=== PATIENT | female | born 1980 | race Two or more races ===

== ENCOUNTER 2016-11-20 17:34 | Emergency (ER) | payer OTHER ==
[~2016-11-20 17:34] MED LIST: ACETAMINOPHEN-1 EAC1 ORAL; AMITRIPTYLINE25 MG ORAL; AMLODIPINE BESYL5 MG ORAL; AMLODIPINE BESYL5 MG PO; AMOXICILLIN500 MG ORAL; ATARAX25 MG ORAL; BENADRYL25 M3 PO; BENAZEPRIL HCL10 MG ORAL; BENAZEPRIL HCL20 MG ORAL; CEPHALEXIN500 MG ORAL; CIPRO500 MG PO; CIPROFLOXACIN500 M2 ORAL; CYCLOBENZAPRINE10 MG ORAL; DIFLUCAN150 MG PO; EASY COMFORT I1 EAC4 MC; EASY TOUCH MC; ELIMITE 5% CREA60 GM EXT; FIORICET1 EA PO; FLUCONAZOLE150 MG ORAL; GABAPENTIN300 MG ORAL; GABAPENTIN600 MG ORAL; HUMALOG100 UNIT/1 SUBQ; HUMALOG100 UNIT/2 SQ; HUMALOG100 UNIT/3 SUBQ; HUMALOG100 UNIT/4 SUBQ; HUMULIN N100 UNIT/1 SUBQ; IBUPROFEN600 MG ORAL; IBUPROFEN600 MG PO; INSULIN SYRING MC; KEFLEX500 MG ORAL; KENALOG 0.1% CR15 GM APPLIC; LANTUS SOL100 UNIT/1 SUBQ; LANTUS5 UNITS SUBQ; LORATADINE10 M1 PO; MEDROL DOSEPAK4 MG ORAL; METROGEL60 GM TP; METRONIDAZOLE500 MG ORAL; MICONAZOLE 31 EACH VG; NEURONTIN100 MG ORAL; NEXIUM40 MG ORAL; NORVASC5 MG ORAL; NOVOLIN N100 UNIT/1 SUBQ; NOVOLIN N100 UNIT/2 SQ; NOVOLIN R100 UNIT/1 SUBQ; OFLOXACIN10 ML OP; OMEPRAZOLE20 M2 ORAL; PEPTO-BISMOL262 M1 PO; PHENERGAN/CODE120 ML PO; PLAQUENIL200 MG ORAL; PRILOSEC20 MG ORAL; ROBAXIN-750750 MG PO; SIMVASTATIN10 MG ORAL; SIMVASTATIN20 MG ORAL; TAMIFLU75 MG PO; [UNRECOGNIZED DRUG - OTHER]; [UNRECOGNIZED DRUG - OTHER] MC; [UNRECOGNIZED DRUG - SUPPLY]
--- NOTE | 2016-11-25 08:20 | Emergency Room Report ---
History of Present Illness General Chief Complaint: To Be Triaged Present Illness HPI The patient left without being seen. Allergies: Coded Allergies: No Known Allergies (Unverified , 08/08/12) Nursing Documentation-PMH Hx Cardiac Problems: No Hx Hypertension: Yes Hx Pacemaker: No Hx Asthma: No Hx COPD: No Hx Diabetes: Yes Hx Cancer: No Hx Gastrointestinal Problems: Yes - GERD Hx Dialysis: No Hx Neurological Problems: No Hx Cerebrovascular Accident: No Hx Seizures: No Hx Headaches: Yes Medical Decision Making Diagnostic Impression: Primary Impression: Encounter for generalized patient complaints Disposition: LEFT W/OUT BEING SEEN Condition: Unknown Referrals: [facility],REFERRING (PCP) Pacheco Canas Nov 25, 2016 08:20
== END 2016-11-20 20:02 | disposition left against medical advice (07) ==
LOC: EMR 20:02
DX: R12 Heartburn (principal); Z53.21 Procedure and treatment not carried out due to patient leaving prior to being seen by health care provider

== ENCOUNTER 2017-04-15 15:47 | Emergency (ER) | payer OTHER ==
[~2017-04-15] VITALS: Ht 152.4 cm; Wt 72.6 kg
[2017-04-15 15:49] VITALS: BP 140/86
[2017-04-15] MEDS ORDERED: ANTI-ITCH28 G1 TP (16:01)
[2017-04-15 16:09] VITALS: BP 138/89
--- NOTE | 2017-04-15 17:57 | Emergency Room Report ---
History of Present Illness General Chief Complaint: Skin Rash/Abscess Source: Patient Present Illness HPI 37YOF walk-in with 1 week of bilateral arm and upper chest "heat rash." Patient states "Bernadette been driving more these days and the sun hit all these exposed areas." Associated with some itch, shes been scratching. Denies blisters, fever/ chills. Denies new soap, detergent, new pets. Allergies: Coded Allergies: No Known Allergies (Unverified , 08/08/12) Patient History Past Medical History: none Past Surgical History: none Pertinent Family History: none Social History: Denies: alcohol use, drug use, smoking Last Menstrual Period: last month Now: No Immunizations: UTD Reviewed Nursing Documentation: PMH: Agreed, PSxH: Agreed Nursing Documentation-PMH Past Medical History: No History, Except For Hx Cardiac Problems: No Hx Hypertension: Yes Hx Pacemaker: No Hx Asthma: No Hx COPD: No Hx Diabetes: Yes Hx Cancer: No Hx Gastrointestinal Problems: Yes - GERD Hx Dialysis: No Hx Neurological Problems: No Hx Cerebrovascular Accident: No Hx Seizures: No Hx Headaches: Yes Review of Systems All Other Systems: negative except mentioned in HPI Physical Exam Vital Signs Date Time Temp Pulse Resp B/P Pulse Ox O2 Delivery O2 Flow Rate FiO2 04/15/17 15:49 98.4 94 18 140/86 98 Room Air Sp02 EP Interpretation: reviewed, normal General Appearance: normal inspection, well appearing, no apparent distress, alert, GCS 15, non-toxic Head: normocephalic, atraumatic Eyes: bilateral eye EOMI, bilateral eye PERRL ENT: normal ENT inspection, hearing grossly normal, normal voice Neck: normal inspection, full range of motion, supple, no bony tend Respiratory: normal inspection, lungs clear, normal breath sounds, no respiratory distress, no retraction, no wheezing Cardiovascular #1: regular rate, rhythm, no edema Gastrointestinal: normal inspection, normal bowel sounds, non tender, soft, no guarding, no hernia Genitourinary: no CVA tenderness Musculoskeletal: normal inspection, back normal, normal range of motion, Jose M' s Sign negative Neurologic: normal inspection, alert, oriented x3, responsive, neurosurgery physician III-XII nml as tested, motor strength/tone normal, speech normal Psychiatric: normal inspection, judgement/insight normal, mood/affect normal Skin: normal inspection, other - Bilateral upper extremity and upper chest areas of papules without erythema, assoc with excoriations. No blistering Lymphatic: normal inspection Medical Decision Making Diagnostic Impression: Primary Impression: Rash and other nonspecific skin eruption Additional Impression: [place] ER Course Advised skin protection - clothing or sunblock when driving Rx low dose topical steroid PMD followup as needed DC home Last Vital Signs Date Time Temp Pulse Resp B/P Pulse Ox O2 Delivery O2 Flow Rate FiO2 04/15/17 16:09 98.3 91 17 138/89 99 Room Air Status: improved Disposition: HOME, SELF-CARE Condition: Improved Scripts Hydrocortisone 2% Cream (ANTI-ITCH 2% CREAM) Y Cr 28 GM TP TID for 7 Days, #1 UNIT Prov: THEODORE RODRIGUEZ M.D. 04/15/17 Referrals: [facility] (PCP) Patient Instructions: Rash Additional Instructions: - Keep area exposed to sun COVERED while driving or wear sunscreen, even in car - Apply topical hydrocortisone cream to areas of rash as needed THEODORE RODRIGUEZ M.D. April 15, 2017 17:57
== END 2017-04-15 16:09 | disposition home or self-care (01) ==
LOC: EMR 15:59
DX: R21 Rash and other nonspecific skin eruption (principal); L74.3 Miliaria, unspecified; I10 Essential (primary) hypertension; E11.9 Type 2 diabetes mellitus without complications; K21.9 Gastro-esophageal reflux disease without esophagitis; Z86.69 Personal history of other diseases of the nervous system and sense organs
CPT/HCPCS: 99283

== ENCOUNTER 2017-04-29 13:43 | Emergency (ER) | payer OTHER ==
[~2017-04-29] VITALS: Ht 152.4 cm; Wt 72.6 kg
[~2017-04-29 13:43] MED LIST changes: +ANTI-ITCH28 G1 TP
[2017-04-29 13:56] VITALS: BP 131/81
[2017-04-29] MEDS ORDERED: PRILOSEC10 M1 ORAL (13:58)
[2017-04-29] MEDS ORDERED: PEPCID AC20 M2 PO (13:58)
--- NOTE | 2017-04-29 14:00 | Emergency Room Report ---
History of Present Illness General Chief Complaint: Medication Refill Source: Patient Present Illness HPI 37 y/o female c/o medication refill for her acid reflux. She says she has had acid reflux for one year and has been evaluated by urea prepped us from her primary which was negative. Patient has prescription for omeprazole and states that she needs medication refill for her heartburn medication. Patient states that she had missed work because her acid reflux as severe today and is requesting work note. Patient denies any GI bleeding. States that cause of her heartburn is due to eating jalapenos with diagnosis of gastritis by PCP. Denies any current n/v/f/c/d, back pain, neck pain, photophobia, phonophobia, CP , SOB or headache. Allergies: Coded Allergies: No Known Allergies (Unverified , 08/08/12) Patient History Past Medical History: see triage record Past Surgical History: none Pertinent Family History: none Last Menstrual Period: 04/28/17 Now: No Immunizations: UTD Reviewed Nursing Documentation: PMH: Agreed, PSxH: Agreed Nursing Documentation-PMH Past Medical History: No History, Except For Hx Cardiac Problems: No Hx Hypertension: Yes Hx Pacemaker: No Hx Asthma: No Hx COPD: No Hx Diabetes: Yes Hx Cancer: No Hx Gastrointestinal Problems: Yes - GERD Hx Dialysis: No Hx Neurological Problems: No Hx Cerebrovascular Accident: No Hx Seizures: No Hx Headaches: Yes Review of Systems All Other Systems: negative except mentioned in HPI Physical Exam Vital Signs Date Time Temp Pulse Resp B/P Pulse Ox O2 Delivery O2 Flow Rate FiO2 04/29/17 13:50 97.7 81 16 131/81 100 Room Air Sp02 EP Interpretation: reviewed, normal General Appearance: no apparent distress, alert, GCS 15, non-toxic Head: normocephalic, atraumatic Eyes: bilateral eye normal inspection ENT: normal ENT inspection Respiratory: chest non-tender, lungs clear, normal breath sounds, speaking full sentences Cardiovascular #1: regular rate, rhythm, no edema Gastrointestinal: soft, tenderness - LUQ Musculoskeletal: normal inspection, gait/station normal Neurologic: alert, oriented x3, responsive, motor strength/tone normal, sensory intact, speech normal Skin: normal color, no rash, warm/dry, well hydrated Medical Decision Making PA Attestation Dr. Canas is my supervising physician with whom patient management has been discussed with. Diagnostic Impression: Primary Impression: Encounter for medication refill Additional Impressions: Gastritis Qualified Codes: K29.30 - Chronic superficial gastritis without bleeding Chronic GERD ER Course Pt. presents to the ED c/o med refill for abd pain Ddx considered but are not limited to viral syndrome, , appendicitis, diverticulitis, constipation, gastroenteritis, abdominal hernia, pancreatitis, cholecystitis, nephrolithiasis, and ovarian torsion. Vital signs: are WNL, pt. is afebrile H&PE are most consistent with Gastritis with acid reflux ORDERS: none required at this time, the diagnosis is clinical ED INTERVENTIONS: none required at this time. DISCHARGE: At this time pt. is stable for d/c to home. Will provide printed patient care instructions, and any necessary prescriptions. Care plan and follow up instructions have been discussed with the patient prior to discharge. Chest X-Ray Diagnostic Results Chest X-Ray Ordered: No Last Vital Signs Date Time Temp Pulse Resp B/P Pulse Ox O2 Delivery O2 Flow Rate FiO2 04/29/17 13:50 97.7 81 16 131/81 100 Room Air Status: unchanged Disposition: HOME, SELF-CARE Condition: Stable Scripts Famotidine (PEPCID AC) 20 Mg Tablet 20 MG PO DAILY, #14 TAB Prov: SABRY,TAMEEM P.A. 04/29/17 Omeprazole Magnesium (PRILOSEC) 10 Mg Suspdr.pkt 20 MG ORAL DAILY for 30 Days, #30 CAP Prov: SABRY,TAMEEM P.A. 04/29/17 Patient Instructions: Gastritis, Adult, Medicine Refill at the Emergency Department Additional Instructions: Patient advised to follow up with PCP regarding symptoms. Advised patient to raise the head of your bed by 6 to 8 inches (for example, by putting blocks of wood under 2 legs of the bed or a Styrofoam wedge under the mattress). Avoid foods that make your symptoms worse (examples include coffee, chocolate, alcohol , peppermint, and fatty foods). Cut down on the amount of alcohol you drink. Stop smoking, if you smoke. Eat a bunch of small meals each day, rather than 2 or 3 big meals. Avoid lying down for 3 hours after a meal Antacids and surface acting agents can relieve mild symptoms, but they work only for a short time. Histamine blockers are stronger and last longer than antacids and surface acting agents. You can buy antacids, proton pump inhibitors and most histamine blockers without a prescription. LUCERO DONOHUE Apr 29, 2017 14:00
== END 2017-04-29 14:10 | disposition home or self-care (01) ==
LOC: EMR 14:00
DX: Z76.0 Encounter for issue of repeat prescription (principal); K29.30 Chronic superficial gastritis without bleeding; K21.9 Gastro-esophageal reflux disease without esophagitis; I10 Essential (primary) hypertension; E11.9 Type 2 diabetes mellitus without complications
CPT/HCPCS: 99284

== ENCOUNTER 2017-07-05 17:28 | Emergency (ER) | payer OTHER ==
[~2017-07-05] VITALS: Ht 152.4 cm; Wt 71.2 kg
[~2017-07-05 17:28] MED LIST changes: +PEPCID AC20 M2 PO; +PRILOSEC10 M1 ORAL
[2017-07-05] MEDS ORDERED: INSULIN SYRING1 EA11 MC (18:07)
[2017-07-05] MEDS ORDERED: NOVOLIN N100 UNIT/1 SUBQ (18:07)
[2017-07-05] MEDS ORDERED: HUMALOG 75/255 UNIT1 SUBQ ×2 (18:07)
[2017-07-05 18:15] VITALS: BP 122/74
--- NOTE | 2017-07-05 19:39 | Emergency Room Report ---
History of Present Illness General Chief Complaint: Medication Refill Source: Patient Present Illness HPI The patient is a 37-year-old female presenting for diabetes medication refill. She states that she was moving and lost her insulin. She states that she has enough medication for the next 10 days and does not have an appointment with her primary doctor for a month. She states that she has been doing well with her current insulin regimen. She denies any pain or other symptoms Allergies: Coded Allergies: No Known Allergies (Unverified , 08/08/12) Patient History Past Medical History: see triage record Pertinent Family History: none Reviewed Nursing Documentation: PMH: Agreed, PSxH: Agreed Nursing Documentation-PMH Hx Cardiac Problems: No Hx Hypertension: Yes Hx Pacemaker: No Hx Asthma: No Hx COPD: No Hx Diabetes: Yes Hx Cancer: No Hx Gastrointestinal Problems: Yes - GERD Hx Dialysis: No Hx Neurological Problems: No Hx Cerebrovascular Accident: No Hx Seizures: No Hx Headaches: Yes Review of Systems All Other Systems: negative except mentioned in HPI Physical Exam Vital Signs Date Time Temp Pulse Resp B/P Pulse Ox O2 Delivery O2 Flow Rate FiO2 07/05/17 17:34 98.1 93 20 131/80 97 Room Air Sp02 EP Interpretation: reviewed, normal General Appearance: no apparent distress, alert, GCS 15, non-toxic Head: normocephalic, atraumatic Eyes: bilateral eye PERRL, bilateral eye normal inspection ENT: hearing grossly normal, normal pharynx, no angioedema, normal voice Neck: full range of motion, supple/symm/no masses Respiratory: chest non-tender, lungs clear, normal breath sounds, speaking full sentences Cardiovascular #1: regular rate, rhythm, no edema Gastrointestinal: normal bowel sounds, non tender, soft, non-distended, no guarding, no rebound Neurologic: alert, oriented x3, responsive, motor strength/tone normal, sensory intact, speech normal Psychiatric: judgement/insight normal, memory normal, mood/affect normal, no suicidal/homicidal ideation Skin: normal color, no rash, warm/dry, well hydrated Medical Decision Making PA Attestation Dr. Mohr is my supervising physician. Patient management was discussed with my supervising physician Diagnostic Impression: Primary Impression: DM ER Course The patient is a 37-year-old female presenting for diabetes medication refill Differential diagnoses considered but not limited to: Well controlled diabetes, hypoglycemia, hyperglycemia Physical exam unremarkable Refilled medications given she will followup with her primary doctor. ER precautions given Last Vital Signs Date Time Temp Pulse Resp B/P Pulse Ox O2 Delivery O2 Flow Rate FiO2 07/05/17 18:15 98.1 71 19 122/74 98 Room Air Status: improved Disposition: HOME, SELF-CARE Condition: Improved Scripts Syringe & Needle,Insulin,1 Ml (INSULIN SYRINGE) 1 Each Disp.syrin 1 EACH , #100 Prov: ROSINA CROCKERA. 07/05/17 Nph, Human Insulin Isophane* (NOVOLIN N*) 100 Unit/1 Ml Vial 26 UNITS SUBQ BID for 30 Days, VIAL Prov: ROSINA CROCKER P.A. 07/05/17 Insulin Human Lispro (Humalog) 100 Unit/1 Ml Vial 22 UNITS SUBQ BEDTIME for 30 Days, UNIT 0 Refills Prov: ROSINA CROCKER P.A. 07/05/17 Insulin Human Lispro (Humalog) 100 Unit/1 Ml Vial 21 UNITS SUBQ BEFORE BREAKFAST for 30 Days, UNIT 0 Refills Prov: ROSINA CROCKER P.A. 07/05/17 Referrals: [facility] (PCP) Patient Instructions: Medicine Refill at the Emergency Department Additional Instructions: I discussed my findings with the patient. All questions and concerns have been answered. Treatment and medication compliance have been addressed. I advised the patient that they need to follow up with PMD in 3-5 days. Return to ED if symptoms worsen, new symptoms arise, or if needed for any reason. Patient verbalized understanding of discharge instructions. ROSINA CROCKER Jul 05, 2017 19:39
== END 2017-07-05 18:16 | disposition home or self-care (01) ==
LOC: EMR 17:34
DX: Z76.0 Encounter for issue of repeat prescription (principal); E11.9 Type 2 diabetes mellitus without complications; I10 Essential (primary) hypertension
CPT/HCPCS: 99284

== ENCOUNTER 2017-11-16 15:37 | Emergency (ER) | payer OTHER ==
[~2017-11-16] VITALS: Ht 152.4 cm; Wt 81.6 kg
[~2017-11-16 15:37] MED LIST changes: +HUMALOG 75/255 UNIT1 SUBQ; +INSULIN SYRING1 EA11 MC
[2017-11-16] MEDS ORDERED: OFLOXACIN5 ML OTIC (15:55)
[2017-11-16] MEDS ORDERED: TAMIFLU75 MG ORAL (15:55)
[2017-11-16 16:18] VITALS: BP 133/75
--- NOTE | 2017-11-18 08:12 | Emergency Room Report ---
History of Present Illness General Chief Complaint: Flu Like Symptoms Source: Patient Present Illness HPI Patient presents with son who had some similar complaints Patient had also complaining of left ear pain Increased malaise Mild runny nose Denies any neck pain or photophobia Denies any chest pain or shortness of breath Discomfort is 4/10 Patient feels increased pressure Allergies: Coded Allergies: No Known Allergies (Unverified , 08/08/12) Patient History Past Medical History: see triage record Pertinent Family History: none Reviewed Nursing Documentation: PMH: Agreed, PSxH: Agreed Nursing Documentation-PMH Hx Cardiac Problems: No Hx Hypertension: Yes Hx Pacemaker: No Hx Asthma: No Hx COPD: No Hx Diabetes: Yes Hx Cancer: No Hx Gastrointestinal Problems: Yes - GERD Hx Dialysis: No Hx Neurological Problems: No Hx Cerebrovascular Accident: No Hx Seizures: No Hx Headaches: Yes Review of Systems All Other Systems: negative except mentioned in HPI Physical Exam Vital Signs Date Time Temp Pulse Resp B/P (MAP) Pulse Ox O2 Delivery O2 Flow Rate FiO2 11/16/17 15:45 99.0 103 20 148/88 98 Room Air Sp02 EP Interpretation: reviewed, normal General Appearance: well appearing, no apparent distress Head: normocephalic, atraumatic Eyes: bilateral eye PERRL, bilateral eye EOMI ENT: hearing grossly normal, normal pharynx, uvula midline, other - Left ear canal shows erythema and irritation Neck: full range of motion, supple, no meningismus, no bony tend Respiratory: lungs clear, normal breath sounds, no rhonchi, no respiratory distress, no retraction, no accessory muscle use Cardiovascular #1: normal peripheral pulses, regular rate, rhythm, no edema, no gallop, no JVD, no murmur Gastrointestinal: normal bowel sounds, non tender, soft, no mass, no organomegaly, non-distended, no guarding, no hernia, no pulsatile mass, no rebound Genitourinary: no CVA tenderness Musculoskeletal: normal inspection Neurologic: oriented x3, responsive, repairer helper III-XII nml as tested, motor strength/ tone normal, sensory intact Psychiatric: mood/affect normal Skin: normal color, no rash, warm/dry, palpation normal Lymphatic: normal inspection, no adenopathy Medical Decision Making Diagnostic Impression: Primary Impression: Influenza-like symptoms Additional Impression: Left otitis externa ER Course Patient presents with findings with possible flulike symptoms However does also have erythema to the left canal raising concern of otitis externa patient is treated And requires close followup Last Vital Signs Date Time Temp Pulse Resp B/P (MAP) Pulse Ox O2 Delivery O2 Flow Rate FiO2 11/16/17 16:18 99.0 66 18 133/75 100 Room Air Status: improved Disposition: HOME, SELF-CARE Condition: Stable Scripts Oseltamivir Phosphate (Tamiflu) 75 Mg Capsule 75 MG ORAL TWICE A DAY for 5 Days, CAP Prov: JAYLEN MANUEL D.O. 11/16/17 Ofloxacin (OFLOXACIN) 5 Ml Drops 5 ML OTIC TID for 5 Days, ML Prov: JAYLEN MANUEL D.O. 11/16/17 Referrals: [facility] ([facility]P) Patient Instructions: Influenza, Adult, Yzoo-[id number], Ear Drainage, Easy-to- Read Additional Instructions: Patient is provided with the discharge instructions notified to follow up with primary doctor in the next 2-3 days otherwise return to the er with any worsening symptoms. Please note that this report is being documented using [employer] technology. This can lead to erroneous entry secondary to incorrect interpretation by the dictating instrument. JAYLEN MANUEL D.O. Nov 18, 2017 08:12
== END 2017-11-16 16:18 | disposition home or self-care (01) ==
LOC: EMR 16:03
DX: J11.1 Influenza due to unidentified influenza virus with other respiratory manifestations (principal); H60.92 Unspecified otitis externa, left ear; I10 Essential (primary) hypertension; E11.9 Type 2 diabetes mellitus without complications; K21.9 Gastro-esophageal reflux disease without esophagitis; R51 Headache
CPT/HCPCS: 99284

== ENCOUNTER 2017-12-16 16:12 | Emergency (ER) | payer OTHER ==
[~2017-12-16] VITALS: Ht 152.4 cm; Wt 72.6 kg
[~2017-12-16 16:12] MED LIST changes: +OFLOXACIN5 ML OTIC; +TAMIFLU75 MG ORAL
[2017-12-16 17:24] VITALS: BP 164/86
[2017-12-16] MEDS ORDERED: HUMALOG100 UNIT/4 SUBQ ×2 (17:25)
--- NOTE | 2017-12-16 17:37 | Emergency Room Report ---
History of Present Illness General Chief Complaint: Upper Respiratory Illness Source: Patient Present Illness HPI 37-year-old female presents to the emergency department complaining of 9/10 in severity right ear pain x2 days. Patient reports subjective fevers and chills she denies discharge from the ear she does report Q-tip use. Patient reports ear pain is now causing headache. Denies lethargy, neck stiffness, irritability , photophobia dehydration, N/V/D. Denies Cp, Palpitations, LOC, AMS, seizures, paresthesias, or changes in Hearing or vision, no Sudden severe SAENZ Allergies: Coded Allergies: No Known Allergies (Unverified , 08/08/12) Patient History Past Medical History: see triage record Past Surgical History: none Pertinent Family History: none Last Menstrual Period: One week ago Now: No Immunizations: UTD Reviewed Nursing Documentation: PMH: Agreed, PSxH: Agreed Nursing Documentation-PMH Hx Cardiac Problems: No Hx Hypertension: Yes Hx Pacemaker: No Hx Asthma: No Hx COPD: No Hx Diabetes: Yes Hx Cancer: No Hx Gastrointestinal Problems: Yes - GERD Hx Dialysis: No Hx Neurological Problems: No Hx Cerebrovascular Accident: No Hx Seizures: No Hx Headaches: Yes Review of Systems All Other Systems: negative except mentioned in HPI Physical Exam Vital Signs Date Time Temp Pulse Resp B/P (MAP) Pulse Ox O2 Delivery O2 Flow Rate FiO2 12/16/17 16:18 98.8 88 16 164/86 98 Room Air Sp02 EP Interpretation: reviewed, normal General Appearance: no apparent distress, alert, GCS 15, non-toxic Head: normocephalic, atraumatic Eyes: bilateral eye normal inspection, bilateral eye PERRL ENT: hearing grossly normal, normal voice, uvula midline, moist mucus membranes , nasal congestion, other - Right TM is erythematous and bulging small spontaneous rupture of the TM at the 9 o 'clock position. Neck: full range of motion, no meningismus, no bony tend Respiratory: chest non-tender, lungs clear, normal breath sounds, speaking full sentences Cardiovascular #1: regular rate, rhythm Gastrointestinal: normal bowel sounds, non tender, soft Rectal: deferred Genitourinary: normal inspection Musculoskeletal: back normal, gait/station normal, normal range of motion, non- tender Neurologic: alert, oriented x3, responsive, motor strength/tone normal, sensory intact, normal gait, speech normal, grossly normal Psychiatric: judgement/insight normal Skin: normal color, no rash, warm/dry, well hydrated, other - no evidence of mastoiditis Lymphatic: no adenopathy Medical Decision Making PA Attestation Dr. Rico is my supervising physician whom pt. management has been discussed with. Diagnostic Impression: Primary Impression: Otitis media Qualified Codes: H66.011 - Acute suppurative otitis media with spontaneous rupture of ear drum, right ear ER Course 37-year-old female presents to the emergency department complaining of 9/10 in severity right ear pain x2 days. Patient reports subjective fevers and chills she denies discharge from the ear she does report Q-tip use. Patient reports ear pain is now causing headache. Denies lethargy, neck stiffness, irritability , photophobia dehydration, N/V/D. Denies Cp, Palpitations, LOC, AMS, seizures, paresthesias, or changes in Hearing or vision, no Sudden severe SAENZ Ddx considered but are not limited to OM, OE, mastoiditis, TM perforation, FB Vital signs: are WNL, pt. is afebrile H&PE are most consistent with otitis media with small spontaneous rupture of the TM at the 9 o 'clock position. ORDERS: none required at this time, the diagnosis is clinical -OTOSCOPY: Right TM is erythematous and bulging small spontaneous rupture of the TM at the 9 o 'clock position. ED INTERVENTIONS: None required at this time. DISCHARGE: At this time pt. is stable for d/c to home. With PO ABX. Will provide printed patient care instructions, and any necessary prescriptions. Care plan and follow up instructions have been discussed with the patient prior to discharge. Last Vital Signs Date Time Temp Pulse Resp B/P (MAP) Pulse Ox O2 Delivery O2 Flow Rate FiO2 12/16/17 17:24 88 16 Room Air 12/16/17 17:24 98.8 164/86 98 Disposition: HOME, SELF-CARE Condition: Stable Scripts Pseudoephedrine Hcl* (NEXAFED*) 30 Mg Tablet 30 MG ORAL Q6H Y for congestion for 5 Days, #20 TAB Prov: Aida Bhatt P.A. 12/16/17 Acetaminophen* (TYLENOL EXTRA STRENGTH*) 500 Mg Tablet 500 MG ORAL Q6H Y for Mild Pain/Temp > 100.5, #30 TAB 0 Refills Prov: Aida Bhatt 12/16/17 Amoxicillin/Potassium Clav 875-125* (AUGMENTIN 875-125 TABLET*) 1 Each Tablet 1 TAB ORAL TWICE A DAY for 10 Days, #20 TAB Prov: Aida Bhatt 12/16/17 Departure Forms: Return to Work Return to Work Date: Dec 18, 2017 Work Restrictions: None Return to Full Activity: Dec 18, 2017 Patient Instructions: Otitis Media, Adult Additional Instructions: Take medications as directed. Follow up with a Primary Care Provider in 3-5 days, even if your symptoms have resolved. --Please review list of primary care clinics, if you do not already have a primary care provider Return sooner to ED if new symptoms occur, or current symptoms become worse. - Please note that this Emergency Department Report was dictated using [employer]ishing rod marker technology software, occasionally this can lead to erroneous entry secondary to interpretation by the dictation equipment. Aida Bhatt Dec 16, 2017 17:37
[2017-12-16] MEDS ORDERED: AUGMENTIN 875-1 EAC1 ORAL (17:39)
[2017-12-16] MEDS ORDERED: TYLENOL EXTRA500 MG ORAL (17:39)
[2017-12-16] MEDS ORDERED: NEXAFED30 MG ORAL (17:40)
[2017-12-16 17:51] VITALS: BP 164/86
== END 2017-12-16 17:51 | disposition home or self-care (01) ==
LOC: EMR 16:43
DX: H66.011 Acute suppurative otitis media with spontaneous rupture of ear drum, right ear (principal); E11.9 Type 2 diabetes mellitus without complications; I10 Essential (primary) hypertension; K21.9 Gastro-esophageal reflux disease without esophagitis
CPT/HCPCS: 99283

== ENCOUNTER 2018-02-11 17:01 | Emergency (ER) | payer OTHER ==
[~2018-02-11] VITALS: Ht 152.4 cm; Wt 74.8 kg
[~2018-02-11 17:01] MED LIST changes: +AUGMENTIN 875-1 EAC1 ORAL; +NEXAFED30 MG ORAL; +TYLENOL EXTRA500 MG ORAL
[2018-02-11] MEDS ORDERED: FLONASE ALLERG9.9 ML NS (17:42)
[2018-02-11] MEDS ORDERED: PSEUDOEPHEDRINE30 MG PO (17:42)
[2018-02-11] MEDS ORDERED: TYLENOL EXTRA500 MG ORAL (17:42)
--- NOTE | 2018-02-11 17:42 | Emergency Room Report ---
History of Present Illness General Chief Complaint: Flu Like Symptoms Source: Patient Present Illness HPI 37 yo female presents to ER complaining of fever and nasal congestion. Patient reports facial pain worse when leaning forward. Reports taking Advil. Reports subjective fever and chills; no fever in ER at this time. Reports dry cough, no hemoptysis. Reports hx of rhinorrhea during this time. Reports sick contacts. Denies hx of asthma or [place] or arrhythmia. Denies chest pain, SOB, abdominal pain, dysuria, hematuria. Denies vision changes, vision loss, hearing loss, tinnitus, neck pain, tooth pain. Allergies: Coded Allergies: No Known Allergies (Unverified , 08/08/12) Patient History Past Medical History: see triage record Last Menstrual Period: last month Now: No Reviewed Nursing Documentation: PMH: Agreed; PSxH: Agreed Nursing Documentation-PMH Past Medical History: No History, Except For Hx Cardiac Problems: No Hx Hypertension: Yes Hx Pacemaker: No Hx Asthma: No Hx COPD: No Hx Diabetes: Yes Hx Cancer: No Hx Gastrointestinal Problems: Yes - GERD Hx Dialysis: No Hx Neurological Problems: No Hx Cerebrovascular Accident: No Hx Seizures: No Hx Headaches: Yes Review of Systems All Other Systems: negative except mentioned in HPI Physical Exam Vital Signs Date Time Temp Pulse Resp B/P (MAP) Pulse Ox O2 Delivery O2 Flow Rate FiO2 02/11/18 17:09 99.5 96 20 133/75 95 Room Air 99.5 Sp02 EP Interpretation: reviewed, normal General Appearance: well appearing, no apparent distress, alert, GCS 15 Head: normocephalic, atraumatic, other - maxillary sinuses TTP Eyes: bilateral eye normal inspection, bilateral eye PERRL ENT: hearing grossly normal, normal pharynx, no angioedema, normal voice, TMs + canals normal, uvula midline, moist mucus membranes, nasal congestion Neck: full range of motion Respiratory: lungs clear, normal breath sounds, no rhonchi, no respiratory distress, no accessory muscle use, no wheezing, speaking full sentences Cardiovascular #1: regular rate, rhythm, no edema Gastrointestinal: non tender, soft, no mass, non-distended, no guarding, no rebound Genitourinary: no CVA tenderness Musculoskeletal: back normal, digits/nails normal, gait/station normal, normal range of motion, non-tender Neurologic: alert, oriented x3, responsive, motor strength/tone normal, sensory intact Skin: no rash Lymphatic: no adenopathy Medical Decision Making PA Attestation Dr. Canas is my supervising Physician whom patient management has been discussed with. Diagnostic Impression: Primary Impression: Sinusitis ER Course Pt presents to ED c/o fever, cough, and rhinorrhea. DDX considered but are not limited to influenza, viral URI, pneumonia, strep throat, rhinitis, sinusitis, otitis media. VITAL SIGNS are WNL, patient is afebrile. Temperature is 99.7. ORDERS: None required at this time, diagnosis is clinical. ER COURSE: PE TTP of maxillary sinuses, pain increases with leaning forward, nasal congestion. Lungs clear to auscultation, non-erythematous TMs bilaterally, no tonsillar exudates. Denies vision changes, ear pain. Will treat for sinusitis. Do not use Flonase longer than 3 days, can lead to rhinitis medicamentosa. DISCHARGE: At this time pt is stable for d/c to home. Patient reports being in no acute distress currently. Patient will be treated for probable sinus congestion and patient agrees with treatment plan. -Rx given for Tylenol for fever/pain. -Rx given for Sudafed for sinus congestion. -Rx provided for Flonase. Patient to take medications as instructed Will provide with patient care instructions and any necessary prescriptions. Care plan and follow-up instructions provided. Patient instructed to follow-up with primary care provider in 3 - 5 days and discuss referral at that time. Patient questions asked and answered. ER precautions given. Patient instructed to return to ER immediately for any new or worsening of symptoms including but not limited to fever, facial weakness , difficulty speaking, difficulty breathing, difficulty swallowing. Last Vital Signs Date Time Temp Pulse Resp B/P (MAP) Pulse Ox O2 Delivery O2 Flow Rate FiO2 02/11/18 17:09 99.5 96 20 133/75 95 Room Air 99.5 Disposition: HOME, SELF-CARE Condition: Stable Scripts Fluticasone Propionate (Flonase Allergy Relief) 9.9 Ml Creole.susp 9.9 ML NS BID for 3 Days, SPR Prov: Andrea Harden.ADavid 02/11/18 Acetaminophen* (TYLENOL EXTRA STRENGTH*) 500 Mg Tablet 500 MG ORAL Q8H PRN for Prn Headache/Temp > 101, #30 TAB 0 Refills Prov: Andrea Harden 02/11/18 Pseudoephedrine Hcl* (SUDAFED*) 30 Mg Tablet 30 MG PO Q6H for 7 Days, #24 TAB Prov: Andrea Harden 02/11/18 Patient Instructions: Sinusitis, Adult, [id number] Additional Instructions: Followup with primary care provider in 3 -5 days. Take medications as directed. Patient questions asked and answered. ER precautions given, patient instructed to return to ER immediately for any new or worsening of symptoms. Andrea Harden Feb 11, 2018 17:42
[2018-02-11 17:49] VITALS: BP 133/75
== END 2018-02-11 17:49 | disposition home or self-care (01) ==
LOC: EMR 17:41
DX: J32.9 Chronic sinusitis, unspecified (principal); I10 Essential (primary) hypertension; E11.9 Type 2 diabetes mellitus without complications; K21.9 Gastro-esophageal reflux disease without esophagitis
CPT/HCPCS: 99284

== ENCOUNTER 2018-02-13 13:33 | Emergency (ER) | payer OTHER ==
[~2018-02-13] VITALS: Ht 152.4 cm; Wt 73.5 kg
[~2018-02-13 13:33] MED LIST changes: +FLONASE ALLERG9.9 ML NS; +PSEUDOEPHEDRINE30 MG PO
[2018-02-13] MEDS ORDERED: HUMALOG 75/255 UNIT1 SUBQ (13:51)
[2018-02-13] MEDS ORDERED: NOVOLIN N100 UNIT/1 SUBQ (13:51)
[2018-02-13 13:53] VITALS: BP 129/74
--- NOTE | 2018-02-13 14:26 | Emergency Room Report ---
History of Present Illness General Chief Complaint: General Complaint Source: Patient Present Illness HPI 38-year-old female presents to the emergency department complaining of 10 out of 10 in severity progressive sore throat with changes in her voice since Sunday. Patient states she was seen here in the ER and Sunday and diagnosed with sinusitis. She she reports she continues to have nasal congestion and facial pressure however her throat has significantly progressed and prompted her to come to the ED. She states pain is exacerbated upon swallowing or coughing. She denies rash, swelling of the lips or tongue, or recent choking episode. Denies CP, Palpitations, LOC, AMS, dizziness, Changes in Vision, Sensation, paresthesias, or a sudden severe headache. Allergies: Coded Allergies: No Known Allergies (Unverified , 08/08/12) Patient History Past Medical History: see triage record Past Surgical History: none Pertinent Family History: none Last Menstrual Period: 01/07/18 Now: No - Irregular period Reviewed Nursing Documentation: PMH: Agreed; PSxH: Agreed Nursing Documentation-PMH Hx Cardiac Problems: No Hx Hypertension: Yes Hx Pacemaker: No Hx Asthma: No Hx COPD: No Hx Diabetes: Yes Hx Cancer: No Hx Gastrointestinal Problems: Yes - GERD Hx Dialysis: No Hx Neurological Problems: No Hx Cerebrovascular Accident: No Hx Seizures: No Hx Headaches: Yes Review of Systems All Other Systems: negative except mentioned in HPI Physical Exam Vital Signs Date Time Temp Pulse Resp B/P (MAP) Pulse Ox O2 Delivery O2 Flow Rate FiO2 02/13/18 13:43 99.4 116 17 129/74 94 Room Air 99.3 Sp02 EP Interpretation: reviewed, normal General Appearance: no apparent distress, alert, GCS 15, mild distress Head: normocephalic, atraumatic ENT: hearing grossly normal, normal voice, TMs + canals normal, nasal congestion, tonsillar swelling, pharyngeal erythema Neck: full range of motion Respiratory: lungs clear, normal breath sounds, no rhonchi, no wheezing, speaking full sentences Cardiovascular #1: regular rate, rhythm Musculoskeletal: back normal, gait/station normal, normal range of motion, non- tender Neurologic: alert, oriented x3, responsive, motor strength/tone normal, sensory intact, speech normal, grossly normal Psychiatric: judgement/insight normal Skin: normal color, no rash, warm/dry, well hydrated Medical Decision Making PA Attestation Dr. kuhn is my supervising Physician whom patient management has been discussed with. Diagnostic Impression: Primary Impression: Pharyngitis, acute Qualified Codes: J02.9 - Acute pharyngitis, unspecified ER Course 38-year-old female presents to the emergency department complaining of 10 out of 10 in severity progressive sore throat with changes in her voice since Sunday. Patient states she was seen here in the ER and Sunday and diagnosed with sinusitis. She she reports she continues to have nasal congestion and facial pressure however her throat has significantly progressed and prompted her to come to the ED. She states pain is exacerbated upon swallowing or coughing. She denies rash, swelling of the lips or tongue, or recent choking episode. Denies CP, Palpitations, LOC, AMS, dizziness, Changes in Vision, Sensation, paresthesias, or a sudden severe headache. Ddx considered but are not limited to: pharyngitis, strep, TRANSVERSE ABDOMINAL MUSCLE NURSE, ludwigs angina, URI Vital signs: Tachycardic with a rate of 116 the rest are WNL, pt. is afebrile H&PE are most consistent with: pharyngitis presumed strep. ORDERS: -Lateral Neck X-Ray: WNL ED INTERVENTIONS: -Decadron 8mg IM -Viscous Lidocaine -Tylenol PO DISCHARGE: At this time pt. is stable for d/c to home. Will provide printed patient care instructions, and any necessary prescriptions. Care plan and follow up instructions have been discussed with the patient prior to discharge. Other X-Ray Diagnostic Results Other X-Ray Diagnostic Results : X-Ray ordered: Lateral Neck # of Views/Limited Vs Complete: 2 View Indication: Pain EP Interpretation: Yes PA Xray: Interpretation reviewed, by supervising MD, and agrees with findings. Interpretation: no soft tissue swelling, other - no thumb-print sign, no prevertebral swelling. Impression: No acute disease Electronically Signed by: Aida Bhatt PA-C Last Vital Signs Date Time Temp Pulse Resp B/P (MAP) Pulse Ox O2 Delivery O2 Flow Rate FiO2 02/13/18 13:53 99.3 17 129/74 94 Room Air 99.3 02/13/18 13:43 116 Disposition: HOME, SELF-CARE Condition: Stable Scripts Acetaminophen* (TYLENOL EXTRA STRENGTH*) 500 Mg Tablet 500 MG ORAL Q6H PRN for Mild Pain/Temp > 100.5, #20 TAB 0 Refills Prov: Aida Bhatt 02/13/18 Amoxicillin/Potassium Clav 875-125* (AUGMENTIN 875-125 TABLET*) 1 Each Tablet 1 TAB ORAL TWICE A DAY for 10 Days, #20 TAB Prov: Aida Bhatt 02/13/18 Lidocaine HCl 2% Viscous (Lidocaine HCl 2% Viscous) 100 Ml Solution 15 ML ORAL QID, #120 ML Prov: Aida Bhatt 02/13/18 Patient Instructions: Pharyngitis, [id number] Additional Instructions: Take medications as directed. Follow up with a Primary Care Provider in 3-5 days, even if your symptoms have resolved. --Please review list of primary care clinics, if you do not already have a primary care provider Return sooner to ED if new symptoms occur, or current symptoms become worse. - Please note that this Emergency Department Report was dictated using [employer] abdominal muscle nurse technology software, occasionally this can lead to erroneous entry secondary to interpretation by the dictation equipment. Aida Bhatt Feb 13, 2018 14:26
[2018-02-13] MEDS ORDERED: Lidocaine 2% Visc 15ml soln ORAL ONE (14:30)
[2018-02-13] MEDS ORDERED: Dexamethasone 4mg/ml vial IM ONE (15:00)
[2018-02-13] MEDS ORDERED: TYLENOL EXTRA500 MG ORAL ×2 (15:17→15:26)
[2018-02-13] MEDS ORDERED: AUGMENTIN 875-1 EAC1 ORAL ×2 (15:17→15:26)
[2018-02-13] MEDS ORDERED: LIDOCAINE VISC100 ML ORAL (15:17)
[2018-02-13 15:22] VITALS: BP 157/98
--- NOTE | 2018-02-13 15:43 | Diagnostic Imaging Report ---
Indication: Neck pain Technique: 2 views of the neck with soft tissue technique Comparison: none Findings: No prevertebral soft tissue swelling. No radiopaque foreign body. Normal epiglottis. No hypopharyngeal distention or glottic narrowing. Impression: Negative Findings previously discussed by phone with Dr. Lopez
== END 2018-02-13 15:28 | disposition home or self-care (01) ==
LOC: EMR 14:20
DX: J06.9 Acute upper respiratory infection, unspecified (principal); I10 Essential (primary) hypertension; E11.9 Type 2 diabetes mellitus without complications; K21.9 Gastro-esophageal reflux disease without esophagitis
CPT/HCPCS: 70360; 96372; 99284; J1100

== ENCOUNTER 2018-03-05 12:55 | Emergency (ER) | payer OTHER ==
[~2018-03-05] VITALS: Ht 152.4 cm; Wt 74.4 kg
[~2018-03-05 12:55] MED LIST changes: +LIDOCAINE VISC100 ML ORAL
[2018-03-05] MEDS ORDERED: ASPIRIN81 MG ORAL (13:21)
[2018-03-05 13:31] VITALS: BP 148/81
[2018-03-05 14:40] LABS: BILIRUBIN, URINE NEGATIVE (NEGATIVE); COLOR,URINE PALE YELLOW; GLUCOSE, URINE (UA) NEGATIVE (NEGATIVE); KETONES,URINE NEGATIVE (NEGATIVE); LEUKOCYTE ESTERASE ,URINE NEGATIVE (NEGATIVE); NITRITE,URINE NEGATIVE (NEGATIVE); PH,URINE 6 (4.5-8.0); PROTEIN,URINE 4+ (NEGATIVE); UROBILINOGEN,URINE NORMAL MG/DL (0.0-1.0)
[2018-03-05 14:41] LABS: APPEARANCE,URINE SLIGHTLY CLOUDY
--- NOTE | 2018-03-05 15:25 | Emergency Room Report ---
History of Present Illness General Chief Complaint: Headache Source: Patient Present Illness HPI Patient is a 38-year-old female with controlled diabetes with insulin and controlled hypertension. Patient is here today complaining of sensation of poking in the chest since this morning. Denies chest pain, SOB, palpitation, dizziness, vision changes. Patient certainly mentions that this morning she woke up with right flank pain radiating to left flank. Describes the pain a 2 out of 10 and intermittent. Denies dysuria, urinary frequency, and hematuria , suprapubic pain. Denies fever and chills. Patient also mention that since 10 days ago she's been having unilateral headache. Rating the pain 6 out of 10 not divorce headache of her life. She reports sore throat and intermittent cough with the headache. Patient was on antibiotics 2 weeks ago and took the last dose of antibiotic 2 weeks ago for sore throat. Denies jaw claudication, vision changes, dizziness. Allergies: Coded Allergies: No Known Allergies (Unverified , 08/08/12) Patient History Past Medical History: see triage record Past Surgical History: none Pertinent Family History: none Last Menstrual Period: 03/03/18 Now: No Reviewed Nursing Documentation: PMH: Agreed; PSxH: Agreed Nursing Documentation-PMH Past Medical History: No History, Except For Hx Cardiac Problems: No Hx Hypertension: Yes Hx Pacemaker: No Hx Asthma: No Hx COPD: No Hx Diabetes: Yes Hx Cancer: No Hx Gastrointestinal Problems: Yes - GERD Hx Dialysis: No Hx Neurological Problems: No Hx Cerebrovascular Accident: No Hx Seizures: No Hx Headaches: Yes Review of Systems All Other Systems: negative except mentioned in HPI Physical Exam Vital Signs Date Time Temp Pulse Resp B/P (MAP) Pulse Ox O2 Delivery O2 Flow Rate FiO2 03/05/18 12:59 98.1 92 16 148/81 98 Room Air 98.1 Sp02 EP Interpretation: reviewed, normal General Appearance: no apparent distress, alert, GCS 15, non-toxic Head: normocephalic, atraumatic Eyes: bilateral eye normal inspection, bilateral eye PERRL ENT: hearing grossly normal, normal pharynx, no angioedema, normal voice Neck: full range of motion, supple, supple/symm/no masses Respiratory: chest non-tender, lungs clear, normal breath sounds, no rhonchi, no respiratory distress, no retraction, no accessory muscle use, no wheezing, speaking full sentences Cardiovascular #1: regular rate, rhythm, no edema, no murmur Cardiovascular #2: 2+ carotid (R), 2+ carotid (L), 2+ radial (R), 2+ radial (L) Gastrointestinal: normal bowel sounds, non tender, soft, non-distended, no guarding, no rebound Rectal: deferred Genitourinary: normal inspection, no CVA tenderness Musculoskeletal: back normal, non-tender, other - right maxillary and frontal sinus TTP Neurologic: alert, oriented x3, responsive, motor strength/tone normal, sensory intact, speech normal Psychiatric: judgement/insight normal, memory normal, mood/affect normal, no suicidal/homicidal ideation Skin: normal color, no rash, warm/dry, well hydrated Lymphatic: no adenopathy Medical Decision Making PA Attestation Dr. Mohr is my supervising physician and agrees to course of tx and plan Reaction to Intervention: Improved Diagnostic Impression: Primary Impression: Chest pain Qualified Codes: R07.89 - Other chest pain Additional Impressions: Flank pain Sinusitis Qualified Codes: J01.10 - Acute frontal sinusitis, unspecified ER Course Patient is a 38-year-old female with controlled diabetes with insulin and controlled hypertension. Patient is here today complaining of sensation of poking in the chest since this morning. Denies chest pain, SOB, palpitation, dizziness, vision changes. Patient certainly mentions that this morning she woke up with right flank pain radiating to left flank. Describes the pain a 2 out of 10 and intermittent. Denies dysuria, urinary frequency, and hematuria , suprapubic pain. Denies fever and chills. Patient also mention that since 10 days ago she's been having unilateral headache. Rating the pain 6 out of 10 not divorce headache of her life. She reports sore throat and intermittent cough with the headache. Patient was on antibiotics 2 weeks ago and took the last dose of antibiotic 2 weeks ago for sore throat. Denies jaw claudication, vision changes, dizziness. Ddx considered but are not limited to stroke, renal stone, [place] Vital signs: are WNL, pt. is afebrile H&PE are most consistent with sinusitis, muscle strain ORDERS: chest x-ray and EKG. both within normal limits. UA was ordered appearing cloudy. No sign of infection. minimal blood and UA. Patient mentions that she just finished her menses. ED INTERVENTIONS: None required at this time. DISCHARGE: At this time pt. is stable for d/c to home. Will provide printed patient care instructions, and any necessary prescriptions. Care plan and follow up instructions have been discussed with the patient prior to discharge. Laboratory Tests Test 03/05/18 14:20 Urine Color Pale yellow Urine Appearance Slightly cloudy Urine pH 6 (4.5-8.0) Urine Specific [place] 1.015 (1.005-1.035) Urine Protein 4+ (NEGATIVE) H Urine Glucose (UA) Negative (NEGATIVE) Urine Ketones Negative (NEGATIVE) Urine Occult Blood 1+ (NEGATIVE) H Urine Nitrite Negative (NEGATIVE) Urine Bilirubin Negative (NEGATIVE) Urine Urobilinogen Normal MG/DL (0.0-1.0) Urine Leukocyte Esterase Negative (NEGATIVE) Urine RBC 0-2 /HPF (0 - 2) Urine WBC 2-4 /HPF (0 - 2) Urine Squamous Epithelial Cells Occasional /LPF Urine Bacteria Few /HPF (NONE) EKG Diagnostic Results EP Interpretation: Dr. Mohr Rate: normal - 88 bpm Rhythm: NSR ST Segments: no acute changes ASA given to the pt in ED: No PA Scribe Text this interpretation was scribed by the CHUCKY Morrow Chest X-Ray Diagnostic Results Chest X-Ray Diagnostic Results : Chest X-Ray Ordered: Yes # of Views/Limited/Complete: 2 View Indication: Other - tingling in chest EP Interpretation: Yes PA Xray: Interpretation reviewed, by supervising MD, and agrees with findings. Interpretation: no consolidation, no effusion, no pneumothorax, no acute cardiopulmonary disease Impression: No acute disease Electronically Signed by: Marques Morrow PA-C Last Vital Signs Date Time Temp Pulse Resp B/P (MAP) Pulse Ox O2 Delivery O2 Flow Rate FiO2 03/05/18 13:31 98.1 92 16 148/81 98 Room Air 98.1 Disposition: HOME, SELF-CARE Condition: Stable Scripts Amoxicillin/Potassium Clav 875-125* (AUGMENTIN 875-125 TABLET*) 1 Each Tablet 1 TAB ORAL TWICE A DAY for 10 Days, #20 TAB Prov: Marques Morrow P.ADavid 03/05/18 Referrals: [facility],REFERRING (PCP) Patient Instructions: Sinus Headache Marques Morrow Mar 05, 2018 15:25
[2018-03-05] MEDS ORDERED: AUGMENTIN 875-1 EAC1 ORAL (15:30)
[2018-03-05 15:35] VITALS: BP 133/78
--- NOTE | 2018-03-05 15:53 | Diagnostic Imaging Report ---
Indication: Cough Technique: 2 views of the chest Comparison: 04/19/2016 Findings: Lungs and pleural spaces are clear. The heart size is normal. The bones are unremarkable. No significant interim change, other than better inspiration on the current exam. Impression: Negative
--- NOTE | 2018-03-06 16:56 | Cardiology Report ---
APPROVED REPORT EKG Measurement Heart [id number] Normal sinus rhythm Septal infarct, age undetermined Abnormal ECG
== END 2018-03-05 15:36 | disposition home or self-care (01) ==
LOC: EMR 13:50
DX: R07.89 Other chest pain (principal); R10.9 Unspecified abdominal pain; J32.9 Chronic sinusitis, unspecified; E11.9 Type 2 diabetes mellitus without complications; Z79.4 Long term (current) use of insulin; I10 Essential (primary) hypertension; K21.9 Gastro-esophageal reflux disease without esophagitis
CPT/HCPCS: 71046; 81003; 82962; 93005; 99283

== ENCOUNTER 2018-03-28 06:35 | Emergency (ER) | payer OTHER ==
[~2018-03-28] VITALS: Ht 152.4 cm; Wt 73.5 kg
[~2018-03-28 06:35] MED LIST changes: +ASPIRIN81 MG ORAL
[2018-03-28 07:25] VITALS: BP 143/70
--- NOTE | 2018-03-28 07:27 | Emergency Room Report ---
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 She states that she also carries and lifts heavy boxes food items. She states that she is noted over the past several weeks that she has had a pulling sensation in both of her forearms. She states this is worse with lifting and hand movement. She states that she also sometimes has a tingling sensation. 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 She states that she has pain with movement of her right hand and wrist. She denies trauma. She denies weakness. She does have a tingling sensation, but denies numbness. She denies fever or chills. She denies swelling or redness. She has no other complaints. Allergies: Coded Allergies: No Known Allergies (Unverified , 08/08/12) Patient History Past Medical History: see triage record, DM, HTN, GERD Social History: Denies: smoking, alcohol use, drug use Last Menstrual Period: March 07 Now: No : 6 Para: 5 Reviewed Nursing Documentation: PMH: Agreed; PSxH: Agreed Nursing Documentation-PMH Hx Cardiac Problems: No Hx Hypertension: Yes Hx Pacemaker: No Hx Asthma: No Hx COPD: No Hx Diabetes: Yes Hx Cancer: No Hx Gastrointestinal Problems: Yes - GERD Hx Dialysis: No Hx Neurological Problems: No Hx Cerebrovascular Accident: No Hx Seizures: No Hx Headaches: Yes Review of Systems All Other Systems: negative except mentioned in HPI Physical Exam Vital Signs Date Time Temp Pulse Resp B/P (MAP) Pulse Ox O2 Delivery O2 Flow Rate FiO2 03/28/18 06:53 98.5 89 18 143/70 99 Room Air 98.4 Sp02 EP Interpretation: reviewed, normal General Appearance: no apparent distress, alert, GCS 15, non-toxic Head: normocephalic, atraumatic Eyes: bilateral eye normal inspection, bilateral eye PERRL ENT: hearing grossly normal, normal pharynx, no angioedema, normal voice Neck: normal inspection Respiratory: no respiratory distress, no retraction, no accessory muscle use, speaking full sentences Gastrointestinal: normal inspection, non-distended Rectal: deferred Musculoskeletal: back normal, gait/station normal, normal range of motion, other - Tender to palpation along the anterior forearm muscles/flexor muscles significantly greater on the right forearm. Also some tenderness over the carpal tunnel bilaterally. Sensation intact throughout. 5 out of 5 muscle strength throughout. No swelling, erythema, ecchymosis or bony tenderness. Neurologic: alert, oriented x3, responsive, motor strength/tone normal, sensory intact, speech normal Psychiatric: judgement/insight normal, memory normal, mood/affect normal, no suicidal/homicidal ideation Skin: normal color, no rash, warm/dry, well hydrated Procedures Splinting Splinting : Consent: Verbal Location: R. wrist Pre-Made Type: velcro Splint: thumb spica Pre-Proc Neuro Vasc Exam: normal Post-Proc Neuro Vasc Exam: normal Patient Tolerated: Well Complications: None Medical Decision Making Diagnostic Impression: Primary Impression: Tendonitis of both wrists Additional Impression: Strain of wrist, right ER Course This patient has a history and physical exam findings consistent with tendinitis. This could have an element of carpal tunnel impingement. However, there was no numbness so this would be in mild and very early. The patient also has findings consistent with wrist strain on the right. I did give the patient a thumb spica splint for the right wrist for rest. I will also place the patient on ibuprofen for an anti-inflammatory. This patient did not have trauma and I do not suspect a fracture, therefore, I did not obtain imaging as I did not feel it is indicated at this time. I will give the patient time off work in order for her to rest her right wrist and go to her workman's comp clinic for further evaluation, treatment and disposition of work duties. At this time, I did not identify an emergency medical condition. The patient is given close return precautions and follow-up instructions. Last Vital Signs Date Time Temp Pulse Resp B/P (MAP) Pulse Ox O2 Delivery O2 Flow Rate FiO2 03/28/18 06:53 98.5 89 18 143/70 99 Room Air 98.4 Disposition: HOME, SELF-CARE Condition: Improved Referrals: NOT CHOSEN [facility]/MD,REFERRING (PCP) Additional Instructions: Please follow-up with workman's compensation clinic. You will likely need physical therapy and rest of your wrists. Also, you should transition to a position that does not require lifting over 5 lbs repetitively. MILDRED MERCEDES D.O. March 28, 2018 07:27
[2018-03-28] MEDS ORDERED: IBUPROFEN600 MG ORAL (07:28)
[2018-03-28 07:49] VITALS: BP 143/70
== END 2018-03-28 07:45 | disposition home or self-care (01) ==
LOC: EMR 07:13
DX: M77.9 Enthesopathy, unspecified (principal); S66.911A Strain of unspecified muscle, fascia and tendon at wrist and hand level, right hand, initial encounter; X50.0XXA Overexertion from strenuous movement or load, initial encounter; Y92.512 Supermarket, store or market as the place of occurrence of the external cause; Y99.0 Civilian activity done for income or pay; E11.9 Type 2 diabetes mellitus without complications; K21.9 Gastro-esophageal reflux disease without esophagitis; I10 Essential (primary) hypertension
CPT/HCPCS: 99283

== ENCOUNTER 2018-04-09 18:02 | Emergency (ER) | payer OTHER ==
[~2018-04-09] VITALS: Ht 152.4 cm; Wt 73.5 kg
[2018-04-09 18:26] VITALS: BP 137/77
--- NOTE | 2018-04-09 18:37 | Emergency Room Report ---
History of Present Illness General Chief Complaint: Pain Source: Patient Present Illness HPI Patient presents with complaints of left upper back pain Points to the scapular region for the discomfort Reports that for the past 2 weeks she has felt some increased pressure in that area Pain is worse with touch Denies any chest pain or shortness of breath Denies any low back pain denies any flank pain Denies any fall or trauma Allergies: Coded Allergies: No Known Allergies (Unverified , 08/08/12) Patient History Past Medical History: see triage record Pertinent Family History: none Last Menstrual Period: 04/03/18 : 6 Para: 5 Reviewed Nursing Documentation: PMH: Agreed; PSxH: Agreed Nursing Documentation-PMH Hx Hypertension: Yes Hx Pacemaker: No Hx Asthma: No Hx COPD: No Hx Diabetes: Yes - DM1 Hx Cancer: No Hx Gastrointestinal Problems: Yes - GERD Hx Dialysis: No Hx Neurological Problems: No Hx Cerebrovascular Accident: No Hx Seizures: No Hx Headaches: Yes Review of Systems All Other Systems: negative except mentioned in HPI Physical Exam Vital Signs Date Time Temp Pulse Resp B/P (MAP) Pulse Ox O2 Delivery O2 Flow Rate FiO2 04/09/18 18:19 98.4 93 15 137/77 94 Room Air 98.4 Sp02 EP Interpretation: reviewed, normal General Appearance: well appearing, no apparent distress Head: normocephalic, atraumatic Eyes: bilateral eye PERRL, bilateral eye EOMI ENT: hearing grossly normal, normal pharynx, TMs + canals normal, uvula midline Neck: full range of motion, supple, no meningismus, no bony tend Respiratory: lungs clear, normal breath sounds, no rhonchi, no respiratory distress, no retraction, no accessory muscle use Cardiovascular #1: normal peripheral pulses, regular rate, rhythm, no edema, no gallop, no JVD, no murmur Gastrointestinal: normal bowel sounds, non tender, soft, no mass, no organomegaly, non-distended, no guarding, no hernia, no pulsatile mass, no rebound Genitourinary: no CVA tenderness Musculoskeletal: other - Back exam is fairly benign, midline is nontender patient has discomfort on palpation over the scapular area, no obvious dermatomal rash shoulder is freely mobile no signs of hematoma or contusion Neurologic: oriented x3, 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, 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, motor strength/ tone normal, sensory intact Psychiatric: mood/affect normal Skin: normal color, no rash, warm/dry, palpation normal Lymphatic: normal inspection, no adenopathy Medical Decision Making Diagnostic Impression: Primary Impression: back pain ER Course Patient has a fairly benign clinical evaluation Consideration for pyelonephritis Cardiac, pulmonary pathology is made Neurological neurosurgical type pathology Given the patient's benign clinical evaluation I did not feel emergency imaging was required and patient is stable for close follow-up Last Vital Signs Date Time Temp Pulse Resp B/P (MAP) Pulse Ox O2 Delivery O2 Flow Rate FiO2 04/09/18 18:26 98.4 15 137/77 94 Room Air 98.4 04/09/18 18:19 93 Status: unchanged Disposition: HOME, SELF-CARE Condition: Stable Patient Instructions: Back Pain, Adult, [id number] Additional Instructions: Patient is provided with the discharge instructions notified to follow up with primary doctor in the next 2-3 days otherwise return to the er with any worsening symptoms. Please note that this report is being documented using [employer] technology. This can lead to erroneous entry secondary to incorrect interpretation by the dictating instrument. Paramjit Mehta DO April 09, 2018 18:37
[2018-04-09 18:39] VITALS: BP 137/77
== END 2018-04-09 18:39 | disposition home or self-care (01) ==
LOC: EMR 18:37
DX: M54.6 Pain in thoracic spine (principal); I10 Essential (primary) hypertension; E10.9 Type 1 diabetes mellitus without complications; K21.9 Gastro-esophageal reflux disease without esophagitis
CPT/HCPCS: 99283

== ENCOUNTER 2018-04-23 10:31 | Emergency (ER) | payer OTHER ==
[~2018-04-23] VITALS: Ht 152.4 cm; Wt 74.8 kg
[2018-04-23 11:00] VITALS: BP 137/70
--- NOTE | 2018-04-23 11:17 | Emergency Room Report ---
History of Present Illness General Chief Complaint: Flu Like Symptoms Source: Patient Present Illness HPI Patient presents with 3 days of upper respiratory infection. The patient complains of nasal congestion. She also has a cough that's been keeping her awake at night. She's felt hot when everyone else's felt cold. She is not at this time. There is no nausea vomiting or diarrhea. She's never had bronchospasm or used an inhaler in the past. She initially agreed to wheezing but then denies wheezing. She has a sore throat. There is quite a bit of nasal congestion. H/O diabetes on insulin. States just ate high carbs. No polyuria/polydipsia. No dysuria. 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 Last Menstrual Period: last month Now: No Reviewed Nursing Documentation: PMH: Agreed; PSxH: Agreed Nursing Documentation-PMH Past Medical History: No History, Except For Hx Hypertension: Yes Hx Pacemaker: No Hx Asthma: No Hx COPD: No Hx Diabetes: Yes Hx Cancer: No Hx Gastrointestinal Problems: Yes - GERD Hx Dialysis: No Hx Neurological Problems: No Hx Cerebrovascular Accident: No Hx Seizures: No Hx Headaches: Yes Review of Systems All Other Systems: negative except mentioned in HPI Physical Exam Vital Signs Date Time Temp Pulse Resp B/P (MAP) Pulse Ox O2 Delivery O2 Flow Rate FiO2 618 10:47 98.6 88 18 137/70 95 Room Air 98.6 Sp02 EP Interpretation: reviewed, normal - but slightly low as interpreted by me General Appearance: well appearing, no apparent distress Head: normocephalic, atraumatic Eyes: bilateral eye normal inspection, bilateral eye PERRL ENT: hearing grossly normal, normal voice, TMs + canals normal, moist mucus membranes, pharyngeal erythema, other - nasal congestion - clear d/c Neck: full range of motion, supple Respiratory: lungs clear, normal breath sounds, no respiratory distress, speaking full sentences Cardiovascular #1: regular rate, rhythm Cardiovascular #2: 2+ radial (R) Gastrointestinal: normal bowel sounds, non tender, overweight Genitourinary: no CVA tenderness Musculoskeletal: digits/nails normal, gait/station normal, no calf tenderness Neurologic: alert, oriented x3, normal gait, grossly normal Psychiatric: mood/affect normal Skin: no rash Medical Decision Making Diagnostic Impression: Primary Impression: Upper respiratory infection Qualified Codes: J06.9 - Acute upper respiratory infection, unspecified Additional Impression: Hyperglycemia ER Course Patient presents with 3 days of upper respiratory illness symptomatology. Differential includes viral, bacterial, bronchospasm amongst others. She hasn' t any chest pain at this time. Her exam is consistent with a viral process at this point. No antibiotics indicated at this time. Accu-Chek is performed and is 260. She says that she's not been adhering to her diet. She knows how to control her blood sugars with her insulin. Review of med recon suggests frequent use of antibiotics and decongestants. Also insulin has been filled multiple times in ED. I suggested need for f/u with her PMD. The patient is stable for outpatient observation and treatment. Last Vital Signs Date Time Temp Pulse Resp B/P (MAP) Pulse Ox O2 Delivery O2 Flow Rate FiO2 04/23/18 12:01 98.6 88 18 137/70 95 Room Air 98.6 Status: improved Disposition: HOME, SELF-CARE Condition: Improved Scripts Chlorpheniramine Maleate (CHLOR-TRIMETON) 4 Mg Tablet 4 MG PO Q6HR, #14 TAB Prov: Michael Fan M.D. 04/23/18 Guaifenesin/Codeine Phos* (ROBITUSSIN AC*) 118 Ml Liquid 1 TSP ORAL Q6H PRN for For Cough, #90 ML 0 Refills Prov: Michael Fan M.D. 04/23/18 Esomeprazole Magnesium (NEXIUM) 20 Mg Suspdr.pkt 20 MG ORAL DAILY, #20 PKT Prov: Michael Fan M.D. 04/23/18 Michael Fan M.D. Apr 23, 2018 11:17
[2018-04-23] MEDS ORDERED: CHLOR-TRIMETON4 MG PO (11:20)
[2018-04-23] MEDS ORDERED: GUAIFENESIN-CO118 M1 ORAL (11:20)
[2018-04-23] MEDS ORDERED: NEXIUM20 M1 ORAL (11:20)
[2018-04-23 12:01] VITALS: BP 137/70
== END 2018-04-23 12:02 | disposition home or self-care (01) ==
LOC: EMR 11:29
DX: J06.9 Acute upper respiratory infection, unspecified (principal); E11.65 Type 2 diabetes mellitus with hyperglycemia; Z79.4 Long term (current) use of insulin; I10 Essential (primary) hypertension; K21.9 Gastro-esophageal reflux disease without esophagitis
CPT/HCPCS: 82962; 99284

== ENCOUNTER 2018-05-25 00:23 | Emergency (ER) | payer OTHER ==
[~2018-05-25] VITALS: Ht 152.4 cm; Wt 72.6 kg
[~2018-05-25 00:23] MED LIST changes: +CHLOR-TRIMETON4 MG PO; +GUAIFENESIN-CO118 M1 ORAL; +NEXIUM20 M1 ORAL
[2018-05-25 00:45] VITALS: BP 153/71
[2018-05-25] MEDS ORDERED: LACTULOSE20 GM/301 ORAL (01:35)
--- NOTE | 2018-05-25 01:35 | Emergency Room Report ---
History of Present Illness General Chief Complaint: Abdominal Pain Source: Patient Present Illness HPI Is a 38-year-old female with no past medical history. She has a history of appendectomy in the past. She presents complaining of abdominal pain with constipation for almost 2 months now. She has small hard stool. Cramping pain. No fever chills. No nausea no vomiting. She told her coworker who said that it could be an obstruction and she may knee surgery. This scared her so she is here. She try to make an appointment with her primary care doctor but it won't be for another month. [id number] medicine is not helping. Allergies: Coded Allergies: No Known Allergies (Unverified , 08/08/12) Patient History Past Medical History: see triage record, old chart reviewed, DM, HTN Past Surgical History: appy Pertinent Family History: none Social History: Denies: smoking Last Menstrual Period: 05/08/18 Now: No : 5 Para: 5 Immunizations: other Reviewed Nursing Documentation: PMH: Agreed; PSxH: Agreed Nursing Documentation-PMH Hx Hypertension: Yes Hx Pacemaker: No Hx Asthma: No Hx COPD: No Hx Diabetes: Yes Hx Cancer: No Hx Gastrointestinal Problems: Yes - GERD Hx Dialysis: No Hx Neurological Problems: No Hx Cerebrovascular Accident: No Hx Seizures: No Hx Headaches: Yes Review of Systems Eye: Denies: eye pain, blurred vision ENT: Denies: ear pain, nose congestion, throat swelling Respiratory: Denies: cough, shortness of breath Cardiovascular: Denies: chest pain, palpitations Gastrointestinal: Reports: abdominal pain, constipation; Denies: diarrhea, nausea, vomiting Musculoskeletal: Denies: back pain, joint pain Skin: Denies: rash Neurological: Denies: headache, numbness Endocrine: Denies: increased thirst, increased urine Hematologic/Lymphatic: Denies: easy bruising All Other Systems: negative except mentioned in HPI Physical Exam Vital Signs Date Time Temp Pulse Resp B/P (MAP) Pulse Ox O2 Delivery O2 Flow Rate FiO2 05/25/18 00:30 98.5 99 14 166/75 97 Room Air 98.4 vitals with high blood pressure Sp02 EP Interpretation: reviewed, normal General Appearance: well appearing, no apparent distress, alert Head: normocephalic, atraumatic Eyes: bilateral eye PERRL, bilateral eye EOMI ENT: hearing grossly normal, normal pharynx Neck: full range of motion, supple, no meningismus Respiratory: chest non-tender, lungs clear, normal breath sounds Cardiovascular #1: regular rate, rhythm, no murmur Gastrointestinal: normal bowel sounds, non tender, no mass, no organomegaly, no bruit, non-distended Rectal: normal exam, normal rectal tone, other - Small Amount stool Musculoskeletal: back normal, gait/station normal, normal range of motion Psychiatric: mood/affect normal Skin: warm/dry Medical Decision Making Diagnostic Impression: Primary Impression: Constipation Qualified Codes: K59.00 - Constipation, unspecified ER Course Patient with abdominal pain with constipation. No evidence of any obstruction. No evidence of an acute abdomen. She had a moderate amount of stool after an enema. Nothing to be disimpacted. KUB shows severe constipation. We'll discharge home. Other X-Ray Diagnostic Results Other X-Ray Diagnostic Results : X-Ray ordered: KUB # of Views/Limited Vs Complete: 2 View Indication: Pain EP Interpretation: Yes Interpretation: no dislocation, no soft tissue swelling, no fractures, nonspecific bowel gas, other - Constipation Impression: Other - constipation Electronically Signed by: Calos Peacock MD Last Vital Signs Date Time Temp Pulse Resp B/P (MAP) Pulse Ox O2 Delivery O2 Flow Rate FiO2 05/25/18 00:30 98.5 99 14 166/75 97 Room Air 98.4 Status: improved Disposition: HOME, SELF-CARE Condition: Stable Scripts Lactulose (LACTULOSE*) 20 Gm/30 Ml Solution 30 ML ORAL BID, #240 ML 0 Refills Prov: CALOS PEACOCK M.D. 05/25/18 Referrals: [facility],REFERR[facility] (PCP) Additional Instructions: Follow-up with your DrDavid in 3-5 days. Return if symptom worsen. Increase fluid. Increase exercise. CALOS PEACOCK M.D. May 25, 2018 01:35
[2018-05-25 01:45] VITALS: BP 142/71
[2018-05-25 01:55] VITALS: BP 142/71
--- NOTE | 2018-05-25 02:36 | Diagnostic Imaging Report ---
EXAM: XR Abdomen, 2 Views CLINICAL HISTORY: ABD PAIN TECHNIQUE: Frontal view of the abdomen/pelvis with upright view of the abdomen. COMPARISON: No relevant prior studies available. FINDINGS: Intraperitoneal space: No free air. Gastrointestinal tract: Abundant stool in the colon. No dilation. Bones/joints: Unremarkable. IMPRESSION: Abundant stool in the colon.
== END 2018-05-25 01:55 | disposition home or self-care (01) ==
LOC: EMR 00:47
DX: K59.00 Constipation, unspecified (principal); Z90.89 Acquired absence of other organs; E11.9 Type 2 diabetes mellitus without complications; I10 Essential (primary) hypertension; K21.9 Gastro-esophageal reflux disease without esophagitis
CPT/HCPCS: 74018; 99283

== ENCOUNTER 2018-06-05 08:09 | Emergency (ER) | payer OTHER ==
[~2018-06-05] VITALS: Ht 160 cm; Wt 72.6 kg
[~2018-06-05 08:09] MED LIST changes: +LACTULOSE20 GM/301 ORAL
[2018-06-05 08:32] VITALS: BP 145/82
--- NOTE | 2018-06-05 08:39 | Emergency Room Report ---
History of Present Illness General Chief Complaint: Nausea, Vomiting, and Diarrhea Source: Patient, Medical Record Present Illness HPI Pt. and son with n/v/d since 7 am. Nausea, retching, ~three loose bm. No fever, no new foods, no abd pain. Had breakfast this am. No trauma, no fever, no shortness of breath, no travel history, no leg swelling, no chest pain, no diaphoresis, Normal urinary output. No syncope, LOC, dizziness, lightheadedness , headache. No recent surgery. No oral contraceptive use. PMH: c/s, IDDM Allergies: Coded Allergies: No Known Allergies (Unverified , 08/08/12) Patient History Last Menstrual Period: 05/08/18 Nursing Documentation-PM Past Medical History: No History, Except For Hx Hypertension: Yes Hx Pacemaker: No Hx Asthma: No Hx COPD: No Hx Diabetes: Yes - type I Hx Cancer: No Hx Gastrointestinal Problems: Yes - GERD Hx Dialysis: No Hx Neurological Problems: No Hx Cerebrovascular Accident: No Hx Seizures: No Hx Headaches: Yes Review of Systems Constitutional: Reports: no symptoms Eye: Reports: no symptoms ENT: Reports: no symptoms Respiratory: Reports: no symptoms Cardiovascular: Reports: no symptoms Gastrointestinal: Reports: see HPI, diarrhea, nausea Genitourinary: Reports: no symptoms Musculoskeletal: Reports: no symptoms Skin: Reports: no symptoms Psychiatric: Reports: no symptoms Neurological: Reports: no symptoms Endocrine: Reports: no symptoms Hematologic/Lymphatic: Reports: no symptoms Allergic: Reports: no symptoms Physical Exam Vital Signs Date Time Temp Pulse Resp B/P (MAP) Pulse Ox O2 Delivery O2 Flow Rate FiO2 06/05/18 08:15 98.3 100 18 147/80 96 Room Air 98.2 Sp02 EP Interpretation: reviewed, normal General Appearance: normal inspection, well appearing, no apparent distress, alert, GCS 15, non-toxic Head: normocephalic, atraumatic Eyes: bilateral eye normal inspection, bilateral eye PERRL, bilateral eye EOMI ENT: normal ENT inspection, hearing grossly normal, normal pharynx, no angioedema, normal voice, moist mucus membranes Neck: normal inspection, full range of motion, supple, no meningismus, no bony tend Respiratory: normal inspection, lungs clear, normal breath sounds, no rhonchi, no respiratory distress, no retraction, no accessory muscle use, no wheezing Cardiovascular #1: normal inspection, regular rate, rhythm, no edema Gastrointestinal: normal inspection, normal bowel sounds, non tender, soft, no mass, non-distended Musculoskeletal: gait/station normal, normal range of motion Neurologic: normal inspection, alert, oriented x3, responsive, motor strength/ tone normal Psychiatric: normal inspection, judgement/insight normal, memory normal Suicide Risk Assessment: Suicidal Ideation: No Had intent to initiate attempt: No Pt's plan for suicide attempt: No Has means to complete attempt: No Skin: normal inspection, normal color, no rash, warm/dry Medical Decision Making Diagnostic Impression: Primary Impression: Gastroenteritis Additional Impression: Acute gastroenteritis Last Vital Signs Date Time Temp Pulse Resp B/P (MAP) Pulse Ox O2 Delivery O2 Flow Rate FiO2 06/05/18 08:32 98.2 80 18 145/82 96 Room Air 98.2 Disposition: HOME, SELF-CARE Condition: Stable Walter Harper M.D. Jun 05, 2018 08:39
[2018-06-05 09:10] VITALS: BP 145/82
== END 2018-06-05 09:11 | disposition home or self-care (01) ==
LOC: EMR 08:43
DX: K52.9 Noninfective gastroenteritis and colitis, unspecified (principal); I10 Essential (primary) hypertension; K21.9 Gastro-esophageal reflux disease without esophagitis; E10.9 Type 1 diabetes mellitus without complications
CPT/HCPCS: 99282

== ENCOUNTER 2018-10-26 11:49 | Emergency (ER) | payer OTHER ==
[~2018-10-26] VITALS: Ht 152.4 cm; Wt 73.5 kg
--- NOTE | 2018-10-26 12:17 | Emergency Room Report ---
History of Present Illness General Chief Complaint: Upper Respiratory Illness Source: Patient Present Illness HPI 38-year-old female with history of diabetes controlled with insulin and diabetic neuropathy controlled with gabapentin here complaining of 5 days of cough and congestion. She reports her symptoms started with sore throat and congestion with green mucus. She has a lot of pressure in her left side of her face. Also complains of cough with yellow phlegm. denies shortness of breath, chest pain, palpitations and all other. He denies fever or chills, shortness of breath, chest pain, palpitation and all other associated symptoms. Allergies: Coded Allergies: No Known Allergies (Unverified , 08/08/12) Patient History Past Medical History: see triage record Pertinent Family History: none Now: No Immunizations: UTD Reviewed Nursing Documentation: PMH: Agreed; PSxH: Agreed Nursing Documentation-PMH Past Medical History: No History, Except For Hx Hypertension: Yes Hx Pacemaker: No Hx Asthma: No Hx COPD: No Hx Diabetes: Yes - type I Hx Cancer: No Hx Gastrointestinal Problems: Yes - GERD Hx Dialysis: No Hx Neurological Problems: No Hx Cerebrovascular Accident: No Hx Seizures: No Hx Headaches: Yes Review of Systems All Other Systems: negative except mentioned in HPI Physical Exam Vital Signs Date Time Temp Pulse Resp B/P (MAP) Pulse Ox O2 Delivery O2 Flow Rate FiO2 10/26/18 11:54 98.4 115 18 128/69 98 Room Air Sp02 EP Interpretation: reviewed, normal General Appearance: normal inspection, well appearing, no apparent distress, alert, GCS 15 Head: normocephalic, atraumatic Eyes: bilateral eye normal inspection, bilateral eye PERRL ENT: no angioedema, normal voice, TMs + canals normal, uvula midline, nasal congestion, tonsillar swelling, pharyngeal erythema, other - left frontal and maxillary sinuses TTP Neck: normal inspection, full range of motion, supple Respiratory: normal inspection, lungs clear, no rhonchi, no retraction, no wheezing Cardiovascular #1: normal inspection, regular rate, rhythm, no edema, no gallop Gastrointestinal: normal inspection, non tender, soft Rectal: deferred Genitourinary: deferred Neurologic: normal inspection, alert, oriented x3 Psychiatric: normal inspection, judgement/insight normal, memory normal Skin: normal inspection, normal color, no rash, warm/dry Lymphatic: normal inspection, no adenopathy, axilla node tender (R) Medical Decision Making CHUCKY Attestation diagnosis and treatment plans were reviewed and discussed in my supervising physician Dr Canas Diagnostic Impression: Primary Impression: Sinusitis ER Course 38-year-old female with history of diabetes controlled with insulin and diabetic neuropathy controlled with gabapentin here complaining of 5 days of cough and congestion. She reports her symptoms started with sore throat and congestion with green mucus. She has a lot of pressure in her left side of her face. Also complains of cough with yellow phlegm. denies shortness of breath, chest pain, palpitations and all other. He denies fever or chills, shortness of breath, chest pain, palpitation and all other associated symptoms. Ddx considered but are not limited to sinusitis, bronchitis, URI Vital signs: are WNL, pt. is afebrile H&PE are most consistent with sinusitis immunocompromised pt ORDERS:Augmentin, flonase, pt has cough syrup at home ED INTERVENTIONS: None required at this time. DISCHARGE: At this time pt. is stable for d/c to home. Will provide printed patient care instructions, and any necessary prescriptions. Care plan and follow up instructions have been discussed with the patient prior to discharge. Last Vital Signs Date Time Temp Pulse Resp B/P (MAP) Pulse Ox O2 Delivery O2 Flow Rate FiO2 10/26/18 11:54 98.4 115 18 128/69 98 Room Air Disposition: HOME, SELF-CARE Condition: Stable Scripts Fluticasone Propionate (Flonase Allergy Relief) 9.9 Ml [place].susp 1 PUFF NS BID, #1 SPRAY Prov: Marques Morrow 10/26/18 Amoxicillin/Potassium Clav 875-125* (AUGMENTIN 875-125 TABLET*) 1 Each Tablet 1 TAB ORAL TWICE A DAY for 10 Days, #20 TAB Prov: Marques Morrow 10/26/18 Patient Instructions: Sinusitis, Adult, [id number] Additional Instructions: medication as directed, rest and hydrate Marques Morrow Oct 26, 2018 12:17
[2018-10-26] MEDS ORDERED: AUGMENTIN 875-1 EAC1 ORAL (12:18)
[2018-10-26] MEDS ORDERED: FLONASE ALLERG9.9 ML NS (12:19)
[2018-10-26 16:22] VITALS: BP 126/69
[2018-10-26 16:24] VITALS: BP 126/69
== END 2018-10-26 14:00 | disposition home or self-care (01) ==
LOC: EMR 12:30
DX: J32.9 Chronic sinusitis, unspecified (principal); I10 Essential (primary) hypertension; E10.40 Type 1 diabetes mellitus with diabetic neuropathy, unspecified; K21.9 Gastro-esophageal reflux disease without esophagitis
CPT/HCPCS: 99283

== ENCOUNTER 2019-01-04 17:17 | Emergency (ER) | payer OTHER ==
[~2019-01-04] VITALS: Ht 152.4 cm; Wt 68.9 kg
[2019-01-04 17:30] VITALS: BP 136/72
--- NOTE | 2019-01-04 17:30 | NUR ---
ED Nurse Note: PT WALKED IN TO ER TODAY FROM HOME. AOX4. PT C/O LEFT SHOULDER PAIN, 4/10 THAT RADIATES TO LEFT NECK X 2 DAYS AGO. PT DENIES TRAUMA OR INJURY. FULL ROM OF EXTREMITY, CIRCULATION AND SENSATION INTACT, CAP REFILL <3 SECONDS AND 5/5 MUSCLE STRENGTH.
[2019-01-04] MEDS ORDERED: HUMALOG100 UNIT/3 SUBQ (17:32)
[2019-01-04] MEDS ORDERED: OMEGA 3 500 SO1 EACH PO (17:33)
[2019-01-04] MEDS ORDERED: Methocarbamol 500mg tab ORAL ONE (17:45)
[2019-01-04] MEDS ORDERED: ROBAXIN500 MG PO (17:49)
[2019-01-04] MEDS ORDERED: IBUPROFEN600 MG ORAL (17:49)
[2019-01-04] MEDS ORDERED: LIDOCAINE700 M1 TP (17:49)
--- NOTE | 2019-01-04 17:51 | Emergency Room Report ---
History of Present Illness General Chief Complaint: Neck Pain Source: Patient, Significant Other Present Illness HPI 38-year-old female patient presents the ER complaining of left neck pain times 2 days. Reports "I think I slept wrong". Denies acute injury or trauma. Denies fever, chest pain, shortness of breath. Denies history of heart disease. Reports history of diabetes. Reports pain is worse with movement. States taking Motrin for relief of pain symptoms, states pain relief with taking Motrin. Denies other aggravating or relieving factors. Reports pain radiates to her ear and shoulder. Reports history of similar symptoms bilaterally in the past. Patient is requesting a work note. States that she performs a lot of lifting and movement while at work. Denies vision changes. Denies photophobia or phonophobia. Allergies: Coded Allergies: No Known Allergies (Unverified , 08/08/12) Patient History Past Medical History: see triage record Last Menstrual Period: 11/30/2018 Reviewed Nursing Documentation: PMH: Agreed; PSxH: Agreed Nursing Documentation-PMH Past Medical History: No Stated History Hx Hypertension: Yes Hx Pacemaker: No Hx Asthma: No Hx COPD: No Hx Diabetes: Yes - type I Hx Cancer: No Hx Gastrointestinal Problems: Yes - GERD Hx Dialysis: No Hx Neurological Problems: No Hx Cerebrovascular Accident: No Hx Seizures: No Hx Headaches: Yes Review of Systems All Other Systems: negative except mentioned in HPI Physical Exam Vital Signs Date Time Temp Pulse Resp B/P (MAP) Pulse Ox O2 Delivery O2 Flow Rate FiO2 01/04/19 17:25 98.4 98 16 141/73 95 Room Air Sp02 EP Interpretation: reviewed, normal General Appearance: well appearing, no apparent distress, alert, GCS 15, non- toxic Head: normocephalic, atraumatic Eyes: bilateral eye normal inspection, bilateral eye PERRL ENT: hearing grossly normal, normal pharynx, no angioedema, normal voice, TMs + canals normal, uvula midline, moist mucus membranes Neck: full range of motion, no meningismus, no bony tend, tender lateral - Left Respiratory: lungs clear, normal breath sounds, no rhonchi, no respiratory distress, no accessory muscle use, no wheezing, speaking full sentences Cardiovascular #1: regular rate, rhythm, no edema Cardiovascular #2: 2+ radial (R), 2+ radial (L) Musculoskeletal: back normal, digits/nails normal, gait/station normal, normal range of motion, non-tender, other - NVI, cap refill less than 2 seconds Neurologic: alert, oriented x3, responsive, microwave engineer III-XII nml as tested, motor strength/tone normal, sensory intact, cerebellar normal, normal gait, speech normal Psychiatric: mood/affect normal Skin: no rash Medical Decision Making PA Attestation Dr. Fan is my supervising Physician whom patient management has been discussed with. Diagnostic Impression: Primary Impression: Neck muscle strain ER Course Pt. presents to the ED c/o left-sided neck pain. Ddx considered but are not limited to fracture, sprain, strain, contusion, dislocation. No erythema, no warmth to touch, no fever, nontoxic appearing, low suspicion for septic joint. Soft compartments, no pulselessness, no pallor, no paresthesias, low suspicion for compartment syndrome at this time. Vital signs: are WNL, pt. is afebrile ER COURSE Provided with lidocaine patch in the ER. Denies acute injury or trauma, no bony depression, low suspicion for fracture, does not require imaging at this time. Provided with work note per patient request. History of similar symptoms in the past, does not require further evaluation and treatment at this time. Follow with primary care provider as outpatient. Patient instructed on RICE method: rest, ice, compression, elevation. Patient instructed on rest, ice and heat. Contact information for orthopedic urgent care provided, follow-up with urgent care if unable to followup with primary care provider and get referral to e commerce specialist. Followup with primary care provider. Discuss referral to ortho/pain management/ PT as needed. Discuss further imaging with MRI/CT as needed. ER precautions given. DISCHARGE: At this time pt. is stable for d/c to home. Patient is resting comfortably, in no acute distress, nontoxic appearing, talking without difficulty. Will provide printed patient care instructions, and any necessary prescriptions. Patient instructed to follow with primary care provider in 3 - 5 days and to request further follow-up as needed. Care plan and follow up instructions have been discussed with the patient prior to discharge. Take medications as directed. Patient questions asked and answered. Patient reports understanding and agreement to treatment plan. ER precautions given, patient instructed to return to ER immediately for any new or worsening of symptoms. - Please note that this Emergency Department Report was dictated using My Top 10inpatient care manager rn technology software, occasionally this can lead to erroneous entry secondary to interpretation by the dictation equipment. Last Vital Signs Date Time Temp Pulse Resp B/P (MAP) Pulse Ox O2 Delivery O2 Flow Rate FiO2 01/04/19 17:25 98.4 98 16 141/73 95 Room Air Status: improved Disposition: HOME, SELF-CARE Condition: Stable Scripts Methocarbamol* (ROBAXIN*) 500 Mg Tablet 500 MG PO TID, #21 TAB 0 Refills Prov: Andrea Harden 01/04/19 Ibuprofen* (MOTRIN*) 600 Mg Tablet 600 MG ORAL Q8H PRN for For Pain, #30 TAB 0 Refills Prov: Andrea Harden 01/04/19 Lidocaine (Lidocaine) 1 Each Adh..patch 5 % TP DAILY for 7 Days, #7 PATCH Prov: Andrea Harden 01/04/19 Patient Instructions: Cervical Sprain, [id number], Muscle Cramps and Spasms, [id number] Additional Instructions: Patient instructed to follow up with primary care provider 3-5 and discuss further referral and imaging at that time. Patient instructed on rest, ice and heat. Do not take muscle relaxant prior to drinking, driving, or operating heavy machinery. Take medications as directed. Patient questions asked and answered. ER precautions given, patient instructed to return to ER immediately for any new or worsening of symptoms. [facility] [address] [facility] [address] [facility], [address] [email or web address] Andrea Harden Jan 04, 2019 17:51
[2019-01-04 18:00] VITALS: BP 132/74
--- NOTE | 2019-01-04 18:01 | NUR ---
ED Nurse Note: PT SITTING PEACEFULLY IN CHAIR IN NAD. AOX4. PRESCRIPTIONS AND DISCHARGE PAPERWORK EXPLAINED TO PT. PT VERBALIZES UNDERSTANDING AND ALL QUESTIONS ANSWERED. PRESCRIPTIONS AND DISCHARGE PAPERWORK GIVEN TO PT AND ID WRISTBAND REMOVED. PT WALKED OUT OF ER WITH STEADY GAIT AND ALL BELONGINGS.
== END 2019-01-04 18:00 | disposition home or self-care (01) ==
LOC: EMR 17:50
DX: S16.1XXA Strain of muscle, fascia and tendon at neck level, initial encounter (principal); X58.XXXA Exposure to other specified factors, initial encounter; Y99.9 Unspecified external cause status; I10 Essential (primary) hypertension; K21.9 Gastro-esophageal reflux disease without esophagitis
CPT/HCPCS: 99282

== ENCOUNTER 2019-02-03 12:41 | Emergency (ER) | payer OTHER ==
[~2019-02-03] VITALS: Ht 152.4 cm; Wt 76.7 kg
[~2019-02-03 12:41] MED LIST changes: +LIDOCAINE700 M1 TP; +OMEGA 3 500 SO1 EACH PO; +ROBAXIN500 MG PO
[2019-02-03 13:07] VITALS: BP 144/77
--- NOTE | 2019-02-03 13:15 | NUR ---
ED Nurse Note: Patient walked into ED c/o LEFT 4th finger pain x1 week. 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
--- NOTE | 2019-02-03 13:36 | Emergency Room Report ---
History of Present Illness General Chief Complaint: Pain Source: Patient Present Illness HPI 38-year-old female patient presents the ER complaining of left ring finger pain for the past week. Patient states she does not know if she injured it however it began hurting while at work. 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 Denies history of arthritis. States has been taking Motrin for pain symptoms. Reports tenderness palpation. Denies fever, chest pain, shortness of breath. Denies erythema or swelling. Denies other aggravating or relieving factors. Allergies: Coded Allergies: No Known Allergies (Unverified , 08/08/12) Patient History Past Medical History: see triage record Last Menstrual Period: 01/16/19 Now: No Reviewed Nursing Documentation: PMH: Agreed; PSxH: Agreed Nursing Documentation-PMH Past Medical History: No History, Except For Hx Hypertension: Yes Hx Pacemaker: No Hx Asthma: No Hx COPD: No Hx Diabetes: Yes - type I Hx Cancer: No Hx Gastrointestinal Problems: Yes - GERD Hx Dialysis: No Hx Neurological Problems: No Hx Cerebrovascular Accident: No Hx Seizures: No Hx Headaches: Yes Review of Systems All Other Systems: negative except mentioned in HPI Physical Exam Vital Signs Date Time Temp Pulse Resp B/P (MAP) Pulse Ox O2 Delivery O2 Flow Rate FiO2 02/03/19 13:07 98.4 94 20 144/77 98 Room Air Sp02 EP Interpretation: reviewed, normal General Appearance: well appearing, no apparent distress, alert, GCS 15, non- toxic Head: normocephalic, atraumatic Eyes: bilateral eye normal inspection, bilateral eye PERRL ENT: hearing grossly normal, normal pharynx, no angioedema, normal voice, uvula midline, moist mucus membranes Neck: full range of motion, no bony tend Respiratory: lungs clear, normal breath sounds, no rhonchi, no respiratory distress, no accessory muscle use, no wheezing, speaking full sentences Cardiovascular #1: regular rate, rhythm, no edema Cardiovascular #2: 2+ radial (R), 2+ radial (L) Musculoskeletal: back normal, digits/nails normal, gait/station normal, normal range of motion, non-tender, other - NVI, Full flexion and extension noted at MCP, PIP, DIP joint of left ring finger, subjective tenderness to palpation on dorsum of middle phalanx of left ring finger, cap refill less than 2 seconds, no erythema or edema, no gouty tophi Neurologic: alert, oriented x3, responsive, motor strength/tone normal, sensory intact Skin: no rash Medical Decision Making PA Attestation Dr. Lopez is my supervising Physician whom patient management has been discussed with. Diagnostic Impression: Primary Impression: Finger pain, left ER Course Pt. presents to the ED c/o left finger pain. Ddx considered but are not limited to fracture, sprain, strain, contusion, dislocation. No erythema, no warmth to touch, no fever, nontoxic appearing, low suspicion for septic joint. Soft compartments, no pulselessness, no pallor, no paresthesias, low suspicion for compartment syndrome at this time. Vital signs: are WNL, pt. is afebrile Ordered X-ray and pain medication. ER COURSE Provided with pain medication. An X-ray of the left finger shows no acute disease per the preliminary reading. Splint was applied to the left ring finger and was checked afterwards by me showing good alignment and support with distal neurovascular functioning intact. Patient instructed on RICE method: rest, ice, compression, elevation. Patient instructed on rest, ice and heat. Patient instructed to be WBAT Work note provided. Contact information for orthopedic urgent care provided, follow-up with urgent care if unable to followup with primary care provider and get referral to [employer] senior specialist. Followup with primary care provider. Discuss referral to ortho/pain management/ PT as needed. Discuss further imaging with MRI/CT as needed. DISCHARGE: At this time pt. is stable for d/c to home. Patient is resting comfortably, in no acute distress, nontoxic appearing, talking without difficulty. Will provide printed patient care instructions, and any necessary prescriptions. Patient instructed to follow with primary care provider in 3 - 5 days and to request further follow-up as needed. Care plan and follow up instructions have been discussed with the patient prior to discharge. Take medications as directed. Patient questions asked and answered. Patient reports understanding and agreement to treatment plan. ER precautions given, patient instructed to return to ER immediately for any new or worsening of symptoms. - Please note that this Emergency Department Report was dictated using [employer] technology software, occasionally this can lead to erroneous entry secondary to interpretation by the dictation equipment. Other X-Ray Diagnostic Results Other X-Ray Diagnostic Results : X-Ray ordered: left fingers # of Views/Limited Vs Complete: 3 View Indication: Pain EP Interpretation: Yes PA Xray: Interpretation reviewed, by supervising MD, and agrees with findings. Interpretation: no dislocation, no soft tissue swelling, no fractures Impression: No acute disease CHUCKY Scribe Text Eddie Harden PA-C Last Vital Signs Date Time Temp Pulse Resp B/P (MAP) Pulse Ox O2 Delivery O2 Flow Rate FiO2 02/03/19 13:07 98.4 94 20 144/77 98 Room Air Status: improved Disposition: HOME, SELF-CARE Condition: Stable Scripts Ibuprofen* (MOTRIN*) 600 Mg Tablet 600 MG ORAL Q8H PRN for For Pain, #30 TAB 0 Refills Prov: Andrea Harden 02/03/19 Patient Instructions: Finger Sprain Additional Instructions: Patient instructed to follow up with primary care provider and discuss further referral to orthopedics/physical therapy/pain management as needed. If unable to followup with PCP, followup with orthopedic urgent care in 5-7 days , call to schedule appointment. Patient instructed on RICE method: rest, ice, compression, elevation. Patient instructed to WBAT. Take medications as directed. Patient questions asked and answered. ER precautions given, patient instructed to return to ER immediately for any new or worsening of symptoms. [facility] [address] [facility] [address] [facility], [id number] [email or web address] Andrea Harden Feb 03, 2019 13:36
[2019-02-03 13:50] VITALS: BP 144/77
--- NOTE | 2019-02-03 13:50 | NUR ---
ER DISCHARGE NOTE: Patient is cleared to be discharged per ERMD, pt is aox4, on room air, with stable vital signs. pt was given dc and prescription instructions, pt was able to verbalize understanding, pt id band removed without complications. pt is able to ambulate with steady gait. pt took all belongings.
--- NOTE | 2019-02-03 14:02 | Diagnostic Imaging Report ---
Indication: Fourth digit pain of unknown etiology Technique: 4 views of the left fourth digit Comparison: none Findings: No acute fractures. No dislocations. The joint spaces are preserved. No radiopaque foreign body. The remainder the included portion of the hand is unremarkable. Impression: Negative
[2019-02-03] MEDS ORDERED: IBUPROFEN600 MG ORAL (14:03)
== END 2019-02-03 13:50 | disposition home or self-care (01) ==
LOC: EMR 13:28
DX: M79.645 Pain in left finger(s) (principal); I10 Essential (primary) hypertension; K21.9 Gastro-esophageal reflux disease without esophagitis; E10.9 Type 1 diabetes mellitus without complications
CPT/HCPCS: 99283

== ENCOUNTER 2019-03-22 20:05 | Emergency (ER) | payer OTHER ==
[~2019-03-22] VITALS: Ht 152.4 cm; Wt 73.5 kg
[2019-03-22 20:20] VITALS: BP 150/82
--- NOTE | 2019-03-22 20:20 | NUR ---
ED Nurse Note: PATIENT AMBULATED TO ED C/O HEADACHE X2 WEEKS. DENIES FALL OR TRAUMA. PT STATED SHE IS TAKING IBUPROFEN FOR PAIN. PT STATED SHE IS HAVING HEADACHE MOSTLY ON THE MORNING. CHUCKY ALMAGUER ON BEDSIDE. WILL CONTINUE MONITOR.
[2019-03-22] MEDS ORDERED: CYCLOBENZAPRINE10 MG ORAL (20:27)
[2019-03-22] MEDS ORDERED: IBUPROFEN600 MG ORAL (20:27)
[2019-03-22 20:31] VITALS: BP 138/80
--- NOTE | 2019-03-22 21:18 | Emergency Room Report ---
History of Present Illness General Chief Complaint: Headache Source: Patient Present Illness HPI The patient is a 39-year-old female presenting for headache for the past 2 weeks. She does admit to history of migraine headaches and states that this does feel similar. She is also complaining of neck and shoulder pain. Does admit to being under increased stress due to a moving situation. Pain is a 9 out of 10 dull ache and does not radiate. She has used nuga-[id number]-zugqhzk medication including Tylenol which does help. She denies other symptoms including nausea, vomiting, fever, chills, numbness Allergies: Coded Allergies: No Known Allergies (Unverified , 08/08/12) Patient History Past Medical History: see triage record Pertinent Family History: none Last Menstrual Period: 03/20/19 Now: No Reviewed Nursing Documentation: PMH: Agreed; PSxH: Agreed Nursing Documentation-PMH Hx Hypertension: Yes Hx Pacemaker: No Hx Asthma: No Hx COPD: No Hx Diabetes: Yes - type I Hx Cancer: No Hx Gastrointestinal Problems: Yes - GERD Hx Dialysis: No Hx Neurological Problems: No Hx Cerebrovascular Accident: No Hx Seizures: No Hx Headaches: Yes Review of Systems All Other Systems: negative except mentioned in HPI Physical Exam Vital Signs Date Time Temp Pulse Resp B/P (MAP) Pulse Ox O2 Delivery O2 Flow Rate FiO2 03/22/19 20:10 98.2 104 14 95 Room Air 03/22/19 20:20 150/82 Sp02 EP Interpretation: reviewed, normal General Appearance: no apparent distress, alert, GCS 15, non-toxic Head: normocephalic, atraumatic Eyes: bilateral eye normal inspection, bilateral eye PERRL ENT: hearing grossly normal, normal pharynx, no angioedema, normal voice Neck: full range of motion, supple/symm/no masses, tender lateral Respiratory: chest non-tender, lungs clear, normal breath sounds, speaking full sentences Cardiovascular #1: regular rate, rhythm, no edema Musculoskeletal: back normal, gait/station normal, normal range of motion Neurologic: alert, oriented x3, responsive, motor strength/tone normal, sensory intact, speech normal Psychiatric: judgement/insight normal, memory normal, mood/affect normal, no suicidal/homicidal ideation Skin: normal color, no rash, warm/dry, well hydrated Medical Decision Making PA Attestation Dr. Fan is my supervising physician. Patient management was discussed with my supervising physician Diagnostic Impression: Primary Impression: Headache Additional Impression: Cervical strain Qualified Codes: S16.1XXA - Strain of muscle, fascia and tendon at neck level , initial encounter ER Course The patient is a 39-year-old female presenting for headache for the past 2 weeks. Differential diagnoses include but not limited to Migraine, tension headache, cervical strain, among others PE: Afebrile. NAD. BP WNL HEENT: Head is normocephalic atraumatic. No tenderness to palpation over sinuses PERRL EAC unremarkable Neck is soft and supple. There is tenderness to palpation over paraspinal muscles. No midline tenderness or step-offs. There is tenderness to palpation over trapezius as well The patient is given prescription for Motrin and Robaxin. She is given information for heat therapy at home and massage. She is told to follow-up with her primary doctor as soon as possible. ER precautions given Last Vital Signs Date Time Temp Pulse Resp B/P (MAP) Pulse Ox O2 Delivery O2 Flow Rate FiO2 03/22/19 20:31 98.2 98 14 138/80 95 Room Air Status: improved Disposition: HOME, SELF-CARE Condition: Improved Scripts Cyclobenzaprine Hcl* (FLEXERIL*) 10 Mg Tablet 10 MG ORAL THREE TIMES A DAY, #15 TAB Prov: ROSINA CROCKER 03/22/19 Ibuprofen* (MOTRIN*) 600 Mg Tablet 600 MG ORAL Q8H PRN for For Pain, #30 TAB 0 Refills Prov: ROSINA CROCKERADavid 03/22/19 Referrals: [facility],REFERRING (PCP) Patient Instructions: General Headache Without Cause, Muscle Strain Additional Instructions: I discussed my findings with the patient. All questions and concerns have been answered. Treatment and medication compliance have been addressed. I advised the patient that they need to follow up with PMD in 3-5 days. Return to ED if symptoms worsen, new symptoms arise, or if needed for any reason. Patient verbalized understanding of discharge instructions. ROSINA CROCKER March 22, 2019 21:18
== END 2019-03-22 20:31 | disposition home or self-care (01) ==
LOC: EMR 20:25
DX: R51 Headache (principal); S16.1XXA Strain of muscle, fascia and tendon at neck level, initial encounter; E10.8 Type 1 diabetes mellitus with unspecified complications; X58.XXXA Exposure to other specified factors, initial encounter; Y92.9 Unspecified place or not applicable; I10 Essential (primary) hypertension; K21.9 Gastro-esophageal reflux disease without esophagitis
CPT/HCPCS: 99283

== ENCOUNTER 2019-03-26 20:18 | Emergency (ER) | payer OTHER ==
[~2019-03-26] VITALS: Ht 152.4 cm; Wt 77.1 kg
--- NOTE | 2019-03-26 20:20 | NUR ---
ED Nurse Note: Patient not in waiting room at this time
--- NOTE | 2019-03-26 20:38 | NUR ---
ED Nurse Note: Pt arrived ED from home, c/o left ear pain 6/10 for 5 days. Pt is A/O X 4. Vital signs stable at this time, waiting for orders.
--- NOTE | 2019-03-26 20:50 | Emergency Room Report ---
History of Present Illness General Chief Complaint: Earache Source: Patient Present Illness HPI Patient presents with L ear pain. The pain radiates behind the ear. It is worsened when the ear is touched. She denies any fevers or chills. She has had some mild congestion and sore throat. She has been treated for external otitis in the past. She denies nausea, vomiting, diarrhea, dysuria. She is not sure how her sugars have been. She does have some mild polyuria and polydipsia. She does take insulin. Pain is rated 6/10 aching in the ear and behind the ear. There is no change in hearing. The patient's been taking Motrin and the last dose was last night. Has been helping minimally. She was seen for cervical strain 4 days ago. She was given Motrin and Flexeril. The pain is more localized to the ear at this time. This is worsened from prior visit. Allergies: Coded Allergies: No Known Allergies (Unverified , 08/08/12) Patient History Past Medical History: see triage record Social History: Denies: smoking, alcohol use, drug use Social History Narrative With daughter Last Menstrual Period: 03/24/19 Now: No : 5 Para: 5 Reviewed Nursing Documentation: PMH: Agreed; PSxH: Agreed Nursing Documentation-PMH Past Medical History: No History, Except For Hx Hypertension: Yes Hx Pacemaker: No Hx Asthma: No Hx COPD: No Hx Diabetes: Yes - type I Hx Cancer: No Hx Gastrointestinal Problems: Yes - GERD Hx Dialysis: No Hx Neurological Problems: No Hx Cerebrovascular Accident: No Hx Seizures: No Hx Headaches: Yes Review of Systems All Other Systems: negative except mentioned in HPI Physical Exam Vital Signs Date Time Temp Pulse Resp B/P (MAP) Pulse Ox O2 Delivery O2 Flow Rate FiO2 03/26/19 20:27 98.4 87 18 96 Room Air Sp02 EP Interpretation: reviewed, normal General Appearance: well appearing, no apparent distress Head: normocephalic, atraumatic Eyes: bilateral eye normal inspection, bilateral eye PERRL ENT: hearing grossly normal, normal voice, other - Pinna tenderness with movement left ear, mild canal erythema and fluid behind the tympanic membrane without bulging Neck: full range of motion, supple, no bony tend Respiratory: chest non-tender, lungs clear, normal breath sounds, no respiratory distress, speaking full sentences Cardiovascular #1: regular rate, rhythm Cardiovascular #2: 2+ radial (R) Gastrointestinal: normal inspection Genitourinary: no CVA tenderness Musculoskeletal: gait/station normal, normal range of motion, no calf tenderness Neurologic: alert, oriented x3, normal gait, grossly normal Psychiatric: mood/affect normal Skin: no rash Medical Decision Making Diagnostic Impression: Primary Impression: Left otitis media Qualified Codes: H65.05 - Acute serous otitis media, recurrent, left ear Additional Impressions: Hyperglycemia Left otitis externa Qualified Codes: H60.392 - Other infective otitis externa, left ear ER Course Patient presents with left ear pain radiating towards the mastoid process. Differential includes external otitis, otitis media, mastoiditis, cervical's strain amongst others. She has mild polyuria and polydipsia suggesting glucose might be elevated. Based on the fact that she is diabetic and there is evidence of both otitis media and otitis externa both oral antibiotics and topical antibiotics are indicated. This is not a malignant otitis externa and ear wick is not indicated. Accu-Chek will be obtained. Also the patient will be given a dose of Motrin and started on amoxicillin. She is nontoxic at this time and clinically does not have mastoiditis. Accucheck 330. Discussed with patient need for tender control. She states she knows how to do this and refuses insulin here. She states that she's going to take insulin when she gets home. Patient stable for outpatient observation and treatment. Last Vital Signs Date Time Temp Pulse Resp B/P (MAP) Pulse Ox O2 Delivery O2 Flow Rate FiO2 03/26/19 20:27 98.4 87 18 96 Room Air Status: improved Disposition: HOME, SELF-CARE Condition: Improved Scripts Tramadol Hcl* (ULTRAM*) 50 Mg Tablet 50 MG ORAL Q6H PRN for For Pain, #10 TAB 0 Refills Prov: Michael Fan MD 03/26/19 Neomycin/Polymyxin B Sulf/Hc* (CORTISPORIN EAR SOLUTION*) 10 Ml Solution 3 DROP LEFT EAR TID, #10 ML 0 Refills Prov: Michael Fan MD 03/26/19 Amoxicillin* (AMOXIL*) 500 Mg Capsule 500 MG ORAL THREE TIMES A DAY, #21 CAP Prov: Michael Fan MD 03/26/19 Michael Fan MD March 26, 2019 20:49
[2019-03-26] MEDS ORDERED: Pseudoephedrine 30mg tab ORAL ONE (21:00)
--- NOTE | 2019-03-26 21:15 | NUR ---
ED Nurse Note: Meds given as ordered.
[2019-03-26] MEDS ORDERED: TRAMADOL HCL50 MG ORAL (21:54)
[2019-03-26] MEDS ORDERED: CORTISPORIN EAR10 ML LEFT EAR (21:54)
[2019-03-26] MEDS ORDERED: AMOXICILLIN500 MG ORAL (21:54)
--- NOTE | 2019-03-26 22:04 | NUR ---
D/cER DISCHARGE NOTE: Patient is cleared to be discharged per Dr. Fan. Pt is aox4, on room air with stable vital signs. Pt was given dc and prescription instructions, pt was able to verbalize understanding. Pt ID band removed. pt is able to ambulate with steady gait and took all belongings. Accompanied by her family.
[2019-03-27 04:04] VITALS: BP 151/73
== END 2019-03-26 22:04 | disposition home or self-care (01) ==
LOC: EMR 21:04
DX: H65.05 Acute serous otitis media, recurrent, left ear (principal); H60.392 Other infective otitis externa, left ear; E10.65 Type 1 diabetes mellitus with hyperglycemia; K21.9 Gastro-esophageal reflux disease without esophagitis
CPT/HCPCS: 82962; 99282

== ENCOUNTER 2019-04-01 20:06 | Emergency (ER) | payer OTHER ==
[~2019-04-01] VITALS: Ht 152.4 cm; Wt 76.7 kg
[~2019-04-01 20:06] MED LIST changes: +CORTISPORIN EAR10 ML LEFT EAR; +TRAMADOL HCL50 MG ORAL
[2019-04-01] MEDS ORDERED: AVODART0.5 MG ORAL (20:13)
[2019-04-01 20:22] VITALS: BP 137/67
--- NOTE | 2019-04-01 20:24 | NUR ---
ER Nurse Note: Pt came from home c/o sore throat for over one week. Pt stated she has difficulty swollowing d/t sore throat. Pt was seen at [facility] for headache and earache a week ago and was put on antibiotics. Pt is currently taking medicaion as scheduled. Pt a&ox4, VSS, on RA. Will continue to [facility].
--- NOTE | 2019-04-01 20:29 | Emergency Room Report ---
History of Present Illness General Chief Complaint: Sore Throat Source: Patient Present Illness HPI 39-year-old female history diabetes she is presenting with left ear pain and throat pain. She has been taking amoxicillin for a possible infection. She no drainage to her ear. She is complaining of subjective fever and chills. She has been able to eat and drink normally. She points to her left ear for the pain and she's also stating that she has a sore throat. No coughing no runny nose. She says that she has not with this for more than a week Allergies: Coded Allergies: No Known Allergies (Unverified , 08/08/12) Patient History Past Medical History: see triage record Past Surgical History: none Pertinent Family History: none Last Menstrual Period: 03/08/19 Now: No Reviewed Nursing Documentation: PMH: Agreed; PSxH: Agreed Nursing Documentation-PMH Past Medical History: No History, Except For Hx Hypertension: Yes Hx Pacemaker: No Hx Asthma: No Hx COPD: No Hx Diabetes: Yes - type I Hx Cancer: No Hx Gastrointestinal Problems: Yes - GERD Hx Dialysis: No Hx Neurological Problems: No Hx Cerebrovascular Accident: No Hx Seizures: No Hx Headaches: Yes Review of Systems All Other Systems: negative except mentioned in HPI Physical Exam Vital Signs Date Time Temp Pulse Resp B/P (MAP) Pulse Ox O2 Delivery O2 Flow Rate FiO2 04/01/19 20:07 99.5 100 18 95 Room Air 04/01/19 20:22 137/67 Sp02 EP Interpretation: reviewed, normal General Appearance: normal inspection, well appearing, no apparent distress, alert, GCS 15, non-toxic Head: normocephalic, atraumatic Eyes: bilateral eye normal inspection, bilateral eye PERRL, bilateral eye EOMI ENT: normal ENT inspection, normal pharynx, normal voice, moist mucus membranes , other - No neck masses, no abscesses, posterior pharynx is normal, uvula is benign, no signs of [employer]. Bilateral ears are normal Neck: normal inspection, full range of motion, supple Respiratory: normal inspection, lungs clear, normal breath sounds, no respiratory distress, no retraction, no wheezing, speaking full sentences, chest symmetrical Cardiovascular #1: normal inspection, regular rate, rhythm, no edema, normal capillary refill Cardiovascular #2: 2+ radial (R), 2+ radial (L) Gastrointestinal: normal inspection, non tender, soft, non-distended, no guarding Musculoskeletal: normal inspection, back normal, normal range of motion, non- tender Neurologic: normal inspection, alert, oriented x3, responsive, motor strength/ tone normal, sensory intact, normal gait, speech normal Psychiatric: normal inspection, judgement/insight normal, memory normal Skin: normal inspection, normal color, no rash, warm/dry, well hydrated, normal turgor Medical Decision Making Diagnostic Impression: Primary Impression: Ear pain, left Additional Impression: Sore throat ER Course 39-year-old female with sore throat and earache DDX: Possibly residual pain from a recent infection, she saw on antibiotics. I don' t see any signs of deep space infection at this time Plan: Reassurance ER course: Patient has remained stable during ED stay. Disposition: Patient is to be discharged to home. Patient is instructed to follow up with their primary care doctor within 5 days as well as obtained an ENT referral. Please note that this Emergency Department Report was dictated using [employer] therapy manager technology software, occasionally this can lead to erroneous entry secondary to interpretation by the dictation equipment Last Vital Signs Date Time Temp Pulse Resp B/P (MAP) Pulse Ox O2 Delivery O2 Flow Rate FiO2 04/01/19 20:22 99.5 100 18 137/67 95 Room Air Disposition: HOME, SELF-CARE Condition: Stable Patient Instructions: Sore Throat Additional Instructions: PLEASE OBTAIN A REFERRAL FROM YOUR PCP TO SEE AN ENT SPECIALIST. PLEASE FINISH YOUR ANTIBIOTICS Jeffy Wilson M.D. April 01, 2019 20:28
[2019-04-01 20:35] VITALS: BP 137/67
--- NOTE | 2019-04-01 20:35 | NUR ---
ER Nurse Note: All orders completed per ERPA orders. Pt seen, treated, medically cleared for discharge by ERPA. Discharge instructions given with repeat verbazliaion by pt. Instructed pt to follow up with primary care provider within one week. Pt a&ox4, VSS, no signs of distress. ID band removed. Pt left with all belongings with steady gait via own transportation. Pt refused to sign.
[2019-04-02] MEDS ORDERED: CLINDAMYCIN HC300 MG ORAL (23:21)
== END 2019-04-01 20:35 | disposition home or self-care (01) ==
LOC: EMR 20:31
DX: H92.02 Otalgia, left ear (principal); R07.0 Pain in throat; I10 Essential (primary) hypertension; E10.8 Type 1 diabetes mellitus with unspecified complications; K21.9 Gastro-esophageal reflux disease without esophagitis
CPT/HCPCS: 99281

== ENCOUNTER 2019-04-02 21:46 | Emergency (ER) | payer OTHER ==
[~2019-04-02] VITALS: Ht 152.4 cm; Wt 76.7 kg
[~2019-04-02 21:46] MED LIST changes: +AVODART0.5 MG ORAL
[2019-04-02 22:20] VITALS: BP 144/76
--- NOTE | 2019-04-02 22:20 | NUR ---
ED Nurse Note: Pt arrived ED from home. c/o left ear pain for 2 weeks and getting wrose today. Pt is A/O X4. Vital signs stable at this time, waiting for orders.
[2019-04-02] MEDS ORDERED: CLINDAMYCIN HC300 MG ORAL (23:21)
--- NOTE | 2019-04-02 23:21 | Emergency Room Report ---
History of Present Illness General Chief Complaint: Earache Source: Patient Present Illness HPI Is a 39-year-old female with history of insulin dependent diabetes. She presents with chief complaint of sore throat and ear pain. Onset for about a week. She has one more day of amoxicillin. Not getting better. Subjective fever chills at night. Seen here couple times already. No nausea vomiting or diarrhea. Worse with swallowing. Pain is throbbing in nature. Radiating to her neck. Allergies: Coded Allergies: No Known Allergies (Unverified , 08/08/12) Patient History Past Medical History: see triage record, old chart reviewed, DM Past Surgical History: other Pertinent Family History: none Social History: Denies: smoking Last Menstrual Period: 03/19/19 Now: No Immunizations: other Reviewed Nursing Documentation: PMH: Agreed; PSxH: Agreed Nursing Documentation-PMH Past Medical History: No History, Except For Hx Hypertension: Yes Hx Pacemaker: No Hx Asthma: No Hx COPD: No Hx Diabetes: Yes - type I Hx Cancer: No Hx Gastrointestinal Problems: Yes - GERD Hx Dialysis: No Hx Neurological Problems: No Hx Cerebrovascular Accident: No Hx Seizures: No Hx Headaches: Yes Review of Systems Eye: Denies: eye pain, blurred vision ENT: Reports: ear pain, throat pain; Denies: nose congestion, throat swelling Respiratory: Denies: cough, shortness of breath Cardiovascular: Denies: chest pain, palpitations Gastrointestinal: Denies: abdominal pain, diarrhea, nausea, vomiting Musculoskeletal: Denies: back pain, joint pain Skin: Denies: rash Neurological: Denies: headache, numbness Endocrine: Denies: increased thirst, increased urine Hematologic/Lymphatic: Denies: easy bruising All Other Systems: negative except mentioned in HPI Physical Exam Vital Signs Date Time Temp Pulse Resp B/P (MAP) Pulse Ox O2 Delivery O2 Flow Rate FiO2 04/02/19 21:59 98.4 102 18 95 Room Air 04/02/19 22:20 144/76 vitals unremarkable Sp02 EP Interpretation: reviewed, normal General Appearance: well appearing, no apparent distress, alert Head: normocephalic, atraumatic Eyes: bilateral eye PERRL, bilateral eye EOMI ENT: hearing grossly normal, TMs + canals normal, tonsillar swelling, pharyngeal erythema, tonsillar exudate - left side Neck: full range of motion, supple, no meningismus Respiratory: chest non-tender, lungs clear, normal breath sounds Cardiovascular #1: regular rate, rhythm, no murmur Gastrointestinal: normal bowel sounds, non tender, no mass, no organomegaly, no bruit, non-distended Musculoskeletal: back normal, gait/station normal, normal range of motion Psychiatric: mood/affect normal Skin: warm/dry Medical Decision Making Diagnostic Impression: Primary Impression: Acute tonsillitis Qualified Codes: J03.90 - Acute tonsillitis, unspecified ER Course Patient presents with sore throat. She has exudative tonsillitis. No evidence of peritonsillar abscess or retropharyngeal abscess. We'll switch antibiotics. No evidence of Eddie angina. Last Vital Signs Date Time Temp Pulse Resp B/P (MAP) Pulse Ox O2 Delivery O2 Flow Rate FiO2 04/02/19 22:20 98.4 82 18 144/76 95 Room Air Status: unchanged Disposition: HOME, SELF-CARE Condition: Stable Scripts Clindamycin Hcl (CLINDAMYCIN HCL) 300 Mg Capsule 300 MG ORAL THREE TIMES A DAY, #21 CAP Prov: Calos Peacock MD 04/02/19 Referrals: [facility]ERR[facility] (PCP) Additional Instructions: Increase fluids. Salt water gargle. Follow-up with your doctor in 7 days. Return if worse. Calos Peacock MD April 02, 2019 23:21
[2019-04-02 23:26] VITALS: BP 142/73
--- NOTE | 2019-04-02 23:26 | NUR ---
ER DISCHARGE NOTE: Patient is cleared to be discharged per Dr. Peacock. Pt is aox4 on room air with stable vital signs. Pt was given dc and prescription instructions and was able to verbalize understanding. Pt's ID band removed. Pt is able to ambulate with steady gait and took all belongings.
== END 2019-04-02 23:26 | disposition home or self-care (01) ==
LOC: EMR 22:13
DX: J03.90 Acute tonsillitis, unspecified (principal); E11.9 Type 2 diabetes mellitus without complications; Z79.4 Long term (current) use of insulin; I10 Essential (primary) hypertension; K21.9 Gastro-esophageal reflux disease without esophagitis; E10.8 Type 1 diabetes mellitus with unspecified complications
CPT/HCPCS: 99282

== ENCOUNTER 2019-04-28 21:20 | Emergency (ER) | payer OTHER ==
[~2019-04-28] VITALS: Ht 152.4 cm; Wt 76.7 kg
[~2019-04-28 21:20] MED LIST changes: +CLINDAMYCIN HC300 MG ORAL
[2019-04-28] MEDS ORDERED: ATORVASTATIN CA40 MG ORAL (21:28)
[2019-04-28] MEDS ORDERED: HYDROCHLOROTHIA50 MG ORAL (21:28)
[2019-04-28] MEDS ORDERED: BENAZEPRIL HCL40 MG ORAL (21:28)
[2019-04-28 21:44] VITALS: BP 141/77
--- NOTE | 2019-04-28 21:54 | NUR ---
ED Nurse Note: Patient walked in to ER c/o ear ache, sore throat x3 days. AAO x4, VSS at this point, skin is warm to touch.
--- NOTE | 2019-04-28 22:04 | Emergency Room Report ---
History of Present Illness General Chief Complaint: Earache Source: Patient Present Illness HPI 39-year-old female with history of diabetes high blood pressure. She presents with chief complaint of right ear pain. Onset for last couple days. Also with sore throat. No congestion. No cough or fever. Patient been here several times for similar complaint. I saw her recently for left ear pain. She has not seen any specialist for this. Pain is 8 out of 10. Worse with coughing and yawning. Allergies: Coded Allergies: No Known Allergies (Unverified , 08/08/12) Patient History Past Medical History: see triage record, old chart reviewed, DM, HTN Past Surgical History: none Pertinent Family History: none Social History: Denies: smoking Last Menstrual Period: 04/28/19 Now: No Immunizations: other Reviewed Nursing Documentation: PMH: Agreed; PSxH: Agreed Nursing Documentation-PMH Past Medical History: No History, Except For Hx Hypertension: Yes Hx Pacemaker: No Hx Asthma: No Hx COPD: No Hx Diabetes: Yes - type I Hx Cancer: No Hx Gastrointestinal Problems: Yes - GERD Hx Dialysis: No Hx Neurological Problems: No Hx Cerebrovascular Accident: No Hx Seizures: No Hx Headaches: Yes Review of Systems Eye: Denies: eye pain, blurred vision ENT: Reports: ear pain; Denies: nose congestion, throat swelling Respiratory: Denies: cough, shortness of breath Cardiovascular: Denies: chest pain, palpitations Gastrointestinal: Denies: abdominal pain, diarrhea, nausea, vomiting Musculoskeletal: Denies: back pain, joint pain Skin: Denies: rash Neurological: Denies: headache, numbness Endocrine: Denies: increased thirst, increased urine Hematologic/Lymphatic: Denies: easy bruising All Other Systems: negative except mentioned in HPI Physical Exam Vital Signs Date Time Temp Pulse Resp B/P (MAP) Pulse Ox O2 Delivery O2 Flow Rate FiO2 04/28/19 21:23 98.2 92 14 141/77 (98) 97 Room Air Vitals normal Sp02 EP Interpretation: reviewed, normal General Appearance: well appearing, no apparent distress, alert Head: normocephalic, atraumatic Eyes: bilateral eye PERRL, bilateral eye EOMI ENT: hearing grossly normal, normal pharynx, other - Right TM is cloudy and has effusion. Neck: full range of motion, supple, no meningismus Respiratory: chest non-tender, lungs clear, normal breath sounds Cardiovascular #1: regular rate, rhythm, no murmur Gastrointestinal: normal bowel sounds, non tender, no mass, no organomegaly, no bruit, non-distended Musculoskeletal: back normal, gait/station normal, normal range of motion Psychiatric: mood/affect normal Skin: warm/dry Medical Decision Making Diagnostic Impression: Primary Impression: Otitis media Qualified Codes: H65.191 - Other acute nonsuppurative otitis media, right ear ER Course Presents with otitis media. This is a recurrent issue for her. She would benefit from referral to see ENT. No evidence of any perforation. No evidence of any mastoiditis. Last Vital Signs Date Time Temp Pulse Resp B/P (MAP) Pulse Ox O2 Delivery O2 Flow Rate FiO2 04/28/19 21:44 98.2 14 141/77 97 Room Air 04/28/19 21:23 92 Status: unchanged Disposition: HOME, SELF-CARE Condition: Stable Scripts Amoxicillin/Potassium Clav 875-125* (AUGMENTIN 875-125 TABLET*) 1 Each Tablet 1 TAB ORAL TWICE A DAY, #14 TAB Prov: Calos Peacock MD 04/28/19 Patient Instructions: Otitis Media, Adult, [id number] Additional Instructions: Follow-up with your doctor in a week. You may benefit from a referral to see ENT doctor. Return if worse. Calos Peacock MD Apr 28, 2019 22:04
[2019-04-28] MEDS ORDERED: AUGMENTIN 875-1 EAC1 ORAL (22:19)
[2019-04-28 22:26] VITALS: BP 141/77
--- NOTE | 2019-04-28 22:27 | NUR ---
ED Nurse Note: Pt cleared by health care Provider for discharge. DC instructions/prescription was given and explained to pt and verbalized understanding of teachings. All medical deviecs such as ID band removed. Pt is AAO x4, ambulatory and left with all personal belongings.
== END 2019-04-28 22:23 | disposition home or self-care (01) ==
LOC: EMR 22:00
DX: H65.191 Other acute nonsuppurative otitis media, right ear (principal); R07.0 Pain in throat; I10 Essential (primary) hypertension; E10.8 Type 1 diabetes mellitus with unspecified complications; K21.9 Gastro-esophageal reflux disease without esophagitis
CPT/HCPCS: 99282

== ENCOUNTER 2019-05-01 09:50 | Emergency (ER) | payer OTHER ==
[~2019-05-01] VITALS: Ht 152.4 cm; Wt 76.7 kg
[2019-05-01] VITALS (7 sets, daily range): BP systolic 130–151; BP diastolic 51–79
[~2019-05-01 09:50] MED LIST changes: +ATORVASTATIN CA40 MG ORAL; +BENAZEPRIL HCL40 MG ORAL; +HYDROCHLOROTHIA50 MG ORAL
--- NOTE | 2019-05-01 10:15 | NUR ---
ED Nurse Note: pt relates feeling back pain and epigastric area pain x 3-4 days. pt states occ. coughing up white phlegm. no pedal edema noted
[2019-05-01] MEDS ORDERED: Lidocaine 2% Visc 15ml soln ORAL ONE (10:30)
[2019-05-01] MEDS ORDERED: NOVOLIN N100 UNIT/1 SUBQ (10:36)
[2019-05-01] MEDS ORDERED: HYDROXYCHLOROQ200 M1 PO (10:36)
[2019-05-01 10:39] LABS: BASOPHILS % (AUTO) 0.5 % (0.0-2.0); EOSINOPHILS % (AUTO) 0.5 % (0.0-3.0); HEMATOCRIT 33.6 % (37.0-47.0); HEMOGLOBIN 10.6 G/DL (12.0-16.0); LYMPHOCYTES % (AUTO) 24.8 % (20.0-45.0); MEAN CORPUSCULAR VOLUME 83 FL (80-99); MONOCYTES % (AUTO) 9.2 % (1.0-10.0); NEUTROPHILS % (AUTO) 65.1 % (45.0-75.0); PLATELET COUNT 427 K/UL (150-450); RED BLOOD COUNT 4.06 M/UL (4.20-5.40); WHITE BLOOD COUNT 6.3 K/UL (4.8-10.8)
[2019-05-01 10:39] LABS: APPEARANCE,URINE CLEAR; BILIRUBIN, URINE NEGATIVE (NEGATIVE); COLOR,URINE PALE YELLOW; GLUCOSE, URINE (UA) 4+ (NEGATIVE); KETONES,URINE NEGATIVE (NEGATIVE); LEUKOCYTE ESTERASE ,URINE NEGATIVE (NEGATIVE); NITRITE,URINE NEGATIVE (NEGATIVE); PH,URINE 6.5 (4.5-8.0); PROTEIN,URINE 3+ (NEGATIVE); UROBILINOGEN,URINE NORMAL MG/DL (0.0-1.0)
--- NOTE | 2019-05-01 10:43 | Diagnostic Imaging Report ---
Indication: Shortness of breath Technique: One view of the chest Comparison: 03/05/2018 Findings: Body habitus somewhat limits evaluation. No definite acute infiltrates, effusions, or congestion. Upper limits of normal heart size Impression: No acute process
--- NOTE | 2019-05-01 11:07 | NUR ---
ED Nurse Note: us being done at by tech
[2019-05-01 11:11] LABS: ANION GAP 10 mmol/L (5-15); BLOOD UREA NITROGEN 16 mg/dL (7-18); CALCIUM 8.9 MG/DL (8.5-10.1); CARBON DIOXIDE 24 MMOL/L (21-32); CHLORIDE 100 MMOL/L (98-107); CREATININE 1.1 MG/DL (0.55-1.30); POTASSIUM 3.9 MMOL/L (3.5-5.1); SODIUM 134 MMOL/L (136-145)
[2019-05-01 11:24] LABS: ALANINE AMINOTRANSFERASE 17 U/L (12-78); ALBUMIN 2.4 G/DL (3.4-5.0); ALBUMIN/GLOBULIN RATIO 0.5 (1.0-2.7); ALKALINE PHOSPHATASE 119 U/L (46-116); ASPARTATE AMINO TRANSFERASE 14 U/L (15-37); BILIRUBIN,TOTAL 0.2 MG/DL (0.2-1.0); CREATINE KINASE 38 U/L (26-308)
--- NOTE | 2019-05-01 11:44 | NUR ---
ED Nurse Note: pt reeval by . pt assisted to brp, pt does become increased dyspnea after ambulation. md aware.
[2019-05-01] MEDS ORDERED: Isovue-370 150ml vial INJ PRN (11:45)
[2019-05-01] MEDS ORDERED: Aspirin Baby 81mg ORAL ONE (11:45)
--- NOTE | 2019-05-01 11:54 | Diagnostic Imaging Report ---
Indication: Left lower extremity pain and edema Technique: Grayscale and duplex images of the left lower extremity veins Comparison: none Findings: On the left, grayscale duplex images demonstrate no evidence of intraluminal thrombus. Normal phasic Doppler waveforms, demonstrating normal augmentation response and no evidence of valvular insufficiency. Normal compressibility of all left lower extremity veins Impression: No evidence of left lower extremity deep venous thrombosis
--- NOTE | 2019-05-01 12:02 | NUR ---
ED Nurse Note: pt to ct scan via ruiz
--- NOTE | 2019-05-01 12:35 | NUR ---
ED Nurse Note:pt. came back from CT scan, placed back on secured entrance monitor
--- NOTE | 2019-05-01 12:55 | Emergency Room Report ---
History of Present Illness General Chief Complaint: Dyspnea/Respdistress Source: Patient Present Illness HPI The patient states that she recently has had recurrent respiratory infections. She states she was seen a few days ago for the same symptoms and was given Augmentin for an ear infection. She states that she is getting worse. She reports that over the past 4 days she has had chest pressure. She states she has felt very short of breath. She states she has a burning sensation in her back. She reports that the symptoms are worse when she lays down. She states only relieving factors or if she stands up or is upright. Nausea or vomiting. She denies abdominal pain. She denies fever or chills. She states that she has noted swelling in her left leg during this timeframe. She had associated the leg swelling with her recent move from one house to the other and she has been very active. She states that she feels short of breath with exertion. She has no other complaints. Allergies: Coded Allergies: No Known Allergies (Unverified , 08/08/12) Patient History Past Medical History: DM, HTN, GERD, other - HLP, in work-up for Lupus (not yet dx'd) Social History: Denies: smoking, alcohol use, drug use Last Menstrual Period: 05/01/2019 Reviewed Nursing Documentation: PMH: Agreed; PSxH: Agreed Nursing Documentation-PMH Past Medical History: No History, Except For Hx Hypertension: Yes Hx Pacemaker: No Hx Asthma: No Hx COPD: No Hx Diabetes: Yes - type I Hx Cancer: No Hx Gastrointestinal Problems: Yes - GERD Hx Dialysis: No Hx Neurological Problems: No Hx Cerebrovascular Accident: No Hx Seizures: No Hx Headaches: Yes Review of Systems All Other Systems: negative except mentioned in HPI Physical Exam Vital Signs Date Time Temp Pulse Resp B/P (MAP) Pulse Ox O2 Delivery O2 Flow Rate FiO2 05/01/19 09:56 98.8 112 18 155/80 (105) 96 Room Air Sp02 EP Interpretation: reviewed, normal General Appearance: no apparent distress, alert, GCS 15, non-toxic Head: normocephalic, atraumatic Eyes: bilateral eye normal inspection, bilateral eye PERRL ENT: hearing grossly normal, normal pharynx, no angioedema, normal voice Neck: full range of motion, supple/symm/no masses Respiratory: chest non-tender, lungs clear, normal breath sounds, no respiratory distress, no retraction, no accessory muscle use, speaking full sentences Cardiovascular #1: regular rate, rhythm, no edema Gastrointestinal: normal bowel sounds, non tender, soft, non-distended, no guarding, no rebound Rectal: deferred Musculoskeletal: back normal, gait/station normal, normal range of motion, non- tender Neurologic: alert, oriented x3, responsive, motor strength/tone normal, sensory intact, speech normal Psychiatric: judgement/insight normal, memory normal, mood/affect normal, no suicidal/homicidal ideation Skin: normal color, no rash, warm/dry, well hydrated Medical Decision Making Diagnostic Impression: Primary Impression: CHF (congestive heart failure) Additional Impressions: Hyperglycemia Uncontrolled diabetes mellitus Elevated troponin I level NSTEMI (non-ST elevated myocardial infarction) ER Course This patient presents with findings concerning for congestive heart failure. The patient does not have a previous diagnosis of congestive heart failure. She presents with orthopnea and shortness of breath on exertion. She also had swelling in her left lower extremity. US of the LLE was negative for DVT. Initially, I was concerned about PE in this patient. Therefore, I obtained a CTA of her chest but there was no PE and only findings of interstitial edema and pleural effusions consistent with congestive heart failure. The patient is also hyperglycemic with poorly controlled diabetes. I suspect this is diet noncompliance and possibly medication noncompliance. The patient had an indeterminant but elevated troponin. It did not meet criteria for acute ME, however, I am also concerned because the patient's EKG has findings that could be ischemic. I discussed the case with Dr. Ruiz and cardiology and he felt that this patient would be better served at a hospital with the capability to do a heart cath. However, I spoke with [facility] transfer emergency department physician and he refused transfer stating that this patient did not need urgent catheterization. I also spoke with the fish net maker at [facility] who stated that he would be happy to accept her if she fully ruled in with higher troponin and needed an emergency heart catheterization. He did note that he felt she likely has coronary artery disease and would need a heart catheterization in the future but would need control of her blood sugar and congestive heart failure first before a heart catheterization would be performed. Repeat EKG unchanged. I also spoke with the motor vehicle assembly supervisor here at [facility], and he felt that this patient would be better at a facility with higher level of care. The patient's insurance company was able to arrange a transfer to [facility] where there is a After School Counselor and it is a STEMI receiving center. I felt that the risk versus benefit of transfer was far better for the patient to be at a higher level of care facility so that she could obtain the proper testing. Therefore, the patient was transferred to [facility] for higher level of care. Laboratory Tests Test 05/01/19 10:03 05/01/19 10:25 Urine Color Pale yellow Urine Appearance Clear Urine pH 6.5 (4.5-8.0) Urine Specific [place] 1.010 (1.005-1.035) Urine Protein 3+ (NEGATIVE) H Urine Glucose (UA) 4+ (NEGATIVE) H Urine Ketones Negative (NEGATIVE) Urine Blood 5+ (NEGATIVE) H Urine Nitrite Negative (NEGATIVE) Urine Bilirubin Negative (NEGATIVE) Urine Urobilinogen Normal MG/DL (0.0-1.0) Urine Leukocyte Esterase Negative (NEGATIVE) Urine RBC 30-40 /HPF (0 - 2) H Urine WBC 0-2 /HPF (0 - 2) Urine Squamous Epithelial Cells Few /LPF (NONE/OCC) Urine Bacteria Occasional /HPF (NONE) Urine HCG, Qualitative Negative (NEGATIVE) Urine Opiates Screen Negative (NEGATIVE) Urine Barbiturates Screen Negative (NEGATIVE) Phencyclidine (PCP) Screen Negative (NEGATIVE) Urine Amphetamines Screen Negative (NEGATIVE) Urine Benzodiazepines Screen Negative (NEGATIVE) Urine Cocaine Screen Negative (NEGATIVE) Urine Marijuana (THC) Screen Negative (NEGATIVE) White Blood Count 6.3 K/UL (4.8-10.8) Red Blood Count 4.06 M/UL (4.20-5.40) L Hemoglobin 10.6 G/DL (12.0-16.0) L Hematocrit 33.6 % (37.0-47.0) L Mean Corpuscular Volume 83 FL (80-99) Mean Corpuscular Hemoglobin 26.1 PG (27.0-31.0) L Mean Corpuscular Hemoglobin Concent 31.6 G/DL (32.0-36.0) L Red Cell Distribution Width 12.0 % (11.6-14.8) Platelet Count 427 K/UL (150-450) Mean Platelet Volume 6.8 FL (6.5-10.1) Neutrophils (%) (Auto) 65.1 % (45.0-75.0) Lymphocytes (%) (Auto) 24.8 % (20.0-45.0) Monocytes (%) (Auto) 9.2 % (1.0-10.0) Eosinophils (%) (Auto) 0.5 % (0.0-3.0) Basophils (%) (Auto) 0.5 % (0.0-2.0) D-Dimer 0.57 mg/L FEU (0.00-0.49) H Sodium Level 134 MMOL/L (136-145) L Potassium Level 3.9 MMOL/L (3.5-5.1) Chloride Level 100 MMOL/L (98-107) Carbon Dioxide Level 24 MMOL/L (21-32) Anion Gap 10 mmol/L (5-15) Blood Urea Nitrogen 16 mg/dL (7-18) Creatinine 1.1 MG/DL (0.55-1.30) Estimate Glomerular Filtration Rate 55.3 mL/min (>60) Glucose Level 427 MG/DL (74-106) H Calcium Level 8.9 MG/DL (8.5-10.1) Total Bilirubin 0.2 MG/DL (0.2-1.0) Aspartate Amino Transferase (AST) 14 U/L (15-37) L Alanine Aminotransferase (ALT) 17 U/L (12-78) Alkaline Phosphatase 119 U/L (46-116) H Total Creatine Kinase 38 U/L (26-308) Creatine Kinase MB 1.0 NG/ML (0.0-3.6) Creatine Kinase MB Relative Index 2.6 Troponin I 0.141 ng/mL (0.000-0.056) Total Protein 7.3 G/DL (6.4-8.2) Albumin 2.4 G/DL (3.4-5.0) L Globulin 4.9 g/dL Albumin/Globulin Ratio 0.5 (1.0-2.7) L EKG Diagnostic Results Rate: tachycardiac Rhythm: other - S.tachycardia ST Segments: other - Qwaves in leads V1, V2, V3, NSST segment depressions in V4 , V5, V6. ASA given to the pt in ED: Yes Rhythm Strip Diag. Results EP Interpretation: yes Rate: 100's Rhythm: no PVC's, no ectopy, other Chest X-Ray Diagnostic Results Chest X-Ray Diagnostic Results : Chest X-Ray Ordered: Yes # of Views/Limited/Complete: 1 View Indication: Shortness of Breath EP Interpretation: Yes Interpretation: no consolidation, no effusion, no pneumothorax, other - Diffuse mild pulmonary opacities Impression: Other - Diffuse patchy opacities Electronically Signed by: Josie Dasilva DO CT/MRI/US Diagnostic Results CT/MRI/US Diagnostic Results : Imaging Test Ordered: CTA Chest, US LLE Impression US LLE: No DVT. CTA chest: No PE. +pulmonary congestion and bilateral pleural effusions. Last Vital Signs Date Time Temp Pulse Resp B/P (MAP) Pulse Ox O2 Delivery O2 Flow Rate FiO2 05/01/19 10:49 112 20 142/76 100 Room Air 05/01/19 09:56 98.8 Disposition: XFER SHT-TRM HOSP Condition: Serious Referrals: [facility],REFERRING (PCP) Josie Dasilva DO May 01, 2019 12:55
--- NOTE | 2019-05-01 13:14 | NUR ---
ED Nurse Note: pt with ivf discontinued per md after ct results by radiology. pt denies increased dyspnea after infusion. awaiting further dispo
--- NOTE | 2019-05-01 13:15 | Diagnostic Imaging Report ---
ndication: Shortness of breath Technique: IV administration nonionic contrast. Spiral acquisitions obtained from the lung bases to the lung apices. Multiplanar and 3-D reconstructions were generated. Total dose length product 850.57 mGycm. CTDIvol(s) 25.3 mGy. Dose reduction achieved using automated exposure control Comparison: none Findings: There is good opacification of the pulmonary arteries. No intraluminal filling defects or other findings to suggest acute pulmonary embolus. No pulmonary arterial dilatation or right ventricular dilatation. No evidence of thoracic aortic aneurysm or dissection. There is diffuse bilateral interstitial septal thickening and mild venous congestion. There is a moderate left and moderate to large pleural effusion demonstrated. The heart is mildly enlarged. Irregular opacities are seen in the inferior lingula and right middle lobe, probably representing areas of atelectasis or scarring.. Compressive atelectasis is seen at the right lung base. No pericardial effusion demonstrated. Granulomatous calcifications are seen in the right pulmonary hilum. There are prominent paratracheal lymph nodes demonstrated. These measure up to 25 mm in diameter. Unremarkable esophagus. The thyroid is unremarkable. No axillary or chest wall mass or adenopathy. The bones are unremarkable. The included upper abdominal anatomy is unremarkable. Impression: No evidence of acute pulmonary embolus Bilateral interstitial septal thickening and mild pulmonary vascular congestion, likely secondary to mild pulmonary edema Bilateral pleural effusions Borderline cardiomegaly Borderline enlarged mediastinal lymph nodes, nonspecific. Evidence old granulomatous disease. Scattered irregular opacities in the lingula and right middle lobe, probably areas of atelectasis or scarring Findings discussed by phone with Dr. Sosa in the emergency room at the time of interpretation The CT scanner at [facility] is accredited by the [employer] and the scans are performed using protocols designed to limit radiation exposure to as low as reasonably achievable to attain images of sufficient resolution adequate for diagnostic evaluation.
--- NOTE | 2019-05-01 13:15 | NUR ---
MARIANA FAXED TO [facility] ER
--- NOTE | 2019-05-01 13:18 | NUR ---
EKG AND FACE SHEET FAXED TO [facility]
[2019-05-01] MEDS ORDERED: Nitroglycerin 2% oint pkt TOPIC ONE (13:45)
--- NOTE | 2019-05-01 14:12 | NUR ---
ED Nurse Note: repeat troponin sent. pt aware of plan for admission or transfer. given updates by dr neville
[2019-05-01] MEDS ORDERED: Insulin Human Regular 100units/ml 3ml SUBQ ONE (14:15)
--- NOTE | 2019-05-01 15:00 | NUR ---
ED Nurse Note: repeated ecg, md aware. pt denies cp or increased dyspnea. remains a/ox4
[2019-05-01] MEDS ORDERED: Morphine Sulfate 2mg/ml Inj(IV/IM USE ONLY) IVP PRN (15:15)
[2019-05-01] MEDS ORDERED: Dextrose 50% 25ml Syringe IV PRN (15:15)
[2019-05-01] MEDS ORDERED: Levemir Flexpen SUBQ SCH (15:15)
[2019-05-01] MEDS ORDERED: Nitroglycerin Subl 0.4mg tab SL PRN (15:15)
[2019-05-01] MEDS ORDERED: dilTIAZem HCl 25mg/5ml Inj IV PRN (15:15)
[2019-05-01] MEDS ORDERED: Miralax 17gm pkt ORAL PRN (15:15)
[2019-05-01] MEDS ORDERED: Albuterol/Ipratropium 3ml neb HHN PRN (15:15)
[2019-05-01] MEDS ORDERED: Enalaprilat 2.5mg/2ml Inj IV PRN (15:15)
--- NOTE | 2019-05-01 15:35 | NUR ---
ED Nurse Note: swabs sent as per protocol
--- NOTE | 2019-05-01 15:58 | NUR ---
ED Nurse Note: pt to be transferred to a higher level of care facility. denies increased pain. accucheck as noted
[2019-05-01] MEDS ORDERED: NovoLOG Insulin Flexpen SUBQ SCH (16:30)
--- NOTE | 2019-05-01 17:50 | NUR ---
ED Nurse Note: pt relates that she is hungry accucheck done and resulted at 59, dr arias aware. pt given po sandwich and juice. tolerating well
--- NOTE | 2019-05-01 18:08 | NUR ---
ED Nurse Note: report given to dao at [facility] rn aware pt witll be admitted to them in room 507B. accepting report of pt with ambulance eta of 1830.
--- NOTE | 2019-05-01 18:52 | NUR ---
ED Nurse Note: pt taking own dose of augmentin for ear infection, ok per dr arias. pt relates feeing improved after taking po intake
--- NOTE | 2019-05-01 19:05 | NUR ---
HAND-OFF: Report given to Luis Felipe davis. assumes care
--- NOTE | 2019-05-01 19:45 | NUR ---
ED Nurse Note: Patient transported to [facility], patient at no distress at this time, Patient left with ambulance personnel
[2019-05-01] MEDS ORDERED: Heparin 5000 units/ml inj SUBQ SCH (22:00)
[2019-05-02] MEDS ORDERED: Aspirin Baby 81mg ORAL SCH (09:00)
[2019-05-02] MEDS ORDERED: Benazepril 10mg tab ORAL SCH (09:00)
--- NOTE | 2019-05-03 09:27 | Diagnostic Imaging Report ---
APPROVED REPORT CPT Code: 22142 Present Symptoms Comments: BILATERAL LEGS PAIN. BILATERAL: Imaging reveals a patent deep venous system bilaterally. There is no evidence of thrombus within the femoral, popliteal or tibial segments. The greater saphenous veins are also within normal limits. Doppler indicates normal spontaneous flow within these segments.
--- NOTE | 2019-05-04 13:53 | Cardiology Report ---
APPROVED REPORT EKG Measurement Heart [id number] [id number] Sinus tachycardia Anterior infarct, age undetermined Abnormal ECG
--- NOTE | 2019-05-04 13:54 | Cardiology Report ---
APPROVED REPORT EKG Measurement Heart [id number] Sinus tachycardia Anterior infarct, age undetermined Abnormal ECG
== END 2019-05-01 19:45 | disposition short-term general hospital (02) ==
LOC: EMR 10:10
DX: I11.0 Hypertensive heart disease with heart failure (principal); I50.9 Heart failure, unspecified; E10.65 Type 1 diabetes mellitus with hyperglycemia; K21.9 Gastro-esophageal reflux disease without esophagitis; E78.5 Hyperlipidemia, unspecified; I21.4 Non-ST elevation (NSTEMI) myocardial infarction; M79.605 Pain in left leg
CPT/HCPCS: 36415; 71045; 71275; 80053; 80307; 81003; 81025; 82550; 82553; 82962; 84484; 85025; 85379; 87081; 93005; 93970; 93971; 96361; 96372; 96374; 99285; J1815; Q9967; S0028

== ENCOUNTER 2019-07-20 18:58 | Emergency (ER) | payer OTHER ==
[~2019-07-20] VITALS: Ht 152.4 cm; Wt 71.2 kg
[~2019-07-20 18:58] MED LIST changes: +HYDROXYCHLOROQ200 M1 PO
[2019-07-20 19:10] VITALS: BP 150/73
--- NOTE | 2019-07-20 19:14 | Emergency Room Report ---
History of Present Illness General Chief Complaint: Skin Rash/Abscess Source: Patient Present Illness HPI 39-year-old female history of CABG presents with bite to the right lower extremity, pain, aching in nature, worsening redness and erythema, patient denies any fever or chills, severity is mild and constant patient presents for evaluation Allergies: Coded Allergies: No Known Allergies (Unverified , 08/08/12) Patient History Past Medical History: see triage record Last Menstrual Period: 06/2019 Now: No Reviewed Nursing Documentation: PMH: Agreed; PSxH: Agreed Nursing Documentation-PMH Past Medical History: No History, Except For Hx Hypertension: Yes Hx Pacemaker: No Hx Asthma: No Hx COPD: No Hx Diabetes: Yes - type I Hx Cancer: No Hx Gastrointestinal Problems: Yes - GERD Hx Dialysis: No Hx Neurological Problems: No Hx Cerebrovascular Accident: No Hx Seizures: No Hx Headaches: Yes Review of Systems All Other Systems: negative except mentioned in HPI Physical Exam Vital Signs Date Time Temp Pulse Resp B/P (MAP) Pulse Ox O2 Delivery O2 Flow Rate FiO2 07/20/19 19:01 98.8 84 15 150/73 (98) 95 Room Air Sp02 EP Interpretation: reviewed, normal General Appearance: well appearing, no apparent distress, alert Head: normocephalic, atraumatic Eyes: bilateral eye PERRL, bilateral eye EOMI ENT: uvula midline, moist mucus membranes Neck: supple, thyroid normal, supple/symm/no masses Respiratory: lungs clear, no respiratory distress, no retraction, no accessory muscle use Cardiovascular #1: normal peripheral pulses, regular rate, rhythm, no edema, no gallop, no murmur Gastrointestinal: non tender, soft, no guarding, no rebound Musculoskeletal: normal inspection Neurologic: alert, oriented x3 Psychiatric: mood/affect normal Skin: warm/dry, other - Lower externally: 6 x 2 cm erythema rash no fluctuance Medical Decision Making Diagnostic Impression: Primary Impression: Cellulitis of right anterior lower leg ER Course Patient with most likely cellulitis will provide patient with antibiotics disposition home with return precautions Last Vital Signs Date Time Temp Pulse Resp B/P (MAP) Pulse Ox O2 Delivery O2 Flow Rate FiO2 07/20/19 19:01 98.8 84 15 150/73 (98) 95 Room Air Disposition: HOME, SELF-CARE Condition: Stable Scripts Trimethoprim/Sulfamethoxazole 160/800* (BACTRIM DS TABLET*) 1 Each Tablet 1 TAB ORAL Q12H, #20 TAB 0 Refills Prov: Carmine Rodriguez MD 07/20/19 Cephalexin* (CEPHALEXIN*) 500 Mg Tablet 500 MG ORAL EVERY 6 HOURS, #40 CAP Prov: Carmine Rordiguez MD 07/20/19 Referrals: [facility]. [facility] Patient Instructions: Cellulitis, [id number] Additional Instructions: The patient was provided with discharge instructions, notified to follow-up with a primary care doctor and or specialist in the next 24-48 hours, and to return to the ED if they have worsening of their symptoms. Please note that this report is being documented using [employer] technology. This can lead to erroneous entry secondary to incorrect interpretation by the dictating instrument. Carmine Rodriguez MD Jul 20, 2019 19:14
[2019-07-20] MEDS ORDERED: BACTRIM DS TAB1 EAC1 ORAL (19:17)
[2019-07-20] MEDS ORDERED: CEPHALEXIN500 M1 ORAL (19:17)
--- NOTE | 2019-07-20 19:40 | NUR ---
ED Nurse Note: Patient cleared for discharge, verbalized understanding of discharge instructions. Patient's ID band removed. Patient A&Ox4, no s/s of acute distress. Patient departed with all belongings accompanied by her son.
[2019-07-20 19:43] VITALS: BP 150/73
== END 2019-07-20 19:43 | disposition home or self-care (01) ==
LOC: EDBD 18:58 → EMR 19:35
DX: L03.115 Cellulitis of right lower limb (principal); K21.9 Gastro-esophageal reflux disease without esophagitis; E10.9 Type 1 diabetes mellitus without complications; I10 Essential (primary) hypertension
CPT/HCPCS: 81025; 99283

== ENCOUNTER 2019-11-05 15:08 | Emergency (ER) | payer OTHER ==
[~2019-11-05] VITALS: Ht 154.9 cm; Wt 81.6 kg
[~2019-11-05 15:08] MED LIST changes: +BACTRIM DS TAB1 EAC1 ORAL; +CEPHALEXIN500 M1 ORAL
[2019-11-05 15:25] VITALS: BP 140/63
--- NOTE | 2019-11-05 15:25 | NUR ---
ED Nurse Note: Patient arrived to ED from home complaining of swollen feet x 1 day.
--- NOTE | 2019-11-05 16:45 | Emergency Room Report ---
History of Present Illness General Chief Complaint: Edema Present Illness HPI 39-year-old female with history of hypertension, multiple stent placement, and status post open heart surgery x1 year currently under care of instrument operator here complaining of several weeks of bilateral ankle edema without any pain occurring throughout the day. Patient reports that when she gets home and elevates her leg the swelling goes down. Denies any numbness or tingling in her feet. Reports that she recently had a new medication added by her instrument operator which was told that it could have a side effect of leg edema. Patient has not followed up with her instrument operator in this regard. Appears to be stable with stable vital signs. Denies any fall or injury, no pitting edema is noted, left ankle swelling is noted. Denies chest pain, shortness of breath , palpitation, no other associated symptoms. Allergies: Coded Allergies: No Known Allergies (Unverified , 08/08/12) Patient History Past Medical History: see triage record Past Surgical History: none Pertinent Family History: none Last Menstrual Period: 10/13 Now: No : 6 Para: 5 Reviewed Nursing Documentation: PMH: Agreed; PSxH: Agreed Nursing Documentation-PMH Hx Hypertension: Yes Hx Pacemaker: No Hx Asthma: No Hx COPD: No Hx Diabetes: Yes - type I Hx Cancer: No Hx Gastrointestinal Problems: Yes - GERD Hx Dialysis: No Hx Neurological Problems: No Hx Cerebrovascular Accident: No Hx Seizures: No Hx Headaches: Yes Review of Systems All Other Systems: negative except mentioned in HPI Physical Exam Vital Signs Date Time Temp Pulse Resp B/P (MAP) Pulse Ox O2 Delivery O2 Flow Rate FiO2 11/05/19 15:19 97.9 84 16 140/63 (88) 92 Room Air Sp02 EP Interpretation: reviewed, normal General Appearance: no apparent distress, alert, GCS 15, non-toxic Head: normocephalic, atraumatic Eyes: bilateral eye normal inspection, bilateral eye PERRL ENT: hearing grossly normal, normal pharynx, no angioedema, normal voice Neck: full range of motion, supple/symm/no masses Respiratory: chest non-tender, lungs clear, normal breath sounds, no rhonchi, no wheezing, speaking full sentences Cardiovascular #1: regular rate, rhythm, no edema, no murmur Cardiovascular #2: 2+ dorsalis pedis (R), 2+ dorsalis pedis (L) Gastrointestinal: normal bowel sounds, non tender, soft, non-distended, no guarding, no rebound Rectal: deferred Genitourinary: no CVA tenderness Musculoskeletal: back normal, normal range of motion, inflammation - left ankle , no calf tenderness, pelvis stable Neurologic: alert, motor strength/tone normal, oriented x3, sensory intact, responsive, speech normal Psychiatric: judgement/insight normal, memory normal, mood/affect normal, no suicidal/homicidal ideation Skin: no rash Lymphatic: no adenopathy Medical Decision Making PA Attestation All my diagnosis and treatment plans were reviewed ad discussed with my supervising physician Dr. Lopez Diagnostic Impression: Primary Impression: Bilateral leg edema ER Course 39-year-old female with history of hypertension, multiple stent placement, and status post open heart surgery x1 year currently under care of instrument operator here complaining of several weeks of bilateral ankle edema without any pain occurring throughout the day. Patient reports that when she gets home and elevates her leg the swelling goes down. Denies any numbness or tingling in her feet. Reports that she recently had a new medication added by her instrument operator which was told that it could have a side effect of leg edema. Patient has not followed up with her instrument operator in this regard. Appears to be stable with stable vital signs. Denies any fall or injury, no pitting edema is noted, left ankle swelling is noted. Denies chest pain, shortness of breath , palpitation, no other associated symptoms. Ddx considered but are not limited to:DVT< cellulitis, ankle sprain, PVD, PAD Vital signs: are WNL, pt. is afebrile H&PE are most consistent with: bilateral leg edema most likely secondary to PVD ORDERS: none. no Xray at this time as no fall or injury and bilateral ED INTERVENTIONS: None required at this time. DISCHARGE: At this time pt. is stable for d/c to home. Will provide printed patient care instructions, and any necessary prescriptions. Care plan and follow up instructions have been discussed with the patient prior to discharge. Patient to follow-up with instrument operator as well as primary care provider, if worsening symptoms return to the emergency room also advised to wear compression stocking, keep legs elevated throughout the day, avoid strenuous physical activity. If worsening symptoms return to the emergency room Last Vital Signs Date Time Temp Pulse Resp B/P (MAP) Pulse Ox O2 Delivery O2 Flow Rate FiO2 11/05/19 15:19 97.9 84 16 140/63 (88) 92 Room Air Disposition: HOME, SELF-CARE Condition: Stable Patient Instructions: Edema Additional Instructions: Follow-up with your primary care provider and your instrument operator in this regard, elevate your legs during the day, wear compression stockings, avoid eating salty food, there may be a need for change of the combination of medication that you are on by your instrument operator. Marques Morrow Nov 05, 2019 16:45
[2019-11-05 17:06] VITALS: BP 135/82
--- NOTE | 2019-11-05 17:06 | NUR ---
ER DISCHARGE NOTE: Patient is cleared to be discharged per Marques LOCKE . Patient is AxO x 4, VSS Patient verbalized understanding of medication and discharge instructions. ID band removed. Patient is able to ambulate with steady gait and took all belongings.
== END 2019-11-05 17:06 | disposition home or self-care (01) ==
LOC: EMR 16:57
DX: R60.0 Localized edema (principal); I10 Essential (primary) hypertension; Z95.5 Presence of coronary angioplasty implant and graft; K21.9 Gastro-esophageal reflux disease without esophagitis; E10.8 Type 1 diabetes mellitus with unspecified complications
CPT/HCPCS: 99282

== ENCOUNTER 2020-05-23 00:39 | Inpatient (IN) | payer MEDICAID, OTHER ==
[~2020-05-23] VITALS: Ht 152.4 cm; Wt 83.5 kg
[2020-05-23] VITALS (7 sets, daily range): BP systolic 134–167; BP diastolic 57–82
--- NOTE | 2020-05-23 00:50 | NUR ---
ED Nurse Note: Patient walked into ED from home d/t chest pain, states feels like gastric pain. Patient aao x 4 and ambulatory with steady gait. Pain 7/10 aching nonradiating. Patient states pain has been going on for 2 days and got worse today. Takes Omeprazole for GERD and stopped taking it d/t someone told her it's bad for her, omeprazole taken today at 1600 and relieved pain but pain came back. Patient changed into gown and placed on bus driver/monitor. No acute distress noted during assessment.
[2020-05-23] MEDS ORDERED: Nitroglycerin Subl 0.4mg tab SL PRN ×2 (01:00→03:15)
[2020-05-23] MEDS ORDERED: Pantoprazole Inj IVP ONE (01:00)
[2020-05-23] MEDS ORDERED: Aspirin Baby 81mg ORAL ONE (01:00)
--- NOTE | 2020-05-23 01:01 | Emergency Room Report ---
History of Present Illness General Chief Complaint: Chest Pain Source: Patient, Medical Record Present Illness HPI This is a 40-year-old female with history of CAD with previous CABG and three- vessel stents. She also has a history of reflux. She presents with chief plaint of chest pain. She said that she stopped taking her reflux medication because her NSAID is not good for her. Since she stopped 2 weeks ago, she started having more reflux and chest pain problem. She was concerned tonight because is more severe. She started taking her omeprazole again few days ago. That seemed to help. She complained of pain to the left chest area. She felt pain to her neck. No exertional component. No diaphoresis. No shortness of breath. This 1 been going on for about an couple hours. Pain is achy and sharp. Pain is 8 out of 10. Allergies: Coded Allergies: No Known Allergies (Unverified , 08/08/12) COVID-19 Screening Contact w/high risk pt: No Recent Travel to affected area: No Experienced COVID-19 symptoms?: No COVID-19 Testing performed GLASS CUT OFF SUPERVISOR: No Patient History Past Medical History: see triage record, old chart reviewed, HTN, CAD, CHF Past Surgical History: CABG Pertinent Family History: none Social History: Denies: smoking Last Menstrual Period: 05/03/20 Now: No Immunizations: other Reviewed Nursing Documentation: PMH: Agreed; PSxH: Agreed Nursing Documentation-PMH Hx Hypertension: Yes Hx Pacemaker: No Hx Asthma: No Hx COPD: No Hx Diabetes: Yes - type I Hx Cancer: No Hx Gastrointestinal Problems: Yes - GERD Hx Dialysis: No Hx Neurological Problems: No Hx Cerebrovascular Accident: No Hx Seizures: No Hx Headaches: Yes Review of Systems Eye: Denies: eye pain, blurred vision ENT: Denies: ear pain, nose congestion, throat swelling Respiratory: Denies: cough, shortness of breath Cardiovascular: Reports: chest pain; Denies: palpitations Gastrointestinal: Denies: abdominal pain, diarrhea, nausea, vomiting Musculoskeletal: Denies: back pain, joint pain Skin: Denies: rash Neurological: Denies: headache, numbness Endocrine: Denies: increased thirst, increased urine Hematologic/Lymphatic: Denies: easy bruising All Other Systems: negative except mentioned in HPI Physical Exam Vital Signs Date Time Temp Pulse Resp B/P (MAP) Pulse Ox O2 Delivery O2 Flow Rate FiO2 7//20 00:41 98.4 88 19 157/81 (106) 97 Room Air Vitals with high blood pressure Sp02 EP Interpretation: reviewed, normal General Appearance: well appearing, no apparent distress, alert Head: normocephalic, atraumatic Eyes: bilateral eye PERRL, bilateral eye EOMI ENT: hearing grossly normal, normal pharynx Neck: full range of motion, supple, no meningismus Respiratory: chest non-tender, lungs clear, normal breath sounds Cardiovascular #1: regular rate, rhythm, no murmur Gastrointestinal: normal bowel sounds, non tender, no mass, no organomegaly, no bruit, non-distended Musculoskeletal: back normal, normal range of motion, gait/station normal Psychiatric: mood/affect normal Medical Decision Making Diagnostic Impression: Primary Impression: ACS (acute coronary syndrome) Additional Impressions: KWESI (acute kidney injury) Hyperglycemia due to type 1 diabetes mellitus ER Course Patient presents with chest pain. She has multiple risk factors with known CAD with stents. Troponin is intermediate. She received aspirin and nitro here. She is pain-free. Lovenox also given. Will admit for further work-up. I discussed case with Dr. Lundberg who will admit for Dr. Kassy krishnamurthy. EKG Diagnostic Results Rate: normal Rhythm: NSR ST Segments: other - NSST changes ASA given to the pt in ED: Yes Rhythm Strip Diag. Results EP Interpretation: yes Rate: 89 Rhythm: NSR, no PVC's, no ectopy Chest X-Ray Diagnostic Results Chest X-Ray Diagnostic Results : Chest X-Ray Ordered: Yes # of Views/Limited/Complete: 1 View Indication: Chest Pain EP Interpretation: Yes Interpretation: no consolidation, no effusion, no pneumothorax, no acute cardiopulmonary disease Impression: No acute disease Electronically Signed by: Calos Peacock MD Last Vital Signs Date Time Temp Pulse Resp B/P (MAP) Pulse Ox O2 Delivery O2 Flow Rate FiO2 05/23/20 00:41 98.4 88 19 157/81 (106) 97 Room Air Status: improved Disposition: ADMITTED INPATIENT Condition: Serious Calos Peacock MD May 23, 2020 01:01
[2020-05-23 01:17] LABS: BASOPHILS % (AUTO) 0.9 % (0.0-2.0); EOSINOPHILS % (AUTO) 1.7 % (0.0-3.0); HEMATOCRIT 38.6 % (37.0-47.0); HEMOGLOBIN 12.8 G/DL (12.0-16.0); LYMPHOCYTES % (AUTO) 33.7 % (20.0-45.0); MEAN CORPUSCULAR VOLUME 91 FL (80-99); MONOCYTES % (AUTO) 8.5 % (1.0-10.0); NEUTROPHILS % (AUTO) 55.3 % (45.0-75.0); PLATELET COUNT 271 K/UL (150-450); RED BLOOD COUNT 4.23 M/UL (4.20-5.40); RED CELL DISTRIBUTION WIDTH 11.5 % (11.6-14.8); WHITE BLOOD COUNT 7.2 K/UL (4.8-10.8)
[2020-05-23 01:17] LABS: APPEARANCE,URINE CLEAR; BILIRUBIN, URINE NEGATIVE (NEGATIVE); COLOR,URINE PALE YELLOW; GLUCOSE, URINE (UA) 4+ (NEGATIVE); KETONES,URINE NEGATIVE (NEGATIVE); LEUKOCYTE ESTERASE ,URINE NEGATIVE (NEGATIVE); NITRITE,URINE NEGATIVE (NEGATIVE); PH,URINE 6 (4.5-8.0); PROTEIN,URINE 4+ (NEGATIVE); UROBILINOGEN,URINE NORMAL MG/DL (0.0-1.0)
--- NOTE | 2020-05-23 01:18 | NUR ---
ED Nurse Note: Patient reports no chest pain, just a burning sensation on left substernal area.
--- NOTE | 2020-05-23 01:20 | NUR ---
ED Nurse Note: Xray at bedside
[2020-05-23 01:27] LABS: ANION GAP 11 mmol/L (5-15); BLOOD UREA NITROGEN 29 mg/dL (7-18); CARBON DIOXIDE 24 MMOL/L (21-32); CHLORIDE 102 MMOL/L (98-107); CREATININE 1.6 MG/DL (0.55-1.30); SODIUM 136 MMOL/L (136-145)
[2020-05-23 01:32] LABS: ALANINE AMINOTRANSFERASE 21 U/L (12-78); ALBUMIN 3.4 G/DL (3.4-5.0); ALBUMIN/GLOBULIN RATIO 0.8 (1.0-2.7); ALKALINE PHOSPHATASE 84 U/L (46-116); ASPARTATE AMINO TRANSFERASE 18 U/L (15-37); BILIRUBIN,TOTAL 0.2 MG/DL (0.2-1.0)
[2020-05-23] MEDS ORDERED: Enoxaparin 80mg Inj SUBQ ONE (01:45)
--- NOTE | 2020-05-23 02:07 | Diagnostic Imaging Report ---
EXAM: XR Chest, 1 View CLINICAL HISTORY: CP TECHNIQUE: Frontal view of the chest. COMPARISON: 05/01/19 FINDINGS: Lungs: Question of an approximately 5 mm nodule projected over the right mid-upper lung. This may be related to artifact/summation of shadows. A pulmonary nodule cannot be excluded. Follow-up CT of the chest is recommended. The lungs are grossly clear. Pleural space: No definite plain film evidence for pneumothorax. Heart: Prominence of the cardiac silhouette. Mediastinum: Unremarkable. Bones/joints: Status post sternotomy. IMPRESSION: 1. Prominence of the cardiac silhouette. 2. Question of an approximately 5 mm nodule projected over the right mid- upper lung. This may be related to artifact/summation of shadows. A pulmonary nodule cannot be excluded. Follow-up CT of the chest is recommended.
[2020-05-23] MEDS ORDERED: HydrALAZINE 10mg Tab ORAL PRN (03:15)
[2020-05-23] MEDS ORDERED: Morphine Sulfate 4mg/ml Inj (IV USE ONLY) IVP PRN (03:15)
[2020-05-23] MEDS ORDERED: Milk of Magnesia 30ml Ud ORAL PRN (03:15)
[2020-05-23] MEDS ORDERED: Morphine Sulfate 2mg/ml Inj(IV/IM USE ONLY) IVP PRN (03:15)
[2020-05-23] MEDS ORDERED: Miralax 17gm pkt ORAL PRN (03:15)
--- NOTE | 2020-05-23 04:00 | NUR ---
ED Nurse Note: Morning lab draw sent to lab
[2020-05-23 05:25] LABS: CHOLESTEROL 188 MG/DL (< 200); HDL CHOLESTEROL 34 MG/DL (40-60); TRIGLYCERIDES 393 MG/DL (30-150)
--- NOTE | 2020-05-23 07:13 | NUR ---
HAND-OFF: Report given to Krystin Hardy RN.
--- NOTE | 2020-05-23 07:35 | NUR ---
ED Nurse Note: Received pt from DAIANA Soria for continuity of care. Pt is AOx4, yoruba in speaking but understands marshallese, ambulatory. VSS, NAD noted, pt denies any pain nor discomfort as of now. Will continue to monitor.
[2020-05-23] MEDS: Docusate 100mg cap ORAL SCH ×2 (08:56→21:36)
[2020-05-23] MEDS: Benazepril 10mg tab ORAL SCH (08:56)
[2020-05-23] MEDS: Aspirin Baby 81mg ORAL SCH (08:56)
--- NOTE | 2020-05-23 08:56 | NUR ---
ED Nurse Note: Report given to DAIANA Kang for continuity of care.
--- NOTE | 2020-05-23 09:40 | NUR ---
TRANSFER TO TELEMETRY: Patient transferred to Telemetry Unit as ordered, per Dr. Elena. Report given to DAIANA Kang. Belongings and medications given to receiving nurse. Family and or S/O informed of transfer.
--- NOTE | 2020-05-23 09:45 | NUR ---
Received report from ED nurse DAIANA Mcclelland.
--- NOTE | 2020-05-23 09:47 | NUR ---
CASE MANAGEMENT:INITIAL REVIEW 40YR OLD FEMALE FROM HOME CC: CHEST PAIN (BURNING X2 DAYS) PMHX: CABG SI:ACUTE CORONARY SYNDROME . HYPERGLYCEMIA . KWESI 98.5 88 19 157/81 97% ON RA TROP 0.155-0.334 BUN/CREAT 29/1.6 BG 307 CA+ 8.0 TRIG 393 HDL CHOL 34 IS:ASPIRIN PO X1 NTG SL Q5MIN CHEST-RAY -Prominence of the cardiac silhouette. Question of an approximately 5 mm nodule projected over the right mid-upper lung. This may be related to artifact/summation of shadows. A pulmonary nodule cannot be excluded. Follow-up CT of the chest is recommended. \: 2E TELE UNIT PLAN: MONITOR SERIAL TROP MONITOR KIDNEY FUNCTION AM LABS RADIOLOGY RECOMMENDATION CT CHEST
--- NOTE | 2020-05-23 10:03 | NUR ---
*-* INSURANCE *-* UPDATED CLINICALS AND REVIEWS HAVE BEEN FAXED TO: TRACK# [id number] [facility] F: [phone]
--- NOTE | 2020-05-23 11:15 | NUR ---
NURSE NOTES: Troponin of 7.[address] Garcia. He will place orders. Dr. Perry also notified.
--- NOTE | 2020-05-23 11:30 | History and Physical ---
History of Present Illness General Date patient seen: May 23, 2020 Time patient seen: 07:00 Reason for Hospitalization: ACS Present Illness HPI 40-year-old female with history of CAD with previous three vessel CABG at [facility] April 2019, HTN, DM, GERD, Obesity who prestened to ED with pain. She said that she stopped taking her omeprazole 2 weeks ago medication because her aunt said is not good for her. Since she stopped 2 weeks ago, she started having more reflux and chest pain problem. She was concerned last nightt because is more severe. She started taking her omeprazole again few days ago. That seemed to help. She complained of pain to the left chest area. She felt pain to her neck. No exertional component. No diaphoresis. No shortness of breath. This 1 been going on for about an couple hours. Pain is achy and sharp. Pain is 8 out of 10 initially, currently 2/10. In ED she was found to have elevated troponin, given ASA and full dose Lovenox and referred for admission to telemetry unit for ACS. Allergies: Coded Allergies: No Known Allergies (Unverified , 08/08/12) COVID-19 Screening Contact w/high risk pt: No Recent Travel to affected area: No Experienced COVID-19 symptoms?: No Medication History Scheduled Atorvastatin Calcium* (Atorvastatin Calcium*), 40 MG ORAL BEDTIME, (Reported) Benazepril Hcl* (Benazepril Hcl*), 20 MG ORAL DAILY, (Reported) Hydrochlorothiazide* (Hydrochlorothiazide*), 200 MG ORAL DAILY, (Reported) Hydroxychloroquine Sulfate (Hydroxychloroquine Sulfate), 200 MG PO DAILY, ( Reported) Insulin Glargine (Lantus), 40 UNITS SUBQ BEDTIME, (Reported) Insulin Human Lispro (Humalog), 21 UNITS SUBQ BEFORE BREAKFAST Insulin Lispro (Humalog), 15 UNITS SUBQ BEFORE DINNER, (Reported) Nph, Human Insulin Isophane (Novolin N), 36 UNIT SQ ACBREAKFAST, (Reported) Discontinued Medications Amoxicillin/Potassium Clav 875-125* (Augmentin 875-125 Tablet*), 1 TAB ORAL TWICE A DAY Discontinued Reason: Therapy completed Cephalexin* (Keflex*), 500 MG ORAL EVERY 6 HOURS Discontinued Reason: Therapy completed Nph, Human Insulin Isophane* (Novolin N*), 20 UNITS SUBQ BEFORE DINNER, ( Reported) Discontinued Reason: Therapy completed Trimethoprim/Sulfamethoxazole 160/800* (Bactrim Ds Tablet*), 1 TAB ORAL Q12H Discontinued Reason: Therapy completed Patient History Healthcare decision maker Resuscitation status Advanced Directive on File Review of Systems Constitutional: Denies: chills, fever Respiratory: Denies: cough Cardiovascular: Reports: chest pain; Denies: edema, palpitations Gastrointestinal: Denies: abdominal pain, constipation Genitourinary: Denies: dysuria Musculoskeletal: Denies: back pain Skin: Denies: rash Physical Exam General Appearance: alert HEENT: atraumatic, anicteric Neck: supple, normal inspection Respiratory/Chest: lungs clear, normal breath sounds, no respiratory distress Cardiovascular/Chest: normal rate, regular rhythm, no JVD Abdomen: non tender, soft Extremities: non-tender, normal inspection Skin Exam: warm/dry Neurologic: alert, oriented x 3 Last 24 Hour Vital Signs Date Time Temp Pulse Resp B/P (MAP) Pulse Ox O2 Delivery O2 Flow Rate FiO2 05/23/20 11:13 Room Air 05/23/20 09:40 98.4 93 19 164/80 100 Room Air 05/23/20 08:56 167/82 05/23/20 07:56 98.4 93 19 167/82 100 Room Air 05/23/20 05:08 97 18 166/72 100 Room Air 05/23/20 05:05 166/72 05/23/20 03:00 93 16 155/76 98 Room Air 05/23/20 01:05 157/75 05/23/20 00:55 94 15 Room Air 05/23/20 00:55 98.4 94 15 157/75 100 Room Air 05/23/20 00:41 98.4 88 19 157/81 (106) 97 Room Air Intake and Output 05/22/20 05/23/20 19:00 07:00 Intake Total 0 ml Balance 0 ml Intake Oral 0 ml # Voids 1 Laboratory Tests Test 05/23/20 00:51 05/23/20 01:04 05/23/20 03:55 05/23/20 10:26 Urine Color Pale yellow Urine Appearance Clear Urine pH 6 (4.5-8.0) Urine Specific [place] 1.010 (1.005-1.035) Urine Protein 4+ (NEGATIVE) H Urine Glucose (UA) 4+ (NEGATIVE) H Urine Ketones Negative (NEGATIVE) Urine Blood 1+ (NEGATIVE) H Urine Nitrite Negative (NEGATIVE) Urine Bilirubin Negative (NEGATIVE) Urine Urobilinogen Normal MG/DL (0.0-1.0) Urine Leukocyte Esterase Negative (NEGATIVE) Urine RBC 2-4 /HPF (0 - 2) H Urine WBC 0-2 /HPF (0 - 2) Urine Squamous Epithelial Cells Few /LPF (NONE/OCC) Urine Bacteria Occasional /HPF (NONE) Urine HCG, Qualitative Negative (NEGATIVE) White Blood Count 7.2 K/UL (4.8-10.8) Red Blood Count 4.23 M/UL (4.20-5.40) Hemoglobin 12.8 G/DL (12.0-16.0) Hematocrit 38.6 % (37.0-47.0) Mean Corpuscular Volume 91 FL (80-99) Mean Corpuscular Hemoglobin 30.3 PG (27.0-31.0) Mean Corpuscular Hemoglobin Concent 33.2 G/DL (32.0-36.0) Red Cell Distribution Width 11.5 % (11.6-14.8) L Platelet Count 271 K/UL (150-450) Mean Platelet Volume 8.8 FL (6.5-10.1) Neutrophils (%) (Auto) 55.3 % (45.0-75.0) Lymphocytes (%) (Auto) 33.7 % (20.0-45.0) Monocytes (%) (Auto) 8.5 % (1.0-10.0) Eosinophils (%) (Auto) 1.7 % (0.0-3.0) Basophils (%) (Auto) 0.9 % (0.0-2.0) Sodium Level 136 MMOL/L (136-145) Potassium Level 4.0 MMOL/L (3.5-5.1) Chloride Level 102 MMOL/L (98-107) Carbon Dioxide Level 24 MMOL/L (21-32) Anion Gap 11 mmol/L (5-15) Blood Urea Nitrogen 29 mg/dL (7-18) H Creatinine 1.6 MG/DL (0.55-1.30) H Estimat Glomerular Filtration Rate 35.7 mL/min (>60) Glucose Level 307 MG/DL (74-106) H Calcium Level 8.0 MG/DL (8.5-10.1) L Total Bilirubin 0.2 MG/DL (0.2-1.0) Aspartate Amino Transf (AST/SGOT) 18 U/L (15-37) Alanine Aminotransferase (ALT/SGPT) 21 U/L (12-78) Alkaline Phosphatase 84 U/L (46-116) Troponin I 0.155 ng/mL (0.000-0.056) 0.334 ng/mL (0.000-0.056) 7.183 ng/mL (0.000-0.056) Total Protein 7.5 G/DL (6.4-8.2) Albumin 3.4 G/DL (3.4-5.0) Globulin 4.1 g/dL Albumin/Globulin Ratio 0.8 (1.0-2.7) L Triglycerides Level 393 MG/DL (30-150) H Cholesterol Level 188 MG/DL (< 200) LDL Cholesterol 93 mg/dL (<100) HDL Cholesterol 34 MG/DL (40-60) L Cholesterol/HDL Ratio 5.5 (3.3-4.4) H Height (Feet): 5 Weight (Pounds): 184 Medications Current Medications Medications (Trade) Dose Ordered Sig/Herbie Route PRN Reason Start Time Stop Time Status Last Admin Dose Admin Acetaminophen (Tylenol) 650 mg Q4H PRN ORAL Mild Pain (Pain Scale 1-3) 05/23/20 03:15 06/22/20 03:14 Acetaminophen (Tylenol) 650 mg Q4H PRN ORAL Temp >100.5 05/23/20 03:15 06/22/20 03:14 Aspirin (ASA) 81 mg DAILY ORAL 05/23/20 09:00 07/07/20 08:59 05/23/20 08:56 Atorvastatin Calcium (Lipitor) 40 mg BEDTIME ORAL 05/23/20 21:00 08/21/20 20:59 Benazepril HCl (Lotensin) 20 mg DAILY ORAL 05/23/20 09:00 06/22/20 08:59 05/23/20 08:56 Bisacodyl (Dulcolax) 10 mg DAILYPRN PRN RECTAL Constipation 05/23/20 03:15 08/21/20 03:14 Dextrose (Dextrose 50%) 25 ml Q30M PRN IV Hypoglycemia 05/23/20 07:30 08/21/20 07:29 Dextrose (Dextrose 50%) 50 ml Q30M PRN IV Hypoglycemia 05/23/20 07:30 08/21/20 07:29 Diphenhydramine HCl (Benadryl) 25 mg Q6H PRN ORAL Itching/Pruritis 05/23/20 03:15 06/22/20 03:14 Docusate Sodium (Colace) 100 mg EVERY 12 HOURS ORAL 05/23/20 09:00 06/22/20 08:59 05/23/20 08:56 Heparin Sodium/ Dextrose 500 ml @ 20.031 mls/ hr ADJUST PER PROTOCOL IV 05/23/20 11:30 06/22/20 11:29 UNV Hydralazine HCl (Apresoline) 10 mg Q6H PRN ORAL For High Blood Pressure 05/23/20 03:15 08/21/20 03:14 05/23/20 05:05 Insulin Aspart (NovoLOG) BEFORE MEALS AND HS SUBQ 05/23/20 11:30 08/21/20 11:29 Insulin Detemir (Levemir) 20 units BEDTIME SUBQ 05/23/20 21:00 08/21/20 20:59 Magnesium Hydroxide (Mom) 30 ml HSPRN PRN ORAL Constipation 05/23/20 03:15 06/22/20 03:14 Morphine Sulfate (Morphine Sulfate) 2 mg Q4H PRN IVP Moderate Pain (Pain Scale 4-6) 05/23/20 03:15 05/30/20 03:14 Morphine Sulfate (Morphine Sulfate) 4 mg Q4H PRN IVP Severe Pain (Pain Scale 7-10) 05/23/20 03:15 05/30/20 03:14 Nitroglycerin (Ntg) 0.4 mg Q5M PRN SL Prn Chest Pain 05/23/20 03:15 06/22/20 03:14 Ondansetron HCl (Zofran) 4 mg Q6H PRN IVP Nausea & Vomiting 05/23/20 03:15 06/22/20 03:14 Pantoprazole (Protonix) 40 mg DAILY ORAL 05/23/20 09:00 06/22/20 08:59 05/23/20 08:55 Polyethylene Glycol (Miralax) 17 gm DAILYPRN PRN ORAL Constipation 05/23/20 03:15 06/22/20 03:14 Assessment/Plan Assessment/Plan: 40 year old woman with history of CAD s/p CABG, HTN, DM, obesity, GERD who presented with 2 weeks of chest discomfort after stopping omeprazole #NSTEMI #CAD s/p CABG #HTN -admit to telemetry -heparin drip, ASA, Lipitor and metoprolol -continue to trend trop until peak -Cardiology consulted #DM type 2 #Obesity -ISS -hold NPH for now, will make her NPO #GERD --resume PPI I spent 75 minutes on this patient's case, and 40 minutes was dedicated to counseling and/or care coordination with RN, consulting MDs, ED team Miek Taylor MD May 23, 2020 11:30
[2020-05-23] MEDS: NovoLOG Insulin Flexpen SUBQ SCH ×3 (12:07→21:44)
[2020-05-23] MEDS ORDERED: ASPIR 8181 MG ORAL (12:15)
[2020-05-23] MEDS ORDERED: FUROSEMIDE40 MG ORAL (12:19)
--- NOTE | 2020-05-23 13:05 | Cardiac Electrophysiology PN ---
Subjective Subjective [id number] Objective Last 24 Hour Vital Signs Date Time Temp Pulse Resp B/P (MAP) Pulse Ox O2 Delivery O2 Flow Rate FiO2 05/23/20 12:06 101 141/81 05/23/20 11:13 Room Air 05/23/20 09:40 98.4 93 19 164/80 100 Room Air 05/23/20 08:56 167/82 05/23/20 07:56 98.4 93 19 167/82 100 Room Air 05/23/20 05:08 97 18 166/72 100 Room Air 05/23/20 05:05 166/72 05/23/20 03:00 93 16 155/76 98 Room Air 05/23/20 01:05 157/75 05/23/20 00:55 94 15 Room Air 05/23/20 00:55 98.4 94 15 157/75 100 Room Air 05/23/20 00:41 98.4 88 19 157/81 (106) 97 Room Air Intake and Output 05/22/20 05/23/20 19:00 07:00 Intake Total 0 ml Balance 0 ml Intake Oral 0 ml # Voids 1 Laboratory Tests Test 05/23/20 00:51 05/23/20 01:04 05/23/20 03:55 05/23/20 10:26 Urine Color Pale yellow Urine Appearance Clear Urine pH 6 (4.5-8.0) Urine Specific [place] 1.010 (1.005-1.035) Urine Protein 4+ (NEGATIVE) H Urine Glucose (UA) 4+ (NEGATIVE) H Urine Ketones Negative (NEGATIVE) Urine Blood 1+ (NEGATIVE) H Urine Nitrite Negative (NEGATIVE) Urine Bilirubin Negative (NEGATIVE) Urine Urobilinogen Normal MG/DL (0.0-1.0) Urine Leukocyte Esterase Negative (NEGATIVE) Urine RBC 2-4 /HPF (0 - 2) H Urine WBC 0-2 /HPF (0 - 2) Urine Squamous Epithelial Cells Few /LPF (NONE/OCC) Urine Bacteria Occasional /HPF (NONE) Urine HCG, Qualitative Negative (NEGATIVE) White Blood Count 7.2 K/UL (4.8-10.8) Red Blood Count 4.23 M/UL (4.20-5.40) Hemoglobin 12.8 G/DL (12.0-16.0) Hematocrit 38.6 % (37.0-47.0) Mean Corpuscular Volume 91 FL (80-99) Mean Corpuscular Hemoglobin 30.3 PG (27.0-31.0) Mean Corpuscular Hemoglobin Concent 33.2 G/DL (32.0-36.0) Red Cell Distribution Width 11.5 % (11.6-14.8) L Platelet Count 271 K/UL (150-450) Mean Platelet Volume 8.8 FL (6.5-10.1) Neutrophils (%) (Auto) 55.3 % (45.0-75.0) Lymphocytes (%) (Auto) 33.7 % (20.0-45.0) Monocytes (%) (Auto) 8.5 % (1.0-10.0) Eosinophils (%) (Auto) 1.7 % (0.0-3.0) Basophils (%) (Auto) 0.9 % (0.0-2.0) Sodium Level 136 MMOL/L (136-145) Potassium Level 4.0 MMOL/L (3.5-5.1) Chloride Level 102 MMOL/L (98-107) Carbon Dioxide Level 24 MMOL/L (21-32) Anion Gap 11 mmol/L (5-15) Blood Urea Nitrogen 29 mg/dL (7-18) H Creatinine 1.6 MG/DL (0.55-1.30) H Estimat Glomerular Filtration Rate 35.7 mL/min (>60) Glucose Level 307 MG/DL (74-106) H Calcium Level 8.0 MG/DL (8.5-10.1) L Total Bilirubin 0.2 MG/DL (0.2-1.0) Aspartate Amino Transf (AST/SGOT) 18 U/L (15-37) Alanine Aminotransferase (ALT/SGPT) 21 U/L (12-78) Alkaline Phosphatase 84 U/L (46-116) Troponin I 0.155 ng/mL (0.000-0.056) 0.334 ng/mL (0.000-0.056) 7.183 ng/mL (0.000-0.056) Total Protein 7.5 G/DL (6.4-8.2) Albumin 3.4 G/DL (3.4-5.0) Globulin 4.1 g/dL Albumin/Globulin Ratio 0.8 (1.0-2.7) L Triglycerides Level 393 MG/DL (30-150) H Cholesterol Level 188 MG/DL (< 200) LDL Cholesterol 93 mg/dL (<100) HDL Cholesterol 34 MG/DL (40-60) L Cholesterol/HDL Ratio 5.5 (3.3-4.4) H Test 05/23/20 12:09 Activated Partial Thromboplast Time 29 SEC (23-33) Avery Perry MD May 23, 2020 13:05
[2020-05-23] MEDS ORDERED: Heparin 25,000u/D5W 500ml 500 ML IV SCH ×2 (13:15→21:15)
--- NOTE | 2020-05-23 19:00 | NUR ---
NURSE NOTES: Reported troponin of 10.[address] Perry. No new orders. Patient stable. NSR with no chest pain.
--- NOTE | 2020-05-23 19:44 | Consultation ---
DATE OF CONSULTATION: 05/23/2020 CARDIOLOGY CONSULTATION CONSULTING PHYSICIAN: Avery Perry MD. REFERRING PHYSICIAN: Love Elena MD. REASON FOR CONSULTATION: Non-ST elevation myocardial infarction. HISTORY OF PRESENT ILLNESS: The patient is a 40-year-old lady with history of three-vessel coronary artery bypass graft in [facility] in April of 2019, as well as hypertension, diabetes, gastroesophageal reflux disease, and obesity presented to emergency room complaining of chest pain. The patient apparently stopped taking her omeprazole two weeks ago because onset is not good for her and she felt more to have reflux and chest pain. She was consulted last night because the pain was more severe. The pain was in the chest and radiation to her neck. The patient's pain was 8/10. In the emergency room, the patient was found to have elevated troponin of 0.155 and the followup troponin around 4 a.m. was 0.334. Repeat troponin at 10:26 this morning, however, came troponin 7.1. At the time of my evaluation, nurse at the bedside. The patient does not have any chest pain, palpitation, or shortness of breath. REVIEW OF SYSTEMS: Review of systems was negative other than what is mentioned in the history of present illness. PAST MEDICAL HISTORY: As mentioned above. FAMILY HISTORY: Noncontributory. SOCIAL HISTORY: She lives with family. Does not smoke or drink alcohol. PHYSICAL EXAMINATION: VITAL SIGNS: Show blood pressure 141/81, pulse is 101, respirations 18, and she is afebrile. HEAD AND NECK: No JVD or carotid bruit . LUNGS: Clear. CARDIOVASCULAR: Regular S1 and S2 with no gallop or murmur. ABDOMEN: Soft. EXTREMITIES: Sternotomy scar is intact and has 1+ left ankle edema. LABORATORY DATA: Sodium 136, potassium 4.0, BUN of 29, creatinine 1.3, glucose of 307. Troponin 0.155, and then 0.334, and then 7.183. Triglycerides 393. LDL is 93, initially was 34. ASSESSMENT/PLAN: 1. Non-ST elevation myocardial infarction in the patient with history of coronary artery bypass graft and multiple risk factors, hypertension, diabetes. Level was increased from 0.12, 0.327, and . The patient however also has renal failure, creatinine 1.6. The patient remains without any chest pain. At this time, we will treat the patient medically with aspirin and heparin and she is already on Lipitor. Add metoprolol 25 mg b.i.d. to her medical regimen. The patient may need transfer to cardiac catheterization depending on the echocardiogram and further troponin. 2. Hypertension. Continue metoprolol 25 b.i.d. and benazepril 20 mg daily. We will add nitroglycerin and p.r.n. hydralazine. 3. Lower extremity edema could be due to heart failure. We will get an echocardiogram for further evaluation. 4. Hyperlipidemia on Lipitor. 5. Diabetes on insulin. Thank you very much for allowing me to participate in the care of this patient. Please do not hesitate to contact me for any questions regarding my evaluation. Sincerely, Avery Perry M.D. DR: Mehul JOB#: [id number] CC:
--- NOTE | 2020-05-23 19:55 | NUR ---
HAND-OFF: Report given to Dania Teran RN. Patient stable. Plan of care endorsed.
--- NOTE | 2020-05-23 19:56 | NUR ---
NURSE NOTES: Pt is sitting up in bed, in no acute distress. Pt is alert and oriented x4, on room air, no SOB. Pt is currently on a heparin drip at a rate of 12 units/kg/hour. Last PTT was 29, PTT was redrawn at 1930, awaiting results to see if therapeutic or not and if rate change will be necessary. Last troponin was 10.888 MD aware. pt is ambulatory with steady gait. Currently sitting up in bed, informed pt that her diet was changed from NPO to CCHO med, diabetic diet. Reinserted new IV as pt said she bends her arm a lot. IV is in R forearm 20 g connected to heparin drip. Will continue to monitor pt and inform her on plan of care.
--- NOTE | 2020-05-23 20:42 | NUR ---
NURSE NOTES: Received call from lab that pt's troponin has increased and is elevated at 12.950 from previous 10.888. Will inform cnc machinist 2nd shift, Dr Perry. Pt is currently on a heparin drip at a rate of 12 units/kg/hour. Last PTT was 29, PTT was redrawn at 1930, awaiting results to see if therapeutic or not and if rate change is necessary.
[2020-05-23] MEDS ORDERED: Levemir Flexpen SUBQ SCH (21:00)
--- NOTE | 2020-05-23 21:04 | NUR ---
NURSE NOTES: Received results that PTT is subtherapeutic at 40. Pharmacy adjusted dose per protocol to 16 units/kg/hr with one bolus of 6500 units now. Left message for Dr Perry of PTT results and rate change along with troponin level.
--- NOTE | 2020-05-23 21:05 | NUR ---
NURSE NOTES: PTT will be redrawn in 6 hours timed, entered and will carry out.
--- NOTE | 2020-05-23 21:10 | NUR ---
NURSE NOTES: Dr Perry acknowledged results and said repeat ECG in am (05/24 at 0400) Will input order and carry out.
[2020-05-23] MEDS ORDERED: Heparin 5000 units/ml inj IV SCH (21:15)
[2020-05-23] MEDS: Atorvastatin 20mg tab ORAL SCH (21:37)
[2020-05-24] VITALS: BP 135/60
[2020-05-24 02:05] LABS: BASOPHILS % (AUTO) 0.6 % (0.0-2.0); HEMOGLOBIN 12.8 G/DL (12.0-16.0); LYMPHOCYTES % (AUTO) 29.4 % (20.0-45.0); MEAN CORPUSCULAR VOLUME 90 FL (80-99); MONOCYTES % (AUTO) 8.9 % (1.0-10.0); NEUTROPHILS % (AUTO) 60.1 % (45.0-75.0); PLATELET COUNT 292 K/UL (150-450); RED BLOOD COUNT 4.32 M/UL (4.20-5.40); RED CELL DISTRIBUTION WIDTH 11.4 % (11.6-14.8); WHITE BLOOD COUNT 9.9 K/UL (4.8-10.8)
[2020-05-24 02:27] LABS: ANION GAP 12 mmol/L (5-15); BLOOD UREA NITROGEN 19 mg/dL (7-18); CALCIUM 8.7 MG/DL (8.5-10.1); CARBON DIOXIDE 24 MMOL/L (21-32); CHLORIDE 101 MMOL/L (98-107); CREATININE 1.3 MG/DL (0.55-1.30); POTASSIUM 4.1 MMOL/L (3.5-5.1); SODIUM 137 MMOL/L (136-145)
--- NOTE | 2020-05-24 02:27 | NUR ---
NURSE NOTES: Troponin results showed troponin at 12.566 which is trending down from 12.950 will inform MD in am, pt is asymptomatic, no chest pain, resting quietly in bed, will continue to monitor
--- NOTE | 2020-05-24 02:36 | NUR ---
NURSE NOTES: PTT is >150. Will follow heparin protocol, Stopped heparin drip per protocol
--- NOTE | 2020-05-24 02:43 | NUR ---
NURSE NOTES: Hold hep drip for one hour (until 0340). In one hour will restart at 12 u/kg/hr per protocol. PTT timed ordered to be redrawn at 0640 Addendum: 05/24/20 at 0245 by Dania Teran RN PTT will be redrawn one hour from restarting hep drip. so next timed PTT will be at 0940
[2020-05-24] MEDS ORDERED: Heparin 25,000u/D5W 500ml 500 ML IV SCH ×3 (03:15→10:15)
--- NOTE | 2020-05-24 03:45 | NUR ---
NURSE NOTES: Heparin drip was restarted per protocol at 12 units/kg/hour PTT timed to be drawn again in 6 hours
[2020-05-24 04:00] VITALS: BP 138/62
[2020-05-24] MEDS: NovoLOG Insulin Flexpen SUBQ SCH ×4 (06:59→21:16)
--- NOTE | 2020-05-24 07:30 | NUR ---
NURSE NOTES: Patient stable AOx4 with no complaints of chest pain or any other discomfort. No s/sx of pain or distress. Heparin drip infusing at 12units/kg/hr. Side rails upx2, call light within reach, bed low and locked. Will continue to monitor.
--- NOTE | 2020-05-24 07:51 | NUR ---
HAND-OFF: Report given to DAIANA French.
[2020-05-24 07:52] VITALS: BP 149/57
--- NOTE | 2020-05-24 08:49 | NUR ---
CASE MANAGEMENT:REVIEW 05/24/20 SI: NSTEMI. H/O CABG 99.1 92 18 149/57 96% ON RA TROPONIN(+) 12.56 IS: HEPARIN GTT LOPRESSOR PO Q12 ASA PO QD PROTONIX PO QD : TELEMETRY STATUS PLAN: FAXED CLINICALS TO [facility]....NEEDS URGENT HEART CATH
[2020-05-24] MEDS ORDERED: Aspirin Baby 81mg ORAL SCH (09:00)
[2020-05-24] MEDS: Docusate 100mg cap ORAL SCH ×2 (09:01→21:00)
[2020-05-24] MEDS: Aspirin Baby 81mg ORAL SCH (09:01)
[2020-05-24] MEDS: Benazepril 10mg tab ORAL SCH (09:01)
--- NOTE | 2020-05-24 09:12 | NUR ---
TRANSFER UPDATE FAXED CLINICALS TO [facility] T: [phone] F: [phone] CALLED [facility] AND SPOKE WITH TIAN REQUESTING AUTHORIZATION TO TRANSFER FOR CARDIAC CATH PER TIAN, ONE OF THE FOLLOWING WILL BE HANDLING TO AUTHROIZATION PROCESS 1) DARIN T: [phone] 2) CHAVEZ T: [phone] Addendum: 05/24/20 at 0937 by ROB CUBA LVN LVN [place] [facility] T: [phone] F: [phone]
--- NOTE | 2020-05-24 10:11 | Discharge Summary ---
Discharge Summary Hospital Course Date of Admission May 23, 2020 at 02:21 Date of Discharge 05/25/2020 Admitting Diagnosis ACUTE CORONARY SYNDROME HPI The patient is a 40-year-old lady with history of three-vessel coronary artery bypass graft in [facility] in April of 2019, as well as hypertension, diabetes, gastroesophageal reflux disease, and obesity presented to emergency room complaining of chest pain. The patient apparently stopped taking her omeprazole two weeks ago because onset is not good for her and she felt more to have reflux and chest pain. She was consulted last night because the pain was more severe. The pain was in the chest and radiation to her neck. The patient's pain was 8/10. In the emergency room, the patient was found to have elevated troponin of 0.155 and the followup troponin around 4 a.m. was 0.334. Repeat troponin at 10:26 this morning, however, came troponin 7.1. At the time of my evaluation, nurse at the bedside. The patient does not have any chest pain, palpitation, or shortness of breath. Consultations Cardilogy Dr. Capps Procedures None Hospital Course 40-year-old female past medical history of triple-vessel coronary artery bypass graft in [facility] comes to the ED on May 23 with atypical chest pain. Troponins were mildly elevated in the ED in the setting of chronic kidney disease. Over the course of 24 hours troponins mauro to 12.5. Patient was started on heparin gtt and aspirin. Cardiology was consulted and patient was started on metoprolol 25 mg twice daily. Patient underwent echocardiogram which showed an ejection fraction of 45% and left ventrical hypokinesis. Patient remained chest pain-free throughout hospitalization and has not required nitroglycerin. On exam patient is sitting comfortably speaking in full sentences mild pitting edema in the lower extremities. Patient will be transferred to another facility for cardiac catheterization. Discharge Condition Upon Discharge: stable Discharge Vital Signs Last Vital Signs Date Time Temp Pulse Resp B/P (MAP) Pulse Ox O2 Delivery O2 Flow Rate FiO2 05/24/20 09:45 Room Air 05/24/20 09:01 97 149/57 05/24/20 07:52 99.1 18 96 Discharge Disposition Patient was discharged to another contracted facility with patient's request being [facility] for angiogram. Discharge Diagnoses: (1) ACS (acute coronary syndrome) (2) Uncontrolled diabetes mellitus (3) Hyperglycemia (4) Chest pain (5) Hypertension Jasbir Dai M.D. May 24, 2020 10:11
--- NOTE | 2020-05-24 11:49 | NUR ---
*-* INSURANCE *-* UPDATED CLINICALS AND REVIEWS HAVE BEEN FAXED TO: TRACK# [id number] [facility] F: [phone] Addendum: 05/24/20 at 1150 by JAMES WILL CM DISCHARGE SUMMARY FAXED
[2020-05-24 12:18] VITALS: BP 144/67
--- NOTE | 2020-05-24 12:44 | NUR ---
TRANSFER UPDATE [facility] HAS GIVEN WRITTEN AUTHORIZATION FOR PATIENT TO TRANSFER TO [facility] SPOKE WITH [employer]ER WHO STATED [facility] HAS ACCEPTED PATIENT TO ROOM ROOM [address] DR GEE WILL BE THE ACCEPTING PHYSICIAN CHARGE NURSE TO CALL REGISTERED PHYSICAL THERAPIST ONCE DC/TRANSFER ORDER IS IN THE COMPUTER
[2020-05-24] MEDS ORDERED: BENAZEPRIL HCL10 MG ORAL (13:03)
[2020-05-24] MEDS ORDERED: ASPIRIN81 MG ORAL (13:03)
[2020-05-24] MEDS ORDERED: LIPITOR20 MG ORAL (13:03)
[2020-05-24] MEDS ORDERED: LOPRESSOR25 M1 ORAL (13:03)
--- NOTE | 2020-05-24 14:10 | NUR ---
TRANSFER UPDATE PATIENT IS REFUSING TO GO TO [facility] AND IS REQUESTING [facility] PER PATIENT HER PHYSICIAN IS DR SHIN T:[phone] THIS FUR TRIMMER CALLED [facility] AND SPOKE WITH DARIN Norton [phone] DARIN STATED THEY ARE ALSO CONTRACTED WITH [facility] AND WILL WORK ON SECURING A BED Addendum: 05/24/20 at 1508 by ROB CUBA LVN LVN RECEIVED CALL FROM [facility] RADIOGRAPHER,DARIN. [facility] HAS A BED AND [facility] HAS GIVEN THEM AUTHORIZATION FOR THIS PATIENT. THEY ARE JUST WAITING FOR AN ACCEPTING PHYSICIAN Addendum: 05/24/20 at 1509 by ROB CUBA LVN LVN CALLED [facility] AND INFORMED THE DIE DEVELOPER, RAG, THAT PATIENT IS NO LONGER COMING AND WILL BE GOING TO [facility] Addendum: 05/24/20 at 1551 by ROB CUBA LVN LVN RECEIVED CALL FROM [facility] REQUESTING DISCHARGE ORDER BE FAXED. ~ FAXED SPOKE WITH PATI AT "[employer]" T: [phone] AND PROVIDED HEIGHT AND WEIGHT
--- NOTE | 2020-05-24 14:43 | Cardiac Electrophysiology PN ---
Assessment/Plan Assessment/Plan 1. Non-ST elevation myocardial infarction in the patient with history of CABG and multiple risk factors, hypertension, diabetes. Peak Troponin 12.9. Level is coming down to 12. Creatinine today 1.3 The patient remains without any chest pain. Continue aspirin, heparin, Lipitor and metoprolol 25 mg b.i.d. Awaiting transfer to [facility] for cardiac catheterization 2. Hypertension. Continue metoprolol 25 b.i.d. and benazepril 20 mg daily and p.r.n. hydralazine. 3. Lower extremity edema could be due to heart failure. EF 45% 4. Hyperlipidemia on Lipitor. 5. Diabetes on insulin. THUY RN Subjective Subjective Troponin now> 12. No CP or SOB. Awaiting transfer to [facility]. EF 45% Objective Last 24 Hour Vital Signs Date Time Temp Pulse Resp B/P (MAP) Pulse Ox O2 Delivery O2 Flow Rate FiO2 05/24/20 12:18 96.6 87 19 144/67 (92) 95 05/24/20 12:00 88 05/24/20 09:45 Room Air 05/24/20 09:01 97 149/57 05/24/20 09:01 149/57 05/24/20 08:00 97 05/24/20 07:52 99.1 92 18 149/57 (87) 96 05/24/20 04:00 98.6 92 18 138/62 (87) 98 05/24/20 04:00 91 05/24/20 00:00 78 05/24/20 00:00 98.6 90 18 135/60 (85) 97 05/23/20 21:37 91 142/57 05/23/20 21:00 Room Air 05/23/20 20:00 85 05/23/20 20:00 98.6 91 18 142/57 (85) 97 05/23/20 16:00 98.1 88 16 134/75 (94) 98 Intake and Output 05/23/20 05/24/20 19:00 07:00 Intake Total 630.540 ml Balance 630.540 ml Intake Oral 500 ml IV Total 130.540 ml # Voids 3 3 Laboratory Tests Test 05/23/20 16:00 05/23/20 16:25 05/23/20 19:40 05/23/20 21:40 Troponin I 10.888 ng/mL (0.000-0.056) 12.950 ng/mL (0.000-0.056) POC Whole Blood Glucose Pending 416 MG/DL (74-106) H Activated Partial Thromboplast Time 40 SEC (23-33) H Test 05/24/20 01:38 05/24/20 06:42 05/24/20 09:30 05/24/20 11:52 White Blood Count 9.9 K/UL (4.8-10.8) Red Blood Count 4.32 M/UL (4.20-5.40) Hemoglobin 12.8 G/DL (12.0-16.0) Hematocrit 39.0 % (37.0-47.0) Mean Corpuscular Volume 90 FL (80-99) Mean Corpuscular Hemoglobin 29.6 PG (27.0-31.0) Mean Corpuscular Hemoglobin Concent 32.8 G/DL (32.0-36.0) Red Cell Distribution Width 11.4 % (11.6-14.8) L Platelet Count 292 K/UL (150-450) Mean Platelet Volume 9.4 FL (6.5-10.1) Neutrophils (%) (Auto) 60.1 % (45.0-75.0) Lymphocytes (%) (Auto) 29.4 % (20.0-45.0) Monocytes (%) (Auto) 8.9 % (1.0-10.0) Eosinophils (%) (Auto) 1.0 % (0.0-3.0) Basophils (%) (Auto) 0.6 % (0.0-2.0) Activated Partial Thromboplast Time > 150 SEC (23-33) *H 46 SEC (23-33) H Sodium Level 137 MMOL/L (136-145) Potassium Level 4.1 MMOL/L (3.5-5.1) Chloride Level 101 MMOL/L (98-107) Carbon Dioxide Level 24 MMOL/L (21-32) Anion Gap 12 mmol/L (5-15) Blood Urea Nitrogen 19 mg/dL (7-18) H Creatinine 1.3 MG/DL (0.55-1.30) Estimat Glomerular Filtration Rate 45.3 mL/min (>60) Glucose Level 209 MG/DL (74-106) H Calcium Level 8.7 MG/DL (8.5-10.1) Troponin I 12.566 ng/mL (0.000-0.056) Pro-B-Type Natriuretic Peptide 5231 pg/mL (0-125) H Thyroid Stimulating Hormone (TSH) 2.448 uiU/mL (0.358-3.740) POC Whole Blood Glucose 343 MG/DL (74-106) H 347 MG/DL (74-106) H Objective HEAD AND NECK: No JVD or carotid bruit . LUNGS: Clear. CARDIOVASCULAR: Regular S1 and S2 with no gallop or murmur. ABDOMEN: Soft. EXTREMITIES: Sternotomy scar is intact and has 1+ left ankle edema. Avery Perry MD May 24, 2020 14:43
--- NOTE | 2020-05-24 15:16 | NUR ---
NURSE NOTES: Troponin of 6.344 received and reported to Dr. Perry. New orders received.
--- NOTE | 2020-05-24 15:32 | NUR ---
NURSE NOTES: Heparin drip discontinued as ordered by Dr. Perry. Troponin ordered for tomorrow AM.
--- NOTE | 2020-05-24 16:23 | NUR ---
TRANSFER UPDATE RECEIVED CALL FROM [facility] OPERATIONS INTELLIGENCE SHAAN, REQUESTING COVID RESULTS BE FAXED TO HER CALLED HOUSE SUP TO REQUEST RAPID COVID ~ SHE WILL CONTACT DR BENJAMIN CALLED BEDSIDE NURSE ANA TO UP DATE HER ON THE COVID TEST AND THAT RESULTS NEED TO BE FAXED TO: SHAAN, [employer]PERATIONS INTELL[employer]([facility]) T: [phone] F: [phone] [facility] WILL NOT GIVE US THE ROOM NUMBER OR ACCEPTING PHYSICIAN'S NAME UNTIL THEY RECEIVE THE COVID RESULTS IN [facility]ARE [employer]LL[employer]~DARIN T: [phone] [id number] PATIENT'S MEAL ATTENDANT IS DR SHIN T:[phone] ONCE WE HAVE A BED NURSING CAN ARRANGE ACLS TRANSPORT TO [facility] Addendum: 05/24/20 at 1803 by MIGEL PARISH CM COVID RESULTS FAXED TO SHAAN [phone] PH / FAX [phone] & IVETT [phone] PH / FAX [phone] PENDING BED ASSIGNMENT Addendum: 05/24/20 at 1830 by MIGEL PARISH CM PER IV[facility]T [phone] DR. ENRIKE PALACIOS [phone] WILL ACCEPT THE [place] [facility]; DAIANA PEREZ MADE AWARE. NURSE PEREZ WILL SEND A MESSAGE TO DR. BURNETTE FOR A [id number] WITH [facility] [place] PALACIOS.TRANSPORTATION VIA [facility] [phone]
[2020-05-24 16:32] VITALS: BP 122/57
[2020-05-24] MEDS ORDERED: NovoLOG Insulin Flexpen SUBQ SCH (18:04)
--- NOTE | 2020-05-24 18:14 | NUR ---
NURSE NOTES: Received negative COVID-19 result. Result faxed to Marlene community case manager.
[2020-05-24] MEDS ORDERED: NOVOLIN N100 UNIT/1 SUBQ ×2 (18:29)
--- NOTE | 2020-05-24 19:18 | NUR ---
HAND-OFF: Report given to Dania AHMADI. Patient stable. Plan of care endorsed. Endorsed that patient has been accepted at [facility]. Discharge paperwork has been completed. [facility] needs to be called to schedule show operations supervisor time.
--- NOTE | 2020-05-24 19:20 | NUR ---
NURSE NOTES: Pt is sitting up in bed, in no acute distress. Pt is alert and oriented x4, on room air, no SOB. Pt is ambulatory with steady gait. Currently sitting up in bed. Pt is to be transferred to [facility]. To be scheduled with [facility] no bed yet available. Will follow up continue to monitor pt and inform her on plan of care.
[2020-05-24 20:00] VITALS: BP 130/64
[2020-05-24] MEDS ORDERED: Insulin NPH SUBQ SCH (21:00)
[2020-05-24] MEDS: Atorvastatin 20mg tab ORAL SCH (21:14)
--- NOTE | 2020-05-24 21:40 | NUR ---
NURSE NOTES: No bed available at [facility] ([facility]) spoke to transfer center and then to powerhouse helper regarding transfer and was told beds in tele are at [facility] capacity cannot accept new patients. Informed supervisor photocomposition here at [facility], Debi who spoke with powerhouse helper at [facility] was told the same. No beds available - contacted Dr Perry and informed him, he said maybe [facility] or [facility]. Spoke with pt and she said she would prefer [place] if [facility] is not available per her outside stone derrickman and rigger (Dr Bolton.). Case management will follow up in the morning. Dr Perry did not want to restart heparin drip. Will continue to monitor pt.
[2020-05-25] VITALS: BP 133/66
[2020-05-25 04:00] VITALS: BP 136/69
[2020-05-25] MEDS ORDERED: Insulin NPH SUBQ SCH (06:30)
[2020-05-25 07:02] LABS: BASOPHILS % (AUTO) 0.7 % (0.0-2.0); EOSINOPHILS % (AUTO) 1.3 % (0.0-3.0); HEMATOCRIT 36.5 % (37.0-47.0); HEMOGLOBIN 11.9 G/DL (12.0-16.0); LYMPHOCYTES % (AUTO) 35.4 % (20.0-45.0); MEAN CORPUSCULAR VOLUME 91 FL (80-99); MONOCYTES % (AUTO) 9.1 % (1.0-10.0); NEUTROPHILS % (AUTO) 53.5 % (45.0-75.0); PLATELET COUNT 282 K/UL (150-450); RED BLOOD COUNT 3.99 M/UL (4.20-5.40); RED CELL DISTRIBUTION WIDTH 11.6 % (11.6-14.8); WHITE BLOOD COUNT 6.8 K/UL (4.8-10.8)
[2020-05-25] MEDS: NovoLOG Insulin Flexpen SUBQ SCH ×3 (07:09→16:53)
[2020-05-25 07:12] LABS: ANION GAP 10 mmol/L (5-15); BLOOD UREA NITROGEN 24 mg/dL (7-18); CALCIUM 8.6 MG/DL (8.5-10.1); CARBON DIOXIDE 23 MMOL/L (21-32); CHLORIDE 103 MMOL/L (98-107); CREATININE 1.5 MG/DL (0.55-1.30); POTASSIUM 4.3 MMOL/L (3.5-5.1); SODIUM 136 MMOL/L (136-145)
--- NOTE | 2020-05-25 07:50 | NUR ---
HAND-OFF: Report given to DAIANA French and Pearl RN
--- NOTE | 2020-05-25 08:00 | NUR ---
NURSE NOTES: Patient stable AOx4 with no complaints of chest pain. Latest troponin is 4.537. Reported at 0736 and received response at 0752. Per Dr. Perry Heparin drip is not necessary at this time. RR even and unlabored on RA. Side rails up x2, call light within reach. Bed low and locked. Will continue to monitor. Addendum: 05/25/20 at 1838 by HUA LOVE RN Dr. Perry also already aware of prolonged QT interval.
[2020-05-25 08:13] VITALS: BP 144/77
[2020-05-25] MEDS: Benazepril 10mg tab ORAL SCH (08:24)
[2020-05-25] MEDS: Docusate 100mg cap ORAL SCH (08:26)
[2020-05-25] MEDS: Aspirin Baby 81mg ORAL SCH (08:26)
--- NOTE | 2020-05-25 10:19 | NUR ---
TRANSFER UPDATE CALLED JORDEN SUAREZ COPPERSMITH HELPER SHAAN. PHONE RANG CONTINUOUSLY WITH NO ANSWER AND NO VOICEMAIL THIS COPPERSMITH HELPER LEFT [facility] BUSH REGENERATOR, DARIN, REQUESTING ASSISTANCE WITH THIS TRANSFER THAT WAS SUPPOSE TO HAPPEN YESTERDAY AWAITING RESPONSE
--- NOTE | 2020-05-25 11:14 | NUR ---
*-* INSURANCE *-* UPDATED CLINICALS HAVE BEEN FAXED TO: TRACK# [id number] [facility] F: [phone]
--- NOTE | 2020-05-25 11:58 | General Progress Note ---
Assessment/Plan Problem List: (1) ACS (acute coronary syndrome) ICD Codes: I24.9 - Acute ischemic heart disease, unspecified SNOMED: 819900014 (2) Hyperglycemia due to type 1 diabetes mellitus ICD Codes: E10.65 - Type 1 diabetes mellitus with hyperglycemia SNOMED: 807945613289336, [id number] (3) Hypertension ICD Codes: I10 - Essential (primary) hypertension SNOMED: 30331127 Status: doing well, stable, progressing Assessment/Plan: Patient was not transferred yesterday due to bed avaliblity at [facility]. Patient doing well, discontinued heparin and has been chest pain free. discussed case with Nursing Informatics Specialist. He blood sugar has been elevated but now controlled on new insulin regime. Subjective Date patient seen: May 25, 2020 Time patient seen: 09:00 Constitutional: Reports: no symptoms HEENT: Reports: no symptoms Cardiovascular: Reports: no symptoms Respiratory: Reports: no symptoms Gastrointestinal/Abdominal: Reports: no symptoms Genitourinary: Reports: no symptoms Neurologic/Psychiatric: Reports: no symptoms Endocrine: Reports: no symptoms Hematologic/Lymphatic: Reports: no symptoms Allergies: Coded Allergies: No Known Allergies (Unverified , 08/08/12) Objective Last 24 Hour Vital Signs Date Time Temp Pulse Resp B/P (MAP) Pulse Ox O2 Delivery O2 Flow Rate FiO2 05/25/20 09:00 Room Air 05/25/20 08:27 89 144/77 05/25/20 08:24 144/77 05/25/20 08:13 95.9 89 18 144/77 (99) 96 05/25/20 08:00 94 05/25/20 04:00 85 05/25/20 04:00 98.4 98 18 136/69 (91) 97 05/25/20 00:00 98.9 100 19 133/66 (88) 98 05/25/20 00:00 89 05/24/20 21:14 113 130/64 05/24/20 21:06 Room Air 05/24/20 20:00 113 05/24/20 20:00 98.6 101 18 130/64 (86) 99 05/24/20 16:33 100 05/24/20 16:32 96.7 86 20 122/57 (78) 98 05/24/20 12:18 96.6 87 19 144/67 (92) 95 05/24/20 12:00 88 Intake and Output 05/24/20 05/25/20 19:00 07:00 Intake Total 140 ml Output Total 1200 ml Balance -1060 ml Intake Oral 140 ml Output Urine Total 1200 ml # Voids 3 2 Laboratory Tests 05/24/20 11:52: POC Whole Blood Glucose 347H 05/24/20 14:35: Troponin I 6.344H 05/24/20 16:52: POC Whole Blood Glucose 468H 05/24/20 20:06: POC Whole Blood Glucose 251H 05/25/20 06:00: White Blood Count 6.8, Red Blood Count 3.99L, Hemoglobin 11.9L, Hematocrit 36.5L , Mean Corpuscular Volume 91, Mean Corpuscular Hemoglobin 29.7, Mean Corpuscular Hemoglobin Concent 32.5, Red Cell Distribution Width 11.6, Platelet Count 282, Mean Platelet Volume 8.6, Neutrophils (%) (Auto) 53.5, Lymphocytes (% ) (Auto) 35.4, Monocytes (%) (Auto) 9.1, Eosinophils (%) (Auto) 1.3, Basophils ( %) (Auto) 0.7, Sodium Level 136, Potassium Level 4.3, Chloride Level 103, Carbon Dioxide Level 23, Anion Gap 10, Blood Urea Nitrogen 24H, Creatinine 1.5H , Estimat Glomerular Filtration Rate 38.4, Glucose Level 355#H, Calcium Level 8.6, Troponin I 4.357H Height (Feet): 5 Height (Inches): 0.00 Weight (Pounds): 184 General Appearance: no apparent distress, alert EENT: PERRL/EOMI, normal ENT inspection Neck: non-tender, normal alignment, supple, normal inspection Cardiovascular: normal peripheral pulses, normal rate, regular rhythm, no JVD Respiratory/Chest: chest wall non-tender, lungs clear, normal breath sounds, no respiratory distress Abdomen: normal bowel sounds, non tender, soft Extremities: normal range of motion, non-tender Neurologic: 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 May 25, 2020 11:58
[2020-05-25 12:22] VITALS: BP 126/68
--- NOTE | 2020-05-25 15:17 | NUR ---
DISCHARGE PLANNED PATIENT WILL TRANSFER TO [facility] PER [facility] [employer]LLOPHANE PRESS OPERATOR TIAN AND ONE MATHEMAT[employer] FACULTY MEMBER PATI, PATIENT NEEDS TO GO TO THEIR ER FOR ASSESSMENT BEFORE THEY WILL ASSIGN A ROOM NUMBER NURSE TO CALL CHARGE NURSE DIA T: [phone] TO GIVE NURSE TO NURSE REPORT [facility] WILL PROVIDE TRANSPORTATION...ETA 1800 SINCE PATIENT IS [facility] "CALL THE CAR" ARRANGED THE ABOVE TRANSPORTATION CALL THE CAR T: [phone]
[2020-05-25 16:00] VITALS: BP 121/65
--- NOTE | 2020-05-25 16:00 | NUR ---
NURSE NOTES: [facility] Danny cam RN. Patient is ready for discharge.
--- NOTE | 2020-05-25 16:31 | Cardiac Electrophysiology PN ---
Assessment/Plan Assessment/Plan 1. Non-ST elevation myocardial infarction in the patient with history of CABG and multiple risk factors, hypertension, diabetes. Peak Troponin 12.9. Level is coming down to 4.3. Creatinine 1.3 The patient remains without any chest pain. Continue aspirin, Lipitor and metoprolol 25 mg b.i.d. Awaiting transfer to [facility] for cardiac catheterization 2. Hypertension. Continue metoprolol 25 b.i.d. and benazepril 20 mg daily and p.r.n. hydralazine. 3. Lower extremity edema could be due to heart failure. EF 45% 4. Hyperlipidemia on Lipitor. 5. Diabetes on insulin. DW RN Subjective Subjective Troponin down from 12 to 4.35. No CP or SOB. Still awaiting transfer to [facility]. EF 45% Objective Last 24 Hour Vital Signs Date Time Temp Pulse Resp B/P (MAP) Pulse Ox O2 Delivery O2 Flow Rate FiO2 05/25/20 12:22 97.7 86 20 126/68 (87) 99 05/25/20 12:00 80 05/25/20 09:00 Room Air 05/25/20 08:27 89 144/77 05/25/20 08:24 144/77 05/25/20 08:13 95.9 89 18 144/77 (99) 96 05/25/20 08:00 94 05/25/20 04:00 85 05/25/20 04:00 98.4 98 18 136/69 (91) 97 05/25/20 00:00 98.9 100 19 133/66 (88) 98 05/25/20 00:00 89 05/24/20 21:14 113 130/64 05/24/20 21:06 Room Air 05/24/20 20:00 113 05/24/20 20:00 98.6 101 18 130/64 (86) 99 05/24/20 16:33 100 05/24/20 16:32 96.7 86 20 122/57 (78) 98 Intake and Output 05/24/20 05/25/20 19:00 07:00 Intake Total 140 ml Output Total 1200 ml Balance -1060 ml Intake Oral 140 ml Output Urine Total 1200 ml # Voids 3 2 Laboratory Tests Test 05/24/20 16:52 05/24/20 20:06 05/25/20 06:00 POC Whole Blood Glucose 468 MG/DL (74-106) H 251 MG/DL (74-106) H White Blood Count 6.8 K/UL (4.8-10.8) Red Blood Count 3.99 M/UL (4.20-5.40) L Hemoglobin 11.9 G/DL (12.0-16.0) L Hematocrit 36.5 % (37.0-47.0) L Mean Corpuscular Volume 91 FL (80-99) Mean Corpuscular Hemoglobin 29.7 PG (27.0-31.0) Mean Corpuscular Hemoglobin Concent 32.5 G/DL (32.0-36.0) Red Cell Distribution Width 11.6 % (11.6-14.8) Platelet Count 282 K/UL (150-450) Mean Platelet Volume 8.6 FL (6.5-10.1) Neutrophils (%) (Auto) 53.5 % (45.0-75.0) Lymphocytes (%) (Auto) 35.4 % (20.0-45.0) Monocytes (%) (Auto) 9.1 % (1.0-10.0) Eosinophils (%) (Auto) 1.3 % (0.0-3.0) Basophils (%) (Auto) 0.7 % (0.0-2.0) Sodium Level 136 MMOL/L (136-145) Potassium Level 4.3 MMOL/L (3.5-5.1) Chloride Level 103 MMOL/L (98-107) Carbon Dioxide Level 23 MMOL/L (21-32) Anion Gap 10 mmol/L (5-15) Blood Urea Nitrogen 24 mg/dL (7-18) H Creatinine 1.5 MG/DL (0.55-1.30) H Estimat Glomerular Filtration Rate 38.4 mL/min (>60) Glucose Level 355 MG/DL (74-106) #H Calcium Level 8.6 MG/DL (8.5-10.1) Troponin I 4.357 ng/mL (0.000-0.056) Microbiology Date/Time Source Procedure Growth Status 05/24/20 16:30 Nasopharynx SARS-CoV-2 RdRp Gene Assay - Final Complete Objective HEAD AND NECK: No JVD or carotid bruit . LUNGS: Clear. CARDIOVASCULAR: Regular S1 and S2 with no gallop or murmur. ABDOMEN: Soft. EXTREMITIES: Sternotomy scar is intact and has 1+ left ankle edema. Avery Perry MD May 25, 2020 16:31
--- NOTE | 2020-05-25 19:37 | NUR ---
NURSE NOTES: Report given to ambulance personnel. Patient stable and ready for discharge. All belongins with patient including Iphone. IV left intact.
--- NOTE | 2020-05-26 10:58 | NUR ---
*-* INSURANCE *-* UPDATED CLINICALS ( NO D/C SUM IN THE SYSTEM) FAXED TO: TRACK# [id number] [facility] F: [phone] Addendum: 05/27/20 at 1544 by JAMES WILL ADALBERTO PEARCE BEEN FAXED
== END 2020-05-25 19:17 | disposition critical access hospital, planned readmission (94) | DRG 190 ==
LOC: EMR 01:00 → OBSVTOIN 02:21 → 2E 02:21 → EDBEDREQ 04:05 → 2E 05-25 15:56
DX: I21.4 Non-ST elevation (NSTEMI) myocardial infarction (principal); N17.9 Acute kidney failure, unspecified; I10 Essential (primary) hypertension; E66.9 Obesity, unspecified; Z68.35 Body mass index [BMI] 35.0-35.9, adult; E10.65 Type 1 diabetes mellitus with hyperglycemia; I25.10 Atherosclerotic heart disease of native coronary artery without angina pectoris; Z95.1 Presence of aortocoronary bypass graft; Z95.5 Presence of coronary angioplasty implant and graft; K21.9 Gastro-esophageal reflux disease without esophagitis; Z79.4 Long term (current) use of insulin
CPT/HCPCS: 36415; 71045; 80048; 80053; 80061; 81003; 81025; 82962; 83880; 84443; 84484; 85025; 85730; 93005; 93306; 96372; 96374; 99285; J1815; S5561; U0002

== ENCOUNTER 2020-06-07 23:51 | Inpatient (IN) | payer OTHER ==
[~2020-06-07] VITALS: Ht 152.4 cm; Wt 83.1 kg
[~2020-06-07 23:51] MED LIST changes: +ASPIR 8181 MG ORAL; +FUROSEMIDE40 MG ORAL; +LIPITOR20 MG ORAL; +LOPRESSOR25 M1 ORAL
[2020-06-08] VITALS (8 sets, daily range): BP systolic 136–157; BP diastolic 68–82
[2020-06-08] MEDS ORDERED: Lidocaine 2% Visc 15ml soln ORAL ONE (00:15)
[2020-06-08] MEDS ORDERED: Mylanta II UD 30ml ORAL ONE (00:15)
[2020-06-08 00:28] LABS: BASOPHILS % (AUTO) 0.9 % (0.0-2.0); EOSINOPHILS % (AUTO) 0.8 % (0.0-3.0); HEMATOCRIT 34.6 % (37.0-47.0); HEMOGLOBIN 11.3 G/DL (12.0-16.0); LYMPHOCYTES % (AUTO) 38.6 % (20.0-45.0); MEAN CORPUSCULAR VOLUME 91 FL (80-99); MONOCYTES % (AUTO) 8.4 % (1.0-10.0); NEUTROPHILS % (AUTO) 51.3 % (45.0-75.0); PLATELET COUNT 296 K/UL (150-450); RED CELL DISTRIBUTION WIDTH 11.8 % (11.6-14.8); WHITE BLOOD COUNT 5.8 K/UL (4.8-10.8)
[2020-06-08 00:28] LABS: APPEARANCE,URINE CLEAR; BILIRUBIN, URINE NEGATIVE (NEGATIVE); COLOR,URINE PALE YELLOW; GLUCOSE, URINE (UA) 4+ (NEGATIVE); KETONES,URINE NEGATIVE (NEGATIVE); LEUKOCYTE ESTERASE ,URINE NEGATIVE (NEGATIVE); NITRITE,URINE NEGATIVE (NEGATIVE); PH,URINE 6 (4.5-8.0); PROTEIN,URINE 3+ (NEGATIVE); UROBILINOGEN,URINE NORMAL MG/DL (0.0-1.0)
--- NOTE | 2020-06-08 00:32 | Emergency Room Report ---
History of Present Illness General Chief Complaint: Chest Pain Present Illness HPI Disclaimer: Please note that this report is being documented using [employer] technology. This can lead to erroneous entry secondary to incorrect interpretation by the dictating instrument. HPI: 40-year-old female history of diabetes, hypertension, heart disease presents for burning chest pain. She also has a history of GERD and acid reflux. She states she ate jalapenos and tomatoes today and then later in the day also ate hot Cheetos and now is experiencing burning pain in her upper chest. No vomiting. No fevers no shortness of breath. Patient was admitted earlier in the month for chest pain and had a stent placed 1 week ago at [facility]. 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 COVID-19 Screening: Negative COVID-19 COVID-19 Testing Source: LAST WEEK @ [facility] Patient History Last Menstrual Period: LAST WEEK Now: No : 6 Para: 5 Reviewed Nursing Documentation: PMH: Agreed; PSxH: Agreed Nursing Documentation-PMH Hx Hypertension: Yes Hx Pacemaker: No Hx Asthma: No Hx COPD: No Hx Diabetes: Yes - DMI Hx Cancer: No Hx Gastrointestinal Problems: Yes - Chronic constipation Hx Dialysis: No Hx Neurological Problems: No Hx Cerebrovascular Accident: No Hx Seizures: No Hx Headaches: Yes Review of Systems All Other Systems: negative except mentioned in HPI Physical Exam Vital Signs Date Time Temp Pulse Resp B/P (MAP) Pulse Ox O2 Delivery O2 Flow Rate FiO2 06/07/20 23:56 98.4 92 18 136/73 (94) 97 Room Air Sp02 EP Interpretation: reviewed, normal General Appearance: well appearing, no apparent distress Head: normocephalic, atraumatic Eyes: bilateral eye PERRL, bilateral eye EOMI ENT: hearing grossly normal, moist mucus membranes Neck: full range of motion, supple Respiratory: lungs clear, normal breath sounds, no rhonchi, no respiratory distress, no retraction, no wheezing Cardiovascular #1: normal peripheral pulses, regular rate, rhythm, no murmur Gastrointestinal: non tender, soft, non-distended, no guarding Neurologic: alert, oriented x3, no focal defects Skin: normal color, warm/dry Medical Decision Making Diagnostic Impression: Primary Impression: Chest pain Additional Impression: NSTEMI (non-ST elevated myocardial infarction) ER Course MDM: Patient presents with chest discomfort after eating hot Cheetos and jalapenos. She has a history of GERD and gastritis. She also history of heart disease. I suspect her presentation is most likely related to her poor diet choices and acid reflux however due to her recent cardiac history will order basic laboratory studies. Clinical course-laboratory studies did demonstrate elevation in her troponin. It is unclear if she has chronically elevated troponin however she did have recent stent placement and recent elevation in her troponin. I observe patient for 3 hours and repeated the troponin which did increase so at that time I decided to admit the patient for further observation. She was given aspirin in the ER. Will be placed on the telemetry floor. Accepted by Dr. Miller. Labs - Laboratory Tests Test 06/08/20 00:10 06/08/20 00:15 06/08/20 01:45 06/08/20 02:58 Urine Color Pale yellow Urine Appearance Clear Urine pH 6 (4.5-8.0) Urine Specific [place] 1.010 (1.005-1.035) Urine Protein 3+ (NEGATIVE) H Urine Glucose (UA) 4+ (NEGATIVE) H Urine Ketones Negative (NEGATIVE) Urine Blood Negative (NEGATIVE) Urine Nitrite Negative (NEGATIVE) Urine Bilirubin Negative (NEGATIVE) Urine Urobilinogen Normal MG/DL (0.0-1.0) Urine Leukocyte Esterase Negative (NEGATIVE) Urine RBC 0-2 /HPF (0 - 2) Urine WBC 0-2 /HPF (0 - 2) Urine Squamous Epithelial Cells Few /LPF (NONE/OCC) Urine Bacteria None /HPF (NONE) White Blood Count 5.8 K/UL (4.8-10.8) Red Blood Count 3.80 M/UL (4.20-5.40) L Hemoglobin 11.3 G/DL (12.0-16.0) L Hematocrit 34.6 % (37.0-47.0) L Mean Corpuscular Volume 91 FL (80-99) Mean Corpuscular Hemoglobin 29.8 PG (27.0-31.0) Mean Corpuscular Hemoglobin Concent 32.7 G/DL (32.0-36.0) Red Cell Distribution Width 11.8 % (11.6-14.8) Platelet Count 296 K/UL (150-450) Mean Platelet Volume 9.1 FL (6.5-10.1) Neutrophils (%) (Auto) 51.3 % (45.0-75.0) Lymphocytes (%) (Auto) 38.6 % (20.0-45.0) Monocytes (%) (Auto) 8.4 % (1.0-10.0) Eosinophils (%) (Auto) 0.8 % (0.0-3.0) Basophils (%) (Auto) 0.9 % (0.0-2.0) Sodium Level 135 MMOL/L (136-145) L Potassium Level 4.1 MMOL/L (3.5-5.1) Chloride Level 103 MMOL/L (98-107) Carbon Dioxide Level 24 MMOL/L (21-32) Anion Gap 8 mmol/L (5-15) Blood Urea Nitrogen 29 mg/dL (7-18) H Creatinine 1.6 MG/DL (0.55-1.30) H Estimated Glomerular Filtration Rate 35.7 mL/min (>60) Glucose Level 450 MG/DL (74-106) H Calcium Level 8.4 MG/DL (8.5-10.1) L Total Bilirubin 0.2 MG/DL (0.2-1.0) Aspartate Amino Transferase (AST) 46 U/L (15-37) H Alanine Aminotransferase (ALT) 49 U/L (12-78) Alkaline Phosphatase 95 U/L (46-116) Troponin I 0.166 ng/mL (0.000-0.056) 0.250 ng/mL (0.000-0.056) Total Protein 7.0 G/DL (6.4-8.2) Albumin 3.2 G/DL (3.4-5.0) L Globulin 3.8 g/dL Albumin/Globulin Ratio 0.8 (1.0-2.7) L POC Whole Blood Glucose 311 MG/DL (74-106) H On reevaluation: Patient in no acute distress and nontoxic-appearing Plan-admission to the telemetry floor EKG Diagnostic Results Rate: normal Rhythm: NSR ST Segments: other - ST depressions noted inferiorly Other Impression Q waves anteriorly, abnormal EKG ASA given to the pt in ED: Yes Chest X-Ray Diagnostic Results Chest X-Ray Diagnostic Results : Chest X-Ray Ordered: Yes # of Views/Limited/Complete: 1 View Indication: Chest Pain EP Interpretation: Yes Interpretation: no consolidation, no effusion, no pneumothorax, other - Cardiomegaly Impression: No acute disease Electronically Signed by: Uday Cade MD Last Vital Signs Date Time Temp Pulse Resp B/P (MAP) Pulse Ox O2 Delivery O2 Flow Rate FiO2 06/07/20 23:56 98.4 92 18 136/73 (94) 97 Room Air Status: unchanged Disposition: ADMITTED INPATIENT Condition: Serious Referrals: [facility],REFERRING (PCP) Uday Cade M.D. Jun 08, 2020 00:32
[2020-06-08 00:40] LABS: ANION GAP 8 mmol/L (5-15); BLOOD UREA NITROGEN 29 mg/dL (7-18); CALCIUM 8.4 MG/DL (8.5-10.1); CARBON DIOXIDE 24 MMOL/L (21-32); CHLORIDE 103 MMOL/L (98-107); CREATININE 1.6 MG/DL (0.55-1.30); POTASSIUM 4.1 MMOL/L (3.5-5.1); SODIUM 135 MMOL/L (136-145)
[2020-06-08 00:44] LABS: ALANINE AMINOTRANSFERASE 49 U/L (12-78); ALBUMIN 3.2 G/DL (3.4-5.0); ALBUMIN/GLOBULIN RATIO 0.8 (1.0-2.7); ALKALINE PHOSPHATASE 95 U/L (46-116); ASPARTATE AMINO TRANSFERASE 46 U/L (15-37); BILIRUBIN,TOTAL 0.2 MG/DL (0.2-1.0)
[2020-06-08] MEDS ORDERED: BENAZEPRIL HCL20 MG ORAL (01:05)
[2020-06-08] MEDS ORDERED: AMIODARONE HCL400 M1 ORAL (01:05)
[2020-06-08] MEDS ORDERED: CARVEDILOL6.25 MG ORAL (01:05)
[2020-06-08] MEDS ORDERED: K-TAB10 MEQ PO (01:05)
[2020-06-08] MEDS ORDERED: EFFIENT10 MG PO (01:05)
[2020-06-08] MEDS ORDERED: HYDROXYCHLOROQ200 M1 PO (01:05)
[2020-06-08] MEDS ORDERED: FUROSEMIDE20 M1 ORAL (01:05)
[2020-06-08] MEDS ORDERED: LIPITOR80 MG ORAL (01:05)
[2020-06-08] MEDS ORDERED: Insulin Human Regular 100units/ml 3ml IV ONE (01:15)
[2020-06-08] MEDS ORDERED: Labetalol 5mg/ml 20ml vial IV PRN (06:15)
--- NOTE | 2020-06-08 08:44 | Diagnostic Imaging Report ---
Indication: Chest pain Technique: One view of the chest Comparison: 05/23/2020 Findings: The lungs and pleural spaces are clear. The heart size is normal. Previously questioned right upper lung pulmonary nodule is not evident currently. No other significant change Impression: No acute process
[2020-06-08] MEDS ORDERED: Levemir Flexpen SUBQ SCH (09:00)
[2020-06-08 09:20] LABS: BASOPHILS % (AUTO) 0.7 % (0.0-2.0); EOSINOPHILS % (AUTO) 0.4 % (0.0-3.0); HEMATOCRIT 34.5 % (37.0-47.0); LYMPHOCYTES % (AUTO) 27.6 % (20.0-45.0); MEAN CORPUSCULAR VOLUME 91 FL (80-99); MONOCYTES % (AUTO) 9.5 % (1.0-10.0); NEUTROPHILS % (AUTO) 61.8 % (45.0-75.0); PLATELET COUNT 297 K/UL (150-450); RED BLOOD COUNT 3.77 M/UL (4.20-5.40); WHITE BLOOD COUNT 7.2 K/UL (4.8-10.8)
[2020-06-08] MEDS ORDERED: Tums 500mg ORAL PRN (09:30)
[2020-06-08] MEDS: Carvedilol 6.25mg Tab ORAL SCH ×2 (09:34→20:14)
[2020-06-08] MEDS: Aspirin Baby 81mg ORAL SCH (09:34)
[2020-06-08] MEDS: Amiodarone 200mg tab ORAL SCH (09:35)
[2020-06-08] MEDS ORDERED: Heparin 25,000u/D5W 500ml 500 ML IV SCH (10:00)
--- NOTE | 2020-06-08 10:14 | History and Physical ---
History of Present Illness General Date patient seen: Jun 08, 2020 Time patient seen: 09:47 Reason for Hospitalization: Chest Pain Present Illness HPI 40-year-old female with history of CAD with previous three vessel CABG at [facility] April 2019, HTN, DM, GERD, Obesity who prestened to ED with chest pain on 06/08/2020. Patient describes the pain as burning, gradual onset, located mid pper chest and lower neck region. It is not associated with exertion and she has not take nitro. Prior to the chest pain pateint was eating many spicy foods such as hot Cheetos and began having acid reflux. This concerned her because 1 week prior she had a stent placed at [facility]. She has been compliant with her medications including her DAPT. Allergies: Coded Allergies: No Known Allergies (Unverified , 08/08/12) COVID-19 Screening Contact w/high risk pt: No Recent Travel to affected area: No Experienced COVID-19 symptoms?: No Medication History Scheduled Amiodarone Hcl* (Amiodarone Hcl*), 200 MG ORAL DAILY, (Reported) Aspirin* (Aspir 81*), 81 MG ORAL DAILY, (Reported) Aspirin* (Aspirin*), 81 MG ORAL DAILY Atorvastatin (Lipitor), 80 MG ORAL BEDTIME, (Reported) Atorvastatin Calcium* (Lipitor*), 40 MG ORAL BEDTIME Benazepril Hcl* (Benazepril Hcl*), 20 MG ORAL DAILY Benazepril Hcl* (Benazepril Hcl*), 20 MG ORAL DAILY, (Reported) Carvedilol* (Carvedilol*), 6.25 MG ORAL EVERY 12 HOURS, (Reported) Furosemide* (Lasix*), 40 MG ORAL DAILY, (Reported) Furosemide* (Lasix*), 20 MG ORAL DAILY, (Reported) Hydrochlorothiazide* (Hydrochlorothiazide*), 200 MG ORAL DAILY, (Reported) Hydroxychloroquine Sulfate (Hydroxychloroquine Sulfate), 200 MG PO DAILY, ( Reported) Insulin Human Lispro (Humalog), 21 UNITS SUBQ BEFORE BREAKFAST Insulin Lispro (Humalog), 15 UNITS SUBQ BEFORE DINNER, (Reported) Metoprolol Tartrate (Metoprolol Tartrate), 25 MG ORAL Q12HR Nph, Human Insulin Isophane* (Novolin N*), 30 UNIT SUBQ ACBREAKFAST, (Reported) Nph, Human Insulin Isophane* (Novolin N*), 15 SUBQ HS, (Reported) Miscellaneous Medications Hydroxychloroquine Sulfate (Hydroxychloroquine Sulfate), 200 MG PO, (Reported) Potassium Chloride (K-Tab), 10 MEQ PO, (Reported) Prasugrel Hcl (Effient), 10 MG PO, (Reported) Patient History History Provided By: Patient Healthcare decision maker Resuscitation status Advanced Directive on File Past Medical/Surgical History Past Medical/Surgical History: (1) Diabetes (2) Hypertension (3) Hx of CABG Family History Family History: FH: diabetes mellitus Social History Social History: (1) Non-smoker Review of Systems Constitutional: Reports: no symptoms Eye: Reports: no symptoms ENT: Reports: see HPI, throat pain; Denies: no symptoms Respiratory: Reports: no symptoms Cardiovascular: Reports: chest pain; Denies: edema, palpitations, syncope, PND Gastrointestinal: Reports: see HPI Genitourinary: Reports: no symptoms Musculoskeletal: Reports: no symptoms Skin: Reports: no symptoms Psychiatric: Reports: no symptoms Neurological: Reports: no symptoms Endocrine: Reports: no symptoms Hematologic/Lymphatic: Reports: no symptoms Physical Exam General Appearance: WD/WN, alert, overweight, alert oriented x3 Lines, tubes and drains: peripheral HEENT: normocephalic, atraumatic, PERRL Neck: supple, normal inspection Respiratory/Chest: chest wall non-tender, lungs clear, normal breath sounds, no respiratory distress, no accessory muscle use Cardiovascular/Chest: normal peripheral pulses, regular rhythm, no gallop/ murmur, no JVD, tachycardia Abdomen: normal bowel sounds, non tender, soft, no organomegaly, no mass Extremities: non-tender, normal inspection Skin Exam: normal pigmentation, warm/dry, no diaphoresis Neurologic: furniture mover II-XII grossly normal, no motor/sensory deficits, alert, oriented x 3, responsive, normal mood/affect Last 24 Hour Vital Signs Date Time Temp Pulse Resp B/P (MAP) Pulse Ox O2 Delivery O2 Flow Rate FiO2 06/08/20 08:00 98.8 106 18 142/68 (92) 98 06/08/20 05:05 105 06/08/20 05:05 98.4 105 20 148/72 (97) 96 06/08/20 05:02 Room Air 06/08/20 04:55 98.4 99 18 148/72 100 Room Air 06/08/20 03:45 98.4 99 18 148/72 100 Room Air 06/08/20 01:47 91 18 142/77 97 Room Air 06/08/20 00:20 92 18 Room Air 06/08/20 00:20 98.4 96 18 136/73 97 Room Air 06/07/20 23:56 98.4 92 18 136/73 (94) 97 Room Air Intake and Output 06/07/20 06/08/20 19:00 07:00 Intake Total 200 ml Balance 200 ml Intake Oral 200 ml Laboratory Tests Test 06/08/20 00:10 06/08/20 00:15 06/08/20 01:45 06/08/20 02:58 Urine Color Pale yellow Urine Appearance Clear Urine pH 6 (4.5-8.0) Urine Specific [place] 1.010 (1.005-1.035) Urine Protein 3+ (NEGATIVE) H Urine Glucose (UA) 4+ (NEGATIVE) H Urine Ketones Negative (NEGATIVE) Urine Blood Negative (NEGATIVE) Urine Nitrite Negative (NEGATIVE) Urine Bilirubin Negative (NEGATIVE) Urine Urobilinogen Normal MG/DL (0.0-1.0) Urine Leukocyte Esterase Negative (NEGATIVE) Urine RBC 0-2 /HPF (0 - 2) Urine WBC 0-2 /HPF (0 - 2) Urine Squamous Epithelial Cells Few /LPF (NONE/OCC) Urine Bacteria None /HPF (NONE) White Blood Count 5.8 K/UL (4.8-10.8) Red Blood Count 3.80 M/UL (4.20-5.40) L Hemoglobin 11.3 G/DL (12.0-16.0) L Hematocrit 34.6 % (37.0-47.0) L Mean Corpuscular Volume 91 FL (80-99) Mean Corpuscular Hemoglobin 29.8 PG (27.0-31.0) Mean Corpuscular Hemoglobin Concent 32.7 G/DL (32.0-36.0) Red Cell Distribution Width 11.8 % (11.6-14.8) Platelet Count 296 K/UL (150-450) Mean Platelet Volume 9.1 FL (6.5-10.1) Neutrophils (%) (Auto) 51.3 % (45.0-75.0) Lymphocytes (%) (Auto) 38.6 % (20.0-45.0) Monocytes (%) (Auto) 8.4 % (1.0-10.0) Eosinophils (%) (Auto) 0.8 % (0.0-3.0) Basophils (%) (Auto) 0.9 % (0.0-2.0) Sodium Level 135 MMOL/L (136-145) L Potassium Level 4.1 MMOL/L (3.5-5.1) Chloride Level 103 MMOL/L (98-107) Carbon Dioxide Level 24 MMOL/L (21-32) Anion Gap 8 mmol/L (5-15) Blood Urea Nitrogen 29 mg/dL (7-18) H Creatinine 1.6 MG/DL (0.55-1.30) H Estimat Glomerular Filtration Rate 35.7 mL/min (>60) Glucose Level 450 MG/DL (74-106) H Calcium Level 8.4 MG/DL (8.5-10.1) L Total Bilirubin 0.2 MG/DL (0.2-1.0) Aspartate Amino Transf (AST/SGOT) 46 U/L (15-37) H Alanine Aminotransferase (ALT/SGPT) 49 U/L (12-78) Alkaline Phosphatase 95 U/L (46-116) Troponin I 0.166 ng/mL (0.000-0.056) 0.250 ng/mL (0.000-0.056) Total Protein 7.0 G/DL (6.4-8.2) Albumin 3.2 G/DL (3.4-5.0) L Globulin 3.8 g/dL Albumin/Globulin Ratio 0.8 (1.0-2.7) L POC Whole Blood Glucose 311 MG/DL (74-106) H Test 06/08/20 09:00 06/08/20 09:37 White Blood Count 7.2 K/UL (4.8-10.8) Red Blood Count 3.77 M/UL (4.20-5.40) L Hemoglobin 11.0 G/DL (12.0-16.0) L Hematocrit 34.5 % (37.0-47.0) L Mean Corpuscular Volume 91 FL (80-99) Mean Corpuscular Hemoglobin 29.2 PG (27.0-31.0) Mean Corpuscular Hemoglobin Concent 32.0 G/DL (32.0-36.0) Red Cell Distribution Width 12.0 % (11.6-14.8) Platelet Count 297 K/UL (150-450) Mean Platelet Volume 9.0 FL (6.5-10.1) Neutrophils (%) (Auto) 61.8 % (45.0-75.0) Lymphocytes (%) (Auto) 27.6 % (20.0-45.0) Monocytes (%) (Auto) 9.5 % (1.0-10.0) Eosinophils (%) (Auto) 0.4 % (0.0-3.0) Basophils (%) (Auto) 0.7 % (0.0-2.0) Activated Partial Thromboplast Time 26 SEC (23-33) Troponin I 1.230 ng/mL (0.000-0.056) POC Whole Blood Glucose 391 MG/DL (74-106) H Microbiology Date/Time Source Procedure Growth Status 06/08/20 04:35 Rectum Received Height (Feet): 5 Height (Inches): 0.00 Weight (Pounds): 184 Medications Current Medications Medications (Trade) Dose Ordered Sig/Herbie Route PRN Reason Start Time Stop Time Status Last Admin Dose Admin Amiodarone HCl (Cordarone) 200 mg DAILY ORAL 06/08/20 09:00 09/06/20 08:59 Aspirin (ASA) 81 mg DAILY ORAL 06/08/20 09:00 07/23/20 08:59 Atorvastatin Calcium (Lipitor) 80 mg BEDTIME ORAL 06/08/20 21:00 09/06/20 20:59 Calcium Carbonate (Tums) 500 mg Q3H PRN ORAL To Patient Comfort 06/08/20 09:30 09/06/20 09:29 UNV Carvedilol (Coreg) 6.25 mg EVERY 12 HOURS ORAL 06/08/20 09:00 07/08/20 08:59 Dextrose (Dextrose 50%) 25 ml Q30M PRN IV Hypoglycemia 06/08/20 06:15 09/06/20 06:14 Dextrose (Dextrose 50%) 25 ml Q30M PRN IV Hypoglycemia 06/08/20 09:30 09/06/20 09:29 UNV Dextrose (Dextrose 50%) 50 ml Q30M PRN IV Hypoglycemia 06/08/20 06:15 09/06/20 06:14 Dextrose (Dextrose 50%) 50 ml Q30M PRN IV Hypoglycemia 06/08/20 09:30 09/06/20 09:29 UNV Heparin Sodium/ Dextrose 500 ml @ 20.031 mls/ hr ADJUST PER PROTOCOL IV 06/08/20 08:45 07/08/20 08:44 UNV Insulin Aspart (NovoLOG) BEFORE MEALS AND HS SUBQ 06/08/20 11:30 09/06/20 11:29 UNV Insulin Aspart (NovoLOG) 5 units NOVOTIAC SUBQ 06/08/20 11:50 09/06/20 11:49 UNV Insulin Detemir (Levemir) 15 units BID SUBQ 06/08/20 09:00 09/06/20 08:59 Labetalol HCl (Normodyne) 10 mg Q6H PRN IV For High Blood Pressure 06/08/20 06:15 07/08/20 06:14 Non-Formulary Medication (Non-Formulary Med) 1 ea BID ORAL 06/08/20 09:00 07/08/20 08:59 UNV Sodium Chloride 1,000 ml @ 50 mls/hr Q20H IV 06/08/20 08:00 07/08/20 06:14 Assessment/Plan Problem List: (1) NSTEMI (non-ST elevated myocardial infarction) ICD Codes: I21.4 - Non-ST elevation (NSTEMI) myocardial infarction SNOMED: 02784489 (2) Uncontrolled diabetes mellitus ICD Codes: E11.65 - Type 2 diabetes mellitus with hyperglycemia SNOMED: 175025171 (3) Hypertension ICD Codes: I10 - Essential (primary) hypertension SNOMED: 48437889 (4) GERD (gastroesophageal reflux disease) ICD Codes: K21.9 - Gastro-esophageal reflux disease without esophagitis SNOMED: 648450461 Status: doing well, stable Assessment/Plan: 40-year-old female with history of CAD with previous three vessel CABG at [facility] April 2019, HTN, DM, GERD, Obesity who presented to ED with chest pain. #NSTEMI #Atypical CP #Hx CABG #Recent stent placement #HTN -Admit to tele -Continue DAPT -Haprin GTT -On beta alejandro and ZOLTAN -High dose statin -Nitro PRN for chest pain -Trend troponin -Cariology consult #DM type 1 -Levemir 15 units BID -5 units prandial insulin -Resistant dose SSI -Carb consistent diet. #GERD -Received GI cocktail -TUMS PRN -Protonix 40 mg daily. Dispo: Likely DC to home or transfer to other facility for PCI I spent 75 minutes on this case. Face to face time with patient with counseling. Extensive chart review for more than 15 min. Coordinated with consultants and RNs. Review imaging independently. Jasbir Dai M.D. Jun 08, 2020 10:14
[2020-06-08] MEDS ORDERED: NovoLOG Insulin Flexpen SUBQ SCH (11:30)
--- NOTE | 2020-06-08 11:36 | Cardiac Electrophysiology PN ---
Subjective Subjective [id number] Objective Last 24 Hour Vital Signs Date Time Temp Pulse Resp B/P (MAP) Pulse Ox O2 Delivery O2 Flow Rate FiO2 06/08/20 09:34 106 142/68 06/08/20 09:00 Room Air 06/08/20 08:00 98.8 106 18 142/68 (92) 98 06/08/20 08:00 107 06/08/20 05:05 105 06/08/20 05:05 98.4 105 20 148/72 (97) 96 06/08/20 05:02 Room Air 06/08/20 04:55 98.4 99 18 148/72 100 Room Air 06/08/20 03:45 98.4 99 18 148/72 100 Room Air 06/08/20 01:47 91 18 142/77 97 Room Air 06/08/20 00:20 92 18 Room Air 06/08/20 00:20 98.4 96 18 136/73 97 Room Air 06/07/20 23:56 98.4 92 18 136/73 (94) 97 Room Air Intake and Output 06/07/20 06/08/20 19:00 07:00 Intake Total 200 ml Balance 200 ml Intake Oral 200 ml Laboratory Tests Test 06/08/20 00:10 06/08/20 00:15 06/08/20 01:45 06/08/20 02:58 Urine Color Pale yellow Urine Appearance Clear Urine pH 6 (4.5-8.0) Urine Specific [place] 1.010 (1.005-1.035) Urine Protein 3+ (NEGATIVE) H Urine Glucose (UA) 4+ (NEGATIVE) H Urine Ketones Negative (NEGATIVE) Urine Blood Negative (NEGATIVE) Urine Nitrite Negative (NEGATIVE) Urine Bilirubin Negative (NEGATIVE) Urine Urobilinogen Normal MG/DL (0.0-1.0) Urine Leukocyte Esterase Negative (NEGATIVE) Urine RBC 0-2 /HPF (0 - 2) Urine WBC 0-2 /HPF (0 - 2) Urine Squamous Epithelial Cells Few /LPF (NONE/OCC) Urine Bacteria None /HPF (NONE) White Blood Count 5.8 K/UL (4.8-10.8) Red Blood Count 3.80 M/UL (4.20-5.40) L Hemoglobin 11.3 G/DL (12.0-16.0) L Hematocrit 34.6 % (37.0-47.0) L Mean Corpuscular Volume 91 FL (80-99) Mean Corpuscular Hemoglobin 29.8 PG (27.0-31.0) Mean Corpuscular Hemoglobin Concent 32.7 G/DL (32.0-36.0) Red Cell Distribution Width 11.8 % (11.6-14.8) Platelet Count 296 K/UL (150-450) Mean Platelet Volume 9.1 FL (6.5-10.1) Neutrophils (%) (Auto) 51.3 % (45.0-75.0) Lymphocytes (%) (Auto) 38.6 % (20.0-45.0) Monocytes (%) (Auto) 8.4 % (1.0-10.0) Eosinophils (%) (Auto) 0.8 % (0.0-3.0) Basophils (%) (Auto) 0.9 % (0.0-2.0) Sodium Level 135 MMOL/L (136-145) L Potassium Level 4.1 MMOL/L (3.5-5.1) Chloride Level 103 MMOL/L (98-107) Carbon Dioxide Level 24 MMOL/L (21-32) Anion Gap 8 mmol/L (5-15) Blood Urea Nitrogen 29 mg/dL (7-18) H Creatinine 1.6 MG/DL (0.55-1.30) H Estimat Glomerular Filtration Rate 35.7 mL/min (>60) Glucose Level 450 MG/DL (74-106) H Calcium Level 8.4 MG/DL (8.5-10.1) L Total Bilirubin 0.2 MG/DL (0.2-1.0) Aspartate Amino Transf (AST/SGOT) 46 U/L (15-37) H Alanine Aminotransferase (ALT/SGPT) 49 U/L (12-78) Alkaline Phosphatase 95 U/L (46-116) Troponin I 0.166 ng/mL (0.000-0.056) 0.250 ng/mL (0.000-0.056) Total Protein 7.0 G/DL (6.4-8.2) Albumin 3.2 G/DL (3.4-5.0) L Globulin 3.8 g/dL Albumin/Globulin Ratio 0.8 (1.0-2.7) L POC Whole Blood Glucose 311 MG/DL (74-106) H Test 06/08/20 09:00 06/08/20 09:37 White Blood Count 7.2 K/UL (4.8-10.8) Red Blood Count 3.77 M/UL (4.20-5.40) L Hemoglobin 11.0 G/DL (12.0-16.0) L Hematocrit 34.5 % (37.0-47.0) L Mean Corpuscular Volume 91 FL (80-99) Mean Corpuscular Hemoglobin 29.2 PG (27.0-31.0) Mean Corpuscular Hemoglobin Concent 32.0 G/DL (32.0-36.0) Red Cell Distribution Width 12.0 % (11.6-14.8) Platelet Count 297 K/UL (150-450) Mean Platelet Volume 9.0 FL (6.5-10.1) Neutrophils (%) (Auto) 61.8 % (45.0-75.0) Lymphocytes (%) (Auto) 27.6 % (20.0-45.0) Monocytes (%) (Auto) 9.5 % (1.0-10.0) Eosinophils (%) (Auto) 0.4 % (0.0-3.0) Basophils (%) (Auto) 0.7 % (0.0-2.0) Activated Partial Thromboplast Time 26 SEC (23-33) Troponin I 1.230 ng/mL (0.000-0.056) POC Whole Blood Glucose 391 MG/DL (74-106) H Microbiology Date/Time Source Procedure Growth Status 06/08/20 04:35 Rectum Received Avery Perry MD Jun 08, 2020 11:36
[2020-06-08] MEDS: NovoLOG Insulin Flexpen SUBQ SCH ×5 (12:18→20:15)
--- NOTE | 2020-06-08 15:15 | Consultation ---
DATE OF CONSULTATION: 06/08/2020 CARDIOLOGY CONSULTATION CONSULTING PHYSICIAN: Avery Perry MD. REFERRING PHYSICIAN: Love Elena MD. ADDITIONAL REFERRING PHYSICIAN: Dr. Dai. REASON FOR CONSULTATION: Elevated troponin in a patient with coronary artery disease. HISTORY OF PRESENT ILLNESS: The patient is a very pleasant 40-year-old lady that I am quite familiar with from her recent admission. The patient was admitted and was discharged just two weeks ago with non-ST elevation myocardial infarction with peak troponin of 13. The patient was then transferred to [facility] and the patient underwent single stent placement. I do not have that record at this time. The patient presented to the emergency room with epigastric pain after she had spicy food, also was nauseated. It happened after she had hot cheetos. She threw up and the pain got better, but came to the emergency room. In the ER, the patient was noted to have elevated troponin and was admitted. A Cardiology consultation was obtained for further evaluation. Three troponins were 0.166, 0.25, and 0.123. The most recent previous troponin on 05/25/2020 was 4.35. Her creatinine was also elevated at 1.6. REVIEW OF SYSTEMS: Negative other than what was mentioned in the history of present illness. PAST MEDICAL HISTORY: As mentioned above. FAMILY HISTORY: Noncontributory. SOCIAL HISTORY: She lives at home. Does not smoke or drink alcohol. PHYSICAL EXAMINATION: VITAL SIGNS: Show blood pressure is 140/60, pulse 106, respirations 18, and she is afebrile. HEAD AND NECK: No JVD or carotid bruits. LUNGS: Clear. CARDIOVASCULAR: Shows regular S1 and S2 with no gallop or murmur. Sternotomy scar is intact. ABDOMEN: Soft. EXTREMITIES: No pitting edema. LABORATORY DATA: Labs showed sodium 135, potassium 4.1, BUN of 29, and creatinine 1.6. Glucose of 450. Troponin 0.166, 0.25, and 0.123. White count is 7.7, hemoglobin 11, hematocrit 34.5, and platelet count 297,000. ASSESSMENT AND PLAN: 1. Status post recent non-ST elevation myocardial infarction in this patient with a history of coronary artery bypass graft. The patient states that she had another stent placement at [facility] two weeks ago when she presented with elevated troponin of 13. Continue aspirin, Lipitor, and metoprolol. EKG showed no acute ischemic changes. No significant change from prior EKG. This may be secondary to renal failure with trending level of the troponin. The patient also has renal failure, creatinine of 1.6. 2. Hypertension. Blood pressure currently is stable, on Coreg 6.25 mg b.i.d. 3. Hyperlipidemia, on Lipitor. 4. Questionable atrial fibrillation. The patient is currently in sinus rhythm, on amiodarone 200 mg daily, Coreg, and aspirin. 5. Diabetes, uncontrolled with blood glucose of more than 400, on insulin. 6. Renal failure, creatinine 1.8. Avoid ZOLTAN inhibitor and angiotensin receptor blockers. Thank you very much for allowing me to participate in the care of this patient. Please do not hesitate to contact me for any questions regarding my evaluation. Avery Perry M.D. DR: ZACHARY JOB#: [id number] CC:
[2020-06-08] MEDS: Levemir Flexpen SUBQ SCH (17:06)
--- NOTE | 2020-06-08 19:23 | Consultation ---
History of Present Illness General Chief Complaint: Chest Pain Reason for Consultation: Philomena on CKD Present Illness HPI 40-year-old female with history of CAD with previous three vessel CABG at [facility] April 2019, HTN, DM, GERD, Obesity who prestened to ED with chest pain on 06/08/2020. Patient describes the pain as burning, gradual onset, located mid pper chest and lower neck region. It is not associated with exertion and she has not take nitro. Prior to the chest pain pateint was eating many spicy foods such as hot Cheetos and began having acid reflux. This concerned her because 1 week prior she had a stent placed at [facility]. She has been compliant with her medications including her DAPT. Allergies: Coded Allergies: No Known Allergies (Unverified , 08/08/12) Medication History Scheduled Amiodarone Hcl* (Amiodarone Hcl*), 200 MG ORAL DAILY, (Reported) Aspirin* (Aspir 81*), 81 MG ORAL DAILY, (Reported) Aspirin* (Aspirin*), 81 MG ORAL DAILY Atorvastatin (Lipitor), 80 MG ORAL BEDTIME, (Reported) Atorvastatin Calcium* (Lipitor*), 40 MG ORAL BEDTIME Benazepril Hcl* (Benazepril Hcl*), 20 MG ORAL DAILY Benazepril Hcl* (Benazepril Hcl*), 20 MG ORAL DAILY, (Reported) Carvedilol* (Carvedilol*), 6.25 MG ORAL EVERY 12 HOURS, (Reported) Furosemide* (Lasix*), 40 MG ORAL DAILY, (Reported) Furosemide* (Lasix*), 20 MG ORAL DAILY, (Reported) Hydrochlorothiazide* (Hydrochlorothiazide*), 200 MG ORAL DAILY, (Reported) Hydroxychloroquine Sulfate (Hydroxychloroquine Sulfate), 200 MG PO DAILY, ( Reported) Insulin Human Lispro (Humalog), 21 UNITS SUBQ BEFORE BREAKFAST Insulin Lispro (Humalog), 15 UNITS SUBQ BEFORE DINNER, (Reported) Metoprolol Tartrate (Metoprolol Tartrate), 25 MG ORAL Q12HR Nph, Human Insulin Isophane* (Novolin N*), 30 UNIT SUBQ ACBREAKFAST, (Reported) Nph, Human Insulin Isophane* (Novolin N*), 15 SUBQ HS, (Reported) Miscellaneous Medications Hydroxychloroquine Sulfate (Hydroxychloroquine Sulfate), 200 MG PO, (Reported) Potassium Chloride (K-Tab), 10 MEQ PO, (Reported) Prasugrel Hcl (Effient), 10 MG PO, (Reported) Patient History Healthcare decision maker SELF Resuscitation status Advanced Directive on File Review of Systems Constitutional: Denies: no symptoms, see HPI, chills, sweats, fever, malaise, weakness, other Eye: Denies: no symptoms, see HPI, eye pain, blurred vision, tearing, double vision, nose pain, nose congestion, acuity changes, discharge, other Respiratory: Denies: no symptoms, see HPI, cough, orthopnea, shortness of breath, stridor, wheezing, FERNANDO, sputum, other Cardiovascular: Reports: chest pain Gastrointestinal: Denies: no symptoms, see HPI, abdominal pain, constipation, diarrhea, nausea, vomiting, melena, hematemesis, other Genitourinary: Denies: no symptoms, see HPI, discharge, dysuria, frequency, hematuria, pain, retention, incontinence, urgency, vag bleed/dc, other Musculoskeletal: Denies: no symptoms, see HPI, back pain, gout, joint pain, joint swelling, muscle pain, muscle stiffness, other Skin: Denies: no symptoms, see HPI, rash, change in color, change in hair/nails , dryness, lesions, other Psychiatric: Denies: no symptoms, see HPI, prior hx, anxiety, depressed feelings, emotional problems, SI, HI, hallucinations, other Neurological: Denies: no symptoms, see HPI, headache, numbness, paresthesia, seizure, tingling, tremors, focal weakness, syncope, dizziness, other Endocrine: Denies: no symptoms, see HPI, excessive sweating, flushing, intolerance to temperature, increased thirst, increased urine, unexplained weight loss, other Hematologic/Lymphatic: Denies: no symptoms, see HPI, anemia, blood clots, easy bleeding, easy bruising, swollen glands, diathesis, other All Other Systems: negative except mentioned in HPI Physical Exam General Appearance: no apparent distress, alert Lines, tubes and drains: peripheral HEENT: normocephalic, atraumatic Neck: non-tender, normal alignment Respiratory/Chest: chest wall non-tender, lungs clear, normal breath sounds Cardiovascular/Chest: normal peripheral pulses, normal rate, regular rhythm Abdomen: normal bowel sounds, non tender Extremities: normal range of motion, non-tender, normal inspection Skin Exam: normal pigmentation Neurologic: alert, oriented x 3 Last 24 Hour Vital Signs Date Time Temp Pulse Resp B/P (MAP) Pulse Ox O2 Delivery O2 Flow Rate FiO2 06/08/20 16:00 98 06/08/20 15:29 98.2 97 18 157/76 (103) 98 06/08/20 12:00 98.6 107 20 148/73 (98) 97 06/08/20 12:00 106 06/08/20 09:34 106 142/68 06/08/20 09:00 Room Air 06/08/20 08:00 98.8 106 18 142/68 (92) 98 06/08/20 08:00 107 06/08/20 05:05 105 06/08/20 05:05 98.4 105 20 148/72 (97) 96 06/08/20 05:02 Room Air 06/08/20 04:55 98.4 99 18 148/72 100 Room Air 06/08/20 03:45 98.4 99 18 148/72 100 Room Air 06/08/20 01:47 91 18 142/77 97 Room Air 06/08/20 00:20 92 18 Room Air 06/08/20 00:20 98.4 96 18 136/73 97 Room Air 06/07/20 23:56 98.4 92 18 136/73 (94) 97 Room Air Intake and Output 06/07/20 06/08/20 19:00 07:00 Intake Total 200 ml Balance 200 ml Intake Oral 200 ml Laboratory Tests Test 06/08/20 00:10 06/08/20 00:15 06/08/20 01:45 06/08/20 02:58 Urine Color Pale yellow Urine Appearance Clear Urine pH 6 (4.5-8.0) Urine Specific [place] 1.010 (1.005-1.035) Urine Protein 3+ (NEGATIVE) H Urine Glucose (UA) 4+ (NEGATIVE) H Urine Ketones Negative (NEGATIVE) Urine Blood Negative (NEGATIVE) Urine Nitrite Negative (NEGATIVE) Urine Bilirubin Negative (NEGATIVE) Urine Urobilinogen Normal MG/DL (0.0-1.0) Urine Leukocyte Esterase Negative (NEGATIVE) Urine RBC 0-2 /HPF (0 - 2) Urine WBC 0-2 /HPF (0 - 2) Urine Squamous Epithelial Cells Few /LPF (NONE/OCC) Urine Bacteria None /HPF (NONE) White Blood Count 5.8 K/UL (4.8-10.8) Red Blood Count 3.80 M/UL (4.20-5.40) L Hemoglobin 11.3 G/DL (12.0-16.0) L Hematocrit 34.6 % (37.0-47.0) L Mean Corpuscular Volume 91 FL (80-99) Mean Corpuscular Hemoglobin 29.8 PG (27.0-31.0) Mean Corpuscular Hemoglobin Concent 32.7 G/DL (32.0-36.0) Red Cell Distribution Width 11.8 % (11.6-14.8) Platelet Count 296 K/UL (150-450) Mean Platelet Volume 9.1 FL (6.5-10.1) Neutrophils (%) (Auto) 51.3 % (45.0-75.0) Lymphocytes (%) (Auto) 38.6 % (20.0-45.0) Monocytes (%) (Auto) 8.4 % (1.0-10.0) Eosinophils (%) (Auto) 0.8 % (0.0-3.0) Basophils (%) (Auto) 0.9 % (0.0-2.0) Sodium Level 135 MMOL/L (136-145) L Potassium Level 4.1 MMOL/L (3.5-5.1) Chloride Level 103 MMOL/L (98-107) Carbon Dioxide Level 24 MMOL/L (21-32) Anion Gap 8 mmol/L (5-15) Blood Urea Nitrogen 29 mg/dL (7-18) H Creatinine 1.6 MG/DL (0.55-1.30) H Estimat Glomerular Filtration Rate 35.7 mL/min (>60) Glucose Level 450 MG/DL (74-106) H Calcium Level 8.4 MG/DL (8.5-10.1) L Total Bilirubin 0.2 MG/DL (0.2-1.0) Aspartate Amino Transf (AST/SGOT) 46 U/L (15-37) H Alanine Aminotransferase (ALT/SGPT) 49 U/L (12-78) Alkaline Phosphatase 95 U/L (46-116) Troponin I 0.166 ng/mL (0.000-0.056) 0.250 ng/mL (0.000-0.056) Total Protein 7.0 G/DL (6.4-8.2) Albumin 3.2 G/DL (3.4-5.0) L Globulin 3.8 g/dL Albumin/Globulin Ratio 0.8 (1.0-2.7) L POC Whole Blood Glucose 311 MG/DL (74-106) H Test 06/08/20 09:00 06/08/20 09:37 06/08/20 16:03 06/08/20 16:20 White Blood Count 7.2 K/UL (4.8-10.8) Red Blood Count 3.77 M/UL (4.20-5.40) L Hemoglobin 11.0 G/DL (12.0-16.0) L Hematocrit 34.5 % (37.0-47.0) L Mean Corpuscular Volume 91 FL (80-99) Mean Corpuscular Hemoglobin 29.2 PG (27.0-31.0) Mean Corpuscular Hemoglobin Concent 32.0 G/DL (32.0-36.0) Red Cell Distribution Width 12.0 % (11.6-14.8) Platelet Count 297 K/UL (150-450) Mean Platelet Volume 9.0 FL (6.5-10.1) Neutrophils (%) (Auto) 61.8 % (45.0-75.0) Lymphocytes (%) (Auto) 27.6 % (20.0-45.0) Monocytes (%) (Auto) 9.5 % (1.0-10.0) Eosinophils (%) (Auto) 0.4 % (0.0-3.0) Basophils (%) (Auto) 0.7 % (0.0-2.0) Activated Partial Thromboplast Time 26 SEC (23-33) 27 SEC (23-33) Troponin I 1.230 ng/mL (0.000-0.056) POC Whole Blood Glucose 391 MG/DL (74-106) H 365 MG/DL (74-106) H Test 06/08/20 17:23 POC Whole Blood Glucose 330 MG/DL (74-106) H Microbiology Date/Time Source Procedure Growth Status 06/08/20 04:35 Rectum Received Height (Feet): 5 Height (Inches): 0.00 Weight (Pounds): 184 Medications Current Medications Medications (Trade) Dose Ordered Sig/Herbie Route PRN Reason Start Time Stop Time Status Last Admin Dose Admin Acetaminophen (Tylenol) 650 mg Q4H PRN ORAL Mild Pain (Pain Scale 1-3) 06/08/20 16:30 07/08/20 16:29 06/08/20 16:31 Amiodarone HCl (Cordarone) 200 mg DAILY ORAL 06/08/20 09:00 09/06/20 08:59 06/08/20 09:35 Aspirin (ASA) 81 mg DAILY ORAL 06/08/20 09:00 07/23/20 08:59 06/08/20 09:34 Atorvastatin Calcium (Lipitor) 80 mg BEDTIME ORAL 06/08/20 21:00 09/06/20 20:59 Calcium Carbonate (Tums) 500 mg Q3H PRN ORAL To Patient Comfort 06/08/20 09:30 09/06/20 09:29 Carvedilol (Coreg) 6.25 mg EVERY 12 HOURS ORAL 06/08/20 09:00 07/08/20 08:59 06/08/20 09:34 Clopidogrel Bisulfate (Plavix) 75 mg DAILY ORAL 06/09/20 09:00 07/09/20 08:59 Dextrose (Dextrose 50%) 25 ml Q30M PRN IV Hypoglycemia 06/08/20 09:30 09/06/20 09:29 Dextrose (Dextrose 50%) 50 ml Q30M PRN IV Hypoglycemia 06/08/20 09:30 09/06/20 09:29 Insulin Aspart (NovoLOG) BEFORE MEALS AND HS SUBQ 06/08/20 11:30 09/06/20 11:29 06/08/20 16:22 Insulin Aspart (NovoLOG) 5 units NOVOTIAC SUBQ 06/08/20 11:50 09/06/20 11:49 06/08/20 16:24 Insulin Detemir (Levemir) 25 units BID SUBQ 06/08/20 18:00 09/06/20 08:59 06/08/20 17:06 Labetalol HCl (Normodyne) 10 mg Q6H PRN IV For High Blood Pressure 06/08/20 06:15 07/08/20 06:14 Sodium Chloride 1,000 ml @ 50 mls/hr Q20H IV 06/08/20 08:00 07/08/20 06:14 06/08/20 11:00 Assessment/Plan Diagnosis [place] I: #PHILOMENA on CKD #NSTEMI # CAD with previous three vessel CABG at [facility] April 2019 # HTN #DM #GERD # Obesity - check renal US - urine chem - UTP/cr - gentle hydration - asa and plavix - continue statin - hold acei now - on amiodoroone time spent 70 min - greater than 50% on care coordination and counseling Iwona López M.D. Jun 08, 2020 19:23
[2020-06-08] MEDS: Atorvastatin 80mg tab ORAL SCH (20:14)
[2020-06-09] VITALS: BP 121/73
[2020-06-09 04:00] VITALS: BP 138/82
[2020-06-09] MEDS: NovoLOG Insulin Flexpen SUBQ SCH ×7 (05:57→20:48)
[2020-06-09 08:00] VITALS: BP 134/50
[2020-06-09] MEDS: Aspirin Baby 81mg ORAL SCH (08:32)
[2020-06-09] MEDS: Amiodarone 200mg tab ORAL SCH (08:32)
[2020-06-09] MEDS: Carvedilol 6.25mg Tab ORAL SCH ×2 (08:33→20:50)
[2020-06-09] MEDS: Levemir Flexpen SUBQ SCH ×2 (08:36→17:47)
--- NOTE | 2020-06-09 11:44 | General Progress Note ---
Assessment/Plan Problem List: (1) NSTEMI (non-ST elevated myocardial infarction) ICD Codes: I21.4 - Non-ST elevation (NSTEMI) myocardial infarction SNOMED: 47994981 (2) Uncontrolled diabetes mellitus ICD Codes: E11.65 - Type 2 diabetes mellitus with hyperglycemia SNOMED: 616666464 (3) Hypertension ICD Codes: I10 - Essential (primary) hypertension SNOMED: 86225878 (4) GERD (gastroesophageal reflux disease) ICD Codes: K21.9 - Gastro-esophageal reflux disease without esophagitis SNOMED: 595521462 Status: doing well, stable Assessment/Plan: 40-year-old female with history of CAD with previous three vessel CABG at [facility] April 2019, HTN, DM, GERD, Obesity who presented to ED with chest pain. #NSTEMI #Atypical CP #Hx CABG #Recent stent placement #HTN -Admit to tele -Obtain records from [place] [facility] -2D Echo -Continue DAPT -On beta alejandro and ZOLTAN -High dose statin -Nitro PRN for chest pain -Trend troponin -Cariology consult #DM type 1 -Levemir 40 units BID -10 units prandial insulin -Resistant dose SSI -Carb consistent diet. #GERD -Received GI cocktail -TUMS PRN -Protonix 40 mg daily. Dispo: Likely DC to home or transfer to other facility for PCI I spent 40 minutes on this case. Face to face time with patient with counseling. Coordinated with consultants and RNs. Review imaging independently. Subjective Date patient seen: Jun 09, 2020 Time patient seen: 09:00 Constitutional: Reports: no symptoms HEENT: Reports: no symptoms Cardiovascular: Reports: no symptoms Respiratory: Reports: no symptoms Gastrointestinal/Abdominal: Reports: no symptoms Genitourinary: Reports: no symptoms Neurologic/Psychiatric: Reports: no symptoms Endocrine: Reports: no symptoms Hematologic/Lymphatic: Reports: no symptoms Allergies: Coded Allergies: No Known Allergies (Unverified , 08/08/12) Subjective Patient has no chest pain. No complaints. Objective Last 24 Hour Vital Signs Date Time Temp Pulse Resp B/P (MAP) Pulse Ox O2 Delivery O2 Flow Rate FiO2 06/09/20 09:23 Room Air 06/09/20 08:52 94 06/09/20 08:33 93 134/50 06/09/20 08:00 97.9 93 18 134/50 (78) 97 7/22/20 04:00 98.1 98 19 138/82 (100) 97 06/09/20 03:37 96 06/09/20 00:00 98.3 93 17 121/73 (89) 97 06/08/20 23:30 93 06/08/20 21:00 Room Air 06/08/20 20:14 94 139/82 06/08/20 20:11 96 06/08/20 20:00 98.8 94 19 139/82 (101) 97 06/08/20 16:00 98 06/08/20 15:29 98.2 97 18 157/76 (103) 98 06/08/20 12:00 98.6 107 20 148/73 (98) 97 06/08/20 12:00 106 Intake and Output 06/08/20 06/09/20 19:00 07:00 Intake Total 910 ml 550 ml Balance 910 ml 550 ml Intake Oral 360 ml IV Total 550 ml 550 ml # Voids 3 3 Laboratory Tests 06/08/20 16:03: POC Whole Blood Glucose 365H 06/08/20 16:20: Activated Partial Thromboplast Time 27 06/08/20 17:23: POC Whole Blood Glucose 330H 06/09/20 05:25: Hemoglobin A1c 10.2H, Troponin I 2.023H, Pro-B-Type Natriuretic Peptide [id number] Height (Feet): 5 Height (Inches): 0.00 Weight (Pounds): 183 General Appearance: no apparent distress, alert, obese, alert oriented x3 EENT: PERRL/EOMI Neck: normal alignment, supple Cardiovascular: normal peripheral pulses, normal rate, regular rhythm, no gallop/murmur, no JVD Respiratory/Chest: chest wall non-tender, lungs clear, normal breath sounds, no respiratory distress, no accessory muscle use, crackles/rales Abdomen: non tender, soft, no organomegaly, no mass Edema: 1+ Leg (L), 1+ Leg (R) Edema: trace edema Neurologic: abnormal gait, alert, oriented x 3, responsive, normal mood/affect Skin: normal pigmentation, warm/dry Jasbir Dai M.D. Jun 09, 2020 11:44
--- NOTE | 2020-06-09 11:50 | Cardiac Electrophysiology PN ---
Assessment/Plan Assessment/Plan 1. Status post recent non-ST elevation myocardial infarction in this patient with a history of coronary artery bypass graft. The patient states that she had another stent placement at [facility] two weeks ago when she presented with elevated troponin of 13. Continue aspirin, Lipitor, and metoprolol. EKG showed no acute ischemic changes. No CP or SOB. Troponin now rising to 2.0. The patient also has renal failure, creatinine of 1.6. 2. Hypertension. Blood pressure currently is stable, on Coreg 6.25 mg b.i.d. 3. Hyperlipidemia, on Lipitor. 4. Questionable atrial fibrillation.In sinus rhythm, on amiodarone 200 mg daily , Coreg, and aspirin. 5. Diabetes, uncontrolled with blood glucose of more than 400, on insulin.Hb A1c >10 6. Renal failure, creatinine 1.8. Avoid ZOLTAN inhibitor and angiotensin receptor blockers. Repeat BMP today Awaiting records from [facility]UY AHMADI and Dr Feng Subjective Subjective No CP or SOB. Troponin however is rising. ECG no acute changes Objective Last 24 Hour Vital Signs Date Time Temp Pulse Resp B/P (MAP) Pulse Ox O2 Delivery O2 Flow Rate FiO2 06/09/20 09:23 Room Air 06/09/20 08:52 94 06/09/20 08:33 93 134/50 06/09/20 08:00 97.9 93 18 134/50 (78) 97 06/09/20 04:00 98.1 98 19 138/82 (100) 97 06/09/20 03:37 96 06/09/20 00:00 98.3 93 17 121/73 (89) 97 06/08/20 23:30 93 06/08/20 21:00 Room Air 06/08/20 20:14 94 139/82 06/08/20 20:11 96 06/08/20 20:00 98.8 94 19 139/82 (101) 97 06/08/20 16:00 98 06/08/20 15:29 98.2 97 18 157/76 (103) 98 06/08/20 12:00 98.6 107 20 148/73 (98) 97 06/08/20 12:00 106 Intake and Output 06/08/20 06/09/20 19:00 07:00 Intake Total 910 ml 550 ml Balance 910 ml 550 ml Intake Oral 360 ml IV Total 550 ml 550 ml # Voids 3 3 Laboratory Tests Test 06/08/20 16:03 06/08/20 16:20 06/08/20 17:23 06/09/20 05:25 POC Whole Blood Glucose 365 MG/DL (74-106) H 330 MG/DL (74-106) H Activated Partial Thromboplast Time 27 SEC (23-33) Hemoglobin A1c 10.2 % (4.3-6.0) H Troponin I 2.023 ng/mL (0.000-0.056) Pro-B-Type Natriuretic Peptide 74960 pg/mL (0-125) H Microbiology Date/Time Source Procedure Growth Status 06/08/20 04:35 Rectum Received Objective HEAD AND NECK: No JVD or carotid bruits. LUNGS: Clear. CARDIOVASCULAR: Regular S1 and S2 with no gallop or murmur. Sternotomy scar is intact. ABDOMEN: Soft. EXTREMITIES: No pitting edema. Avery Perry MD Jun 09, 2020 11:50
[2020-06-09 12:00] VITALS: BP 143/71
[2020-06-09 16:00] VITALS: BP 142/63
--- NOTE | 2020-06-09 16:28 | Diagnostic Imaging Report ---
Indication: Abnormal renal function tests Technique: Grayscale and duplex images of the kidneys, retroperitoneum, and bladder were obtained. Comparison: none Findings: Right kidney measures 12.4 cm in length. Left kidney measures 10.6 cm in length. Both kidneys demonstrate normal echogenicity. There is mild right hydronephrosis prevoid which resolves after voiding. Linear 6 mm echogenic focus in the left renal sinus probably represents a vascular calcification but could represent a calyceal calculus. Normal inferior vena cava. Bladder is distended, calculated volume 347 mL. Bilateral ureteral jets are noted. Postvoid volume is 30 mL, with a micturated volume of 317 mm. Impression: 30 mL postvoid bladder residual Left renal sinus calcification, probably arterial but could represent a nonobstructive calyceal calculus Negative for hydronephrosis.
[2020-06-09] MEDS ORDERED: Levemir Flexpen SUBQ SCH (18:00)
[2020-06-09 20:00] VITALS: BP 134/68
--- NOTE | 2020-06-09 20:44 | Nephrology Progress Note ---
Assessment/Plan Plan #KWESI on CKD- likely baseline diabetic nephropathy given 3+ #NSTEMI # CAD with previous three vessel CABG at [facility] April 2019 #h/o afib # HTN #DM #GERD # Obesity - check renal US- > no sig findings - urine chem pending - UTP/cr pending - DC IVF - follow BNP - asa and plavix - continue statin - continue coreg 6.25 - hold acei now - on amiodarone time spent 70 min - greater than 50% on care coordination and counseling Subjective ROS Limited/Unobtainable: No Constitutional: Reports: weakness HEENT: Denies: no symptoms, eye pain, blurred vision, tearing, double vision, ear pain, ear discharge, nose pain, nose congestion, throat pain, throat swelling, mouth pain, mouth swelling, other Genitourinary: Denies: no symptoms, burning, discharge, frequency, flank pain, hematuria, incontinence, pain, urgency, other Neurologic/Psychiatric: Denies: no symptoms, anxiety, depressed, emotional problems, headache, numbness, paresthesia, pre-existing deficit, seizure, tingling, tremors, weakness, other Subjective no further chest pain today labs pending troponin peaked to 2.0 Objective Objective Last 24 Hour Vital Signs Date Time Temp Pulse Resp B/P (MAP) Pulse Ox O2 Delivery O2 Flow Rate FiO2 06/09/20 16:00 90 06/09/20 16:00 97.9 88 18 142/63 (89) 99 06/09/20 12:42 88 06/09/20 12:00 97.5 87 20 143/71 (95) 98 06/09/20 09:23 Room Air 06/09/20 08:52 94 06/09/20 08:33 93 134/50 06/09/20 08:00 97.9 93 18 134/50 (78) 97 06/09/20 04:00 98.1 98 19 138/82 (100) 97 06/09/20 03:37 96 06/09/20 00:00 98.3 93 17 121/73 (89) 97 06/08/20 23:30 93 06/08/20 21:00 Room Air Intake and Output 06/08/20 06/09/20 19:00 07:00 Intake Total 910 ml 550 ml Balance 910 ml 550 ml Intake Oral 360 ml IV Total 550 ml 550 ml # Voids 3 3 Laboratory Tests 06/09/20 05:25: Hemoglobin A1c 10.2H, Troponin I 2.023H, Pro-B-Type Natriuretic Peptide [id number] 06/09/20 12:00: Troponin I 1.554H 06/09/20 16:25: POC Whole Blood Glucose 219H 06/09/20 19:20: Troponin I 1.461H Height (Feet): 5 Height (Inches): 0.00 Weight (Pounds): 183 General Appearance: no apparent distress, alert EENT: PERRL/EOMI Neck: non-tender, normal alignment Cardiovascular: normal peripheral pulses, normal rate Respiratory/Chest: chest wall non-tender, lungs clear Abdomen: normal bowel sounds, non tender, soft, no organomegaly Neurologic: alert, oriented x 3 Iwona López M.D. Jun 09, 2020 20:44
[2020-06-09] MEDS: Atorvastatin 80mg tab ORAL SCH (20:50)
[2020-06-09] MEDS ORDERED: POTASSIUM CHLO10 MEQ ORAL (20:56)
[2020-06-09] MEDS ORDERED: AMIODARONE HCL200 MG ORAL (20:56)
[2020-06-09 21:26] LABS: ANION GAP 11 mmol/L (5-15); BLOOD UREA NITROGEN 22 mg/dL (7-18); CALCIUM 8.8 MG/DL (8.5-10.1); CARBON DIOXIDE 25 MMOL/L (21-32); CHLORIDE 105 MMOL/L (98-107); CREATININE 1.4 MG/DL (0.55-1.30); POTASSIUM 4.7 MMOL/L (3.5-5.1); SODIUM 141 MMOL/L (136-145)
[2020-06-10] VITALS: BP 131/58
[2020-06-10 03:19] LABS: BASOPHILS % (AUTO) 0.8 % (0.0-2.0); EOSINOPHILS % (AUTO) 1.3 % (0.0-3.0); HEMOGLOBIN 10.9 G/DL (12.0-16.0); LYMPHOCYTES % (AUTO) 36.5 % (20.0-45.0); MEAN CORPUSCULAR VOLUME 90 FL (80-99); MONOCYTES % (AUTO) 8.7 % (1.0-10.0); NEUTROPHILS % (AUTO) 52.7 % (45.0-75.0); PLATELET COUNT 298 K/UL (150-450); RED BLOOD COUNT 3.66 M/UL (4.20-5.40); RED CELL DISTRIBUTION WIDTH 12.4 % (11.6-14.8); WHITE BLOOD COUNT 6.1 K/UL (4.8-10.8)
[2020-06-10 03:44] LABS: ANION GAP 9 mmol/L (5-15); BLOOD UREA NITROGEN 22 mg/dL (7-18); CALCIUM 8.7 MG/DL (8.5-10.1); CARBON DIOXIDE 26 MMOL/L (21-32); CHLORIDE 106 MMOL/L (98-107); CREATININE 1.3 MG/DL (0.55-1.30); POTASSIUM 4.1 MMOL/L (3.5-5.1); SODIUM 141 MMOL/L (136-145)
[2020-06-10 04:00] VITALS: BP 140/73
[2020-06-10] MEDS: NovoLOG Insulin Flexpen SUBQ SCH ×7 (06:26→21:00)
[2020-06-10 08:00] VITALS: BP 148/76
--- NOTE | 2020-06-10 08:15 | General Progress Note ---
Assessment/Plan Problem List: (1) Stented coronary artery ICD Codes: Z95.5 - Presence of coronary angioplasty implant and graft SNOMED: 00952089, 639321661 (2) NSTEMI (non-ST elevated myocardial infarction) ICD Codes: I21.4 - Non-ST elevation (NSTEMI) myocardial infarction SNOMED: 03327774 (3) Hypertension ICD Codes: I10 - Essential (primary) hypertension SNOMED: 48412028 (4) Uncontrolled diabetes mellitus ICD Codes: E11.65 - Type 2 diabetes mellitus with hyperglycemia SNOMED: 679156619 (5) GERD (gastroesophageal reflux disease) ICD Codes: K21.9 - Gastro-esophageal reflux disease without esophagitis SNOMED: 774855722 (6) Chest pain ICD Codes: R07.9 - Chest pain, unspecified SNOMED: 25373401 (7) Hx of CABG ICD Codes: Z95.1 - Presence of aortocoronary bypass graft SNOMED: 328833333, 470250831 Status: doing well, stable Status Narrative improving anginal symptoms with downtrending troponin Assessment/Plan: 40-year-old female with history of CAD with previous three vessel CABG at [facility] April 2019, HTN, DM, GERD, Obesity who presented to ED with chest pain. #NSTEMI #Atypical CP #Hx CABG #Recent stent placement #HTN - Continue telemetry -Obtained records from [facility]: 05/27/20 left heart catheterization showed occluded graft to RCA with progression of disease in quileute RCA which was thought to be the culprit lesion, there was successful angioplasty and stenting at that time -2D Echo -Continue DAPT -On beta alejandro, holding ZOLTAN for KWESI -High dose statin -Nitro PRN for chest pain -Trend troponin/EKG - will discuss with Cardiology now that outside records obtained. will discuss need for repeat left heart catheterization vs discharge #DM type 1 -Levemir 32 units BID -10 units prandial insulin -Resistant dose SSI -Carb consistent diet. #GERD -Received GI cocktail -TUMS PRN -Protonix 40 mg daily. #KWESI: with creatinine on admission 1.6. now improving. creatinine at OSH on was 1.38 - Nephrology consult, appreciate recommendations - hold ZOLTAN for now #Reported history of Atrial Fibrillation - continue amiodarone, b-alejandro - on DAPT but not on anticoagulation at this time, to be discussed with Cardiology Dispo: Likely DC to home or transfer to other facility for PCI. Patient's PCP is Dr. Buckley [phone], will update her on patient's clinical course I spent 40 minutes on this case. Face to face time with patient with counseling. Coordinated with consultants and RNs. Review imaging independently. In addition, I spent 30 minutes reviewing the patient's records from [facility]. Subjective Date patient seen: Jun 10, 2020 Time patient seen: 08:11 Cardiovascular: Reports: chest pain Gastrointestinal/Abdominal: Reports: other - heart burn with coffee Allergies: Coded Allergies: No Known Allergies (Unverified , 08/08/12) Subjective patient feeling well. no palpitations, chest pain, shortness of breath including any symptoms with exertion while walking around room. does endorse a sensation of epigastric burning pain that radiates up toward her neck whenever she drinks coffee Objective Last 24 Hour Vital Signs Date Time Temp Pulse Resp B/P (MAP) Pulse Ox O2 Delivery O2 Flow Rate FiO2 06/10/20 04:00 82 06/10/20 04:00 98.3 83 20 140/73 (95) 99 06/10/20 00:00 87 06/10/20 00:00 97.7 87 20 131/58 (82) 100 06/09/20 21:00 Room Air 06/09/20 20:50 91 134/68 06/09/20 20:00 97.9 91 18 134/68 (90) 99 06/09/20 20:00 87 06/09/20 16:00 90 06/09/20 16:00 97.9 88 18 142/63 (89) 99 06/09/20 12:42 88 06/09/20 12:00 97.5 87 20 143/71 (95) 98 06/09/20 09:23 Room Air 06/09/20 08:52 94 06/09/20 08:33 93 134/50 Intake and Output 06/09/20 06/10/20 19:00 07:00 Intake Total 360 ml 360 ml Balance 360 ml 360 ml Intake Oral 360 ml 360 ml # Voids 4 1 Laboratory Tests 06/09/20 12:00: Troponin I 1.554H 06/09/20 16:25: POC Whole Blood Glucose 219H 06/09/20 19:20: Troponin I 1.461H, Sodium Level 141, Potassium Level 4.7, Chloride Level 105, Carbon Dioxide Level 25, Anion Gap 11, Blood Urea Nitrogen 22H, Creatinine 1.4H , Estimat Glomerular Filtration Rate 41.6, Glucose Level 180H, Calcium Level 8.8 06/10/20 03:09: Troponin I 1.430H, Sodium Level 141, Potassium Level 4.1, Chloride Level 106, Carbon Dioxide Level 26, Anion Gap 9, Blood Urea Nitrogen 22H, Creatinine 1.3, Estimat Glomerular Filtration Rate 45.3, Glucose Level 154H, Calcium Level 8.7, White Blood Count 6.1, Red Blood Count 3.66L, Hemoglobin 10.9L, Hematocrit 33.0L , Mean Corpuscular Volume 90, Mean Corpuscular Hemoglobin 29.8, Mean Corpuscular Hemoglobin Concent 33.0, Red Cell Distribution Width 12.4, Platelet Count 298, Mean Platelet Volume 8.0, Neutrophils (%) (Auto) 52.7, Lymphocytes (% ) (Auto) 36.5, Monocytes (%) (Auto) 8.7, Eosinophils (%) (Auto) 1.3, Basophils ( %) (Auto) 0.8, Pro-B-Type Natriuretic Peptide 7796H Height (Feet): 5 Height (Inches): 0.00 Weight (Pounds): 183 General Appearance: WD/WN, no apparent distress, alert EENT: PERRL/EOMI, pharynx normal Neck: non-tender, normal alignment, supple, normal inspection Cardiovascular: normal peripheral pulses, normal rate, regular rhythm, no JVD Respiratory/Chest: chest wall non-tender, lungs clear, normal breath sounds, no respiratory distress Abdomen: normal bowel sounds, non tender, soft, no mass Extremities: normal range of motion, non-tender, normal inspection Edema: no edema noted Arm (L), no edema noted Arm (R), no edema noted Leg (L), no edema noted Leg (R), no edema noted Pedal (L), no edema noted Pedal (R) Neurologic: no motor/sensory deficits, alert, oriented x 3, normal mood/affect Skin: normal pigmentation, warm/dry Objective Left heart catheterization 05/27/2020: [facility] main coronary artery that bifurcates into LAD and circumflex coronary artery, and left anterior descending coronary artery for total occlusion of the proximal part of the left anterior descending artery and left circumflex coronary artery. Circumflex coronary artery showed first obtuse marginal coronary artery with 90% proximal disease with competitive flow suggesting patent graft. Distal circumflex coronary artery is a moderate size vessel and it is patent with about 30% disease. The right coronary artery shows 85% to 90% proximal st enosis with obstruction with 6-[place] diagnostic catheter. Mid RCA shows about 30% to 40% disease with distal another 30% disease , some diffuse irregularities in the PDA. There is a patent saphenous venous graft to the obtuse marginal coroanry artery with good flow. The saphenous venous graft to the right coronary artery is occluded. Angiography of the left subclavian artery shows a patent left internal mammary artery to the distal LAD with good flow. Impression 1. NSTEMI 2. Occluded graft to the RCA 3. Progression of disease in quileute RCA and quileute RCA is the culprit 4. Successful angioplasty and stenting of the RCA 3.0 mm x 15 mm Xience Alpine Drug eluting stent placed. No residual stenosis seen. NAHOMI-3 flow was seen in RCA. Minimal luminal area obtained was about 3.3 mm Eric Ventura M.D. Jun 10, 2020 08:15
[2020-06-10] MEDS: Aspirin Baby 81mg ORAL SCH (08:31)
[2020-06-10] MEDS: Amiodarone 200mg tab ORAL SCH (08:31)
[2020-06-10] MEDS: Carvedilol 6.25mg Tab ORAL SCH ×2 (08:32→20:50)
[2020-06-10] MEDS: Levemir Flexpen SUBQ SCH ×2 (08:33→17:06)
[2020-06-10] MEDS: Heparin 5000 units/ml inj SUBQ SCH ×2 (08:34→20:49)
[2020-06-10 12:00] VITALS: BP 105/47
--- NOTE | 2020-06-10 12:23 | Nephrology Progress Note ---
Assessment/Plan Plan #KWESI on CKD- likely baseline diabetic nephropathy given 3+ #NSTEMI # CAD with previous three vessel CABG at [facility] April 2019 #h/o afib # HTN #DM #GERD # Obesity - check renal US- > no sig findings - urine chem pending - UTP/cr pending - DC IVF - follow BNP - asa and plavix - continue statin - continue coreg 6.25 - hold acei now - on amiodarone time spent 70 min - greater than 50% on care coordination and counseling Subjective ROS Limited/Unobtainable: No Subjective no further chest pain today cr improved to 1.3 DCed IVF troponin peaked to 2.0 Objective Objective Last 24 Hour Vital Signs Date Time Temp Pulse Resp B/P (MAP) Pulse Ox O2 Delivery O2 Flow Rate FiO2 06/10/20 09:00 Room Air 06/10/20 08:32 88 148/76 06/10/20 08:00 98.1 88 20 148/76 (100) 97 06/10/20 07:41 84 06/10/20 04:00 82 06/10/20 04:00 98.3 83 20 140/73 (95) 99 06/10/20 00:00 87 06/10/20 00:00 97.7 87 20 131/58 (82) 100 06/09/20 21:00 Room Air 06/09/20 20:50 91 134/68 06/09/20 20:00 97.9 91 18 134/68 (90) 99 06/09/20 20:00 87 06/09/20 16:00 90 06/09/20 16:00 97.9 88 18 142/63 (89) 99 06/09/20 12:42 88 Intake and Output 06/09/20 06/10/20 19:00 07:00 Intake Total 360 ml 360 ml Balance 360 ml 360 ml Intake Oral 360 ml 360 ml # Voids 4 1 Laboratory Tests 06/09/20 16:25: POC Whole Blood Glucose 219H 06/09/20 19:20: Sodium Level 141, Potassium Level 4.7, Chloride Level 105, Carbon Dioxide Level 25, Anion Gap 11, Blood Urea Nitrogen 22H, Creatinine 1.4H, Estimat Glomerular Filtration Rate 41.6, Glucose Level 180H, Calcium Level 8.8, Troponin I 1.461H 06/10/20 03:09: Sodium Level 141, Potassium Level 4.1, Chloride Level 106, Carbon Dioxide Level 26, Anion Gap 9, Blood Urea Nitrogen 22H, Creatinine 1.3, Estimat Glomerular Filtration Rate 45.3, Glucose Level 154H, Calcium Level 8.7, Troponin I 1.430H, White Blood Count 6.1, Red Blood Count 3.66L, Hemoglobin 10.9L, Hematocrit 33.0L , Mean Corpuscular Volume 90, Mean Corpuscular Hemoglobin 29.8, Mean Corpuscular Hemoglobin Concent 33.0, Red Cell Distribution Width 12.4, Platelet Count 298, Mean Platelet Volume 8.0, Neutrophils (%) (Auto) 52.7, Lymphocytes (% ) (Auto) 36.5, Monocytes (%) (Auto) 8.7, Eosinophils (%) (Auto) 1.3, Basophils ( %) (Auto) 0.8, Pro-B-Type Natriuretic Peptide 7796H 06/10/20 11:15: Troponin I 1.149H 06/10/20 11:58: POC Whole Blood Glucose 117H Height (Feet): 5 Height (Inches): 0.00 Weight (Pounds): 183 Iwona López M.D. Jun 10, 2020 12:22
--- NOTE | 2020-06-10 15:58 | Cardiac Electrophysiology PN ---
Assessment/Plan Assessment/Plan 1. Status post recent non-ST elevation myocardial infarction in this patient with a history of coronary artery bypass graft. S/P sycuan RCA stent placement at [facility] when she presented with elevated troponin of 13. RCA graft was occluded. Continue aspirin, Lipitor, and metoprolol. EKG showed no acute ischemic changes. No CP or SOB. Troponin peak 2.0, down to 1.1. Also has renal failure, creatinine of 1.6.Schedule for Lexiscan cardiolite in am 2. Hypertension. On Coreg 6.25 mg b.i.d. 3. Hyperlipidemia, on Lipitor. 4. Questionable atrial fibrillation.In sinus rhythm, on amiodarone 200 mg daily , Coreg, and aspirin. 5. Diabetes, uncontrolled with blood glucose of more than 400, on insulin.Hb A1c >10 6. Renal failure, creatinine 1.8. Avoid ZOLTAN inhibitor and angiotensin receptor blockers. Repeat BMP today Reviewed records from [facility] THUY RN Subjective Subjective No CP or SOB. Troponin is lower. ECG no acute changes. Records from [facility] reviewed Objective Last 24 Hour Vital Signs Date Time Temp Pulse Resp B/P (MAP) Pulse Ox O2 Delivery O2 Flow Rate FiO2 06/10/20 12:00 97.9 84 19 105/47 (66) 99 06/10/20 11:46 85 06/10/20 09:00 Room Air 06/10/20 08:32 88 148/76 06/10/20 08:00 98.1 88 20 148/76 (100) 97 06/10/20 07:41 84 06/10/20 04:00 82 06/10/20 04:00 98.3 83 20 140/73 (95) 99 06/10/20 00:00 87 06/10/20 00:00 97.7 87 20 131/58 (82) 100 06/09/20 21:00 Room Air 06/09/20 20:50 91 134/68 06/09/20 20:00 97.9 91 18 134/68 (90) 99 06/09/20 20:00 87 06/09/20 16:00 90 06/09/20 16:00 97.9 88 18 142/63 (89) 99 Intake and Output 06/09/20 06/10/20 19:00 07:00 Intake Total 360 ml 360 ml Balance 360 ml 360 ml Intake Oral 360 ml 360 ml # Voids 4 1 Laboratory Tests Test 06/09/20 16:25 06/09/20 19:20 06/10/20 03:09 06/10/20 11:15 POC Whole Blood Glucose 219 MG/DL (74-106) H Sodium Level 141 MMOL/L (136-145) 141 MMOL/L (136-145) Potassium Level 4.7 MMOL/L (3.5-5.1) 4.1 MMOL/L (3.5-5.1) Chloride Level 105 MMOL/L (98-107) 106 MMOL/L (98-107) Carbon Dioxide Level 25 MMOL/L (21-32) 26 MMOL/L (21-32) Anion Gap 11 mmol/L (5-15) 9 mmol/L (5-15) Blood Urea Nitrogen 22 mg/dL (7-18) H 22 mg/dL (7-18) H Creatinine 1.4 MG/DL (0.55-1.30) H 1.3 MG/DL (0.55-1.30) Estimat Glomerular Filtration Rate 41.6 mL/min (>60) 45.3 mL/min (>60) Glucose Level 180 MG/DL (74-106) H 154 MG/DL (74-106) H Calcium Level 8.8 MG/DL (8.5-10.1) 8.7 MG/DL (8.5-10.1) Troponin I 1.461 ng/mL (0.000-0.056) 1.430 ng/mL (0.000-0.056) 1.149 ng/mL (0.000-0.056) White Blood Count 6.1 K/UL (4.8-10.8) Red Blood Count 3.66 M/UL (4.20-5.40) L Hemoglobin 10.9 G/DL (12.0-16.0) L Hematocrit 33.0 % (37.0-47.0) L Mean Corpuscular Volume 90 FL (80-99) Mean Corpuscular Hemoglobin 29.8 PG (27.0-31.0) Mean Corpuscular Hemoglobin Concent 33.0 G/DL (32.0-36.0) Red Cell Distribution Width 12.4 % (11.6-14.8) Platelet Count 298 K/UL (150-450) Mean Platelet Volume 8.0 FL (6.5-10.1) Neutrophils (%) (Auto) 52.7 % (45.0-75.0) Lymphocytes (%) (Auto) 36.5 % (20.0-45.0) Monocytes (%) (Auto) 8.7 % (1.0-10.0) Eosinophils (%) (Auto) 1.3 % (0.0-3.0) Basophils (%) (Auto) 0.8 % (0.0-2.0) Pro-B-Type Natriuretic Peptide 7796 pg/mL (0-125) H Test 06/10/20 11:58 POC Whole Blood Glucose 117 MG/DL (74-106) H Microbiology Date/Time Source Procedure Growth Status 06/08/20 04:35 Nasal Nares MRSA Culture - Final NO METHICILLIN RESISTANT STAPH AUREUS... Complete 06/08/20 04:35 Rectum - Final NO CARBAPENEM-RESISTANT ENTEROBACTERI... Complete 06/08/20 04:35 Rectum VRE Culture - Final NO VANCOMYCIN RESISTANT ENTEROCOCCUS ... Complete Objective HEAD AND NECK: No JVD or carotid bruits. LUNGS: Clear. CARDIOVASCULAR: Regular S1 and S2 with no gallop or murmur. Sternotomy scar is intact. ABDOMEN: Soft. EXTREMITIES: No pitting edema. Avery Perry MD Jun 10, 2020 15:58
[2020-06-10 16:00] VITALS: BP 138/81
[2020-06-10] MEDS ORDERED: Lexiscan 0.4mg/5ml syringe IV PRN (16:00)
[2020-06-10 20:00] VITALS: BP 149/65
[2020-06-10] MEDS: Atorvastatin 80mg tab ORAL SCH (20:48)
[2020-06-11] VITALS: BP 138/70
[2020-06-11 04:00] VITALS: BP 131/66
[2020-06-11] MEDS: NovoLOG Insulin Flexpen SUBQ SCH ×7 (06:30→20:55)
[2020-06-11 06:36] LABS: BASOPHILS % (AUTO) 0.9 % (0.0-2.0); EOSINOPHILS % (AUTO) 2.2 % (0.0-3.0); HEMATOCRIT 32.9 % (37.0-47.0); HEMOGLOBIN 10.7 G/DL (12.0-16.0); MEAN CORPUSCULAR VOLUME 90 FL (80-99); MONOCYTES % (AUTO) 10.5 % (1.0-10.0); NEUTROPHILS % (AUTO) 50.5 % (45.0-75.0); PLATELET COUNT 276 K/UL (150-450); RED BLOOD COUNT 3.65 M/UL (4.20-5.40); RED CELL DISTRIBUTION WIDTH 12.1 % (11.6-14.8); WHITE BLOOD COUNT 5.7 K/UL (4.8-10.8)
[2020-06-11 07:14] LABS: ANION GAP 10 mmol/L (5-15); BLOOD UREA NITROGEN 24 mg/dL (7-18); CALCIUM 8.7 MG/DL (8.5-10.1); CARBON DIOXIDE 23 MMOL/L (21-32); CHLORIDE 107 MMOL/L (98-107); CREATININE 1.2 MG/DL (0.55-1.30); POTASSIUM 4.1 MMOL/L (3.5-5.1); SODIUM 140 MMOL/L (136-145)
--- NOTE | 2020-06-11 07:58 | Cardiac Electrophysiology PN ---
Assessment/Plan Assessment/Plan 1. Status post recent non-ST elevation myocardial infarction in this patient with a history of coronary artery bypass graft. S/P [place] RCA stent placement at [facility] when she presented with elevated troponin of 13. RCA graft was occluded. Continue aspirin, Lipitor, and metoprolol. EKG showed no acute ischemic changes. No CP or SOB. Troponin peak 2.0, down to 1.1. Also has renal failure, creatinine of 1.6. Scheduled for Lexiscan cardiolite today 2. Hypertension. On Coreg 6.25 mg b.i.d. 3. Hyperlipidemia, on Lipitor. 4. Questionable atrial fibrillation.In sinus rhythm, on amiodarone 200 mg daily , Coreg, and aspirin. 5. Diabetes, uncontrolled with blood glucose of more than 400, on insulin.Hb A1c >10 6. Renal failure, creatinine 1.8. Avoid ZOLTAN inhibitor and angiotensin receptor blockers. Repeat BMP today Reviewed records from [facility] THUY RN Subjective Subjective No CP or SOB. Troponin is lower. ECG no acute changes. Records from [facility] reviewed Scheduled for stress test today Objective Last 24 Hour Vital Signs Date Time Temp Pulse Resp B/P (MAP) Pulse Ox O2 Delivery O2 Flow Rate FiO2 06/11/20 04:00 81 06/11/20 04:00 98.2 80 18 131/66 (87) 97 06/11/20 00:00 77 06/11/20 00:00 97.8 78 19 138/70 (92) 96 06/10/20 21:00 Room Air 06/10/20 20:50 79 149/65 06/10/20 20:00 78 06/10/20 20:00 99.3 79 18 149/65 (93) 97 06/10/20 16:13 96 06/10/20 16:00 98.1 72 19 138/81 (100) 97 06/10/20 12:00 97.9 84 19 105/47 (66) 99 06/10/20 11:46 85 06/10/20 09:00 Room Air 06/10/20 08:32 88 148/76 06/10/20 08:00 98.1 88 20 148/76 (100) 97 Intake and Output 06/10/20 06/11/20 19:00 07:00 Intake Total 1440 ml 120 ml Balance 1440 ml 120 ml Intake Oral 1440 ml 120 ml # Voids 2 # Bowel Movements 2 Laboratory Tests Test 06/10/20 11:15 06/10/20 11:58 06/10/20 16:27 06/10/20 20:15 Troponin I 1.149 ng/mL (0.000-0.056) POC Whole Blood Glucose 117 MG/DL (74-106) H 167 MG/DL (74-106) H 134 MG/DL (74-106) H Test 06/11/20 05:44 06/11/20 06:24 POC Whole Blood Glucose 129 MG/DL (74-106) H White Blood Count 5.7 K/UL (4.8-10.8) Red Blood Count 3.65 M/UL (4.20-5.40) L Hemoglobin 10.7 G/DL (12.0-16.0) L Hematocrit 32.9 % (37.0-47.0) L Mean Corpuscular Volume 90 FL (80-99) Mean Corpuscular Hemoglobin 29.3 PG (27.0-31.0) Mean Corpuscular Hemoglobin Concent 32.4 G/DL (32.0-36.0) Red Cell Distribution Width 12.1 % (11.6-14.8) Platelet Count 276 K/UL (150-450) Mean Platelet Volume 8.4 FL (6.5-10.1) Neutrophils (%) (Auto) 50.5 % (45.0-75.0) Lymphocytes (%) (Auto) 36.0 % (20.0-45.0) Monocytes (%) (Auto) 10.5 % (1.0-10.0) H Eosinophils (%) (Auto) 2.2 % (0.0-3.0) Basophils (%) (Auto) 0.9 % (0.0-2.0) Sodium Level 140 MMOL/L (136-145) Potassium Level 4.1 MMOL/L (3.5-5.1) Chloride Level 107 MMOL/L (98-107) Carbon Dioxide Level 23 MMOL/L (21-32) Anion Gap 10 mmol/L (5-15) Blood Urea Nitrogen 24 mg/dL (7-18) H Creatinine 1.2 MG/DL (0.55-1.30) Estimat Glomerular Filtration Rate 49.8 mL/min (>60) Glucose Level 120 MG/DL (74-106) H Calcium Level 8.7 MG/DL (8.5-10.1) Objective HEAD AND NECK: No JVD or carotid bruits. LUNGS: Clear. CARDIOVASCULAR: Regular S1 and S2 with no gallop or murmur. Sternotomy scar is intact. ABDOMEN: Soft. EXTREMITIES: No pitting edema. Avery Perry MD Jun 11, 2020 07:58
[2020-06-11 08:00] VITALS: BP 147/65
--- NOTE | 2020-06-11 08:44 | General Progress Note ---
Assessment/Plan Problem List: (1) Stented coronary artery ICD Codes: Z95.5 - Presence of coronary angioplasty implant and graft SNOMED: 65950944, 701026189 (2) NSTEMI (non-ST elevated myocardial infarction) ICD Codes: I21.4 - Non-ST elevation (NSTEMI) myocardial infarction SNOMED: 02782381 (3) Hypertension ICD Codes: I10 - Essential (primary) hypertension SNOMED: 44793902 (4) Uncontrolled diabetes mellitus ICD Codes: E11.65 - Type 2 diabetes mellitus with hyperglycemia SNOMED: 000393272 (5) GERD (gastroesophageal reflux disease) ICD Codes: K21.9 - Gastro-esophageal reflux disease without esophagitis SNOMED: 763301492 (6) Chest pain ICD Codes: R07.9 - Chest pain, unspecified SNOMED: 60947343 (7) Hx of CABG ICD Codes: Z95.1 - Presence of aortocoronary bypass graft SNOMED: 907154192, 053006756 Status: doing well, stable Assessment/Plan: 40-year-old female with history of CAD with previous three vessel CABG at [facility] April 2019, HTN, DM, GERD, Obesity who presented to ED with chest pain. #NSTEMI #Atypical CP #Hx CABG #Recent stent placement #HTN - Continue telemetry -Obtained records from [facility]: 05/27/20 left heart catheterization showed occluded graft to RCA with progression of disease in [place] RCA which was thought to be the culprit lesion, there was successful angioplasty and stenting at that time -2D Echo noted, no evidence of significant systolic dysfunction -Continue DAPT -On beta alejandro, holding ZOLTAN for KWESI and will consider restarting as an outpatient -High dose statin -Nitro PRN for chest pain, has not used - stop trending troponin/EKG as asymptomatic now and given improvement in troponin - stress myocardial perfusion imaging ordered as discussed with Cardiology, pending results. Will discuss alternative options including repeat heart catheterization if test not able to be performed #DM type 1 -Levemir 32 units BID -10 units prandial insulin TID AC -Resistant dose SSI -Carb consistent diet. #GERD -Received GI cocktail -TUMS PRN -Protonix 40 mg daily. #KWESI: RESOLVING. with creatinine on admission 1.6. now improving. creatinine at OSH on 05/28 was 1.38 - Nephrology consulted, appreciate recommendations - hold ZOLTAN for now, plan on restarting when evaluated by Nephrology as an outpatient #Reported history of Atrial Fibrillation: but not seen here - continue amiodarone, b-alejandro - on DAPT but not on anticoagulation at this time, discussed with Cardiology Dispo: Likely DC to home or transfer to other facility for PCI. Patient's PCP is Dr. Buckley [phone], will update her on patient's clinical course I spent 40 minutes on this case. Face to face time with patient with counseling. Coordinated with consultants and RNs. Review imaging independently. Subjective Date patient seen: Jun 11, 2020 Time patient seen: 08:38 Constitutional: Denies: chills, diaphoresis, fever HEENT: Denies: blurred vision, tearing, double vision Cardiovascular: Denies: chest pain, edema, irregular heart rate Respiratory: Reports: orthopnea; Denies: cough, shortness of breath, SOB with excertion Gastrointestinal/Abdominal: Denies: abdomen distended, abdominal pain, black stools, nausea, vomiting Genitourinary: Denies: burning, discharge, frequency Neurologic/Psychiatric: Denies: headache, weakness Endocrine: Denies: excessive sweating, unexplained weight loss Hematologic/Lymphatic: Denies: easy bleeding, easy bruising Allergies: Coded Allergies: No Known Allergies (Unverified , 08/08/12) All Systems: reviewed and negative except above Subjective patient's epigastric acid pain improved now that she is holding off on coffee. no chest pain, pressure even with exertion and walking around room Objective Last 24 Hour Vital Signs Date Time Temp Pulse Resp B/P (MAP) Pulse Ox O2 Delivery O2 Flow Rate FiO2 06/11/20 04:00 81 06/11/20 04:00 98.2 80 18 131/66 (87) 97 06/11/20 00:00 77 06/11/20 00:00 97.8 78 19 138/70 (92) 96 06/10/20 21:00 Room Air 06/10/20 20:50 79 149/65 06/10/20 20:00 78 06/10/20 20:00 99.3 79 18 149/65 (93) 97 06/10/20 16:13 96 06/10/20 16:00 98.1 72 19 138/81 (100) 97 06/10/20 12:00 97.9 84 19 105/47 (66) 99 06/10/20 11:46 85 06/10/20 09:00 Room Air Intake and Output 06/10/20 06/11/20 19:00 07:00 Intake Total 1440 ml 120 ml Balance 1440 ml 120 ml Intake Oral 1440 ml 120 ml # Voids 2 # Bowel Movements 2 Laboratory Tests 06/10/20 11:15: Troponin I 1.149H 06/10/20 11:58: POC Whole Blood Glucose 117H 06/10/20 16:27: POC Whole Blood Glucose 167H 06/10/20 20:15: POC Whole Blood Glucose 134H 06/11/20 05:44: POC Whole Blood Glucose 129H 06/11/20 06:24: White Blood Count 5.7, Red Blood Count 3.65L, Hemoglobin 10.7L, Hematocrit 32.9L , Mean Corpuscular Volume 90, Mean Corpuscular Hemoglobin 29.3, Mean Corpuscular Hemoglobin Concent 32.4, Red Cell Distribution Width 12.1, Platelet Count 276, Mean Platelet Volume 8.4, Neutrophils (%) (Auto) 50.5, Lymphocytes (% ) (Auto) 36.0, Monocytes (%) (Auto) 10.5H, Eosinophils (%) (Auto) 2.2, Basophils (%) (Auto) 0.9, Sodium Level 140, Potassium Level 4.1, Chloride Level 107, Carbon Dioxide Level 23, Anion Gap 10, Blood Urea Nitrogen 24H, Creatinine 1.2, Estimat Glomerular Filtration Rate 49.8, Glucose Level 120H, Calcium Level 8.7 Height (Feet): 5 Height (Inches): 0.00 Weight (Pounds): 183 General Appearance: WD/WN, no apparent distress, alert EENT: PERRL/EOMI, normal ENT inspection, pharynx normal Neck: non-tender, normal alignment, supple, normal inspection Cardiovascular: normal rate, regular rhythm, no JVD Respiratory/Chest: chest wall non-tender, lungs clear, normal breath sounds, no respiratory distress Abdomen: normal bowel sounds, non tender, soft, no mass Extremities: normal range of motion, non-tender Edema: trace edema - of bilateral lower extremities Neurologic: no motor/sensory deficits, alert, oriented x 3, normal mood/affect Skin: normal pigmentation, warm/dry [facility] main coronary artery that bifurcates into LAD and circumflex coronary artery, and left anterior descending coronary artery for total occlusion of the proximal part of the left anterior descending artery and left circumflex coronary artery. Circumflex coronary artery showed first obtuse marginal coronary artery with 90% proximal disease with competitive flow suggesting patent graft. Distal circumflex coronary artery is a moderate size vessel and it is patent with about 30% disease. The right coronary artery shows 85% to 90% proximal st enosis with obstruction with 6-Romanian diagnostic catheter. Mid RCA shows about 30% to 40% disease with distal another 30% disease , some diffuse irregularities in the PDA. There is a patent saphenous venous graft to the obtuse marginal coroanry artery with good flow. The saphenous venous graft to the right coronary artery is occluded. Angiography of the left subclavian artery shows a patent left internal mammary artery to the distal LAD with good flow. Impression 1. NSTEMI 2. Occluded graft to the RCA 3. Progression of disease in [place] RCA and [place] RCA is the culprit 4. Successful angioplasty and stenting of the RCA 3.0 mm x 15 mm Xience Alpine Drug eluting stent placed. No residual stenosis seen. NAHOMI-3 flow was seen in RCA. Minimal luminal area obtained was about 3.3 mm Eric Ventura M.D. Jun 11, 2020 08:44
[2020-06-11] MEDS: Amiodarone 200mg tab ORAL SCH (08:54)
[2020-06-11] MEDS: Aspirin Baby 81mg ORAL SCH (08:54)
[2020-06-11] MEDS: Carvedilol 6.25mg Tab ORAL SCH ×2 (08:54→21:03)
[2020-06-11] MEDS: Heparin 5000 units/ml inj SUBQ SCH ×2 (08:56→20:24)
[2020-06-11] MEDS: Levemir Flexpen SUBQ SCH ×2 (09:00→17:16)
--- NOTE | 2020-06-11 09:48 | Nephrology Progress Note ---
Assessment/Plan Plan #KWESI on CKD- likely baseline diabetic nephropathy given 3+ #NSTEMI # CAD with previous three vessel CABG at [facility] April 2019 #h/o afib # HTN #DM #GERD # Obesity - check renal US- > no sig findings - stress test per cardiology - DC IVF - follow BNP - asa and plavix - continue statin - continue coreg 6.25 - hold acei now - on amiodarone time spent 70 min - greater than 50% on care coordination and counseling Subjective ROS Limited/Unobtainable: No Constitutional: Reports: weakness HEENT: Denies: no symptoms, eye pain, blurred vision, tearing, double vision, ear pain, ear discharge, nose pain, nose congestion, throat pain, throat swelling, mouth pain, mouth swelling, other Genitourinary: Denies: no symptoms, burning, discharge, frequency, flank pain, hematuria, incontinence, pain, urgency, other Neurologic/Psychiatric: Denies: no symptoms, anxiety, depressed, emotional problems, headache, numbness, paresthesia, pre-existing deficit, seizure, tingling, tremors, weakness, other Subjective no further chest pain today cr stable DCed IVF troponin peaked to 2.0 plan for stress test per cardiology Objective Objective Last 24 Hour Vital Signs Date Time Temp Pulse Resp B/P (MAP) Pulse Ox O2 Delivery O2 Flow Rate FiO2 06/11/20 08:54 92 147/65 06/11/20 08:00 98.1 92 18 147/65 (92) 98 06/11/20 04:00 81 06/11/20 04:00 98.2 80 18 131/66 (87) 97 06/11/20 00:00 77 06/11/20 00:00 97.8 78 19 138/70 (92) 96 06/10/20 21:00 Room Air 06/10/20 20:50 79 149/65 06/10/20 20:00 78 06/10/20 20:00 99.3 79 18 149/65 (93) 97 06/10/20 16:13 96 06/10/20 16:00 98.1 72 19 138/81 (100) 97 06/10/20 12:00 97.9 84 19 105/47 (66) 99 06/10/20 11:46 85 Intake and Output 06/10/20 06/11/20 18:59 06:59 Intake Total 1440 ml 120 ml Balance 1440 ml 120 ml Intake Oral 1440 ml 120 ml # Voids 2 # Bowel Movements 2 Laboratory Tests 06/10/20 11:15: Troponin I 1.149H 06/10/20 11:58: POC Whole Blood Glucose 117H 06/10/20 16:27: POC Whole Blood Glucose 167H 06/10/20 20:15: POC Whole Blood Glucose 134H 06/11/20 05:44: POC Whole Blood Glucose 129H 06/11/20 06:24: White Blood Count 5.7, Red Blood Count 3.65L, Hemoglobin 10.7L, Hematocrit 32.9L , Mean Corpuscular Volume 90, Mean Corpuscular Hemoglobin 29.3, Mean Corpuscular Hemoglobin Concent 32.4, Red Cell Distribution Width 12.1, Platelet Count 276, Mean Platelet Volume 8.4, Neutrophils (%) (Auto) 50.5, Lymphocytes (% ) (Auto) 36.0, Monocytes (%) (Auto) 10.5H, Eosinophils (%) (Auto) 2.2, Basophils (%) (Auto) 0.9, Sodium Level 140, Potassium Level 4.1, Chloride Level 107, Carbon Dioxide Level 23, Anion Gap 10, Blood Urea Nitrogen 24H, Creatinine 1.2, Estimat Glomerular Filtration Rate 49.8, Glucose Level 120H, Calcium Level 8.7 Height (Feet): 5 Height (Inches): 0.00 Weight (Pounds): 183 Iwona López M.D. Jun 11, 2020 09:48
[2020-06-11 12:04] VITALS: BP 107/57
[2020-06-11] MEDS ORDERED: Nitroglycerin Subl 0.4mg tab SL PRN (15:45)
[2020-06-11 16:00] VITALS: BP 115/60
--- NOTE | 2020-06-11 19:18 | Diagnostic Imaging Report ---
EXAM: NM Myocardial Perfusion with SPECT CLINICAL HISTORY: CP TECHNIQUE: Myocardial perfusion imaging with tomographic (SPECT) including attenuation correction, qualitative or quantitative wall motion, ejection fraction by first pass or gated technique, with additional quantification when performed. Study performed following intravenous administration of Tc99m Sestamibi. COMPARISON: None FINDINGS: Myocardial perfusion: Fixed radiotracer defect in the anterior and septal mix of the left ventricle on stress and rest images are suggestive of infarction. No evidence of reversible ischemia. Left ventricular ejection fraction: Low ejection fraction measuring 42%. Left ventricular volume: Increased, measuring 152 cc. IMPRESSION: Fixed radiotracer defect in the anterior and septal mix of the left ventricle on stress and rest images are suggestive of infarction. No evidence of reversible ischemia. Low ejection fraction measuring 42%.
[2020-06-11 20:00] VITALS: BP 139/79
[2020-06-11] MEDS: Atorvastatin 80mg tab ORAL SCH (20:23)
[2020-06-12] VITALS: BP 106/60
[2020-06-12 04:00] VITALS: BP 129/64
[2020-06-12] MEDS: NovoLOG Insulin Flexpen SUBQ SCH ×4 (05:46→11:33)
[2020-06-12 08:00] VITALS: BP 118/68
[2020-06-12] MEDS ORDERED: HUMULIN N100 UNIT/1 SUBQ (08:38)
[2020-06-12] MEDS ORDERED: PACERONE200 MG ORAL (08:38)
[2020-06-12] MEDS ORDERED: COREG6.25 MG ORAL (08:38)
[2020-06-12] MEDS ORDERED: [UNRECOGNIZED DRUG - SUPPLY] SUBQ (08:38)
[2020-06-12] MEDS ORDERED: PANTOPRAZOLE SO40 MG ORAL (08:38)
[2020-06-12] MEDS ORDERED: ASPIRIN81 MG ORAL (08:38)
[2020-06-12] MEDS ORDERED: NITRO0.4 SL (08:38)
[2020-06-12] MEDS ORDERED: HUMALOG100 UNIT/1 SUBQ (08:38)
[2020-06-12] MEDS ORDERED: LIPITOR80 MG ORAL (08:38)
[2020-06-12] MEDS ORDERED: PLAVIX75 MG ORAL (08:38)
[2020-06-12 08:40] LABS: BASOPHILS % (AUTO) 0.9 % (0.0-2.0); HEMATOCRIT 33.3 % (37.0-47.0); HEMOGLOBIN 10.7 G/DL (12.0-16.0); LYMPHOCYTES % (AUTO) 29.8 % (20.0-45.0); MEAN CORPUSCULAR VOLUME 91 FL (80-99); MONOCYTES % (AUTO) 7.9 % (1.0-10.0); NEUTROPHILS % (AUTO) 60.4 % (45.0-75.0); PLATELET COUNT 285 K/UL (150-450); RED BLOOD COUNT 3.66 M/UL (4.20-5.40); RED CELL DISTRIBUTION WIDTH 12.2 % (11.6-14.8); WHITE BLOOD COUNT 5.7 K/UL (4.8-10.8)
--- NOTE | 2020-06-12 08:41 | Discharge Instructions ---
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 Your primary care provider Dr. Buckley within 1-2 weeks of discharge 2. Your Check Examiner Dr. Diaz within 1-2 weeks of discharge. 3. We also want you to see the kidney doctor who saw you in the hospital. This is Dr. Iwona López. Please call his office at [phone] at your earliest convenience to set up an appointment within 1-2 weeks of discharge The important things for your doctors to do are: 1. Make sure your kidney is doing well. If so, they should consider re-starting a very important heart medication, the ZOLTAN-inhibitor (You were taking Benazepril specifically). This is very important to help your heart heal. Please let them know about this 2. Make sure you have everything you need to help your heart heal as much as possible 3. Make sure your diabetes and insulin regiment is working well to keep your sugars at goal 4. Make sure you have all the necessary medications and refills Return to Work/School on: Jun 14, 2020 Special Instructions One of the new medications I am prescribing you is Nitroglycerin. This is a medication that helps with chest pain especially whenever there is poor blood flow to the heart. If you start to feel chest pain, chest pressure, or chest tightness, or shortness of breath, please put one of these under your tongue. If , after 5 minutes, you do feel better, please call your doctor and inform them you had to use this medication and to ask for additional advice. If, after 5 minutes, the pain does not go away, please call 911 to be taken to the nearest Emergency Room immediately. For Surgical Patients May shower: Yes For Congestive Heart Failure Reminder Report to your physician any weight gain of 5 pounds or more in one week. Eric Ventura M.D. Jun 12, 2020 08:41
[2020-06-12] MEDS: Carvedilol 6.25mg Tab ORAL SCH (09:15)
[2020-06-12] MEDS: Amiodarone 200mg tab ORAL SCH (09:15)
[2020-06-12] MEDS: Aspirin Baby 81mg ORAL SCH (09:15)
[2020-06-12] MEDS: Heparin 5000 units/ml inj SUBQ SCH (09:17)
[2020-06-12 09:21] LABS: ANION GAP 6 mmol/L (5-15); BLOOD UREA NITROGEN 21 mg/dL (7-18); CALCIUM 8.9 MG/DL (8.5-10.1); CARBON DIOXIDE 27 MMOL/L (21-32); CHLORIDE 102 MMOL/L (98-107); CREATININE 1.2 MG/DL (0.55-1.30); POTASSIUM 4.2 MMOL/L (3.5-5.1); SODIUM 135 MMOL/L (136-145)
[2020-06-12] MEDS: Levemir Flexpen SUBQ SCH (09:55)
--- NOTE | 2020-06-12 10:11 | Discharge Summary ---
Discharge Summary Hospital Course Date of Admission Jun 08, 2020 at 03:57 Date of Discharge 06/12/2020 at 10:00 AM Admitting Diagnosis NSTEMI Reason for Hospitalization: NSTEMI, chest pain, CAD s/p recent stenting HPI Letha Moore is a 40 year old female who was admitted on Jun 08, 2020 at 03:57 for Nstemi She is a 40-year-old female with history of CAD with previous three vessel CABG at [facility] April 2019, HTN, DM, GERD, Obesity who presented to ED with chest pain on 06/08/2020. Patient described the pain as burning, gradual onset, located mid pper chest and lower neck region. It was not associated with exertion and she did not take nitro. Prior to the chest pain patient was eating many spicy foods such as hot Cheetos and began having acid reflux. This concerned her because 1 week prior she had a stent placed at [facility]. She had been compliant with her medications including her DAPT. Consultations Cardiology Dr. Perry Nephrology Dr. López Procedures Lexiscan and MPI 06/11/2020 results: Lexiscan 06/11/20 An ECG was recorded at rest and with hyperventilation. The ECG was continuously monitored and blood pressure recorded while Lexiscan (Regadenoson) was injected intravenously over 10 seconds. Myoview (Tetrafosmin) 35 mCi was injected intravenously 20 seconds after the Lexiscan injection. Findings: Resting EKG: Sinus rhythm at the rate of 92 bpm with [address] depression. Baseline HR: 77 End infusion HR: 111 Baseline BP: 151/72 End infusion BP: 171/93 Infusion Duration: 10 sec Symptoms: Chest pain Conclusions 1) Ischemic clinical and electrocardiographic response to pharmacologic stress 2) Sinus tachycardia with more exaggerated downsloping ST-depression (~2 mm ) suggestive of subendocardial ischemia NM Myocardial Perfusion with SPECT 06/11/20 Findings: Myocardial perfusion: Fixed radiotracer defect in the anterior and septal mix of the left ventricle on stress and rest images are suggestive of infarction. No evidence f reversible ischemia. LVEF: Low ejection fraction measuring 42% Left ventricular volume: Increased, measuring 152 cc Impression: Fixed radiotracer defect in the anterior and septal mix of the left ventricle on stress and rest images are suggestive of infarction. No evidence of reversible ischemia. Hospital Course 40-year-old female with [facility] of CAD [facility], as well as recent re-stenting of occluded RCA on 05/2020, HTN, DM, GERD, Obesity who presented to ED with chest pain. Her troponins and serial EKG's were closely monitored. The troponin increased from 0.1 to 2 without other EKG changes. This eventually downtrended and troponin by date of discharge was down to 0.4 with again, no further EKG changes. Her chest pain also spontaneously resolved with continuation of DAPT and b-alejandro. An nuclear stress was obtained showing fixed ischemic defect consistent with infarct. Based on this, Cardiology felt there were no lesions which were amenable to further intervention. The patient, by date of discharge, was entirely asymptomatic without chest pain, chest pressure, palpitations, shortness of breath, including with on exertion. She was felt stable to be discharged with continued aggressive medical management of her coronary artery disease. Of note, her ZOLTAN-inhibitor was held during admission due to an KWESI. There is plan to follow up with outpatient providers for re-check of BMP and to restart ZOLTAN-inhibitor. In addition, although her ejection fraction was decreased at ~ 40%, for several days by date of discharge, she had no evidence of hypervolemia and kidney functioning was improving off of diuresis. Therefore , she was not discharged on diuretics, but recommended to follow up with her outpatient providers to decide when and if, she needs to restart diuresis. Medical issues managed during admission by problem: #NSTEMI #Atypical CP #Hx CABG #Recent stent placement #HTN -Obtained records from [facility]: 05/27/20 left heart catheterization showed occluded graft to RCA with progression of disease in [place] RCA which was thought to be the culprit lesion, there was successful angioplasty and stenting at that time -Continue aspirin 81 mg daily, plavix 75 mg daily -Continue coreg, holding ZOLTAN for KWESI and will consider restarting as an outpatient -High dose statin -Nitro PRN for chest pain #DM type 1 -Levemir 32 units BID -10 units prandial insulin TID AC - patient strongly prefers to return to her home insulin regimen upon discharge : have refilled 40 units NPH before breakfast, 35 units NPH before lunch, 25 units humalog before breakfast, 20 units humalog before lunch, and 10 units humalog before dinner. Also refilled her syringes -Carb consistent diet. #GERD -Discharge on home Protonix 40 mg daily given continued symptoms and on dual antiplatelet therapy #KWESI: RESOLVING. with creatinine on admission 1.6. now improving. creatinine at OSH on 05/28 was 1.38. By date of discharge, improving to 1.2 - Nephrology consulted, appreciate recommendations - hold ZOLTAN for now, plan on restarting when evaluated by Nephrology as an outpatient #Reported history of Atrial Fibrillation: but not seen here - continue amiodarone, b-alejandro - on DAPT but not on anticoagulation at this time, discussed with Cardiology. Her [id number] score is high enough, but given no objective evidence of ongoing atrial fibrillation at this time as well as high risk on triple therapy , decision to start anticoagulation deferred to outpatient setting I spent 50 minutes on this discharge. Face to face time with patient with counseling. Coordinated with consultants and RNs. Review imaging independently. Discharge Medications New Medications: [BD Veo Syringe] () SYR SUBQ DAILY, #450 2 Refills Insulin Lispro (Humalog) 100 Unit/1 Ml Vial 10-25 UNITS SUBQ BEFORE MEALS, #50 VIAL 2 Refills Take 25 units humalog before breakfast, 20 units before lunch, and 10 units before dinner Nph, Human Insulin Isophane (Humulin N) 100 Unit/1 Ml Vial 25-40 UNITS SUBQ BEFORE BREAKFAST, #90 VIAL 2 Refills Take 40 units NPH before breakfast and 35 units NPH before lunch Amiodarone Hcl* (Pacerone*) 200 Mg Tablet 200 MG ORAL DAILY, #90 TAB 2 Refills Aspirin* (Aspirin*) 81 Mg Tab.chew 81 MG ORAL DAILY, #90 TAB 2 Refills Atorvastatin (Lipitor) 80 Mg Tablet 80 MG ORAL BEDTIME, #90 TAB 2 Refills Carvedilol (Coreg) 6.25 Mg Tablet 6.25 MG ORAL EVERY 12 HOURS, #180 TAB 2 Refills Clopidogrel Bisulfate* (Plavix*) 75 Mg Tablet 75 MG ORAL DAILY, #90 TAB 2 Refills Nitroglycerin 0.4MG table* (Nitroglycerin*) 0.4 Mg Tab.subl 0.4 MG SL Q5M PRN, #30 TAB Pantoprazole* (Pantoprazole*) 40 Mg Tablet.dr 40 MG ORAL DAILY, #90 TAB 2 Refills Continued Medications: Hydroxychloroquine Sulfate (Hydroxychloroquine Sulfate) 200 Mg Tablet 200 MG PO DAILY, TAB (This prescription has been renewed) Discontinued Medications: Amiodarone Hcl* (Cordarone*) 200 Mg Tablet 200 MG ORAL DAILY for ANTIARRHYTHMIA, TAB Aspirin* (Aspir 81*) 81 Mg Tablet.dr 81 MG ORAL DAILY for HEART, TAB Atorvastatin (Lipitor) 80 Mg Tablet 80 MG ORAL BEDTIME for , #30 TAB 0 Refills Benazepril Hcl* (Benazepril Hcl*) 20 Mg Tablet 20 MG ORAL DAILY for , TAB Carvedilol* (Carvedilol*) 6.25 Mg Tablet 6.25 MG ORAL EVERY 12 HOURS for , TAB Furosemide* (Lasix*) 20 Mg Tablet 20 MG ORAL DAILY for , TAB Potassium Chloride* (K-Dur*) 10 Meq Capsule.er 10 MEQ ORAL DAILY for hypokalemia, TAB 0 Refills Prasugrel Hcl (Effient) 10 Mg Tablet 10 MG PO DAILY for , TAB Discharge Condition Upon Discharge: improving, stable Discharge Vital Signs Last Vital Signs Date Time Temp Pulse Resp B/P (MAP) Pulse Ox O2 Delivery O2 Flow Rate FiO2 06/12/20 09:15 76 118/68 06/12/20 08:00 97.5 18 97 06/11/20 21:12 Room Air Discharge Disposition Patient was discharged to home with self care. She is entirely independently functioning and capable of calling physicians for follow up and taking medications including insulin Discharge Diagnoses: (1) CAD (coronary artery disease) (2) MEDICATION REFIL (3) Hypertension (4) High cholesterol (5) Diabetes (6) NSTEMI (non-ST elevated myocardial infarction) (7) Uncontrolled diabetes mellitus (8) Chest pain (9) GERD (gastroesophageal reflux disease) (10) Hx of CABG (11) Stented coronary artery Discharge Instructions Discharge Instructions Follow up with: PCP, Water Resources Program Director within 1 week of discharge Call MD/Return to Hospital if: worsening chest pain, chest pressure, shortness of breath, dizziness Activity: resume normal activities, other - please hold off on strenuous lifting and carrying at work 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 Jun 12, 2020 10:11
[2020-06-12 12:00] VITALS: BP 111/53
[2020-06-12] MEDS ORDERED: Tubing IV Secondary IV ONE (12:26)
--- NOTE | 2020-06-12 21:15 | Nephrology Progress Note ---
Assessment/Plan Plan #KWESI on CKD- likely baseline diabetic nephropathy given 3+ #NSTEMI # CAD with previous three vessel CABG at [facility] April 2019 #h/o afib # HTN #DM #GERD # Obesity - check renal US- > no sig findings - stress test per cardiology - DC IVF - follow BNP - asa and plavix - continue statin - continue coreg 6.25 - hold acei now - on amiodarone time spent 70 min - greater than 50% on care coordination and counseling Subjective ROS Limited/Unobtainable: No Constitutional: Denies: no symptoms, chills, diaphoresis, fever, malaise, weakness, other HEENT: Denies: no symptoms, eye pain, blurred vision, tearing, double vision, ear pain, ear discharge, nose pain, nose congestion, throat pain, throat swelling, mouth pain, mouth swelling, other Genitourinary: Denies: no symptoms, burning, discharge, frequency, flank pain, hematuria, incontinence, pain, urgency, other Neurologic/Psychiatric: Denies: no symptoms, anxiety, depressed, emotional problems, headache, numbness, paresthesia, pre-existing deficit, seizure, tingling, tremors, weakness, other Subjective no further chest pain today cr stable DCed IVF troponin peaked to 2.0 plan for stress test per cardiology Objective Objective Last 24 Hour Vital Signs Date Time Temp Pulse Resp B/P (MAP) Pulse Ox O2 Delivery O2 Flow Rate FiO2 06/12/20 12:00 97.9 75 20 111/53 (72) 98 06/12/20 09:15 76 118/68 06/12/20 09:00 Room Air 06/12/20 08:00 78 06/12/20 08:00 97.5 76 18 118/68 (85) 97 06/12/20 04:00 97.9 77 18 129/64 (85) 98 06/12/20 03:49 75 06/12/20 00:00 98.1 74 18 106/60 (75) 98 06/11/20 23:57 74 Intake and Output 06/11/20 06/12/20 19:00 07:00 Intake Total 120 ml 340 ml Balance 120 ml 340 ml Intake Oral 120 ml 340 ml # Voids 4 3 Laboratory Tests 06/12/20 05:10: POC Whole Blood Glucose 425H 06/12/20 08:00: White Blood Count 5.7, Red Blood Count 3.66L, Hemoglobin 10.7L, Hematocrit 33.3L , Mean Corpuscular Volume 91, Mean Corpuscular Hemoglobin 29.2, Mean Corpuscular Hemoglobin Concent 32.1, Red Cell Distribution Width 12.2, Platelet Count 285, Mean Platelet Volume 8.3, Neutrophils (%) (Auto) 60.4, Lymphocytes (% ) (Auto) 29.8, Monocytes (%) (Auto) 7.9, Eosinophils (%) (Auto) 1.0, Basophils ( %) (Auto) 0.9, Sodium Level 135L, Potassium Level 4.2, Chloride Level 102, Carbon Dioxide Level 27, Anion Gap 6, Blood Urea Nitrogen 21H, Creatinine 1.2, Estimat Glomerular Filtration Rate 49.8, Glucose Level 326#H, Calcium Level 8.9 , Troponin I 0.452H 06/12/20 09:51: POC Whole Blood Glucose 231H Height (Feet): 5 Height (Inches): 0.00 Weight (Pounds): 183 Iwona López M.D. Jun 12, 2020 21:15
== END 2020-06-12 12:24 | disposition home or self-care (01) | DRG 190 ==
LOC: EMR 06-08 00:13 → EDBEDREQ 06-08 03:27 → 2E 06-08 03:57 → EDBEDREQ 06-08 04:13 → 2E 06-08 04:56
DX: I21.4 Non-ST elevation (NSTEMI) myocardial infarction (principal); N17.9 Acute kidney failure, unspecified; K21.9 Gastro-esophageal reflux disease without esophagitis; R07.89 Other chest pain; K29.70 Gastritis, unspecified, without bleeding; I10 Essential (primary) hypertension; E66.9 Obesity, unspecified; Z68.35 Body mass index [BMI] 35.0-35.9, adult; I13.10 Hypertensive heart and chronic kidney disease without heart failure, with stage 1 through stage 4 chronic kidney disease, or unspecified chronic kidney disease; N18.9 Chronic kidney disease, unspecified; I48.91 Unspecified atrial fibrillation; I25.10 Atherosclerotic heart disease of native coronary artery without angina pectoris; Z95.5 Presence of coronary angioplasty implant and graft; Z79.82 Long term (current) use of aspirin; Z79.4 Long term (current) use of insulin; E10.65 Type 1 diabetes mellitus with hyperglycemia; Z95.1 Presence of aortocoronary bypass graft; E78.00 Pure hypercholesterolemia, unspecified; E11.22 Type 2 diabetes mellitus with diabetic chronic kidney disease
CPT/HCPCS: 36415; 71045; 76770; 78452; 80048; 80053; 81003; 82962; 83036; 83880; 84484; 85025; 85730; 87081; 93005; 93017; 93306; 96374; 99285; J1815; J2785; J7030; S5561

== ENCOUNTER 2020-06-18 16:56 | Inpatient (IN) | payer OTHER ==
[~2020-06-18] VITALS: Ht 152.4 cm; Wt 82.6 kg
[~2020-06-18 16:56] MED LIST changes: +AMIODARONE HCL200 MG ORAL; +AMIODARONE HCL400 M1 ORAL; +CARVEDILOL6.25 MG ORAL; +COREG6.25 MG ORAL; +EFFIENT10 MG PO; +FUROSEMIDE20 M1 ORAL; +K-TAB10 MEQ PO; +LIPITOR80 MG ORAL; +NITRO0.4 SL; +PACERONE200 MG ORAL; +PANTOPRAZOLE SO40 MG ORAL; +PLAVIX75 MG ORAL; +POTASSIUM CHLO10 MEQ ORAL; +[UNRECOGNIZED DRUG - SUPPLY] SUBQ
--- NOTE | 2020-06-18 17:20 | Emergency Room Report ---
History of Present Illness General Chief Complaint: Upper Respiratory Illness Source: Patient Present Illness HPI Patient is a 40-year-old female past medical history of diabetes, obesity, CAD status post triple bypass and stent placement on Plavix who presents to the ER complaining of shortness of breath. Patient states that she was recently discharged after being admitted for chest pain. Patient states that she has exercise intolerance. She states that she has to frequently stop to try to take a deep breath but is unable to take a deep breath. She states that it is not accompanied with chest pain, dizziness nausea or focal weakness. She also states that she feels short of breath when lying flat. She denies fever or chills. She denies any lower extremity pain or edema. She denies any smoking. 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 [employer]ER: Yes - 06/06/2020 COVID-19 Screening: Negative COVID-19 COVID-19 Testing Source: NASOPHARYN Patient History Last Menstrual Period: 06/06/2020 Reviewed Nursing Documentation: PMH: Agreed; PSxH: Agreed Nursing Documentation-PMH Past Medical History: No History, Except For Hx Hypertension: Yes Hx Pacemaker: No Hx Asthma: No Hx COPD: No Hx Diabetes: Yes Hx Cancer: No Hx Gastrointestinal Problems: Yes - Chronic constipation Hx Dialysis: No Hx Neurological Problems: No Hx Cerebrovascular Accident: No Hx Seizures: No Hx Headaches: Yes Review of Systems All Other Systems: negative except mentioned in HPI Physical Exam Vital Signs Date Time Temp Pulse Resp B/P (MAP) Pulse Ox O2 Delivery O2 Flow Rate FiO2 06/18/20 16:57 98.2 82 17 154/81 (105) 100 Room Air Sp02 EP Interpretation: reviewed, normal General Appearance: no apparent distress, alert, GCS 15, non-toxic Head: normocephalic, atraumatic Eyes: bilateral eye normal inspection, bilateral eye PERRL ENT: hearing grossly normal, normal pharynx, no angioedema, normal voice Neck: full range of motion, supple/symm/no masses Respiratory: chest non-tender, lungs clear, normal breath sounds, speaking full sentences, other - Healed sternotomy incision site Cardiovascular #1: regular rate, rhythm, no edema Gastrointestinal: normal bowel sounds, non tender, soft, non-distended, no guarding, no rebound, overweight Rectal: deferred Genitourinary: no CVA tenderness Musculoskeletal: no calf tenderness, no lower extremity edema Neurologic: bus attendant III-XII nml as tested, oriented x3 Psychiatric: no suicidal/homicidal ideation Skin: no rash Lymphatic: no adenopathy Medical Decision Making Diagnostic Impression: Primary Impression: CHF (congestive heart failure) Additional Impression: HCAP (healthcare-associated pneumonia) ER Course Blood cultures have been sent. Patient's lactate is normal. Her troponin is negative x1. EKG demonstrates no acute ST changes. BNP is greater than 7000. Patient's x-ray demonstrates bilateral pulmonary infiltrates as well as CHF pattern. Patient given IV Lasix 20 mg and started on vancomycin and cefepime for hospital-acquired pneumonia. Patient's last EF was 42%. Patient is on Plavix at home therefore did not give her any additional aspirin or Plavix. Patient will be admitted for further treatment and evaluation. Laboratory Tests Test 06/18/20 17:31 White Blood Count 7.3 K/UL (4.8-10.8) Red Blood Count 3.79 M/UL (4.20-5.40) L Hemoglobin 11.1 G/DL (12.0-16.0) L Hematocrit 34.1 % (37.0-47.0) L Mean Corpuscular Volume 90 FL (80-99) Mean Corpuscular Hemoglobin 29.4 PG (27.0-31.0) Mean Corpuscular Hemoglobin Concent 32.7 G/DL (32.0-36.0) Red Cell Distribution Width 12.9 % (11.6-14.8) Platelet Count 268 K/UL (150-450) Mean Platelet Volume 8.4 FL (6.5-10.1) Neutrophils (%) (Auto) 57.9 % (45.0-75.0) Lymphocytes (%) (Auto) 29.4 % (20.0-45.0) Monocytes (%) (Auto) 9.9 % (1.0-10.0) Eosinophils (%) (Auto) 1.7 % (0.0-3.0) Basophils (%) (Auto) 1.0 % (0.0-2.0) Prothrombin Time 10.5 SEC (9.30-11.50) Prothrombin Time INR 0.9 (0.9-1.1) Activated Partial Thromboplast Time 26 SEC (23-33) D-Dimer 0.44 mg/L FEU (0.00-0.49) Sodium Level 136 MMOL/L (136-145) Potassium Level 4.2 MMOL/L (3.5-5.1) Chloride Level 104 MMOL/L (98-107) Carbon Dioxide Level 26 MMOL/L (21-32) Anion Gap 6 mmol/L (5-15) Blood Urea Nitrogen 19 mg/dL (7-18) H Creatinine 1.3 MG/DL (0.55-1.30) Estimated Glomerular Filtration Rate 45.3 mL/min (>60) Glucose Level 162 MG/DL (74-106) H Lactic Acid Level 0.90 mmol/L (0.4-2.0) Calcium Level 8.6 MG/DL (8.5-10.1) Magnesium Level 2.0 MG/DL (1.8-2.4) Total Bilirubin 0.2 MG/DL (0.2-1.0) Aspartate Amino Transferase (AST) 14 U/L (15-37) L Alanine Aminotransferase (ALT) 21 U/L (12-78) Alkaline Phosphatase 76 U/L (46-116) Troponin I 0.014 ng/mL (0.000-0.056) Pro-B-Type Natriuretic Peptide 7139 pg/mL (0-125) H Total Protein 7.0 G/DL (6.4-8.2) Albumin 3.1 G/DL (3.4-5.0) L Globulin 3.9 g/dL Albumin/Globulin Ratio 0.8 (1.0-2.7) L EKG Diagnostic Results EKG Time: 17:25 EP Interpretation: Kailee Phipps MD Rate: normal - 84 bpm Rhythm: NSR ST Segments: no acute changes ASA given to the pt in ED: No - On Plavix Rhythm Strip Diag. Results Rhythm Strip Time: 17:20 EP Interpretation: yes - Kailee Phipps MD Rate: 84 bpm Rhythm: NSR, no PVC's, no ectopy Chest X-Ray Diagnostic Results Chest X-Ray Diagnostic Results : Chest X-Ray Ordered: Yes # of Views/Limited/Complete: 1 View Indication: Shortness of Breath EP Interpretation: Yes Interpretation: no effusion, no pneumothorax, other - Bilateral pulmonary infiltrates Impression: Other - Pneumonia Electronically Signed by: Kailee Phipps MD Last Vital Signs Date Time Temp Pulse Resp B/P (MAP) Pulse Ox O2 Delivery O2 Flow Rate FiO2 06/18/20 16:57 98.2 82 17 154/81 (105) 100 Room Air Disposition: ADMITTED INPATIENT - Telemetry Condition: Critical Physician Consult: Dr. Gudelia Ventura at 6:41 PM Additional Instructions: Please note that this report is being documented using [employer] technology. This can lead to erroneous entry secondary to incorrect interpretation by the dictating instrument. Kailee Phipps M.D. Jun 18, 2020 17:20
--- NOTE | 2020-06-18 17:25 | NUR ---
ED Nurse Note: Patient walked in to ER from home due to SOB with ADLs for 2 weeks. per pt, she has been tested for Covid 3 times and it came out negative each time. pt has stent insertion last month. pt aao x4 and ambulatory. skin clean and intact but multiple bruises noted which pt reported she is taking blood thinner and she has been in hospital recently for stent insertion. no SOB noted at this time but pt reported it usually occures with activities. 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
--- NOTE | 2020-06-18 17:34 | NUR ---
ED Nurse Note: x-ray and EKG done at bedside.
[2020-06-18 17:36] VITALS: BP 168/78
--- NOTE | 2020-06-18 17:42 | Diagnostic Imaging Report ---
EXAM: XR Chest, 1 View CLINICAL HISTORY: SOB TECHNIQUE: Frontal view of the chest. COMPARISON: 06/08/2020. FINDINGS: Lungs: Mild bilateral pulmonary edema/infiltrates. Pleural space: Unremarkable. No pneumothorax. Heart: Cardiomegaly. Mediastinum: Unremarkable. Bones/joints: Sternotomy. IMPRESSION: Mild bilateral pulmonary edema/infiltrates.
[2020-06-18] MEDS ORDERED: Vancomycin 1 GM in NS 275 ML IVPB ONE (17:45)
[2020-06-18] MEDS ORDERED: Cefepime HCl 2 GM in D5W 55 ML IVPB ONE (17:45)
[2020-06-18 17:57] LABS: ANION GAP 6 mmol/L (5-15); BLOOD UREA NITROGEN 19 mg/dL (7-18); CALCIUM 8.6 MG/DL (8.5-10.1); CARBON DIOXIDE 26 MMOL/L (21-32); CHLORIDE 104 MMOL/L (98-107); CREATININE 1.3 MG/DL (0.55-1.30); POTASSIUM 4.2 MMOL/L (3.5-5.1); SODIUM 136 MMOL/L (136-145)
[2020-06-18 18:01] LABS: EOSINOPHILS % (AUTO) 1.7 % (0.0-3.0); HEMATOCRIT 34.1 % (37.0-47.0); HEMOGLOBIN 11.1 G/DL (12.0-16.0); LYMPHOCYTES % (AUTO) 29.4 % (20.0-45.0); MEAN CORPUSCULAR VOLUME 90 FL (80-99); MONOCYTES % (AUTO) 9.9 % (1.0-10.0); NEUTROPHILS % (AUTO) 57.9 % (45.0-75.0); PLATELET COUNT 268 K/UL (150-450); RED BLOOD COUNT 3.79 M/UL (4.20-5.40); RED CELL DISTRIBUTION WIDTH 12.9 % (11.6-14.8); WHITE BLOOD COUNT 7.3 K/UL (4.8-10.8)
[2020-06-18 18:08] LABS: ALANINE AMINOTRANSFERASE 21 U/L (12-78); ALBUMIN 3.1 G/DL (3.4-5.0); ALBUMIN/GLOBULIN RATIO 0.8 (1.0-2.7); ALKALINE PHOSPHATASE 76 U/L (46-116); ASPARTATE AMINO TRANSFERASE 14 U/L (15-37); BILIRUBIN,TOTAL 0.2 MG/DL (0.2-1.0)
[2020-06-18 18:31] LABS: INR 0.9 (0.9-1.1)
[2020-06-18 18:57] VITALS: BP 150/82
--- NOTE | 2020-06-18 19:08 | NUR ---
HAND-OFF: Report given to Levy sahu RN.
--- NOTE | 2020-06-18 19:20 | NUR ---
ED Nurse Note: received patient in bed with no signs of acute distress. notified by lab that pt resulted covid negative. pui precautions lifted by ermd, standard precautions resumed. patient ambulated to bathroom with steady gait. assisted back to bed and attached to monitor; vitals within normal limits. discussed plan of care with patient; aware of pending admission.
--- NOTE | 2020-06-18 20:45 | NUR ---
TRANSFER TO FLOOR: Patient transferred to [facility] 212-2 as ordered, per bertha lino. Report given to susan antoine. patient stable for transfer. transported to unit via gurney with dixie and rn . belongings and admission packet sent with patient.
[2020-06-18 21:17] VITALS: BP 159/72
[2020-06-18] MEDS: Carvedilol 6.25mg Tab ORAL SCH (21:39)
[2020-06-18] MEDS: Atorvastatin 80mg tab ORAL SCH (21:39)
[2020-06-18] MEDS: Levemir Flexpen SUBQ SCH (21:41)
[2020-06-18] MEDS: Heparin 5000 units/ml inj SUBQ SCH (21:42)
--- NOTE | 2020-06-18 22:50 | NUR ---
NURSE NOTES: Received patient report from DAIANA Lopez. Patient shows no signs of distress or pain at the time. Patient transported to unit without incident. Patient AO x4. Patient shows no signs of respiratory distress on room air. IV sites checked and patent. There are no signs of erythema, infiltration, or bleeding. Belongings and money counted with patient and next to patients bed. Bed is in the lowest position, side rails upx3, call light within reach. Patient complained of headache. Called Dr. Wilson group awaiting for call back. Will continue to monitor.
--- NOTE | 2020-06-18 23:00 | NUR ---
NURSE NOTES: Received orders from Dr. Elena for Tylenol 650 mg Q6 PRN.
[2020-06-19] VITALS: BP 128/60
[2020-06-19 04:00] VITALS: BP 152/73
[2020-06-19 06:09] LABS: BASOPHILS % (AUTO) 1.2 % (0.0-2.0); EOSINOPHILS % (AUTO) 1.1 % (0.0-3.0); HEMATOCRIT 33.5 % (37.0-47.0); HEMOGLOBIN 10.6 G/DL (12.0-16.0); LYMPHOCYTES % (AUTO) 43.1 % (20.0-45.0); MEAN CORPUSCULAR VOLUME 90 FL (80-99); MONOCYTES % (AUTO) 10.6 % (1.0-10.0); NEUTROPHILS % (AUTO) 44.1 % (45.0-75.0); PLATELET COUNT 277 K/UL (150-450); RED BLOOD COUNT 3.71 M/UL (4.20-5.40); RED CELL DISTRIBUTION WIDTH 12.2 % (11.6-14.8); WHITE BLOOD COUNT 5.5 K/UL (4.8-10.8)
[2020-06-19] MEDS: Heparin 5000 units/ml inj SUBQ SCH ×3 (06:11→21:16)
[2020-06-19] MEDS: NovoLOG Insulin Flexpen SUBQ SCH ×3 (06:12→16:27)
[2020-06-19 06:25] LABS: ANION GAP 10 mmol/L (5-15); BLOOD UREA NITROGEN 16 mg/dL (7-18); CALCIUM 8.4 MG/DL (8.5-10.1); CARBON DIOXIDE 24 MMOL/L (21-32); CHLORIDE 104 MMOL/L (98-107); CREATININE 1.2 MG/DL (0.55-1.30); POTASSIUM 3.7 MMOL/L (3.5-5.1); SODIUM 137 MMOL/L (136-145)
[2020-06-19 06:30] LABS: ALANINE AMINOTRANSFERASE 18 U/L (12-78); ALBUMIN 2.8 G/DL (3.4-5.0); ALBUMIN/GLOBULIN RATIO 0.8 (1.0-2.7); ALKALINE PHOSPHATASE 73 U/L (46-116); ASPARTATE AMINO TRANSFERASE 12 U/L (15-37); BILIRUBIN,TOTAL 0.2 MG/DL (0.2-1.0)
--- NOTE | 2020-06-19 07:27 | NUR ---
HAND-OFF: Report given to DAIANA French. Patient shows no signs of distress or pain. Endorsed plan of care.
--- NOTE | 2020-06-19 07:45 | NUR ---
NURSE NOTES: Received patient report from DAIANA Flor. Patient shows no signs of distress or pain at the time. Patient sitting up in bed. Patient shows no signs of respiratory distress on room air. Bed is in the lowest position, side rails upx2, call light within reach. Patient states she is breathing better compared to yesterday.
[2020-06-19 08:00] VITALS: BP 136/76
[2020-06-19] MEDS ORDERED: Cefepime HCl 1 GM in D5W 55 ML IVPB SCH (09:00)
[2020-06-19] MEDS: Aspirin EC 81mg tab ORAL SCH (09:20)
[2020-06-19] MEDS: Carvedilol 6.25mg Tab ORAL SCH ×2 (09:20→21:05)
[2020-06-19] MEDS: Amiodarone 200mg tab ORAL SCH (09:21)
--- NOTE | 2020-06-19 09:29 | NUR ---
CASE MANAGEMENT: INITIAL REVIEW 40 YO F PRESENTED TO OUR ED FROM HOME CC: URI PMHx: HTN. DM. Obesity, CAD status post triple bypass and stent placement on Plavix SI:CP. SOB T 98.2 HR 82 RR 17 B/P 154/81 SATS 100% ON RA LABS: BUN 19 GLU 162 AST 14 BNP 7139 IS: VANCO IV X1 CEFEPIME IV X1 CXR Impression: Other - Pneumonia PATIENT ADMITTED TO TELE 06/18/2020 @ 1801 DCP: HOME PLAN OF CARE: OBTAIN WEIGHT I&O
[2020-06-19] MEDS: Levemir Flexpen SUBQ SCH ×2 (09:40→21:08)
[2020-06-19 11:40] VITALS: BP 127/65
--- NOTE | 2020-06-19 13:46 | History and Physical ---
History of Present Illness General Date patient seen: Jun 19, 2020 Time patient seen: 08:00 Reason for Hospitalization: Acute CHF Present Illness HPI 40-year-old female with history of CAD with previous three vessel CABG at [facility] April 2019, HTN, DM, GERD, Obesity who presented to ED with chest pain on 06/08/2020, recent RCA graft stent placement who presented to the ED with complaints of dyspnea with exertion, wheeze, orthopnea, LE edema. She states that she has to frequently stop to try to take a deep breath but is unable to take a deep breath. Denies chest pain, dizziness nausea or focal weakness. She also states that she feels short of breath when lying flat. She denies fever or chills. \ CXR in ED showed Mild bilateral pulmonary edema/infiltrates. BNP markedly elevated to 7139 Allergies: Coded Allergies: No Known Allergies (Unverified , 08/08/12) COVID-19 Screening Contact w/high risk pt: No Recent Travel to affected area: No Experienced COVID-19 symptoms?: Yes COVID-19 symptoms experienced: Shortness of Breath Medication History Scheduled Amiodarone Hcl* (Pacerone*), 200 MG ORAL DAILY Aspirin* (Aspirin*), 81 MG ORAL DAILY Atorvastatin (Lipitor), 80 MG ORAL BEDTIME Carvedilol (Coreg), 6.25 MG ORAL EVERY 12 HOURS Clopidogrel Bisulfate* (Plavix*), 75 MG ORAL DAILY Hydroxychloroquine Sulfate (Hydroxychloroquine Sulfate), 200 MG PO DAILY, ( Reported) Insulin Lispro (Humalog), 10-25 UNITS SUBQ BEFORE MEALS Nph, Human Insulin Isophane (Humulin N), 25-40 UNITS SUBQ BEFORE BREAKFAST Pantoprazole* (Pantoprazole*), 40 MG ORAL DAILY Scheduled PRN Nitroglycerin 0.4MG table* (Nitroglycerin*), 0.4 MG SL Q5M PRN Discontinued Medications Amiodarone Hcl* (Cordarone*), 200 MG ORAL DAILY, (Reported) Discontinued Reason: Medication dose changed Aspirin* (Aspir 81*), 81 MG ORAL DAILY, (Reported) Discontinued Reason: Medication dose changed Atorvastatin (Lipitor), 80 MG ORAL BEDTIME, (Reported) Discontinued Reason: Medication dose changed Benazepril Hcl* (Benazepril Hcl*), 20 MG ORAL DAILY, (Reported) Discontinued Reason: Pt stopped taking med Carvedilol* (Carvedilol*), 6.25 MG ORAL EVERY 12 HOURS, (Reported) Discontinued Reason: Medication dose changed Furosemide* (Lasix*), 20 MG ORAL DAILY, (Reported) Discontinued Reason: Therapy completed Potassium Chloride* (K-Dur*), 10 MEQ ORAL DAILY, (Reported) Discontinued Reason: Medication dose changed Prasugrel Hcl (Effient), 10 MG PO DAILY, (Reported) Discontinued Reason: MD discontinued med Durable Medical Equipment [BD Veo Syringe], SYR SUBQ DAILY, (DME) Patient History Healthcare decision maker Resuscitation status Advanced Directive on File Family History Family History: FH: diabetes mellitus Review of Systems Constitutional: Denies: chills, sweats, fever Eye: Denies: eye pain Respiratory: Reports: orthopnea, shortness of breath, wheezing; Denies: cough Cardiovascular: Reports: edema; Denies: chest pain, palpitations, syncope Gastrointestinal: Denies: abdominal pain, diarrhea Genitourinary: Denies: discharge Musculoskeletal: Denies: back pain Skin: Denies: rash Neurological: Denies: headache Endocrine: Denies: excessive sweating Hematologic/Lymphatic: Denies: anemia Physical Exam General Appearance: no apparent distress, alert HEENT: atraumatic, anicteric Neck: supple, normal inspection Respiratory/Chest: lungs clear, normal breath sounds, no respiratory distress Cardiovascular/Chest: normal rate, regular rhythm Abdomen: non tender, soft Extremities: non-tender, normal inspection 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, no motor/sensory deficits, alert, oriented x 3 Last 24 Hour Vital Signs Date Time Temp Pulse Resp B/P (MAP) Pulse Ox O2 Delivery O2 Flow Rate FiO2 06/19/20 12:00 71 06/19/20 11:40 97.9 85 18 127/65 (85) 97 06/19/20 10:30 97.9 06/19/20 09:20 80 136/76 06/19/20 09:00 Room Air 06/19/20 08:00 80 06/19/20 08:00 97.9 80 20 136/76 (96) 98 06/19/20 04:00 74 06/19/20 04:00 96.9 90 18 152/73 (99) 97 06/19/20 00:00 97.9 82 18 128/60 (82) 96 06/19/20 00:00 78 06/18/20 21:39 75 159/72 06/18/20 21:17 98.6 75 20 159/72 (101) 98 06/18/20 21:16 Room Air 06/18/20 21:00 77 06/18/20 20:54 97.5 83 18 134/83 100 Room Air 06/18/20 18:57 89 18 150/82 100 Room Air 06/18/20 17:36 85 17 Room Air 06/18/20 17:36 97.5 85 17 168/78 100 Room Air 06/18/20 16:57 98.2 82 17 154/81 (105) 100 Room Air Intake and Output 06/18/20 06/19/20 19:00 07:00 Intake Total 55 ml 200 ml Balance 55 ml 200 ml Intake Oral 200 ml IV Total 55 ml # Voids 1 Laboratory Tests Test 06/18/20 17:31 06/18/20 18:32 06/18/20 21:21 06/19/20 05:51 White Blood Count 7.3 K/UL (4.8-10.8) 5.5 K/UL (4.8-10.8) Red Blood Count 3.79 M/UL (4.20-5.40) L 3.71 M/UL (4.20-5.40) L Hemoglobin 11.1 G/DL (12.0-16.0) L 10.6 G/DL (12.0-16.0) L Hematocrit 34.1 % (37.0-47.0) L 33.5 % (37.0-47.0) L Mean Corpuscular Volume 90 FL (80-99) 90 FL (80-99) Mean Corpuscular Hemoglobin 29.4 PG (27.0-31.0) 28.6 PG (27.0-31.0) Mean Corpuscular Hemoglobin Concent 32.7 G/DL (32.0-36.0) 31.7 G/DL (32.0-36.0) L Red Cell Distribution Width 12.9 % (11.6-14.8) 12.2 % (11.6-14.8) Platelet Count 268 K/UL (150-450) 277 K/UL (150-450) Mean Platelet Volume 8.4 FL (6.5-10.1) 8.7 FL (6.5-10.1) Neutrophils (%) (Auto) 57.9 % (45.0-75.0) 44.1 % (45.0-75.0) L Lymphocytes (%) (Auto) 29.4 % (20.0-45.0) 43.1 % (20.0-45.0) Monocytes (%) (Auto) 9.9 % (1.0-10.0) 10.6 % (1.0-10.0) H Eosinophils (%) (Auto) 1.7 % (0.0-3.0) 1.1 % (0.0-3.0) Basophils (%) (Auto) 1.0 % (0.0-2.0) 1.2 % (0.0-2.0) Prothrombin Time 10.5 SEC (9.30-11.50) Prothromb Time International Ratio 0.9 (0.9-1.1) Activated Partial Thromboplast Time 26 SEC (23-33) D-Dimer 0.44 mg/L FEU (0.00-0.49) Sodium Level 136 MMOL/L (136-145) 137 MMOL/L (136-145) Potassium Level 4.2 MMOL/L (3.5-5.1) 3.7 MMOL/L (3.5-5.1) Chloride Level 104 MMOL/L (98-107) 104 MMOL/L (98-107) Carbon Dioxide Level 26 MMOL/L (21-32) 24 MMOL/L (21-32) Anion Gap 6 mmol/L (5-15) 10 mmol/L (5-15) Blood Urea Nitrogen 19 mg/dL (7-18) H 16 mg/dL (7-18) Creatinine 1.3 MG/DL (0.55-1.30) 1.2 MG/DL (0.55-1.30) Estimat Glomerular Filtration Rate 45.3 mL/min (>60) 49.8 mL/min (>60) Glucose Level 162 MG/DL (74-106) H 185 MG/DL (74-106) H Lactic Acid Level 0.90 mmol/L (0.4-2.0) Calcium Level 8.6 MG/DL (8.5-10.1) 8.4 MG/DL (8.5-10.1) L Magnesium Level 2.0 MG/DL (1.8-2.4) 2.0 MG/DL (1.8-2.4) Total Bilirubin 0.2 MG/DL (0.2-1.0) 0.2 MG/DL (0.2-1.0) Aspartate Amino Transf (AST/SGOT) 14 U/L (15-37) L 12 U/L (15-37) L Alanine Aminotransferase (ALT/SGPT) 21 U/L (12-78) 18 U/L (12-78) Alkaline Phosphatase 76 U/L (46-116) 73 U/L (46-116) Troponin I 0.014 ng/mL (0.000-0.056) Pro-B-Type Natriuretic Peptide 7139 pg/mL (0-125) H Total Protein 7.0 G/DL (6.4-8.2) 6.5 G/DL (6.4-8.2) Albumin 3.1 G/DL (3.4-5.0) L 2.8 G/DL (3.4-5.0) L Globulin 3.9 g/dL 3.7 g/dL Albumin/Globulin Ratio 0.8 (1.0-2.7) L 0.8 (1.0-2.7) L Urine HCG, Qualitative Negative (NEGATIVE) POC Whole Blood Glucose 225 MG/DL (74-106) H Phosphorus Level 3.6 MG/DL (2.5-4.9) Test 06/19/20 06:06 POC Whole Blood Glucose 171 MG/DL (74-106) H Microbiology Date/Time Source Procedure Growth Status 06/18/20 17:50 Nasopharynx SARS-CoV-2 RdRp Gene Assay - Final Complete 06/18/20 17:50 Rectum Received Height (Feet): 5 Height (Inches): 0.00 Weight (Pounds): 184 Medications Current Medications Medications (Trade) Dose Ordered Sig/Herbie Route PRN Reason Start Time Stop Time Status Last Admin Dose Admin Acetaminophen (Tylenol) 650 mg Q6H PRN ORAL Mild Pain (Pain Scale 1-3) 06/18/20 23:00 07/18/20 22:59 06/19/20 09:35 Amiodarone HCl (Cordarone) 200 mg DAILY ORAL 06/19/20 09:00 09/17/20 08:59 06/19/20 09:21 Aspirin (Ecotrin) 81 mg DAILY ORAL 06/19/20 09:00 08/03/20 08:59 06/19/20 09:20 Atorvastatin Calcium (Lipitor) 80 mg QHS ORAL 06/18/20 21:00 09/16/20 20:59 06/18/20 21:39 Carvedilol (Coreg) 6.25 mg EVERY 12 HOURS ORAL 06/18/20 21:00 07/18/20 20:59 06/19/20 09:20 Cefepime HCl 1 gm/ Dextrose 55 ml @ 110 mls/hr Q12H IVPB 06/19/20 09:00 06/26/20 08:59 06/19/20 09:36 Clopidogrel Bisulfate (Plavix) 75 mg DAILY ORAL 06/19/20 09:00 07/19/20 08:59 06/19/20 09:20 Dextrose (Dextrose 50%) 25 ml Q30M PRN IV Hypoglycemia 06/18/20 18:45 09/16/20 18:44 Dextrose (Dextrose 50%) 50 ml Q30M PRN IV Hypoglycemia 06/18/20 18:45 09/16/20 18:44 Furosemide (Lasix) 40 mg DAILY IV 06/19/20 09:00 07/19/20 08:59 06/19/20 09:21 Heparin Sodium (Porcine) (Heparin 5000 units/ml) 5,000 units EVERY 8 HOURS SUBQ 06/18/20 22:00 08/02/20 21:59 06/19/20 13:16 Hydroxychloroquine Sulfate (Plaquenil) 200 mg DAILY ORAL 06/19/20 09:00 07/19/20 08:59 06/19/20 09:20 Insulin Aspart (NovoLOG) 10 units NOVOTIAC SUBQ 06/19/20 06:30 09/17/20 06:29 06/19/20 06:12 Insulin Detemir (Levemir) 32 units Q12HR SUBQ 06/18/20 21:00 09/16/20 20:59 06/19/20 09:40 Pantoprazole (Protonix) 40 mg DAILY ORAL 06/19/20 09:00 07/19/20 08:59 06/19/20 09:20 Vancomycin HCl ([facility] to dose) 1 ea DAILY PRN MISC Per rx protocol 06/18/20 19:00 07/18/20 18:59 Vancomycin HCl 1 gm/Sodium Chloride 275 ml @ 183.708 mls/hr Q24H IVPB 06/19/20 18:00 06/24/20 17:59 Assessment/Plan Assessment/Plan: #Acute on chronic diastolic CHF #Atypical CP #CAD s/p CABG #Recent stent placement #HTN -Admit to tele -IV Lasix diuresis -2D Echo -Continue DAPT -Continue Coreg -High dose statin -Trend troponin, daily weights, I&O, BMP -Cariology consulted #DM type 1 #Morbid obesity -Levemir 32 units BID -10 units prandial insulin -JACI -Carb consistent diet. #GERD -Protonix 40 mg daily. I spent 35 minutes on this patient's case, and 20 minutes was dedicated to counseling and/or care coordination with RN, consulting MDs, case management I spent an additional 35 minutes on review of medical records including prior ~ hospital records, consult notes, progress notes, procedures, imaging, labs, hemodynamics, and other clinical documentation. Mike Taylor MD Jun 19, 2020 13:46
--- NOTE | 2020-06-19 14:29 | Cardiac Electrophysiology PN ---
Subjective Subjective [id number] Objective Last 24 Hour Vital Signs Date Time Temp Pulse Resp B/P (MAP) Pulse Ox O2 Delivery O2 Flow Rate FiO2 06/19/20 12:00 71 06/19/20 11:40 97.9 85 18 127/65 (85) 97 06/19/20 10:30 97.9 06/19/20 09:20 80 136/76 06/19/20 09:00 Room Air 06/19/20 08:00 80 06/19/20 08:00 97.9 80 20 136/76 (96) 98 06/19/20 04:00 74 06/19/20 04:00 96.9 90 18 152/73 (99) 97 06/19/20 00:00 97.9 82 18 128/60 (82) 96 06/19/20 00:00 78 06/18/20 21:39 75 159/72 06/18/20 21:17 98.6 75 20 159/72 (101) 98 06/18/20 21:16 Room Air 06/18/20 21:00 77 06/18/20 20:54 97.5 83 18 134/83 100 Room Air 06/18/20 18:57 89 18 150/82 100 Room Air 06/18/20 17:36 85 17 Room Air 06/18/20 17:36 97.5 85 17 168/78 100 Room Air 06/18/20 16:57 98.2 82 17 154/81 (105) 100 Room Air Intake and Output 06/18/20 06/19/20 19:00 07:00 Intake Total 55 ml 200 ml Balance 55 ml 200 ml Intake Oral 200 ml IV Total 55 ml # Voids 1 Laboratory Tests Test 06/18/20 17:31 06/18/20 18:32 06/18/20 21:21 06/19/20 05:51 White Blood Count 7.3 K/UL (4.8-10.8) 5.5 K/UL (4.8-10.8) Red Blood Count 3.79 M/UL (4.20-5.40) L 3.71 M/UL (4.20-5.40) L Hemoglobin 11.1 G/DL (12.0-16.0) L 10.6 G/DL (12.0-16.0) L Hematocrit 34.1 % (37.0-47.0) L 33.5 % (37.0-47.0) L Mean Corpuscular Volume 90 FL (80-99) 90 FL (80-99) Mean Corpuscular Hemoglobin 29.4 PG (27.0-31.0) 28.6 PG (27.0-31.0) Mean Corpuscular Hemoglobin Concent 32.7 G/DL (32.0-36.0) 31.7 G/DL (32.0-36.0) L Red Cell Distribution Width 12.9 % (11.6-14.8) 12.2 % (11.6-14.8) Platelet Count 268 K/UL (150-450) 277 K/UL (150-450) Mean Platelet Volume 8.4 FL (6.5-10.1) 8.7 FL (6.5-10.1) Neutrophils (%) (Auto) 57.9 % (45.0-75.0) 44.1 % (45.0-75.0) L Lymphocytes (%) (Auto) 29.4 % (20.0-45.0) 43.1 % (20.0-45.0) Monocytes (%) (Auto) 9.9 % (1.0-10.0) 10.6 % (1.0-10.0) H Eosinophils (%) (Auto) 1.7 % (0.0-3.0) 1.1 % (0.0-3.0) Basophils (%) (Auto) 1.0 % (0.0-2.0) 1.2 % (0.0-2.0) Prothrombin Time 10.5 SEC (9.30-11.50) Prothromb Time International Ratio 0.9 (0.9-1.1) Activated Partial Thromboplast Time 26 SEC (23-33) D-Dimer 0.44 mg/L FEU (0.00-0.49) Sodium Level 136 MMOL/L (136-145) 137 MMOL/L (136-145) Potassium Level 4.2 MMOL/L (3.5-5.1) 3.7 MMOL/L (3.5-5.1) Chloride Level 104 MMOL/L (98-107) 104 MMOL/L (98-107) Carbon Dioxide Level 26 MMOL/L (21-32) 24 MMOL/L (21-32) Anion Gap 6 mmol/L (5-15) 10 mmol/L (5-15) Blood Urea Nitrogen 19 mg/dL (7-18) H 16 mg/dL (7-18) Creatinine 1.3 MG/DL (0.55-1.30) 1.2 MG/DL (0.55-1.30) Estimat Glomerular Filtration Rate 45.3 mL/min (>60) 49.8 mL/min (>60) Glucose Level 162 MG/DL (74-106) H 185 MG/DL (74-106) H Lactic Acid Level 0.90 mmol/L (0.4-2.0) Calcium Level 8.6 MG/DL (8.5-10.1) 8.4 MG/DL (8.5-10.1) L Magnesium Level 2.0 MG/DL (1.8-2.4) 2.0 MG/DL (1.8-2.4) Total Bilirubin 0.2 MG/DL (0.2-1.0) 0.2 MG/DL (0.2-1.0) Aspartate Amino Transf (AST/SGOT) 14 U/L (15-37) L 12 U/L (15-37) L Alanine Aminotransferase (ALT/SGPT) 21 U/L (12-78) 18 U/L (12-78) Alkaline Phosphatase 76 U/L (46-116) 73 U/L (46-116) Troponin I 0.014 ng/mL (0.000-0.056) Pro-B-Type Natriuretic Peptide 7139 pg/mL (0-125) H Total Protein 7.0 G/DL (6.4-8.2) 6.5 G/DL (6.4-8.2) Albumin 3.1 G/DL (3.4-5.0) L 2.8 G/DL (3.4-5.0) L Globulin 3.9 g/dL 3.7 g/dL Albumin/Globulin Ratio 0.8 (1.0-2.7) L 0.8 (1.0-2.7) L Urine HCG, Qualitative Negative (NEGATIVE) POC Whole Blood Glucose 225 MG/DL (74-106) H Phosphorus Level 3.6 MG/DL (2.5-4.9) Test 06/19/20 06:06 POC Whole Blood Glucose 171 MG/DL (74-106) H Microbiology Date/Time Source Procedure Growth Status 06/18/20 17:50 Nasopharynx SARS-CoV-2 RdRp Gene Assay - Final Complete 06/18/20 17:50 Rectum Received Avery Perry MD Jun 19, 2020 14:29
[2020-06-19 15:39] VITALS: BP 134/61
[2020-06-19] MEDS ORDERED: Vancomycin 1 GM in NS 275 ML IVPB SCH (18:00)
--- NOTE | 2020-06-19 19:00 | Consultation ---
DATE OF CONSULTATION: 06/19/2020 CARDIOLOGY CONSULTATION CONSULTING PHYSICIAN: Avery Perry MD. REASON FOR CONSULTATION: Congestive heart failure. HISTORY OF PRESENT ILLNESS: The patient is a 40-year-old female with history of coronary artery bypass graft at [facility] in April of 2019, hypertension, diabetes, and obesity, who was admitted three times in the last one month. Originally, she presented on 06/08/2020 with chest pain and the patient was then transferred to [facility], eventually underwent another stent placement in the vein graft to the right coronary artery. The patient had another admission last week. The patient underwent a stress test that showed no evidence of ischemia and she was ruled out for myocardial infarction. The patient presented to the emergency for increasing shortness of breath and inability to take a deep breath, even though she denies syncope or presyncopal symptoms. She also feels short of breath while lying flat. The patient was admitted and Cardiology consultation was requested for further evaluation. Her chest x-ray in the emergency room showed bilateral edema and infiltrate and BNP was more than 7000. REVIEW OF SYSTEMS: Negative other than what was mentioned in the history of present illness. PAST MEDICAL HISTORY: As mentioned above. FAMILY HISTORY: Noncontributory. SOCIAL HISTORY: She lives at home. She does smoke or drink alcohol. PHYSICAL EXAMINATION: VITAL SIGNS: Blood pressure 130/70, pulse 70, respirations 18, and she is afebrile. HEAD AND NECK: Showed no JVD. LUNGS: Clear. CARDIOVASCULAR: Shows regular S1 and S2 with no gallop. Sternotomy scar is intact. ABDOMEN: Soft. EXTREMITIES: 2+ pitting edema. LABORATORY AND DIAGNOSTIC DATA: Labs show white count 5.5, hemoglobin 10.6, hematocrit 33, and platelet count 277,000. Sodium is 137, potassium 3.7, BUN of 16, creatinine 1.2, and glucose of 185. Her troponin was negative. ASSESSMENT AND PLAN: 1. Exacerbation of congestive heart failure ischemic cardiomyopathy. Continue Lasix 40 mg IV daily. Resume the patient's rest of heart failure medications including Coreg 6.25 mg b.i.d. 2. Coronary artery disease with history of coronary artery bypass graft and subsequent stent, just last month, in the vein graft to the RCA at [facility]. Continue aspirin, Plavix, and Lipitor 80 mg daily as well as Coreg. 3. Diabetes, on insulin. 4. Obesity. 5. Possible pneumonia. The patient is on vancomycin and cefepime as well as Plaquenil. 6. Paroxysmal atrial fibrillation, currently in sinus rhythm, on amiodarone 200 mg daily. Thank you very much for allowing me to participate in the care of this patient. Please do not hesitate to contact me for any questions regarding my evaluation. Avery Perry M.D. DR: Juvencio JOB#: [id number] CC:
--- NOTE | 2020-06-19 19:06 | NUR ---
NURSE NOTES: Report given to Basia AHMADI.
--- NOTE | 2020-06-19 19:26 | NUR ---
NURSE NOTES: Received patient report from Didi RN and Pearl RN. Patient shows no signs of distress or pain at the time. Patient is AO x4. Patient is on room air without any signs of respiratory distress. IV intact and patient. There are no sign of erythema, infiltration, or bleeding. Bed is in lowest position, call light is within reach, and side rails up x2. Will continue to monitor.
[2020-06-19 20:00] VITALS: BP 116/77
[2020-06-19] MEDS: Atorvastatin 80mg tab ORAL SCH (21:05)
--- NOTE | 2020-06-19 22:51 | NUR ---
HAND-OFF: Report given to DAIANA Pelletier. Patient shows no signs of distress or pain at the time. Endorsed plan of care.
--- NOTE | 2020-06-19 23:19 | NUR ---
NURSE NOTES: Report received from DAIANA Flor. Patient aox4. Able to verbalize needs. On room air, saturating well. Breathing unlabored and even. IV site intact and asymptomatic; flushed. No complaints of pain or discomfort at this time. Bed in lowest position, brakes engaged. Bed rails raised x2. Able to ambulate independently, steady. Call light placed within reach. Will continue to monitor.
[2020-06-20] VITALS: BP 148/70
[2020-06-20 04:00] VITALS: BP 120/66
[2020-06-20] MEDS: NovoLOG Insulin Flexpen SUBQ SCH ×3 (05:49→17:02)
[2020-06-20] MEDS: Heparin 5000 units/ml inj SUBQ SCH ×3 (05:50→20:54)
--- NOTE | 2020-06-20 07:30 | NUR ---
NURSE NOTES: Received pt from DAIANA Pelletier, pt is awake and alert, pt is in RA, no SOB or acute respiratory distress noted. pt has intact iv access LFA 22G SL. No complain of pain at this moment. pt is on continues heart monitoring. All needs attended, bed is locked and is in the lowest position. call light within easy reach. will continue to monitor.
--- NOTE | 2020-06-20 07:32 | NUR ---
HAND-OFF: Report given to DAIANA Spann. Patient stable. Plan of care endorsed.
[2020-06-20 08:00] VITALS: BP 134/69
[2020-06-20] MEDS: Carvedilol 6.25mg Tab ORAL SCH ×2 (08:57→20:52)
[2020-06-20] MEDS: Amiodarone 200mg tab ORAL SCH (08:57)
[2020-06-20] MEDS: Aspirin EC 81mg tab ORAL SCH (08:57)
[2020-06-20] MEDS: Levemir Flexpen SUBQ SCH ×2 (09:02→20:54)
--- NOTE | 2020-06-20 10:43 | Cardiac Electrophysiology PN ---
Assessment/Plan Assessment/Plan 1. Exacerbation of congestive heart failure Continue Lasix 40 mg IV daily, Coreg 6.25 mg b.i.d. Add Lisinopril and Aldactone 2. Coronary artery disease with history of coronary artery bypass graft and subsequent stent, just last month, in the vein graft to the RCA at [facility]. Continue aspirin, Plavix, and Lipitor 80 mg daily as well as Coreg. 3. Diabetes, on insulin. 4. Obesity. 5. Possible pneumonia. The patient is on vancomycin and cefepime as well as Plaquenil. 6. Questionable Paroxysmal atrial fibrillation, currently in sinus rhythm. DC amiodarone DW RN Subjective Subjective Feeling better. No CP. SOB is less. Troponins negative Objective Last 24 Hour Vital Signs Date Time Temp Pulse Resp B/P (MAP) Pulse Ox O2 Delivery O2 Flow Rate FiO2 06/20/20 09:00 Room Air 06/20/20 08:57 72 134/69 06/20/20 08:00 72 06/20/20 08:00 98.8 72 20 134/69 (90) 98 06/20/20 04:00 82 06/20/20 04:00 99.1 72 18 120/66 (84) 97 06/20/20 00:00 77 06/20/20 00:00 96.6 77 18 148/70 (96) 97 06/19/20 21:05 75 116/77 06/19/20 21:00 Room Air 06/19/20 20:00 78 06/19/20 20:00 98.1 75 18 116/77 (90) 98 06/19/20 16:00 74 06/19/20 15:39 97.7 99 18 134/61 (85) 98 06/19/20 12:00 71 06/19/20 11:40 97.9 85 18 127/65 (85) 97 Intake and Output 06/19/20 06/20/20 19:00 07:00 Intake Total 610 ml Balance 610 ml Intake Oral 610 ml # Voids 3 1 # Bowel Movements 1 Laboratory Tests Test 06/19/20 20:17 06/20/20 05:50 POC Whole Blood Glucose 250 MG/DL (74-106) H Troponin I 0.011 ng/mL (0.000-0.056) Pro-B-Type Natriuretic Peptide 4789 pg/mL (0-125) H Microbiology Date/Time Source Procedure Growth Status 06/18/20 18:20 Blood Blood Culture - Preliminary NO GROWTH AFTER 24 HOURS Resulted 06/18/20 18:05 Blood Blood Culture - Preliminary NO GROWTH AFTER 24 HOURS Resulted 06/18/20 17:50 Nasopharynx SARS-CoV-2 RdRp Gene Assay - Final Complete 06/18/20 17:50 Rectum Received Objective HEAD AND NECK: No JVD. LUNGS: Clear. CARDIOVASCULAR: Regular S1 and S2 with no gallop. Sternotomy scar is intact. ABDOMEN: Soft. EXTREMITIES: 2+ pitting edema. Avery Perry MD Jun 20, 2020 10:43
--- NOTE | 2020-06-20 11:07 | NUR ---
CASE MANAGEMENT: REVIEW 06/20/20 SI:CHF EXACERBATION . CAD . 98.8 72 20 134/69 98% ON RA BNP 4789 IS: IV LASIX QD PLAQUENIL PO QD PLAVIX PO QD HEPARIN SQ TID COREG PO BID ASPIRIN PO QD \: 2E TELE UNIT DCP: HOME PLAN OF CARE: BNP ELEVATED ~ STABLE HR CM TO ASK IF ABLE TO DOWNGRADE TO MED SURG ~ PER CARDIO KEEP ON TELE UNIT START ON ALDACTONE + LISINOPRIL DAILY
[2020-06-20 12:00] VITALS: BP 135/63
--- NOTE | 2020-06-20 12:39 | General Progress Note ---
Assessment/Plan Assessment/Plan: #Acute on chronic diastolic CHF #Atypical CP #CAD s/p CABG #Recent stent placement #HTN -Admit to tele -cont IV Lasix diuresis -follow up 2D Echo -Continue DAPT -Continue Coreg -started on lisinopril and Aldactone -Continue Lipitor -Trend troponin, daily weights, I&O, BMP -Cariology recs appreciated -Stop hydroxychloroquine #DM type 1 #Morbid obesity -Levemir 32 units BID -10 units prandial insulin -JACI -Carb consistent diet. #GERD -Protonix 40 mg daily. I spent 37 minutes on this patient's case, and 20 minutes was dedicated to counseling and/or care coordination with RN, consulting MDs, case management Subjective Date patient seen: Jun 20, 2020 Time patient seen: 12:00 ROS Limited/Unobtainable: No Constitutional: Denies: chills, fever Cardiovascular: Denies: chest pain Respiratory: Denies: cough, orthopnea, shortness of breath Gastrointestinal/Abdominal: Denies: abdomen distended, abdominal pain Allergies: Coded Allergies: No Known Allergies (Unverified , 08/08/12) Subjective Follow up for acute on chronic CHF, CAD Feeling better today, no dyspnea or wheeze Objective Last 24 Hour Vital Signs Date Time Temp Pulse Resp B/P (MAP) Pulse Ox O2 Delivery O2 Flow Rate FiO2 06/20/20 12:00 98.4 74 20 135/63 (87) 100 06/20/20 11:43 77 06/20/20 09:00 Room Air 06/20/20 08:57 72 134/69 06/20/20 08:00 72 06/20/20 08:00 98.8 72 20 134/69 (90) 98 06/20/20 04:00 82 06/20/20 04:00 99.1 72 18 120/66 (84) 97 06/20/20 00:00 77 06/20/20 00:00 96.6 77 18 148/70 (96) 97 06/19/20 21:05 75 116/77 06/19/20 21:00 Room Air 06/19/20 20:00 78 06/19/20 20:00 98.1 75 18 116/77 (90) 98 06/19/20 16:00 74 06/19/20 15:39 97.7 99 18 134/61 (85) 98 Intake and Output 06/19/20 06/20/20 19:00 07:00 Intake Total 610 ml Balance 610 ml Intake Oral 610 ml # Voids 3 1 # Bowel Movements 1 Laboratory Tests 06/19/20 20:17: POC Whole Blood Glucose 250H 06/20/20 05:50: Troponin I 0.011, Pro-B-Type Natriuretic Peptide 4789H 06/20/20 11:13: POC Whole Blood Glucose 152H Height (Feet): 5 Height (Inches): 0.00 Weight (Pounds): 182 General Appearance: no apparent distress, alert Neck: normal alignment, supple Cardiovascular: normal rate, regular rhythm Respiratory/Chest: lungs clear, normal breath sounds, no respiratory distress Abdomen: non tender, soft 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
[2020-06-20 16:00] VITALS: BP 138/64
--- NOTE | 2020-06-20 18:58 | NUR ---
HAND-OFF: Report given to ALONSO AHMADI. Pt is awake and stable, no stress noted, endorsed plan of care.
--- NOTE | 2020-06-20 19:11 | NUR ---
NURSE NOTES: Received report from DAIANA Spann. Patient aox4. Able to verbalize needs. On room air, saturating well. Breathing unlabored and even. No complaints of pain or discomfort during the shift. Patient ambulatory. IV site intact and flushed. Bed in lowest position, brakes engaged, bed alarm on. Side rails raised x2. Call light placed within reach. Will continue to monitor.
[2020-06-20 20:00] VITALS: BP 141/72
[2020-06-20] MEDS: Atorvastatin 80mg tab ORAL SCH (20:52)
[2020-06-21] VITALS: BP 140/61
[2020-06-21 04:00] VITALS: BP 131/71
[2020-06-21] MEDS: Heparin 5000 units/ml inj SUBQ SCH (06:15)
[2020-06-21] MEDS: NovoLOG Insulin Flexpen SUBQ SCH ×2 (06:16→11:40)
[2020-06-21 06:45] LABS: BASOPHILS % (AUTO) 0.8 % (0.0-2.0); EOSINOPHILS % (AUTO) 1.7 % (0.0-3.0); HEMATOCRIT 34.7 % (37.0-47.0); LYMPHOCYTES % (AUTO) 39.2 % (20.0-45.0); MEAN CORPUSCULAR VOLUME 90 FL (80-99); MONOCYTES % (AUTO) 9.3 % (1.0-10.0); PLATELET COUNT 271 K/UL (150-450); RED BLOOD COUNT 3.84 M/UL (4.20-5.40); RED CELL DISTRIBUTION WIDTH 12.3 % (11.6-14.8); WHITE BLOOD COUNT 6.3 K/UL (4.8-10.8)
[2020-06-21 07:25] LABS: ANION GAP 9 mmol/L (5-15); BLOOD UREA NITROGEN 25 mg/dL (7-18); CALCIUM 8.8 MG/DL (8.5-10.1); CARBON DIOXIDE 25 MMOL/L (21-32); CHLORIDE 105 MMOL/L (98-107); CREATININE 1.3 MG/DL (0.55-1.30); POTASSIUM 3.8 MMOL/L (3.5-5.1); SODIUM 139 MMOL/L (136-145)
--- NOTE | 2020-06-21 07:27 | NUR ---
NURSE NOTES: Report received from Prabhu AHMADI. Pt in bed sleeping. Bed locked and in lowest position. Call light within reach. No distress noted.
--- NOTE | 2020-06-21 07:39 | NUR ---
HAND-OFF: Report given to DAIANA Kang. Plan of care endorsed. Patient stable.
[2020-06-21 08:00] VITALS: BP 142/68
[2020-06-21] MEDS: Carvedilol 6.25mg Tab ORAL SCH (08:47)
[2020-06-21] MEDS: Aspirin EC 81mg tab ORAL SCH (08:47)
[2020-06-21] MEDS: Levemir Flexpen SUBQ SCH (08:51)
[2020-06-21] MEDS ORDERED: Lisinopril 10mg tab ORAL SCH (09:00)
[2020-06-21] MEDS ORDERED: Spironolactone 25mg tab ORAL SCH (09:00)
--- NOTE | 2020-06-21 09:25 | Cardiac Electrophysiology PN ---
Assessment/Plan Assessment/Plan 1. Exacerbation of congestive heart failure EF 40% on 06/08/20 Continue Lasix 40 mg IV daily, Coreg 6.25 mg b.i.d., Lisinopril 10 and Aldactone 25 2. Coronary artery disease with history of coronary artery bypass graft and subsequent stent, just last month, in the vein graft to the RCA at [facility]. Continue aspirin, Plavix, Lipitor 80 mg daily as well as Coreg. 3. Diabetes, on insulin. 4. Obesity. 5. Possible pneumonia. On Abx 6. Questionable Paroxysmal atrial fibrillation, currently in sinus rhythm. DCed amiodarone yesterday DW RN Subjective Subjective Feeling better. No CP or SOB is less. RN at bedside Objective Last 24 Hour Vital Signs Date Time Temp Pulse Resp B/P (MAP) Pulse Ox O2 Delivery O2 Flow Rate FiO2 06/21/20 08:47 142/68 06/21/20 08:47 74 142/68 06/21/20 08:00 97.9 74 20 142/68 (92) 97 06/21/20 04:00 75 06/21/20 04:00 97.5 72 20 131/71 (91) 99 06/21/20 00:00 98.6 71 21 140/61 (87) 100 06/21/20 00:00 68 06/20/20 21:00 Room Air 06/20/20 20:52 78 141/72 06/20/20 20:00 97.9 78 18 141/72 (95) 98 06/20/20 20:00 76 06/20/20 16:00 98.8 72 20 138/64 (88) 100 06/20/20 15:38 73 06/20/20 12:00 98.4 74 20 135/63 (87) 100 06/20/20 11:43 77 Intake and Output 06/20/20 06/21/20 19:00 07:00 Intake Total 500 ml Balance 500 ml Intake Oral 500 ml # Voids 4 2 # Bowel Movements 1 Laboratory Tests Test 06/20/20 11:13 06/20/20 20:49 06/21/20 05:25 06/21/20 05:59 POC Whole Blood Glucose 152 MG/DL (74-106) H 175 MG/DL (74-106) H 153 MG/DL (74-106) H White Blood Count 6.3 K/UL (4.8-10.8) Red Blood Count 3.84 M/UL (4.20-5.40) L Hemoglobin 11.0 G/DL (12.0-16.0) L Hematocrit 34.7 % (37.0-47.0) L Mean Corpuscular Volume 90 FL (80-99) Mean Corpuscular Hemoglobin 28.6 PG (27.0-31.0) Mean Corpuscular Hemoglobin Concent 31.6 G/DL (32.0-36.0) L Red Cell Distribution Width 12.3 % (11.6-14.8) Platelet Count 271 K/UL (150-450) Mean Platelet Volume 8.5 FL (6.5-10.1) Neutrophils (%) (Auto) 49.0 % (45.0-75.0) Lymphocytes (%) (Auto) 39.2 % (20.0-45.0) Monocytes (%) (Auto) 9.3 % (1.0-10.0) Eosinophils (%) (Auto) 1.7 % (0.0-3.0) Basophils (%) (Auto) 0.8 % (0.0-2.0) Sodium Level 139 MMOL/L (136-145) Potassium Level 3.8 MMOL/L (3.5-5.1) Chloride Level 105 MMOL/L (98-107) Carbon Dioxide Level 25 MMOL/L (21-32) Anion Gap 9 mmol/L (5-15) Blood Urea Nitrogen 25 mg/dL (7-18) H Creatinine 1.3 MG/DL (0.55-1.30) Estimat Glomerular Filtration Rate 45.3 mL/min (>60) Glucose Level 154 MG/DL (74-106) H Calcium Level 8.8 MG/DL (8.5-10.1) Microbiology Date/Time Source Procedure Growth Status 06/18/20 18:20 Blood Blood Culture - Preliminary NO GROWTH AFTER 48 HOURS Resulted 06/18/20 18:05 Blood Blood Culture - Preliminary NO GROWTH AFTER 48 HOURS Resulted 06/18/20 17:50 Nasopharynx SARS-CoV-2 RdRp Gene Assay - Final Complete 06/18/20 17:50 Nasal Nares Right MRSA Culture - Final NO METHICILLIN RESISTANT STAPH AUREUS... Complete 06/18/20 17:50 Rectum VRE Culture - Final NO VANCOMYCIN RESISTANT ENTEROCOCCUS ... Complete 06/18/20 17:50 Rectum - Final NO CARBAPENEM-RESISTANT ENTEROBACTERI... Complete Objective HEAD AND NECK: No JVD. LUNGS: Clear. CARDIOVASCULAR: Regular S1 and S2 with no gallop. Sternotomy scar is intact. ABDOMEN: Soft. EXTREMITIES: 2+ pitting edema. Avery Perry MD Jun 21, 2020 09:25
--- NOTE | 2020-06-21 09:26 | Consultation ---
History of Present Illness General Chief Complaint: Upper Respiratory Illness Present Illness Allergies: Coded Allergies: No Known Allergies (Unverified , 08/08/12) Medication History Scheduled Amiodarone Hcl* (Pacerone*), 200 MG ORAL DAILY Aspirin* (Aspirin*), 81 MG ORAL DAILY Atorvastatin (Lipitor), 80 MG ORAL BEDTIME Carvedilol (Coreg), 6.25 MG ORAL EVERY 12 HOURS Clopidogrel Bisulfate* (Plavix*), 75 MG ORAL DAILY Hydroxychloroquine Sulfate (Hydroxychloroquine Sulfate), 200 MG PO DAILY, ( Reported) Insulin Lispro (Humalog), 10-25 UNITS SUBQ BEFORE MEALS Nph, Human Insulin Isophane (Humulin N), 25-40 UNITS SUBQ BEFORE BREAKFAST Pantoprazole* (Pantoprazole*), 40 MG ORAL DAILY Scheduled PRN Nitroglycerin 0.4MG table* (Nitroglycerin*), 0.4 MG SL Q5M PRN Durable Medical Equipment [BD Veo Syringe], SYR SUBQ DAILY, (DME) Patient History Healthcare decision maker Resuscitation status Advanced Directive on File Physical Exam Last 24 Hour Vital Signs Date Time Temp Pulse Resp B/P (MAP) Pulse Ox O2 Delivery O2 Flow Rate FiO2 06/21/20 08:47 142/68 06/21/20 08:47 74 142/68 06/21/20 08:00 97.9 74 20 142/68 (92) 97 06/21/20 04:00 75 06/21/20 04:00 97.5 72 20 131/71 (91) 99 06/21/20 00:00 98.6 71 21 140/61 (87) 100 06/21/20 00:00 68 06/20/20 21:00 Room Air 06/20/20 20:52 78 141/72 06/20/20 20:00 97.9 78 18 141/72 (95) 98 06/20/20 20:00 76 06/20/20 16:00 98.8 72 20 138/64 (88) 100 06/20/20 15:38 73 06/20/20 12:00 98.4 74 20 135/63 (87) 100 06/20/20 11:43 77 Intake and Output 06/20/20 06/21/20 19:00 07:00 Intake Total 500 ml Balance 500 ml Intake Oral 500 ml # Voids 4 2 # Bowel Movements 1 Laboratory Tests Test 06/20/20 11:13 06/20/20 20:49 06/21/20 05:25 06/21/20 05:59 POC Whole Blood Glucose 152 MG/DL (74-106) H 175 MG/DL (74-106) H 153 MG/DL (74-106) H White Blood Count 6.3 K/UL (4.8-10.8) Red Blood Count 3.84 M/UL (4.20-5.40) L Hemoglobin 11.0 G/DL (12.0-16.0) L Hematocrit 34.7 % (37.0-47.0) L Mean Corpuscular Volume 90 FL (80-99) Mean Corpuscular Hemoglobin 28.6 PG (27.0-31.0) Mean Corpuscular Hemoglobin Concent 31.6 G/DL (32.0-36.0) L Red Cell Distribution Width 12.3 % (11.6-14.8) Platelet Count 271 K/UL (150-450) Mean Platelet Volume 8.5 FL (6.5-10.1) Neutrophils (%) (Auto) 49.0 % (45.0-75.0) Lymphocytes (%) (Auto) 39.2 % (20.0-45.0) Monocytes (%) (Auto) 9.3 % (1.0-10.0) Eosinophils (%) (Auto) 1.7 % (0.0-3.0) Basophils (%) (Auto) 0.8 % (0.0-2.0) Sodium Level 139 MMOL/L (136-145) Potassium Level 3.8 MMOL/L (3.5-5.1) Chloride Level 105 MMOL/L (98-107) Carbon Dioxide Level 25 MMOL/L (21-32) Anion Gap 9 mmol/L (5-15) Blood Urea Nitrogen 25 mg/dL (7-18) H Creatinine 1.3 MG/DL (0.55-1.30) Estimat Glomerular Filtration Rate 45.3 mL/min (>60) Glucose Level 154 MG/DL (74-106) H Calcium Level 8.8 MG/DL (8.5-10.1) Height (Feet): 5 Height (Inches): 0.00 Weight (Pounds): 182 Medications Current Medications Medications (Trade) Dose Ordered Sig/Herbie Route PRN Reason Start Time Stop Time Status Last Admin Dose Admin Acetaminophen (Tylenol) 650 mg Q6H PRN ORAL Mild Pain (Pain Scale 1-3) 06/18/20 23:00 07/18/20 22:59 06/19/20 09:35 Aspirin (Ecotrin) 81 mg DAILY ORAL 06/19/20 09:00 08/03/20 08:59 06/21/20 08:47 Atorvastatin Calcium (Lipitor) 80 mg QHS ORAL 06/18/20 21:00 09/16/20 20:59 06/20/20 20:52 Carvedilol (Coreg) 6.25 mg EVERY 12 HOURS ORAL 06/18/20 21:00 07/18/20 20:59 06/21/20 08:47 Clopidogrel Bisulfate (Plavix) 75 mg DAILY ORAL 06/19/20 09:00 07/19/20 08:59 06/21/20 08:47 Dextrose (Dextrose 50%) 25 ml Q30M PRN IV Hypoglycemia 06/18/20 18:45 09/16/20 18:44 Dextrose (Dextrose 50%) 50 ml Q30M PRN IV Hypoglycemia 06/18/20 18:45 09/16/20 18:44 Furosemide (Lasix) 40 mg DAILY IV 06/19/20 09:00 07/19/20 08:59 06/21/20 08:48 Heparin Sodium (Porcine) (Heparin 5000 units/ml) 5,000 units EVERY 8 HOURS SUBQ 06/18/20 22:00 08/02/20 21:59 06/21/20 06:15 Insulin Aspart (NovoLOG) 10 units NOVOTIAC SUBQ 06/19/20 06:30 09/17/20 06:29 06/21/20 06:16 Insulin Detemir (Levemir) 32 units Q12HR SUBQ 06/18/20 21:00 09/16/20 20:59 06/21/20 08:51 Lisinopril (ZestriL) 10 mg DAILY ORAL 06/21/20 09:00 07/21/20 08:59 06/21/20 08:47 Pantoprazole (Protonix) 40 mg DAILY ORAL 06/19/20 09:00 07/19/20 08:59 06/21/20 08:47 Spironolactone (Aldactone) 25 mg DAILY ORAL 06/21/20 09:00 07/21/20 08:59 06/21/20 08:47 Iwona López M.D. Jun 21, 2020 09:26
--- NOTE | 2020-06-21 09:57 | NUR ---
CASE MANAGEMENT:REVIEW 06/21/20 SI: AC.CHR CHF. CAD. S/P CABG AND RECENT STENTS PLACED CXR(+) MILD BILATERAL PULMONARY EDEMA/INFILTRATES 97.9 74 20 142/68 97% ON RA H/H-11.0/34.7 BUN+25 GLUCOSE+154 IS: LISINOPRIL PO QD ALDACTONE PO QD ASA PO QD PLAVIX PO QD PROTONIX PO QD IV LASIX QD SS INSULIN AC+HS HEPARIN SQ Q8HRS COREG PO Q12 LEVEMIR SQ Q12 : TELEMETRY STATUS DCP: FROM HOME PLAN: DC PLAQUENIL DC AMIODARONE CONTINUOUS CARDIAC MONITORING PATIENT HAD 4 HOSPITALIZATIONS IN MAY...SHE WOULD BENEFIT FROM A [employer] TO FOLLOW HER TO DECREASE THE ADMISSIONS
[2020-06-21] MEDS ORDERED: SPIRONOLACTONE25 MG ORAL (10:40)
[2020-06-21] MEDS ORDERED: ZESTRIL10 M1 ORAL (10:40)
[2020-06-21] MEDS ORDERED: FUROSEMIDE40 MG ORAL (10:40)
--- NOTE | 2020-06-21 10:43 | Discharge Instructions ---
Discharge Instructions Discharge Instructions Call MD/Return to Hospital if: shorth of breath, chest pain, fever Diet: 2 GM sodium (low sodium), diabetic calorie control Activity: light activity For Congestive Heart Failure Reminder Report to your physician any weight gain of 5 pounds or more in one week. Jasbir Dai M.D. Jun 21, 2020 10:43
[2020-06-21 12:00] VITALS: BP 129/57
--- NOTE | 2020-06-21 12:18 | Discharge Summary ---
Discharge Summary Hospital Course Date of Admission Jun 18, 2020 at 18:01 Date of Discharge 06/21/2020 Admitting Diagnosis CP, SOB HPI 40-year-old female with history of CAD with previous three vessel CABG at [facility] April 2019, HTN, DM, GERD, Obesity who presented to ED with chest pain on 06/08/2020, recent RCA graft stent placement who presented to the ED with complaints of dyspnea with exertion, wheeze, orthopnea, LE edema. She states that she has to frequently stop to try to take a deep breath but is unable to take a deep breath. Denies chest pain, dizziness nausea or focal weakness. She also states that she feels short of breath when lying flat. She denies fever or chills. Consultations Cardiology Dr. Perry Hospital Course Patient did well during her stay. Cariology evaluated her and her amiodarone was discontinued. She diuresed adequately with lasix 40 mg IV daily. Patients new regime will be Coreg 3.125, Spironolactone 25 mg daily, Lasix 40 daily and lisinopril 10 mg. Patient was chest pain free during her say and can lay flat with no SOB. Her leg swelling reduced significantly. ED precautions given. Interstate Planner her to measure her weights daily, limit sodium and to obtain labs in 1 week. Discharge Medications New Medications: Furosemide* (Lasix*) 40 Mg Tablet 40 MG ORAL DAILY for 30 Days, #30 TAB Lisinopril* (Zestril*) 10 Mg Tablet 10 MG ORAL DAILY for 30 Days, #30 TAB Spironolactone* (Aldactone*) 25 Mg Tablet 25 MG ORAL DAILY for 30 Days, #30 TAB Continued Medications: Aspirin* (Aspirin*) 81 Mg Tab.chew 81 MG ORAL DAILY, #90 TAB 2 Refills Atorvastatin (Lipitor) 80 Mg Tablet 80 MG ORAL BEDTIME, #90 TAB 2 Refills Carvedilol (Coreg) 6.25 Mg Tablet 6.25 MG ORAL EVERY 12 HOURS, #180 TAB 2 Refills Clopidogrel Bisulfate* (Plavix*) 75 Mg Tablet 75 MG ORAL DAILY, #90 TAB 2 Refills Hydroxychloroquine Sulfate (Hydroxychloroquine Sulfate) 200 Mg Tablet 200 MG PO DAILY, TAB Insulin Lispro (Humalog) 100 Unit/1 Ml Vial 10-25 UNITS SUBQ BEFORE MEALS, #50 VIAL 2 Refills Take 25 units humalog before breakfast, 20 units before lunch, and 10 units before dinner Nitroglycerin 0.4MG table* (Nitroglycerin*) 0.4 Mg Tab.subl 0.4 MG SL Q5M PRN, #30 TAB Nph, Human Insulin Isophane (Humulin N) 100 Unit/1 Ml Vial 25-40 UNITS SUBQ BEFORE BREAKFAST, #90 VIAL 2 Refills Take 40 units NPH before breakfast and 35 units NPH before lunch Pantoprazole* (Pantoprazole*) 40 Mg Tablet.dr 40 MG ORAL DAILY, #90 TAB 2 Refills Discontinued Medications: Amiodarone Hcl* (Pacerone*) 200 Mg Tablet 200 MG ORAL DAILY, #90 TAB 2 Refills Discharge Condition Upon Discharge: improving Discharge Vital Signs Last Vital Signs Date Time Temp Pulse Resp B/P (MAP) Pulse Ox O2 Delivery O2 Flow Rate FiO2 06/21/20 09:00 Room Air 06/21/20 09:00 75 06/21/20 08:47 142/68 06/21/20 08:00 97.9 20 97 Discharge Disposition Patient was discharged to Discharge Diagnoses: (1) CHF (congestive heart failure) (2) Uncontrolled diabetes mellitus (3) CAD (coronary artery disease) Discharge Instructions Discharge Instructions Call MD/Return to Hospital if: shorth of breath, chest pain, fever Activity: light activity Jasbir Dai M.D. Jun 21, 2020 12:18
--- NOTE | 2020-06-21 13:30 | NUR ---
Pt discharged. Discharge paperwork and belongings provided and signed for. Tele monitor and IV line removed. Education provided regarding follow up with PCP.
--- NOTE | 2020-06-21 13:47 | Consultation ---
Consult Note Consult Note HISTORY OF PRESENT ILLNESS: The patient is a 40-year-old female with history of coronary artery bypass graft at [facility] in April of 2019, hypertension, diabetes, and obesity. She is admitted with a concern regarding pneumonia as well as CHF. Originally, she presented on 2019 with chest pain and the patient was then transferred to [facility], eventually underwent another stent placement in the vein graft to the right coronary artery. The patient presented to the emergency for increasing shortness of breath and inability to take a deep breath, even though she denies syncope or presyncopal symptoms. She also feels short of breath while lying flat. Her chest x-ray in the emergency room showed bilateral edema and infiltrate and BNP was more than 7000. REVIEW OF SYSTEMS: Negative other than what was mentioned in the history of present illness. PAST MEDICAL HISTORY: As mentioned above. FAMILY HISTORY: Noncontributory. SOCIAL HISTORY: She lives at home. She does smoke or drink alcohol. PHYSICAL EXAMINATION: VITAL SIGNS: Blood pressure 130/70, pulse 70, respirations 18, and she is afebrile. HEAD AND NECK: Showed no JVD. LUNGS: Clear. CARDIOVASCULAR: Shows regular S1 and S2 with no gallop. Sternotomy scar is intact. ABDOMEN: Soft. EXTREMITIES: 2+ pitting edema. LABORATORY AND DIAGNOSTIC DATA: Labs show white count 5.5, hemoglobin 10.6, hematocrit 33, and platelet count 277,000. Sodium is 137, potassium 3.7, BUN of 16, creatinine 1.2, and glucose of 185. Her troponin was negative. ASSESSMENT AND PLAN: 1. Exacerbation of congestive heart failure. Continue Lasix 40 mg IV daily. Resume the patient's rest of heart failure medications including Coreg 6.25 mg b.i.d. 2. Coronary artery disease with history of coronary artery bypass graft and subsequent stent. Continue aspirin, Plavix, and Lipitor 80 mg daily as well as Coreg. 3. Diabetes, on insulin. 4. Obesity. 5. Possible pneumonia. The patient is on vancomycin and cefepime as well as Plaquenil. 6. Paroxysmal atrial fibrillation, currently in sinus rhythm, on amiodarone 200 mg daily. Adonay Matos M.D., MD Jun 21, 2020 13:47
[2020-06-21] MEDS ORDERED: Tubing IV Secondary IV ONE (14:11)
--- NOTE | 2020-06-21 14:11 | NUR ---
INSURANCE CLINICALS AND REVIEWS FAXED TODAY WHICH IS THE DATE OF DISCHARGE [facility] T:[phone] F: [phone] REF #[id number] Addendum: 06/22/20 at 1210 by ROB CUBA LVN LVN ALSO FAXED TO [facility] T: [phone] F: [phone] TRK# [id number] DISCHARGE SUMMARY INCLUDED
== END 2020-06-21 14:12 | disposition home or self-care (01) | DRG 194 ==
LOC: EMR 17:28 → 2E 18:01 → EDBEDREQ 18:09
DX: I11.0 Hypertensive heart disease with heart failure (principal); I50.33 Acute on chronic diastolic (congestive) heart failure; E66.01 Morbid (severe) obesity due to excess calories; Z68.35 Body mass index [BMI] 35.0-35.9, adult; J18.9 Pneumonia, unspecified organism; I25.10 Atherosclerotic heart disease of native coronary artery without angina pectoris; Z95.1 Presence of aortocoronary bypass graft; Z95.5 Presence of coronary angioplasty implant and graft; K21.9 Gastro-esophageal reflux disease without esophagitis; I48.0 Paroxysmal atrial fibrillation; Z79.82 Long term (current) use of aspirin; Z79.4 Long term (current) use of insulin
CPT/HCPCS: 36415; 71045; 80048; 80053; 81025; 82962; 83605; 83735; 83880; 84100; 84484; 85025; 85379; 85610; 85730; 87040; 87081; 93005; 96365; 96367; 96375; 99285; J1815; J7030; S5561; U0002

== ENCOUNTER 2020-07-07 08:25 | Emergency (ER) | payer OTHER ==
[~2020-07-07] VITALS: Ht 152.4 cm; Wt 79.8 kg
[~2020-07-07 08:25] MED LIST changes: +OMEPRAZOLE40 M1 ORAL; +SPIRONOLACTONE25 MG ORAL; +ZESTRIL10 M1 ORAL
[2020-07-07 08:35] VITALS: BP 136/74
--- NOTE | 2020-07-07 08:35 | NUR ---
ED Nurse Note: Pt walked in from home c/o upper back pain x 2 day. Pt denies injury. Pt has hx of stent placement @ [facility]. A+Ox4, speaking in full sentences. Respirations even and unlabored on room air. Vitals stable as documented. Pt placed on monitor.
--- NOTE | 2020-07-07 08:50 | Emergency Room Report ---
History of Present Illness General Chief Complaint: Back Pain-No Injury Source: Patient Present Illness HPI Disclaimer: Please note that this report is being documented using DRAGON technology. This can lead to erroneous entry secondary to incorrect interpretation by the dictating instrument. HPI: 40-year-old female history of CAD status post CABG and recent stent, CHF, type 1 diabetes presents for evaluation of back pain. She reports a tightness in her back and stiffness with prolonged standing for the past 2 days. Denies trauma. Exacerbated by bending and twisting motion. Denies skin breakdown, radiating pain, tearing pain. She denies chest pain and reports her baseline shortness of breath when laying supine consistent with her CHF. She also notes she has been having some epigastric discomfort since her CABG 1 year ago which has been unchanged however over the past 2 days she has had loose stools. She denies lower extremity swelling, cough, shortness of breath with activity. She has not been taking her Lasix for 2 days over concerns of dehydration from the loose stools. Denies fever, chills. Recently diagnosed with COVID-19 but has shown no symptoms since completing a 14-day quarantine. PMH: CAD, CHF, diabetes, hypertension, hyperlipidemia PSH: CABG, cardiac stents Allergies: Reviewed Social Hx: Reviewed Allergies: Coded Allergies: INSULIN LISPRO (Verified Allergy, Intermediate, Rash, 06/28/20) Patient stated that she gets a rash in reaction to Ademlog, specifically; for this reason, she receives Humalog in the outpatient setting COVID-19 Screening Contact w/high risk pt: Yes Recent Travel to affected area: No Experienced COVID-19 symptoms?: Yes COVID-19 symptoms experienced: Shortness of Breath COVID-19 Testing performed TRIMMER MACHINE: Yes - 05/25/20 COVID-19 Screening: Positive COVID-19 COVID-19 Testing 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 Patient History Last Menstrual Period: 06/30/20 Now: No Nursing Documentation-PMH Past Medical History: No History, Except For Hx Hypertension: Yes Hx Pacemaker: No Hx Asthma: Yes Hx COPD: No Hx Diabetes: Yes Hx Cancer: No Hx Gastrointestinal Problems: Yes - Chronic constipation Hx Dialysis: No Hx Neurological Problems: No Hx Cerebrovascular Accident: No Hx Seizures: No Hx Headaches: Yes Review of Systems All Other Systems: negative except mentioned in HPI Physical Exam Vital Signs Date Time Temp Pulse Resp B/P (MAP) Pulse Ox O2 Delivery O2 Flow Rate FiO2 07/07/20 08:29 98.8 81 17 133/69 (90) 98 Room Air General: Awake and alert, no acute distress HEENT: NC/AT. EOMI. Chest Wall: No tenderness, no deformity Cardiovascular: RRR. S1 and S2 normal. Resp: Normal work of breathing. No cough, wheezing or crackles appreciated Abdomen: Abdomen is soft, nondistended. Nontender Skin: Intact. No abrasions, laceration or rash over the exposed skin MSK: Normal tone and bulk. Moving all extremities. No obvious deformity. No pedal edema Neuro: Awake and alert. Mentating appropriately. Back/Spine: No midline tenderness in the cervical, thoracic or lumbosacral spine. Moderate paraspinal tenderness in the thoracic spine and over the lower trapezius. Medical Decision Making Diagnostic Impression: Primary Impression: Back pain Additional Impression: CHF exacerbation ER Course 40-year-old female with history of CHF, CAD, diabetes presents for evaluation of atraumatic back pain 2 days duration as well as loose stools. Differential includes but is not limited to gastritis, gastroenteritis, pancreatitis, colitis , muscle strain, muscle spasm, KWESI, dehydration, pyelonephritis, UTI, cardiac ischemia, angina, CHF exacerbation, pleural effusion, pneumonia to name a few. Capillary refill is brisk, mucous membranes are moist and the patient has stable vital signs. No clinical evidence of severe dehydration however labs will be sent to also evaluate for cardiac, pulmonary causes of the patient's presenting symptoms 1020: Initial EKG was showed T wave inversions and QTC prolongation however this was repeated and these abnormalities have resolved. I suspect lead placement as the axis was also changed. The repeat EKG is unchanged from EKG on 06/20 and others from previous admissions. Labs show troponin within normal limits and elevated BN peptide consistent with mild CHF exacerbation. No evidence of effusion or pulmonary overload on chest x-ray. Creatinine 1.4 which is baseline for patient with a normal BUN. She was given 40 mg of Lasix and has good urine output. Remainder of labs are within normal limits. Suspect her back pain suspected to musculoskeletal strain and she will be treated with Tylenol, Robaxin and lidocaine patches. She will follow-up with her PMD and I encouraged her to restart taking her prescribed Lasix to avoid severe CHF exacerbation. No clinical evidence of dehydration. She will be discharged to follow-up with her PMD on outpatient basis. I discussed these findings with her distribution spec, Dr. Sifuentes, we will follow-up with her quickly. Instructed her to return with new or worsening symptoms. She understands and agrees with this treatment plan. Laboratory Tests Test 07/07/20 08:50 07/07/20 09:20 White Blood Count 5.5 K/UL (4.8-10.8) Red Blood Count 3.97 M/UL (4.20-5.40) L Hemoglobin 11.3 G/DL (12.0-16.0) L Hematocrit 35.0 % (37.0-47.0) L Mean Corpuscular Volume 88 FL (80-99) Mean Corpuscular Hemoglobin 28.5 PG (27.0-31.0) Mean Corpuscular Hemoglobin Concent 32.3 G/DL (32.0-36.0) Red Cell Distribution Width 12.4 % (11.6-14.8) Platelet Count 326 K/UL (150-450) Mean Platelet Volume 7.5 FL (6.5-10.1) Neutrophils (%) (Auto) 60.8 % (45.0-75.0) Lymphocytes (%) (Auto) 27.2 % (20.0-45.0) Monocytes (%) (Auto) 11.2 % (1.0-10.0) H Eosinophils (%) (Auto) 0.5 % (0.0-3.0) Basophils (%) (Auto) 0.3 % (0.0-2.0) Prothrombin Time 10.6 SEC (9.30-11.50) Prothrombin Time INR 1.0 (0.9-1.1) Activated Partial Thromboplast Time 27 SEC (23-33) Sodium Level 141 MMOL/L (136-145) Potassium Level 3.8 MMOL/L (3.5-5.1) Chloride Level 105 MMOL/L (98-107) Carbon Dioxide Level 25 MMOL/L (21-32) Anion Gap 11 mmol/L (5-15) Blood Urea Nitrogen 17 mg/dL (7-18) Creatinine 1.4 MG/DL (0.55-1.30) H Estimated Glomerular Filtration Rate 41.6 mL/min (>60) Glucose Level 201 MG/DL (74-106) H Calcium Level 8.4 MG/DL (8.5-10.1) L Total Bilirubin 0.2 MG/DL (0.2-1.0) Aspartate Amino Transferase (AST) 14 U/L (15-37) L Alanine Aminotransferase (ALT) 18 U/L (12-78) Alkaline Phosphatase 82 U/L (46-116) Troponin I 0.006 ng/mL (0.000-0.056) Pro-B-Type Natriuretic Peptide 5361 pg/mL (0-125) H Total Protein 7.6 G/DL (6.4-8.2) Albumin 3.0 G/DL (3.4-5.0) L Globulin 4.6 g/dL Albumin/Globulin Ratio 0.7 (1.0-2.7) L Lipase 196 U/L (73-393) Urine Color Pending Urine Appearance Pending Urine pH Pending Urine Specific Burney Pending Urine Protein Pending Urine Glucose (UA) Pending Urine Ketones Pending Urine Blood Pending Urine Nitrite Pending Urine Bilirubin Pending Urine Urobilinogen Pending Urine Leukocyte Esterase Pending EKG Diagnostic Results EKG Time: 10:23 Rate: normal Rhythm: NSR ST Segments: no acute changes Other Impression Sinus rhythm, left axis deviation, precordial leads have Q waves consistent with prior infarct. Unchanged from EKG on 06/20. ASA given to the pt in ED: No - Patient taking Plavix Rhythm Strip Diag. Results Rhythm Strip Time: 10:23 EP Interpretation: yes Rate: 74 Rhythm: NSR, no PVC's, no ectopy Chest X-Ray Diagnostic Results Chest X-Ray Diagnostic Results : Chest X-Ray Ordered: Yes # of Views/Limited/Complete: 1 View Indication: Shortness of Breath EP Interpretation: Yes Interpretation: no consolidation, no effusion, no pneumothorax, no acute cardiopulmonary disease, other - Sternotomy wires present Impression: No acute disease Electronically Signed by: Electronically signed by Dr. Gregor Andrews Last Vital Signs Date Time Temp Pulse Resp B/P (MAP) Pulse Ox O2 Delivery O2 Flow Rate FiO2 07/07/20 08:29 98.8 81 17 133/69 (90) 98 Room Air Disposition: HOME, SELF-CARE Condition: Stable Scripts Lidocaine Patch* (Lidoderm Patch*) 1 Each Adh..patch 1 PATCH TOPIC DAILY, #7 PATCH 0 Refills Patch(es) may remain in place for up to 12 hours in any 24-hour period. Prov: Gregor Andrews MD 07/07/20 Methocarbamol* (ROBAXIN-750*) 750 Mg Tablet 750 MG PO TID, #21 TAB 0 Refills Prov: Gregor Andrews MD 07/07/20 Acetaminophen* (ACETAMINOPHEN EXTRA STRENGTH*) 500 Mg Tablet 500 MG ORAL Q6H for 5 Days, #30 TAB Prov: Gregor Andrews MD 07/07/20 Referrals: NON PHYSICIAN (PCP) Gregor Andrews MD Jul 07, 2020 08:50
--- NOTE | 2020-07-07 09:01 | NUR ---
ED Nurse Note: blood sent to lab. Pt aware of need for urine specimen
[2020-07-07 09:15] LABS: BASOPHILS % (AUTO) 0.3 % (0.0-2.0); EOSINOPHILS % (AUTO) 0.5 % (0.0-3.0); HEMOGLOBIN 11.3 G/DL (12.0-16.0); LYMPHOCYTES % (AUTO) 27.2 % (20.0-45.0); MEAN CORPUSCULAR VOLUME 88 FL (80-99); MONOCYTES % (AUTO) 11.2 % (1.0-10.0); NEUTROPHILS % (AUTO) 60.8 % (45.0-75.0); PLATELET COUNT 326 K/UL (150-450); RED BLOOD COUNT 3.97 M/UL (4.20-5.40); RED CELL DISTRIBUTION WIDTH 12.4 % (11.6-14.8); WHITE BLOOD COUNT 5.5 K/UL (4.8-10.8)
[2020-07-07 09:30] LABS: ANION GAP 11 mmol/L (5-15); BLOOD UREA NITROGEN 17 mg/dL (7-18); CALCIUM 8.4 MG/DL (8.5-10.1); CARBON DIOXIDE 25 MMOL/L (21-32); CHLORIDE 105 MMOL/L (98-107); CREATININE 1.4 MG/DL (0.55-1.30); POTASSIUM 3.8 MMOL/L (3.5-5.1); SODIUM 141 MMOL/L (136-145)
[2020-07-07 09:40] LABS: ALANINE AMINOTRANSFERASE 18 U/L (12-78); ALBUMIN/GLOBULIN RATIO 0.7 (1.0-2.7); ALKALINE PHOSPHATASE 82 U/L (46-116); ASPARTATE AMINO TRANSFERASE 14 U/L (15-37); BILIRUBIN,TOTAL 0.2 MG/DL (0.2-1.0)
[2020-07-07 10:08] LABS: APPEARANCE,URINE CLEAR; BILIRUBIN, URINE NEGATIVE (NEGATIVE); COLOR,URINE PALE YELLOW; GLUCOSE, URINE (UA) NEGATIVE (NEGATIVE); KETONES,URINE NEGATIVE (NEGATIVE); LEUKOCYTE ESTERASE ,URINE NEGATIVE (NEGATIVE); NITRITE,URINE NEGATIVE (NEGATIVE); PH,URINE 6 (4.5-8.0); PROTEIN,URINE 3+ (NEGATIVE); UROBILINOGEN,URINE NORMAL MG/DL (0.0-1.0)
[2020-07-07] MEDS ORDERED: ROBAXIN-750750 MG PO (10:30)
[2020-07-07] MEDS ORDERED: LIDODERM700 M1 TOPIC (10:30)
[2020-07-07] MEDS ORDERED: ACETAMINOPHEN500 M3 ORAL (10:30)
--- NOTE | 2020-07-07 10:35 | Diagnostic Imaging Report ---
Indication: Shortness of breath Technique: One view of the chest Comparison: 06/25/2020 Findings: Lungs and pleural spaces are clear. Heart size is normal. Previously demonstrated interstitial congestion has cleared. Median sternotomy sutures are again demonstrated. Impression: No acute process. Interim clearing of previously demonstrated interstitial edema
[2020-07-07 11:20] VITALS: BP 129/76
--- NOTE | 2020-07-07 11:20 | NUR ---
ER DISCHARGE NOTE: Patient is cleared to be discharged per ERMD, pt is aox4, on room air, with stable vital signs. pt was given dc and prescription instructions, pt was able to verbalize understanding, pt id band and iv site removed without complications. pt is able to ambulate with steady gait. pt took all belongings.
== END 2020-07-07 11:20 | disposition home or self-care (01) ==
LOC: EMR 08:34
DX: M54.9 Dorsalgia, unspecified (principal); I11.0 Hypertensive heart disease with heart failure; I50.9 Heart failure, unspecified; E78.5 Hyperlipidemia, unspecified; E11.9 Type 2 diabetes mellitus without complications; Z95.5 Presence of coronary angioplasty implant and graft; Z95.1 Presence of aortocoronary bypass graft
CPT/HCPCS: 36415; 71045; 80053; 81003; 83690; 83880; 84484; 85025; 85610; 85730; 96374; J1940; Z7502; 99284

== ENCOUNTER 2021-01-28 11:10 | Emergency (ER) | payer OTHER ==
[~2021-01-28] VITALS: Ht 152.4 cm; Wt 82.1 kg
[~2021-01-28 11:10] MED LIST changes: +ACETAMINOPHEN500 M3 ORAL; +LIDODERM700 M1 TOPIC
[2021-01-28] MEDS ORDERED: CLOBETASOL PROP30 GM TP (12:07)
[2021-01-28] MEDS ORDERED: ROBAXIN-750750 MG PO (12:07)
[2021-01-28] MEDS ORDERED: LIDODERM700 M1 TOPIC (12:07)
--- NOTE | 2021-01-28 12:15 | Emergency Room Report ---
History of Present Illness General Chief Complaint: Back Pain-No Injury Source: Patient Present Illness HPI Disclaimer: Please note that this report is being documented using DRAGON technology. This can lead to erroneous entry secondary to incorrect interpretation by the dictating instrument. HPI: 40-year-old female history of CAD status post CABG, diabetes, obesity presents with back pain. Symptoms present 1 week. Denies injury or strain. She reports feeling tense and stiff in the shoulders and upper neck. Denies chest pain, pain rating through to the back, shortness of breath, and lightheadedness. Denies limitation to range of motion of the extremities. Pain is worse with bending and twisting motion. More of a stiffness and cramping which is persistent. She states she has had a lot of stress recently over the of her father. 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 Denies numbness or tingling or weakness. Denies fever or chills. Recently saw her barrel straightener stating her disease was stable and no further interventions planned at this time. Nuclear stress test performed last year again showed stable disease. Is also requesting a refill of her psoriasis topical medication. 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 Patient History Now: No Nursing Documentation-PMH Past Medical History: No History, Except For Hx Hypertension: Yes Hx Pacemaker: No Hx Asthma: Yes Hx COPD: No Hx Diabetes: Yes Hx Cancer: No Hx Gastrointestinal Problems: Yes - Chronic constipation Hx Dialysis: No Hx Neurological Problems: No Hx Cerebrovascular Accident: No Hx Seizures: No Hx Headaches: Yes Review of Systems All Other Systems: negative except mentioned in HPI Physical Exam Vital Signs Date Time Temp Pulse Resp B/P (MAP) Pulse Ox O2 Delivery O2 Flow Rate FiO2 01/28/21 11:45 97.9 60 18 124/59 (80) 98 Room Air General: Awake and alert, no acute distress HEENT: NC/AT. EOMI. Cardiovascular: RRR. S1 and S2 normal. No murmur appreciated Resp: Normal work of breathing. No cough, wheezing or crackles appreciated Skin: Intact. No abrasions, laceration or rash over the exposed skin MSK: Normal tone and bulk. Moving all extremities. No obvious deformity. Tenderness palpation around the trapezius bilaterally beginning in the upper neck and extending out over the shoulders. Full range of motion in the cervical spine with flexion, extension and rotation. Full range of motion in the upper extremities at the shoulders. Automotive Service Writer strength equal. Neuro: Awake and alert. Mentating appropriately. Medical Decision Making Diagnostic Impression: Primary Impression: MEDICATION REFIL Additional Impressions: Psoriasis Back muscle spasm Hypoglycemia ER Course Is a 40-year-old female presenting with atraumatic upper shoulder pain and cramping for the past week. Differential includes was not limited to cervical strain, spasm, arthritis, repetitive stress injury. Given the patient's regular follow-up with her barrel straightener and recent stress test I have low suspicion for ischemia as the cause of her symptoms currently. An EKG was obtained for screening purposes which showed persistent septal Q waves consistent with patient's prior EKG and cardiac history. Otherwise EKG was unchanged from previous most recently compared to EKG on 06/20/20. Kidney function near baseline. Glucose was 47. The patient states she did not eat this morning. She was given juice and food in the ED. Denies lightheadedness or dizziness. Labs otherwise unremarkable including negative troponin. Her exam and unremarkable labs are most consistent with a musculoskeletal cause of her shoulder pain as opposed to a cardiac issue. She has appointment to see her barrel straightener in 2 weeks. Believe she is stable for outpatient follow-up. Will keep that appointment and return with new or worsening symptoms. She understands and agrees with this treatment plan. Laboratory Tests Test 01/28/21 12:39 White Blood Count 6.6 K/UL (4.8-10.8) Red Blood Count 3.83 M/UL (4.20-5.40) L Hemoglobin 10.6 G/DL (12.0-16.0) L Hematocrit 34.1 % (37.0-47.0) L Mean Corpuscular Volume 89 FL (80-99) Mean Corpuscular Hemoglobin 27.5 PG (27.0-31.0) Mean Corpuscular Hemoglobin Concent 31.0 G/DL (32.0-36.0) L Red Cell Distribution Width 12.1 % (11.6-14.8) Platelet Count 320 K/UL (150-450) Mean Platelet Volume 9.2 FL (6.5-10.1) Neutrophils (%) (Auto) 54.7 % (45.0-75.0) Lymphocytes (%) (Auto) 31.9 % (20.0-45.0) Monocytes (%) (Auto) 10.9 % (1.0-10.0) H Eosinophils (%) (Auto) 1.5 % (0.0-3.0) Basophils (%) (Auto) 1.0 % (0.0-2.0) Sodium Level 142 MMOL/L (136-145) Potassium Level 4.3 MMOL/L (3.5-5.1) Chloride Level 106 MMOL/L (98-107) Carbon Dioxide Level 27 MMOL/L (21-32) Anion Gap 9 mmol/L (5-15) Blood Urea Nitrogen 29 mg/dL (7-18) H Creatinine 1.8 MG/DL (0.55-1.30) H Estimated Glomerular Filtration Rate 31.2 mL/min (>60) Glucose Level 47 MG/DL (74-106) L Calcium Level 9.3 MG/DL (8.5-10.1) Troponin I 0.003 ng/mL (0.000-0.056) EKG Diagnostic Results Troponin ordered: Yes When was troponin ordered?: Jan 28, 2021 EKG Time: 12:25 Rate: normal Rhythm: NSR ST Segments: no acute changes Other Impression Sinus rhythm, borderline left axis, septal Q waves consistent with prior EKGs. No ST segment elevation. Rhythm Strip Diag. Results Rhythm Strip Time: 12:25 EP Interpretation: yes Rate: 59 Rhythm: NSR, no PVC's, no ectopy Last Vital Signs Date Time Temp Pulse Resp B/P (MAP) Pulse Ox O2 Delivery O2 Flow Rate FiO2 01/28/21 11:45 97.9 60 18 124/59 (80) 98 Room Air Disposition: HOME, SELF-CARE Condition: Stable Scripts Methocarbamol* (ROBAXIN-750*) 750 Mg Tablet 750 MG PO QID, #28 TAB 0 Refills Prov: Gregor Andrews MD 01/28/21 Lidocaine Patch* (Lidoderm Patch*) 1 Each Adh..patch 1 PATCH TOPIC DAILY, #30 PATCH Patch(es) may remain in place for up to 12 hours in any 24-hour period. Prov: Gregor Andrews MD 01/28/21 Clobetasol Propionate (CLOBETASOL PROPIONATE) 30 Gm Oint...g. 30 GM TP DAILY, #30 GM Prov: Gregor Andrews MD 01/28/21 Patient Instructions: Back Pain, Adult Additional Instructions: Please follow-up with your primary care doctor in the next 1 to 3 days to discuss this emergency department visit and for reevaluation. If you have any new or worsening symptoms please return to the emergency department for reevaluation. Please note that this report is being documented using Evergage technology. This can lead to erroneous entry secondary to incorrect interpretation by the dictating instrument. Gregor Andrews MD Jan 28, 2021 12:15
[2021-01-28 13:09] LABS: EOSINOPHILS % (AUTO) 1.5 % (0.0-3.0); HEMATOCRIT 34.1 % (37.0-47.0); HEMOGLOBIN 10.6 G/DL (12.0-16.0); LYMPHOCYTES % (AUTO) 31.9 % (20.0-45.0); MEAN CORPUSCULAR VOLUME 89 FL (80-99); MONOCYTES % (AUTO) 10.9 % (1.0-10.0); NEUTROPHILS % (AUTO) 54.7 % (45.0-75.0); PLATELET COUNT 320 K/UL (150-450); RED BLOOD COUNT 3.83 M/UL (4.20-5.40); RED CELL DISTRIBUTION WIDTH 12.1 % (11.6-14.8); WHITE BLOOD COUNT 6.6 K/UL (4.8-10.8)
[2021-01-28 13:23] LABS: CALCIUM 9.3 MG/DL (8.5-10.1); CREATININE 1.8 MG/DL (0.55-1.30); POTASSIUM 4.3 MMOL/L (3.5-5.1)
[2021-01-28 13:43] VITALS: BP 124/59
== END 2021-01-28 13:45 | disposition home or self-care (01) ==
LOC: EMR 12:39
DX: M62.830 Muscle spasm of back (principal); L40.9 Psoriasis, unspecified; E16.2 Hypoglycemia, unspecified; Z76.0 Encounter for issue of repeat prescription; I25.10 Atherosclerotic heart disease of native coronary artery without angina pectoris; I10 Essential (primary) hypertension; J45.909 Unspecified asthma, uncomplicated; E11.9 Type 2 diabetes mellitus without complications; Z95.818 Presence of other cardiac implants and grafts; E66.9 Obesity, unspecified; Z68.35 Body mass index [BMI] 35.0-35.9, adult; Z79.82 Long term (current) use of aspirin; Z79.4 Long term (current) use of insulin; Z79.899 Other long term (current) drug therapy
CPT/HCPCS: 36415; 80048; 84484; 85025; 93005; Z7502; 99284